=== PATIENT | female | born 1935 | race Two or more races ===

== ENCOUNTER 2019-06-15 16:27 | Inpatient (IN) | payer OTHER ==
--- NOTE | 2019-06-15 16:32 | PDOC ---
Rapid Medical Evaluation Time Seen by Provider: 06/15/19 16:29 Medical Evaluation: 06/15/19 16:29 I have performed a brief in-person evaluation of this patient. The patient presents with a chief complaint of: head trauma s/p fall while standing from toilet Pertinent physical exam findings: PMHx- alheimer's dementia, DM. Family denies LOC but pt does not answer I have ordered the following: CTH, labs, urine, ekg The patient will proceed to the ED for further evaluation. Discharge Disposition - Diagnosis Head trauma - Referrals - Patient Instructions - Post Discharge Activity
[2019-06-15 17:23] LABS: BASO % 0.5 % (0-2.0); EOS % 1.4 % (0-4.5); HEMATOCRIT 32.8 % (32.4-45.2); HEMOGLOBIN 10.9 GM/dL (10.7-15.3); LYMPH % 16.6 % (8-40); MCHC 33.1 g/dl (32.0-36.0); MEAN CELL VOLUME 87.6 fl (80-96); MEAN PLT VOLUME 8.6 fl (7.5-11.1); MONO % 6.5 % (3.8-10.2); PLATELET COUNT 311 K/MM3 (134-434); RBC 3.75 M/mm3 (3.60-5.2); WHITE BLOOD COUNT 9.7 K/mm3 (4.0-10.0)
[2019-06-15 17:32] LABS: EPI CELLS 4.3 /HPF (0-5/HPF); HYALINE CASTS 1 /lpf (0-8); URINE APPEARANCE CLEAR; URINE BACTERIA 12.9 /hpf (NEGATIVE); URINE BILIRUBIN NEGATIVE (NEGATIVE); URINE COLOR YELLOW; URINE GLUCOSE (UA) 3+ (NEGATIVE); URINE KETONE NEGATIVE (NEGATIVE); URINE LEUK ESTERASE 1+ (NEGATIVE); URINE NITRITE NEGATIVE (NEGATIVE); URINE PROTEIN NEGATIVE (NEGATIVE); URINE RBC 0 /hpf (0-4); URINE UROBILINOGEN 0.2 mg/dL (0.2-1.0); URINE WBC 11 /hpf (0-5)
[2019-06-15 17:36] LABS: INR 0.87 (0.83-1.09); PROTHROMBIN TIME (PATIENT) 10.3 SEC (9.7-13.0)
[2019-06-15 17:52] LABS: ALBUMIN 3.6 g/dl (3.4-5.0); BILIRUBIN,TOTAL 0.5 mg/dL (0.2-1); BLOOD UREA NITROGEN 42.5 mg/dL (7-18); CALCIUM 11.2 mg/dL (8.5-10.1); POTASSIUM 4.8 mmol/L (3.5-5.1); TOT PROT 8.1 g/dl (6.4-8.2)
--- NOTE | 2019-06-15 18:45 | PDOC ---
History of Present Illness - General Chief Complaint: Injury Stated Complaint: FALL/BLOOD SUGAR PROBLEM, DEMENTIA Time Seen by Provider: 06/15/19 16:29 - History of Present Illness Initial Comments: 06/15/19 18:48 84F with pmh of Alzheimer's, stroke and PA s/p bypass on Clopidogrel and pacemaker, presents to the ED after unwitnessed fall after getting up from the bathroom today. She has advanced dementia and doesn't even remember why she is here but her friends are here to help her remember. 06/15/19 19:06 Past History - Past Medical History Allergies/Adverse Reactions: Allergies Allergy/AdvReac Type Severity Reaction Status Date / Time No Allergy Information Allergy Verified 06/15/19 16:34 Available Home Medications: Ambulatory Orders Carvedilol 6.25 mg PO BID 06/15/19 Clopidogrel Bisulfate [Clopidogrel] 75 mg PO DAILY 06/15/19 Digoxin [Lanoxin -] 0.125 mg PO DAILY 06/15/19 Furosemide 20 mg PO DAILY 06/15/19 Glipizide 10 mg PO BID 06/15/19 Lisinopril 10 mg PO DAILY 06/15/19 Memantine HCl 5 mg PO HS 06/15/19 Multivitamin [Multiple Vitamins] 1 each PO DAILY 06/15/19 Simvastatin 20 mg PO HS 06/15/19 Cardiac Disorders: Yes (CHF, BYPASS ON PLAVIX) COPD: No Dementia: Yes Diabetes: Yes HTN: Yes Other medical history: ON PLAVIX - Surgical History Cardiac Surgery: Yes (BYPASS) - Suicide/Smoking/Psychosocial Hx Smoking History: Never smoked Information on smoking cessation initiated: No Hx Alcohol Use: No Drug/Substance Use Hx: No Review of Systems - Review of Systems Able to Perform ROS?: No (Dementia) *Physical Exam - Vital Signs Last Vital Signs Temp Pulse Resp BP Pulse Ox 98.7 F 107 H 18 123/69 98 06/15/19 16:30 06/15/19 16:30 06/15/19 16:30 06/15/19 16:30 06/15/19 16:30 - Physical Exam General Appearance: Yes: Nourished, Appropriately Dressed. No: Apparent Distress HEENT: positive: EOMI, SUJIT, Normal ENT Inspection Respiratory/Chest: positive: Lungs Clear, Normal Breath Sounds. negative: Chest Tender, Respiratory Distress Cardiovascular: positive: Regular Rhythm, Regular Rate, S1, S2 Gastrointestinal/Abdominal: positive: Normal Bowel Sounds, Flat, Soft. negative : Tender Musculoskeletal: positive: Normal Inspection, CVA Tenderness Extremity: positive: Normal Capillary Refill, Normal Inspection, Normal Range of Motion Integumentary: positive: Normal Color, Dry, Warm ED Treatment Course - LABORATORY CBC & Chemistry Diagram: 06/15/19 17:02 06/15/19 17:02 - ADDITIONAL ORDERS Additional order review: Laboratory Results 06/15/19 06/15/19 06/15/19 17:02 17:02 17:02 PT with INR 10.30 INR 0.87 Sodium 131 L Potassium 4.8 Chloride 91 L Carbon Dioxide 27 Anion Gap 14 BUN 42.5 H Creatinine 2.0 H Est GFR (CKD-EPI)AfAm 25.92 Est GFR (CKD-EPI)NonAf 22.36 Random Glucose 352 H Calcium 11.2 H Total Bilirubin 0.5 AST 28 ALT 19 Alkaline Phosphatase 103 Creatine Kinase 80 Troponin I 0.03 Total Protein 8.1 Albumin 3.6 Urine Color Yellow Urine Appearance Clear Urine pH 6.0 Ur Specific [place] 1.018 Urine Protein Negative Urine Glucose (UA) 3+ H Urine Ketones Negative Urine Blood Negative Urine Nitrite Negative Urine Bilirubin Negative Urine Urobilinogen 0.2 Ur Leukocyte Esterase 1+ H Urine WBC (Auto) 11 Urine RBC (Auto) 0 Urine Casts (Auto) 1 U Epithel Cells (Auto) 4.3 Urine Bacteria (Auto) 12.9 06/15/19 17:02 RBC 3.75 MCV 87.6 MCHC 33.1 RDW 13.0 MPV 8.6 Neutrophils % 75.0 Lymphocytes % 16.6 Monocytes % 6.5 Eosinophils % 1.4 Basophils % 0.5 - RADIOLOGY Radiology Studies Ordered: Category Date Time Status CERVICAL SPINE CT W/O CONTR [CT] Stat CT Scan 06/15/19 17:08 Completed Medical Decision Making - Medical Decision Making 06/15/19 18:58 84M with pmh of alzheimers, stroke and mi on Clopidogrel s/p pre-syncope/fall on the head. Ct head and neck negative for fracture or bleed. However patient will need repeat Ct head in 24h due to anticoagulation. Also patient has Pre-renal kidney injury which may be chronic. 06/15/19 19:07 EKG: Atrial sensed ventricular paced rhythm, Biventricular pacemaker detected. Rate: 100, ID: [id number], QRS: 122, QT/QTc: 378/487 Patient to be admitted to tele Obs. *DC/Admit/Observation/Transfer Diagnosis at time of Disposition: Head trauma - Discharge Dispostion Decision to Admit order: Yes - Referrals - Patient Instructions - Post Discharge Activity
--- NOTE | 2019-06-15 18:49 | PDOC ---
Attending Attestation - Resident Resident Name: Rigoberto Bui - ED Attending Attestation I have performed the following: I have examined & evaluated the patient, The case was reviewed & discussed with the resident, I agree w/resident's findings & plan, Exceptions are as noted - HPI HPI: 06/15/19 18:50 84yo F hx dementia, CAD, CHF, HTN, HL, DM presents to the ED after fall. History limited 2/2 pt's dementia. Per pt's family, pt was using the toilet and after she was done, she attempted to stand up from the toilet seat and fell over to the L side. The fall was witnessed by her friend who was in the bathroom with her. She states she does not know how she fell as there was nothing that she tripped on. The left side of her head struck the wall but she had no LOC, no other injuries. Pt takes plavix daily for CAD. Pt denies CP, SOB, headache, fever, chills, N/V/D, visual sxs, dizziness, focal weakness/numbness, abd pain, LE edema. - Physicial Exam PE: 06/15/19 18:53 GENERAL: Awake, alert, oriented to name, in no acute distress HEAD: No signs of trauma EYES: PERRLA, EOMI, sclera anicteric, conjunctiva clear ENT: Auricles normal inspection, hearing grossly normal, nares patent, oropharynx clear without exudates. Moist mucosa NECK: Normal ROM, supple, no lymphadenopathy, JVD, or masses LUNGS: Breath sounds equal, clear to auscultation bilaterally. No wheezes, and no crackles HEART: Regular rate and rhythm, normal S1 and S2, no murmurs, rubs or gallops ABDOMEN: Soft, nontender, normoactive bowel sounds. No guarding, no rebound. No masses EXTREMITIES: Normal range of motion, no edema. No clubbing or cyanosis. No cords, erythema, or tenderness NEUROLOGICAL: Normal speech, cranial nerves intact, equal strength and sensation b/l SKIN: Warm, Dry, normal turgor, no rashes or lesions noted. - Medical Decision Making 84yo F presents to the ED after a fall with head strike. It is unclear how the patient fell today - fall was witnessed and per witness there was nothing that triggered the patient to fall. Labs with elevated creatinine, no baseline to compare and pt/family are not sure about kidney function Initial CTH negative Plan for admission for possible pre-syncope/syncope and rpt CTH
[2019-06-15] MEDS ORDERED: PANTOPRAZOLE 20 MG TABLET (FP) PO ONE (20:28)
[2019-06-15] MEDS ORDERED: SODIUM CHLORIDE 1,000 ML IV SCH (20:30)
--- NOTE | 2019-06-15 20:32 | HP ---
CHIEF COMPLAINT: fall PCP: in [place] HISTORY OF PRESENT ILLNESS: Gloria Moran is an 84 year old female with a past medical history of Alzheimer's dementia, stroke, CO s/p bypass and pacemaker on Plavix, HTN, HLD, DM, CHF (unknown EF), who presented to the ED after having a fall. The patient is visiting from out of town and arrived 3 weeks ago to [place] from [place]. Today she was sitting on the toilet when she leaned to the left side and hit her head on the wall, denied falling to the floor. She denies standing up and falling, denies syncopal episode, denies LOC, denied prodromal dizziness, lightheadedness. She stated that she lost her balance and that is when she hit the wall. Sister at the bedside assisted in providing history. The patient had been taking all of her medication regularly without missing any doses, no recent medication changes, no changes in dietary habits, and has been consuming oral fluids adequately. As per the sister, the patient is currently at her mental baseline. The patient does not use any assistive devices for walking, however the sister states that she has to occasionally help the patient ambulate due to an unsteady gait. The patient denies any additional symptoms at the time of hitting her head and currently of any chest pain, shortness of breath, abdominal pain, nausea, vomiting, fever, chills, dizziness, lightheadedness, diarrhea, urinary symptoms of hesitancy, frequency, dysuria, numbness, tingling, weakness. The patient states that she does have a bit of pain at the site of the head hit , some gastrointestinal reflux symptoms, occasional constipation, and chronic back pain. ER course was notable for: (1) CT head with no acute intracranial pathology. Showing chronic microvascular changes, chronic R basal ganglia infarct, fluid/mucus in the R maxiallary sinus (2) CT cervical spine with multilevel degenerative disc changes, soft tissue calcifications, no acute fractures (3) Na 131, Cl 91, Hb 10.9, UA 3+ glucose, 1+ LE, 11 WBC, 12.9 bacteria Recent Travel: flew from [place] 3 weeks ago PAST MEDICAL HISTORY: as above PAST SURGICAL HISTORY: cardiac bypass Social History: Smoking: denies Alcohol: denies Drugs: denies Family History: denies significant family history Allergies No Allergy Information Available Allergy (Verified 06/15/19 16:34) HOME MEDICATIONS: Home Medications Medication Instructions Recorded Carvedilol 6.25 mg PO BID 06/15/19 Clopidogrel Bisulfate [Clopidogrel] 75 mg PO DAILY 06/15/19 Digoxin [Lanoxin -] 0.125 mg PO DAILY 06/15/19 Furosemide 20 mg PO DAILY 06/15/19 Glipizide 10 mg PO BID 06/15/19 Lisinopril 10 mg PO DAILY 06/15/19 Memantine HCl 5 mg PO HS 06/15/19 Multivitamin [Multiple Vitamins] 1 each PO DAILY 06/15/19 Simvastatin 20 mg PO HS 06/15/19 REVIEW OF SYSTEMS CONSTITUTIONAL: Absent: fever, chills, diaphoresis, generalized weakness, malaise, loss of appetite, weight change HEENT: Absent: nasal congestion, throat pain, throat swelling, difficulty swallowing , visual changes CARDIOVASCULAR: Absent: chest pain, syncope, palpitations, irregular heart rate, lightheadedness , RESPIRATORY: Absent: cough, shortness of breath, dyspnea with exertion, orthopnea, wheezing, GASTROINTESTINAL: reflux symptoms Absent: abdominal pain, abdominal distension, nausea, vomiting, diarrhea, constipation, GENITOURINARY: Absent: dysuria, frequency, urgency, hesitancy, hematuria, flank pain, MUSCULOSKELETAL: back pain Absent: myalgia, arthralgia, joint swelling, neck pain SKIN: Absent: rash, itching, pallor HEMATOLOGIC/IMMUNOLOGIC: Absent: easy bleeding, easy bruising, lymphadenopathy, frequent infections NEUROLOGIC: unsteady gait Absent: headache, focal weakness or paresthesias, dizziness, seizure, mental status changes, bladder or bowel incontinence PSYCHIATRIC: Absent: anxiety, depression, suicidal or homicidal ideation, hallucinations PHYSICAL EXAMINATION Vital Signs - 24 hr 06/15/19 06/15/19 16:30 19:17 Temperature 98.7 F Pulse Rate 107 H Pulse Rate [ 84 Apical] Respiratory 18 18 Rate Blood Pressure 123/69 Blood Pressure 124/63 [Right Arm] O2 Sat by Pulse 98 100 Oximetry (%) GENERAL: Awake, alert, and oriented to self, location (clinic), and year. HEAD: Noted small hematoma/bump on the L medial side of the head. EYES: Pupils equal, round and reactive to light, extraocular movements intact, sclera anicteric. EARS, NOSE, THROAT: Oropharynx clear without exudates. Dry mucous membranes. NECK: Normal range of motion, supple without lymphadenopathy, JVD. Noted thrill of carotid arteries, auscultated bruit. LUNGS: Breath sounds equal, clear to auscultation bilaterally. No wheezes, and no crackles. No accessory muscle use. HEART: Regular rate and rhythm, normal S1 and S2 with soft aortic systolic murmur. ABDOMEN: Soft, nontender, not distended, normoactive bowel sounds, no guarding, no rebound, no masses. MUSCULOSKELETAL: Normal range of motion at all joints. No bony deformities or tenderness. UPPER EXTREMITIES: 2+ pulses, warm, well-perfused. No cyanosis. No clubbing. No peripheral edema. LOWER EXTREMITIES: 1+ pulses, warm, well-perfused. No calf tenderness. No peripheral edema. NEUROLOGICAL: Cranial nerves II-XII intact. 5/5 muscle strength bilaterally upper and lower extremities. Sensation intact throughout to gross touch. Finger to nose intact bilaterally. PSYCHIATRIC: Cooperative. Good eye contact. Flat mood and affect. SKIN: Warm, dry, normal turgor, no rashes or lesions noted, normal capillary refill. Laboratory Results - last 24 hr 06/15/19 06/15/19 06/15/19 17:02 17:02 17:02 WBC 9.7 RBC 3.75 Hgb 10.9 Hct 32.8 MCV 87.6 MCH 29.0 MCHC 33.1 RDW 13.0 Plt Count 311 MPV 8.6 Absolute Neuts (auto) 7.2 Neutrophils % 75.0 Lymphocytes % 16.6 Monocytes % 6.5 Eosinophils % 1.4 Basophils % 0.5 Nucleated RBC % 0 PT with INR 10.30 INR 0.87 Sodium 131 L Potassium 4.8 Chloride 91 L Carbon Dioxide 27 Anion Gap 14 BUN 42.5 H Creatinine 2.0 H Est GFR (CKD-EPI)AfAm 25.92 Est GFR (CKD-EPI)NonAf 22.36 Random Glucose 352 H Calcium 11.2 H Total Bilirubin 0.5 AST 28 ALT 19 Alkaline Phosphatase 103 Creatine Kinase 80 Troponin I 0.03 Total Protein 8.1 Albumin 3.6 Urine Color Urine Appearance Urine pH Ur Specific [place] Urine Protein Urine Glucose (UA) Urine Ketones Urine Blood Urine Nitrite Urine Bilirubin Urine Urobilinogen Ur Leukocyte Esterase Urine WBC (Auto) Urine RBC (Auto) Urine Casts (Auto) U Epithel Cells (Auto) Urine Bacteria (Auto) Blood Type Antibody Screen 06/15/19 06/15/19 17:02 17:02 WBC RBC Hgb Hct MCV MCH MCHC RDW Plt Count MPV Absolute Neuts (auto) Neutrophils % Lymphocytes % Monocytes % Eosinophils % Basophils % Nucleated RBC % PT with INR INR Sodium Potassium Chloride Carbon Dioxide Anion Gap BUN Creatinine Est GFR (CKD-EPI)AfAm Est GFR (CKD-EPI)NonAf Random Glucose Calcium Total Bilirubin AST ALT Alkaline Phosphatase Creatine Kinase Troponin I Total Protein Albumin Urine Color Yellow Urine Appearance Clear Urine pH 6.0 Ur Specific [place] 1.018 Urine Protein Negative Urine Glucose (UA) 3+ H Urine Ketones Negative Urine Blood Negative Urine Nitrite Negative Urine Bilirubin Negative Urine Urobilinogen 0.2 Ur Leukocyte Esterase 1+ H Urine WBC (Auto) 11 Urine RBC (Auto) 0 Urine Casts (Auto) 1 U Epithel Cells (Auto) 4.3 Urine Bacteria (Auto) 12.9 Blood Type O POSITIVE Antibody Screen Negative EKG--> Paced rhythm, rate 100, Qtc 487 ASSESSMENT/PLAN: Gloria Moran is an 84 year old female with a past medical history of Alzheimer's dementia, stroke, CO s/p bypass and pacemaker on Plavix, HTN, HLD, DM, CHF (unknown EF) who is admitted after a fall for workup for causes of fall and monitoring of a head hit on Plavix. Fall HTN HLD DM CHF GERD CKD vs IVETTE CAD Anemia Fall - no hx of syncope and with patient's unsteady gait, multiple medications, elevated CRE, low Na, CHF, suspect a dehydration/hypovolemic cause for fall, r/ o syncopal cause as patient with dementia and fall unwitnessed - CT results as above - repeat head CT after 24 hours to assess for bleeds - gentle hydration until echo results returned to assess cardiac function - encourage oral intake - replete sodium and chloride - neurochecks - EKG with no acute changes - fall precautions - orthostatics - cardio consult for pacemaker interrogation - physical therapy - carotid doppler results showing plaques at proximal right internal carotid artery with stenosis 60-70% with prominent atheroclerotic plaques at the level of carotid bifurcations bilaterally, and antegrade flow of vertebral arteries - as per [employer], carotid stenosis is not a cause of vertigo or syncope and patient should be regarded as asymptomatic in setting of carotid stenosis. Patient however with history of stroke, but over the age of 70 increasing risk of perioperative risks of stroke or with stenting or endarterectomy and currently below 70% stenosis guidelines. likely needing medical management of stenosis and carotid plaques to continue Plavix and escalate dose of statin HTN - continue home medications - monitor vitals to prevent hypotension HLD - continue home simvastatin DM - BGM - ISS - levemir 10 units qhs - A1c CHF - echo to assess cardiac function - hold Lasix as patient appears volume depleted - digoxin level GERD - given one time dose of Protonix CKD vs IVETTE - no baseline of CRE - gentle hydration - renal/kidney U/s showing no hydronephrosis, apparent L atrophic kidney, R kidney borderline in size CAD - continue plavix - continue lipitor Anemia - unclear baseline of Hgb - Hgb 10.9 - reticulocytes, iron studies, ferritin FEN - NS at 50 cc/hr - continue to monitor electrolytes and replete as necessary, noted low Na and Cl - sodium/diabetic diet Prophylaxis - heparin 5000 units subq bid Code - full code STACEY ABDALLA DO - PGY-1 Visit type - Emergency Visit Emergency Visit: Yes ED Registration Date: 06/15/19 Care time: The patient presented to the Emergency Department on the above date and was hospitalized for further evaluation of their emergent condition. - New Patient This patient is new to me today: Yes Date on this admission: 06/16/19 - Critical Care Critical Care patient: No
[2019-06-15] MEDS ORDERED: PANTOPRAZOLE SODIUM 40 MG/100 ML BAG IVPB ONE ×2 (20:35→20:41)
[2019-06-15] MEDS ORDERED: PANTOPRAZOLE 40 MG TABLET (FP) PO ONE (20:37)
[2019-06-15] MEDS: CARVEDILOL 6.25 MG TABLET (FP) PO SCH (23:29)
[2019-06-15] MEDS: ATORVASTATIN CA 10 MG TABLET (FP) PO SCH (23:29)
[2019-06-15] MEDS: MEMANTINE HCL 5 MG TABLET (UD) PO SCH (23:29)
[2019-06-15] MEDS: INSULIN SLIDING SCALE (NOVOLOG) 1 VIAL SQ SCH (23:29)
--- NOTE | 2019-06-16 01:29 | PN ---
Teaching Attending Note Name of Resident: Curt Christy ATTENDING PHYSICIAN STATEMENT I saw and evaluated the patient. Chart, data , imaging reviewed. I reviewed the resident's note and discussed the case with the resident. I agree with the resident's findings and plan as documented. SUBJECTIVE: 84 year old female with a past medical history of Alzheimer's dementia, stroke, [place] s/p bypass and pacemaker on Plavix, HTN, HLD, DM, CHF (unknown EF), s/p cabg ? who presented to the hospital after having a fall- fell in restroom after using toilet. Hit head. Uncertain if LOC as patient has underlying dementia and poor informant. OBJECTIVE: Last Vital Signs Temp Pulse Resp BP Pulse Ox 98.7 F 84 18 124/63 100 06/15/19 16:30 06/15/19 19:17 06/15/19 19:17 06/15/19 19:17 06/15/19 19:17 gen-frail, nontoxic heent -no signs of trauma, nontender cv-s1+s2+rrr chest -clear, b/l breath sounds, anterior vertical scar abdomen-soft, nt, bs ext -no tenderness on palpation Abnormal Lab Results 06/15/19 06/15/19 17:02 17:02 Sodium 131 L Chloride 91 L BUN 42.5 H Creatinine 2.0 H Random Glucose 352 H Calcium 11.2 H Urine Glucose (UA) 3+ H Ur Leukocyte Esterase 1+ H head ct- neg for acute bleed or fracture ASSESSMENT AND PLAN: #s/p fall- no evidence of trauma on exam, head ct, c-spine negative for fractures. Cannot r/o syncope episode- may have been orthostatic vs cardiogenic given extensive cardiac history. -tele-obs -fall precautions -bed rest -cardiac consult- pacemaker interrogation -trend trops -check orthostatics -echo #Uncontrolled hyperglycemia -gentle IV fluid hydration -given underlying chf -novolog sliding scale -levemir 10 units qhs -send a1c -diabetic diet #CHF- obtain prior medical records -c/w bblocker, acei, digoxin home dose -send digoxin level in am -echo -avoid overaggressive hydration #CAD -c/w asa, plavix, statin dvt ppx- heparin sc
--- NOTE | 2019-06-16 01:54 | HP ---
CHIEF COMPLAINT: PCP: HISTORY OF PRESENT ILLNESS: ER course was notable for: (1) (2) (3) Recent Travel: PAST MEDICAL HISTORY: PAST SURGICAL HISTORY: Social History: Smoking: Alcohol: Drugs: Family History: Allergies No Allergy Information Available Allergy (Verified 06/15/19 16:34) HOME MEDICATIONS: Home Medications Medication Instructions Recorded Carvedilol 6.25 mg PO BID 06/15/19 Clopidogrel Bisulfate [Clopidogrel] 75 mg PO DAILY 06/15/19 Digoxin [Lanoxin -] 0.125 mg PO DAILY 06/15/19 Furosemide 20 mg PO DAILY 06/15/19 Glipizide 10 mg PO BID 06/15/19 Lisinopril 10 mg PO DAILY 06/15/19 Memantine HCl 5 mg PO HS 06/15/19 Multivitamin [Multiple Vitamins] 1 each PO DAILY 06/15/19 Simvastatin 20 mg PO HS 06/15/19 REVIEW OF SYSTEMS CONSTITUTIONAL: Absent: fever, chills, diaphoresis, generalized weakness, malaise, loss of appetite, weight change HEENT: Absent: rhinorrhea, nasal congestion, throat pain, throat swelling, difficulty swallowing, mouth swelling, ear pain, eye pain, visual changes CARDIOVASCULAR: Absent: chest pain, syncope, palpitations, irregular heart rate, lightheadedness , peripheral edema RESPIRATORY: Absent: cough, shortness of breath, dyspnea with exertion, orthopnea, wheezing, stridor, hemoptysis GASTROINTESTINAL: Absent: abdominal pain, abdominal distension, nausea, vomiting, diarrhea, constipation, melena, hematochezia GENITOURINARY: Absent: dysuria, frequency, urgency, hesitancy, hematuria, flank pain, genital pain MUSCULOSKELETAL: Absent: myalgia, arthralgia, joint swelling, back pain, neck pain SKIN: Absent: rash, itching, pallor HEMATOLOGIC/IMMUNOLOGIC: Absent: easy bleeding, easy bruising, lymphadenopathy, frequent infections ENDOCRINE: Absent: unexplained weight gain, unexplained weight loss, heat intolerance, cold intolerance NEUROLOGIC: Absent: headache, focal weakness or paresthesias, dizziness, unsteady gait, seizure, mental status changes, bladder or bowel incontinence PSYCHIATRIC: Absent: anxiety, depression, suicidal or homicidal ideation, hallucinations. PHYSICAL EXAMINATION Vital Signs - 24 hr 06/15/19 06/15/19 16:30 19:17 Temperature 98.7 F Pulse Rate 107 H Pulse Rate [ 84 Apical] Respiratory 18 18 Rate Blood Pressure 123/69 Blood Pressure 124/63 [Right Arm] O2 Sat by Pulse 98 100 Oximetry (%) GENERAL: Awake, alert, and fully oriented, in no acute distress. HEAD: Normal with no signs of trauma. EYES: Pupils equal, round and reactive to light, extraocular movements intact, sclera anicteric, conjunctiva clear. No lid lag. EARS, NOSE, THROAT: Ears normal, nares patent, oropharynx clear without exudates. Moist mucous membranes. NECK: Normal range of motion, supple without lymphadenopathy, JVD, or masses. LUNGS: Breath sounds equal, clear to auscultation bilaterally. No wheezes, and no crackles. No accessory muscle use. HEART: Regular rate and rhythm, normal S1 and S2 without murmur, rub or gallop. ABDOMEN: Soft, nontender, not distended, normoactive bowel sounds, no guarding, no rebound, no masses. No hepatomegaly or splenomegaly. MUSCULOSKELETAL: Normal range of motion at all joints. No bony deformities or tenderness. No CVA tenderness. UPPER EXTREMITIES: 2+ pulses, warm, well-perfused. No cyanosis. No clubbing. No peripheral edema. LOWER EXTREMITIES: 2+ pulses, warm, well-perfused. No calf tenderness. No peripheral edema. NEUROLOGICAL: Cranial nerves II-XII intact. Normal speech. Normal gait. PSYCHIATRIC: Cooperative. Good eye contact. Appropriate mood and affect. SKIN: Warm, dry, normal turgor, no rashes or lesions noted, normal capillary refill. Laboratory Results - last 24 hr 06/15/19 06/15/19 06/15/19 17:02 17:02 17:02 WBC 9.7 RBC 3.75 Hgb 10.9 Hct 32.8 MCV 87.6 MCH 29.0 MCHC 33.1 RDW 13.0 Plt Count 311 MPV 8.6 Absolute Neuts (auto) 7.2 Neutrophils % 75.0 Lymphocytes % 16.6 Monocytes % 6.5 Eosinophils % 1.4 Basophils % 0.5 Nucleated RBC % 0 PT with INR 10.30 INR 0.87 Sodium 131 L Potassium 4.8 Chloride 91 L Carbon Dioxide 27 Anion Gap 14 BUN 42.5 H Creatinine 2.0 H Est GFR (CKD-EPI)AfAm 25.92 Est GFR (CKD-EPI)NonAf 22.36 POC Glucometer Random Glucose 352 H Calcium 11.2 H Total Bilirubin 0.5 AST 28 ALT 19 Alkaline Phosphatase 103 Creatine Kinase 80 Troponin I 0.03 Total Protein 8.1 Albumin 3.6 Urine Color Urine Appearance Urine pH Ur Specific [place] Urine Protein Urine Glucose (UA) Urine Ketones Urine Blood Urine Nitrite Urine Bilirubin Urine Urobilinogen Ur Leukocyte Esterase Urine WBC (Auto) Urine RBC (Auto) Urine Casts (Auto) U Epithel Cells (Auto) Urine Bacteria (Auto) Blood Type Antibody Screen 06/15/19 06/15/19 06/15/19 17:02 17:02 23:05 WBC RBC Hgb Hct MCV MCH MCHC RDW Plt Count MPV Absolute Neuts (auto) Neutrophils % Lymphocytes % Monocytes % Eosinophils % Basophils % Nucleated RBC % PT with INR INR Sodium Potassium Chloride Carbon Dioxide Anion Gap BUN Creatinine Est GFR (CKD-EPI)AfAm Est GFR (CKD-EPI)NonAf POC Glucometer 190 Random Glucose Calcium Total Bilirubin AST ALT Alkaline Phosphatase Creatine Kinase Troponin I Total Protein Albumin Urine Color Yellow Urine Appearance Clear Urine pH 6.0 Ur Specific [place] 1.018 Urine Protein Negative Urine Glucose (UA) 3+ H Urine Ketones Negative Urine Blood Negative Urine Nitrite Negative Urine Bilirubin Negative Urine Urobilinogen 0.2 Ur Leukocyte Esterase 1+ H Urine WBC (Auto) 11 Urine RBC (Auto) 0 Urine Casts (Auto) 1 U Epithel Cells (Auto) 4.3 Urine Bacteria (Auto) 12.9 Blood Type O POSITIVE Antibody Screen Negative ASSESSMENT/PLAN: ATTENDING PHYSICIAN STATEMENT I saw and evaluated the patient. I reviewed the resident's note and discussed the case with the resident. I agree with the resident's findings and plan as documented. SUBJECTIVE: OBJECTIVE: ASSESSMENT AND PLAN:
[2019-06-16] MEDS: INSULIN SLIDING SCALE (NOVOLOG) 1 VIAL SQ SCH ×4 (06:20→22:19)
[2019-06-16 07:59] LABS: BASO % 0.4 % (0-2.0); EOS % 2.6 % (0-4.5); HEMATOCRIT 33.1 % (32.4-45.2); HEMOGLOBIN 10.9 GM/dL (10.7-15.3); LYMPH % 20.4 % (8-40); MCH 28.7 pg (25.7-33.7); MCHC 32.8 g/dl (32.0-36.0); MEAN CELL VOLUME 87.3 fl (80-96); MEAN PLT VOLUME 8.5 fl (7.5-11.1); MONO % 6.3 % (3.8-10.2); NEUT % 70.3 % (42.8-82.8); PLATELET COUNT 283 K/MM3 (134-434); RBC 3.79 M/mm3 (3.60-5.2); RDW 13.2 % (11.6-15.6); WHITE BLOOD COUNT 9.7 K/mm3 (4.0-10.0)
[2019-06-16 08:22] LABS: CREATININE 1.8 mg/dL (0.55-1.3); MAGNESIUM 1.7 mg/dL (1.8-2.4); POTASSIUM 4.5 mmol/L (3.5-5.1)
[2019-06-16] MEDS: CLOPIDOGREL BISULFATE 75 MG TABLET (FP) PO SCH (09:49)
[2019-06-16] MEDS: ASPIRIN 81 MG CHEWABLE TABLETS PO SCH (09:49)
[2019-06-16] MEDS: DIGOXIN 0.125 MG TABLET (FP) PO SCH (09:49)
[2019-06-16] MEDS: MULTIVITAMINS (DAILY MVI) TABLET (FP) PO SCH (09:50)
[2019-06-16] MEDS: CARVEDILOL 6.25 MG TABLET (FP) PO SCH ×2 (09:50→22:17)
--- NOTE | 2019-06-16 09:54 | CON.CARD ---
Consult Consult Specialty:: Cardiology Referred by:: Dr. Parekh Reason for Consultation:: fall - History of Present Illness Chief Complaint: fall at home History of Present Illness: Gloria Moran is an 84 year old female with a past medical history of Alzheimer's dementia, stroke, ND s/p bypass and pacemaker on Plavix, HTN, HLD, DM, CHF (unknown EF), who presented to the ED after having a fall. The patient is visiting from out of town and arrived 3 weeks ago to [place] from [place]. Today she was sitting on the toilet when she leaned to the left side and hit her head on the wall, denied falling to the floor. She denies standing up and falling, denies syncopal episode, denies LOC, denied prodromal dizziness, lightheadedness. She stated that she lost her balance and that is when she hit the wall. Sister at the bedside assisted in providing history. The patient had been taking all of her medication regularly without missing any doses, no recent medication changes, no changes in dietary habits, and has been consuming oral fluids adequately. As per the sister, the patient is currently at her mental baseline. The patient does not use any assistive devices for walking, however the sister states that she has to occasionally help the patient ambulate due to an unsteady gait. The patient denies any additional symptoms at the time of hitting her head and currently of any chest pain, shortness of breath, abdominal pain, nausea, vomiting, fever, chills, dizziness, lightheadedness, diarrhea, urinary symptoms of hesitancy, frequency, dysuria, numbness, tingling, weakness. The patient states that she does have a bit of pain at the site of the head hit , some gastrointestinal reflux symptoms, occasional constipation, and chronic back pain. ER course was notable for: (1) CT head with no acute intracranial pathology. Showing chronic microvascular changes, chronic R basal ganglia infarct, fluid/mucus in the R maxiallary sinus (2) CT cervical spine with multilevel degenerative disc changes, soft tissue calcifications, no acute fractures (3) Na 131, Cl 91, Hb 10.9, UA 3+ glucose, 1+ LE, 11 WBC, 12.9 bacteria Recent Travel: flew from [place] 3 weeks ago - History Source History Provided By: Patient, Medical Record - Past Medical History Cardio/Vascular: Yes: CAD, Other (PPM) Pulmonary: No: Asthma, Bronchitis, Cancer, COPD, O2 Dependent, Pneumonia, Previously Intubated, Pulmonary Embolus, Pulmonary Fibrosis, Sleep Apnea, Other Gastrointestinal: No: Ascites, Cancer, Constipation, Crohn's Disease, Diverticulitis, Diverticulosis, Esophageal Varices, Gastritis, GERD, GI Bleed, Hemorrhoids, Hiatal Hernia, Inflamatory Bowel Disease, Irritable Bowel Disease, Pancreatitis, Peptic Ulcer Disease, Ulcerative Colitis, Other Hepatobiliary: No: Cirrhosis, Cholelithiasis, Cholecystitis, Choledocholithiasis , Hepatitis A, Hepatitis B, Hepatitis C, Other Renal/: No: Renal Failure, Renal Inusuff, BPH, Cancer, Hematuria, Hemodialysis , Neurogenic Bladder, Renal Calculi, UTI, Other Reproductive: No: Ectopic , Endometriosis, Fibroids, PID, Polycystic Ovary Syndrome, Postmenopausal, Other ...: No - Alcohol/Substance Use Hx Alcohol Use: No - Smoking History Smoking history: Never smoked Have you smoked in the past 12 months: No - Social History History of Recent Travel: Yes ([place]) Home Medications - Allergies Allergies/Adverse Reactions: Allergies Allergy/AdvReac Type Severity Reaction Status Date / Time No Allergy Information Allergy Verified 06/15/19 16:34 Available - Home Medications Home Medications: Ambulatory Orders Carvedilol 6.25 mg PO BID 06/15/19 Clopidogrel Bisulfate [Clopidogrel] 75 mg PO DAILY 06/15/19 Digoxin [Lanoxin -] 0.125 mg PO DAILY 06/15/19 Furosemide 20 mg PO DAILY 06/15/19 Glipizide 10 mg PO BID 06/15/19 Lisinopril 10 mg PO DAILY 06/15/19 Memantine HCl 5 mg PO HS 06/15/19 Multivitamin [Multiple Vitamins] 1 each PO DAILY 06/15/19 Simvastatin 20 mg PO HS 06/15/19 Family Disease History - Family Disease History Family History: Unremarkable (no early CAD) Review of Systems - Review of Systems Constitutional: reports: No Symptoms Eyes: reports: No Symptoms HENT: reports: No Symptoms Neck: reports: No Symptoms Respiratory: reports: SOB on Exertion (chronic HERNANDEZ) Gastrointestinal: reports: No Symptoms Genitourinary: reports: No Symptoms Breasts: reports: No Symptoms Reported Musculoskeletal: reports: No Symptoms Integumentary: reports: No Symptoms Neurological: reports: Other (fall) - Risk Factors Known Risk Factors: Yes: Other (known CAD, PPM, Cardiomyopathy) Vital Signs: Vital Signs Temperature 98.1 F 06/16/19 09:31 Pulse Rate 92 H 06/16/19 09:49 Respiratory Rate 19 06/16/19 09:31 Blood Pressure 116/65 06/16/19 09:49 O2 Sat by Pulse Oximetry (%) 100 06/16/19 06:50 Respiratory: Yes: CTA Bilaterally Gastrointestinal: Yes: Soft Cardiovascular: Yes: Regular Rate and Rhythm JVD: No Carotid Bruit: No Heart Sounds: Yes: S1, S2 Edema: No Neurological: Yes: Alert, Oriented - Other Data Labs, Other Data: CBC, BMP 06/16/19 06:30 06/16/19 06:30 INR, PTT INR 0.87 (0.83-1.09) 06/15/19 17:02 Troponin, BNP 06/15/19 17:02 Troponin I 0.03 Troponin, BNP 06/15/19 17:02 Troponin I 0.03 Echo: Pending Prior Cardiac Procedures: CABG Imaging - Results Chest X-ray: Image Reviewed EKG: Image Reviewed (As-AGRONOMY ADVISOR on tele) Assessment/Plan IMP: Fall-circumstances unclear at this time Renal insufficiency: ?acute, ?pre-renal Hyponatremia Known CAD, ? Cardiomyopathy (home med regimen suggestive) H/o PPM REC: 1. Tele 2. Echo 3. Will try to interrogate device while inpatient 4. Hydrate and work up of renal insuffici, hyponatremia as per primary team 5. Check orthostatics and adjust meds if found to be orthostatic will follow.
[2019-06-16] MEDS ORDERED: HEPARIN NA (PORCINE) 5,000 UNITS/ML 1ML VIAL SQ SCH (10:00)
[2019-06-16] MEDS ORDERED: FUROSEMIDE 20 MG TABLET (FP) PO SCH (10:00)
[2019-06-16] MEDS ORDERED: DIGOXIN 0.125 MG TABLET (FP) PO SCH (10:00)
[2019-06-16] MEDS ORDERED: LISINOPRIL 10 MG TABLET (FP) PO SCH (10:00)
--- NOTE | 2019-06-16 10:48 | ECHO ---
Name: CLARISSE MONTES DE OCA Exam:Adult Echocardiogram Study Date: 06/16/2019 08:40 AM Age: 84 yrs Reason For Study: SYNCOPE Height: 59 in Weight: 80 lb BSA: 1.2 m2 MMode/2D Measurements & Calculations IVSd: 0.77 cm Ao root diam: 2.5 cm LVIDd: 3.8 cm LA dimension: 2.1 cm LVIDs: 2.8 cm LVPWd: 0.99 cm EDV(Teich): 63.4 ml LVOT diam: 2.0 cm ESV(Teich): 30.7 ml LAV (MOD-bp): 26.1 ml Doppler Measurements & Calculations MV V2 max: 183.2 cm/sec MV E max manuel: 75.9 cm/sec MV max P.4 mmHg MV A max manuel: 138.9 cm/sec MV V2 mean: 93.0 cm/sec MV E/A: 0.55 MV mean P.2 mmHg MV dec time: 0.15 sec MV V2 VTI: 33.7 cm Ao V2 max: 173.7 cm/sec LV V1 max P.9 mmHg Ao max P.1 mmHg LV V1 max: 84.9 cm/sec BRIAN(V,D): 1.5 cm2 TR max manuel: 257.9 cm/sec PA V2 max: 95.0 cm/sec TR max P.6 mmHg PA max P.6 mmHg Med Peak E' Manuel: 4.2 cm/sec Med E/e': 17.9 Lat Peak E' Manuel: 3.9 cm/sec Lat E/e': 19.4 Left Ventricle Ejection Fraction = 40-45%. Septal motion is consistent with conduction abnormality. Right Ventricle There is a pacemaker lead in the right ventricle. The right ventricle is normal in size and function. Atria Normal left and right atrial size and function. Mitral Valve There is moderate to severe mitral annular calcification. Functional mitral valve stenosis secondary to MAC. Tricuspid Valve The tricuspid valve is normal in structure and function. There is mild tricuspid regurgitation. Right ventricular systolic pressure is normal. Aortic Valve There is mild aortic sclerosis.;. No hemodynamically significant valvular aortic stenosis. No aortic regurgitation is present. Pulmonic Valve The pulmonic valve is not well seen, but is grossly normal. There is no pulmonic valvular stenosis. T race pulmonic valvular regurgitation. Great Vessels The aortic root is normal size. Pericardium/Pleura There is no pericardial effusion. Interpretation Summary Ejection Fraction = 40-45%. Septal motion is consistent with conduction abnormality. There is a pacemaker lead in the right ventricle. The right ventricle is normal in size and function. There is moderate to severe mitral annular calcification. Functional mitral valve stenosis secondary to MAC There is mild tricuspid regurgitation. Right ventricular systolic pressure is normal. There is mild aortic sclerosis.; MD Nader Starkey 06/16/2019 10:47 AM
[2019-06-16] MEDS: SODIUM CHLORIDE 1,000 ML IV SCH (12:50)
--- NOTE | 2019-06-16 13:51 | EKG ---
Test Reason : Blood Pressure : / mmHG Vent. Rate : 097 BPM Atrial Rate : 097 BPM P-R Int : 156 ms QRS Dur : 120 ms QT Int : 378 ms P-R-T Axes : 057 -85 063 degrees QTc Int : 480 ms Atrial-sensed ventricular-paced rhythm Biventricular pacemaker detected ABNORMAL ECG WHEN COMPARED WITH ECG OF 15-JUN-2019 16:38, VENT. RATE HAS DECREASED BY 3 BPM Confirmed by SHERINE LYON, LYLE ([id number]) on 06/16/2019 1:50:58 PM Referred By: CARMEL HOGAN DR Confirmed By:LYLE BASURTO MD
--- NOTE | 2019-06-16 14:10 | EKG ---
Test Reason : Blood Pressure : / mmHG Vent. Rate : 100 BPM Atrial Rate : 100 BPM P-R Int : 148 ms QRS Dur : 122 ms QT Int : 378 ms P-R-T Axes : 063 -78 079 degrees QTc Int : 487 ms Atrial-sensed ventricular-paced rhythm Biventricular pacemaker detected ABNORMAL ECG NO PREVIOUS ECGS AVAILABLE Confirmed by LYLE BASURTO MD ([id number]) on 06/16/2019 2:09:39 PM Referred By: Confirmed By:LYLE BASURTO MD
--- NOTE | 2019-06-16 15:18 | PN ---
Physical Exam: SUBJECTIVE: Patient seen and examined. Pt was sitting in bed eating with no acute complaints. OBJECTIVE: Vital Signs Period Temp Pulse Resp BP Sys/Esparza Pulse Ox Last 24 Hr 96.5 F-98.7 F 82-107 14-20 91-140/44-79 98-100 GENERAL: The patient is awake, alert, AAOx2, in no acute distress. HEAD: Normal with no signs of trauma. EYES: PERRL, extraocular movements intact, sclera anicteric, conjunctiva clear. No ptosis. ENT: Ears normal, nares patent, oropharynx clear without exudates, mucous membranes are dry LUNGS: Breath sounds equal, clear to auscultation bilaterally, no wheezes, no crackles, no accessory muscle use. HEART: Regular rate and rhythm, S1, S2 without murmur, rub or gallop. ABDOMEN: Soft, nontender, nondistended, normoactive bowel sounds, no guarding, no rebound, no hepatosplenomegaly, no masses. EXTREMITIES: 2+ pulses, warm, well-perfused, no edema. NEUROLOGICAL: Cranial nerves II through XII grossly intact. Normal speech, gait not observed. imcomplete exam due to poor compliance Laboratory Results - last 24 hr 06/15/19 06/15/19 06/15/19 06:30 17:02 17:02 WBC 9.7 RBC 3.75 Hgb 10.9 Hct 32.8 MCV 87.6 MCH 29.0 MCHC 33.1 RDW 13.0 Plt Count 311 MPV 8.6 Absolute Neuts (auto) 7.2 Neutrophils % 75.0 Lymphocytes % 16.6 Monocytes % 6.5 Eosinophils % 1.4 Basophils % 0.5 Nucleated RBC % 0 Retic Count PT with INR INR Sodium 131 L Potassium 4.8 Chloride 91 L Carbon Dioxide 27 Anion Gap 14 BUN 42.5 H Creatinine 2.0 H Est GFR (CKD-EPI)AfAm 25.92 Est GFR (CKD-EPI)NonAf 22.36 POC Glucometer Random Glucose 352 H Hemoglobin A1c % Calcium 11.2 H Magnesium Iron TIBC Iron Saturation Unsaturated IBC Ferritin Total Bilirubin 0.5 AST 28 ALT 19 Alkaline Phosphatase 103 Creatine Kinase 80 Troponin I 0.03 Total Protein 8.1 Albumin 3.6 Urine Color Urine Appearance Urine pH Ur Specific Jasper Urine Protein Urine Glucose (UA) Urine Ketones Urine Blood Urine Nitrite Urine Bilirubin Urine Urobilinogen Ur Leukocyte Esterase Urine WBC (Auto) Urine RBC (Auto) Urine Casts (Auto) U Epithel Cells (Auto) Urine Bacteria (Auto) Ur Random Creatinine Ur Random Sodium Ur Random Potassium Ur Random Chloride Ur Random Urea Nitrogn Digoxin Blood Type O POSITIVE Antibody Screen 06/15/19 06/15/19 06/15/19 17:02 17:02 17:02 WBC RBC Hgb Hct MCV MCH MCHC RDW Plt Count MPV Absolute Neuts (auto) Neutrophils % Lymphocytes % Monocytes % Eosinophils % Basophils % Nucleated RBC % Retic Count PT with INR 10.30 INR 0.87 Sodium Potassium Chloride Carbon Dioxide Anion Gap BUN Creatinine Est GFR (CKD-EPI)AfAm Est GFR (CKD-EPI)NonAf POC Glucometer Random Glucose Hemoglobin A1c % Calcium Magnesium Iron TIBC Iron Saturation Unsaturated IBC Ferritin Total Bilirubin AST ALT Alkaline Phosphatase Creatine Kinase Troponin I Total Protein Albumin Urine Color Yellow Urine Appearance Clear Urine pH 6.0 Ur Specific Jasper 1.018 Urine Protein Negative Urine Glucose (UA) 3+ H Urine Ketones Negative Urine Blood Negative Urine Nitrite Negative Urine Bilirubin Negative Urine Urobilinogen 0.2 Ur Leukocyte Esterase 1+ H Urine WBC (Auto) 11 Urine RBC (Auto) 0 Urine Casts (Auto) 1 U Epithel Cells (Auto) 4.3 Urine Bacteria (Auto) 12.9 Ur Random Creatinine Ur Random Sodium Ur Random Potassium Ur Random Chloride Ur Random Urea Nitrogn Digoxin Blood Type O POSITIVE Antibody Screen Negative 06/15/19 06/16/19 06/16/19 23:05 06:18 06:30 WBC 9.7 RBC 3.79 Hgb 10.9 Hct 33.1 MCV 87.3 MCH 28.7 MCHC 32.8 RDW 13.2 Plt Count 283 MPV 8.5 Absolute Neuts (auto) 6.8 Neutrophils % 70.3 Lymphocytes % 20.4 D Monocytes % 6.3 Eosinophils % 2.6 D Basophils % 0.4 Nucleated RBC % 0 Retic Count PT with INR INR Sodium Potassium Chloride Carbon Dioxide Anion Gap BUN Creatinine Est GFR (CKD-EPI)AfAm Est GFR (CKD-EPI)NonAf POC Glucometer 190 80 Random Glucose Hemoglobin A1c % Calcium Magnesium Iron TIBC Iron Saturation Unsaturated IBC Ferritin Total Bilirubin AST ALT Alkaline Phosphatase Creatine Kinase Troponin I Total Protein Albumin Urine Color Urine Appearance Urine pH Ur Specific [place] Urine Protein Urine Glucose (UA) Urine Ketones Urine Blood Urine Nitrite Urine Bilirubin Urine Urobilinogen Ur Leukocyte Esterase Urine WBC (Auto) Urine RBC (Auto) Urine Casts (Auto) U Epithel Cells (Auto) Urine Bacteria (Auto) Ur Random Creatinine Ur Random Sodium Ur Random Potassium Ur Random Chloride Ur Random Urea Nitrogn Digoxin Blood Type Antibody Screen 06/16/19 06/16/19 06/16/19 06:30 06:30 06:30 WBC RBC Hgb Hct MCV MCH MCHC RDW Plt Count MPV Absolute Neuts (auto) Neutrophils % Lymphocytes % Monocytes % Eosinophils % Basophils % Nucleated RBC % Retic Count 1.20 PT with INR INR Sodium 134 L Potassium 4.5 Chloride 98 Carbon Dioxide 25 Anion Gap 12 BUN 43.0 H Creatinine 1.8 H Est GFR (CKD-EPI)AfAm 29.44 Est GFR (CKD-EPI)NonAf 25.40 POC Glucometer Random Glucose 72 L Hemoglobin A1c % Calcium 11.0 H Magnesium 1.7 L Iron 34 L TIBC 311 Iron Saturation 10 L Unsaturated IBC 277 H Ferritin 34.8 Total Bilirubin AST ALT Alkaline Phosphatase Creatine Kinase Troponin I Total Protein Albumin Urine Color Urine Appearance Urine pH Ur Specific Jasper Urine Protein Urine Glucose (UA) Urine Ketones Urine Blood Urine Nitrite Urine Bilirubin Urine Urobilinogen Ur Leukocyte Esterase Urine WBC (Auto) Urine RBC (Auto) Urine Casts (Auto) U Epithel Cells (Auto) Urine Bacteria (Auto) Ur Random Creatinine Ur Random Sodium Ur Random Potassium Ur Random Chloride Ur Random Urea Nitrogn Digoxin Blood Type Antibody Screen 06/16/19 06/16/19 06/16/19 06:30 06:30 09:45 WBC RBC Hgb Hct MCV MCH MCHC RDW Plt Count MPV Absolute Neuts (auto) Neutrophils % Lymphocytes % Monocytes % Eosinophils % Basophils % Nucleated RBC % Retic Count PT with INR INR Sodium Potassium Chloride Carbon Dioxide Anion Gap BUN Creatinine Est GFR (CKD-EPI)AfAm Est GFR (CKD-EPI)NonAf POC Glucometer Random Glucose Hemoglobin A1c % 15.8 H Calcium Magnesium Iron TIBC Iron Saturation Unsaturated IBC Ferritin Total Bilirubin AST ALT Alkaline Phosphatase Creatine Kinase Troponin I Total Protein Albumin Urine Color Urine Appearance Urine pH Ur Specific Jasper Urine Protein Urine Glucose (UA) Urine Ketones Urine Blood Urine Nitrite Urine Bilirubin Urine Urobilinogen Ur Leukocyte Esterase Urine WBC (Auto) Urine RBC (Auto) Urine Casts (Auto) U Epithel Cells (Auto) Urine Bacteria (Auto) Ur Random Creatinine 48.0 Ur Random Sodium 30 L Ur Random Potassium 39.0 Ur Random Chloride 45 L Ur Random Urea Nitrogn 479 Digoxin 0.94 Blood Type Antibody Screen 06/16/19 06/16/19 06/16/19 09:45 09:45 12:09 WBC RBC Hgb Hct MCV MCH MCHC RDW Plt Count MPV Absolute Neuts (auto) Neutrophils % Lymphocytes % Monocytes % Eosinophils % Basophils % Nucleated RBC % Retic Count PT with INR INR Sodium Potassium Chloride Carbon Dioxide Anion Gap BUN Creatinine Est GFR (CKD-EPI)AfAm Est GFR (CKD-EPI)NonAf POC Glucometer 116 Random Glucose Hemoglobin A1c % Calcium Magnesium Iron TIBC Iron Saturation Unsaturated IBC Ferritin Total Bilirubin AST ALT Alkaline Phosphatase Creatine Kinase Troponin I Total Protein Albumin Urine Color Urine Appearance Urine pH Ur Specific [place] Urine Protein Urine Glucose (UA) Urine Ketones Urine Blood Urine Nitrite Urine Bilirubin Urine Urobilinogen Ur Leukocyte Esterase Urine WBC (Auto) Urine RBC (Auto) Urine Casts (Auto) U Epithel Cells (Auto) Urine Bacteria (Auto) Ur Random Creatinine Cancelled Ur Random Sodium Cancelled Ur Random Potassium Ur Random Chloride Ur Random Urea Nitrogn Digoxin Blood Type Antibody Screen 06/16/19 12:15 WBC RBC Hgb Hct MCV MCH MCHC RDW Plt Count MPV Absolute Neuts (auto) Neutrophils % Lymphocytes % Monocytes % Eosinophils % Basophils % Nucleated RBC % Retic Count PT with INR INR Sodium Potassium Chloride Carbon Dioxide Anion Gap BUN Creatinine Est GFR (CKD-EPI)AfAm Est GFR (CKD-EPI)NonAf POC Glucometer Random Glucose Hemoglobin A1c % Calcium Magnesium Iron TIBC Iron Saturation Unsaturated IBC Ferritin Total Bilirubin AST ALT Alkaline Phosphatase Creatine Kinase Troponin I 0.03 Total Protein Albumin Urine Color Urine Appearance Urine pH Ur Specific Jasper Urine Protein Urine Glucose (UA) Urine Ketones Urine Blood Urine Nitrite Urine Bilirubin Urine Urobilinogen Ur Leukocyte Esterase Urine WBC (Auto) Urine RBC (Auto) Urine Casts (Auto) U Epithel Cells (Auto) Urine Bacteria (Auto) Ur Random Creatinine Ur Random Sodium Ur Random Potassium Ur Random Chloride Ur Random Urea Nitrogn Digoxin Blood Type Antibody Screen Active Medications Generic Name Dose Route Start Last Admin Trade Name Freq PRN Reason Stop Dose Admin Aspirin 81 mg 06/16/19 10:00 06/16/19 09:49 Asa - PO 81 mg DAILY BRANDYN Administration Atorvastatin Calcium 10 mg 06/15/19 22:00 06/15/19 23:29 Lipitor - PO 10 mg HS BRANDYN Administration Carvedilol 6.25 mg 06/15/19 22:00 06/16/19 09:50 Coreg - PO 6.25 mg BID BRANDYN Administration Clopidogrel Bisulfate 75 mg 06/16/19 10:00 06/16/19 09:49 Plavix - PO 75 mg DAILY BRANDYN Administration Digoxin 0.125 mg 06/16/19 10:00 06/16/19 09:49 Lanoxin - PO 0.125 mg Q36H BRANDYN Administration Furosemide 20 mg 06/16/19 10:00 Lasix - PO DAILY [facility] Heparin Sodium (Porcine) 5,000 unit 06/16/19 10:00 06/16/19 09:50 Heparin - SQ 5,000 unit BID BRANDYN Administration Sodium Chloride 1,000 mls @ 75 mls/hr 06/16/19 10:45 06/16/19 12:50 Normal Saline - IV 75 mls/hr ASDIR [facility] Administration Insulin Aspart 1 vial 06/15/19 22:00 06/16/19 12:10 Novolog Vial Sliding Scale - SQ Not Given [facility] Protocol Insulin Detemir 5 units 06/16/19 22:00 Levemir Vial SQ HS [facility] Lisinopril 10 mg 06/16/19 10:00 06/16/19 09:49 Prinivil PO 10 mg DAILY [facility] Administration Memantine 5 mg 06/15/19 22:00 06/15/19 23:29 Namenda - PO 5 mg HS BRANDYN Administration Multivitamins/Minerals/Vitamin C 1 tab 06/16/19 10:00 06/16/19 09:50 Tab-A-Vit - PO 1 tab DAILY [facility] Administration Potassium Phos/Sodium Phos 1 packet 06/17/19 10:00 Phos-Nak Packet - PO DAILY [facility] ASSESSMENT/PLAN: Fall - no hx of syncope and with patient's unsteady gait, multiple medications, elevated CRE, low Na, CHF, suspect a dehydration/hypovolemic cause for fall, r/ o syncopal cause as patient with dementia and fall unwitnessed EKG with no acute changes orthostatics -> IVS NS 75mls/hr echo showed an EF of 40-45%, pacemaker lead in RV. Mod-severe Mitral annular calcification. MS 2/2 mitral annular calcification. Mild TR, Mild cardio will follow up for pacemaker interrogation physical therapy fall precautions HTN continue home medications monitor vitals to prevent hypotension HLD continue home simvastatin DM Blood glucose monitoring pt on ISS levemir 10 units qhs decreased to 5 units due to severe drop in glucose from 300s to 72 A1c 15.8% CHF echoas described above hold Lasix as patient appears volume depleted digoxin level 0.94 CKD vs IVETTE no baseline of CRE gentle hydration renal/kidney U/s showing no hydronephrosis, apparent L atrophic kidney, R kidney borderline in size Urine electrolytes as noted above in labs CAD continue plavix and lipitor FEN - NS at 75 cc/hr - continue to monitor electrolytes and replete as necessary, noted low Na and Cl - sodium/diabetic diet Prophylaxis - heparin 5000 units subq bid Visit type - Emergency Visit Emergency Visit: Yes ED Registration Date: 06/15/19 Care time: The patient presented to the Emergency Department on the above date and was hospitalized for further evaluation of their emergent condition. - New Patient This patient is new to me today: Yes Date on this admission: 06/16/19 - Critical Care Critical Care patient: No - Discharge Referral Referred to [facility] Med [facility] No ATTENDING PHYSICIAN STATEMENT I saw and evaluated the patient. I reviewed the resident's note and discussed the case with the resident. I agree with the resident's findings and plan as documented. SUBJECTIVE: OBJECTIVE: ASSESSMENT AND PLAN:
--- NOTE | 2019-06-16 18:24 | PN ---
Teaching Attending Note Name of Resident: Carolyn Garcia ATTENDING PHYSICIAN STATEMENT I saw and evaluated the patient. I reviewed the resident's note and discussed the case with the resident. I agree with the resident's findings and plan as documented. SUBJECTIVE: not able to obtain hx due to dementia, but denies any pain OBJECTIVE: NAD , awake, alert, does not know her age. nopt cooperative . round equal reactive pupils. no facial droop. . dry MM Cv: RRR Lungs: CTAB Ext : No edema or erythema Abd: soft, NT, ND , N LBS ASSESSMENT AND PLAN: 84 y/o lady with h/o HTN, s/p PPM , CHF, DM , CVA, dementia, [place], bypass, HLP, CABG, and other medical problems who came from home after an unwitnessed fall 1- Unwitnessed fall: can't r/o syncope - cont tele - echo reviewed. - initial ortho VS showed significant drop with standing, repeat this afternoon with No orthostatic drop - signs of volume depletion might explain orthostatic hypotension ( IVETTE, hyponatremia, dry MM). will hold lasix and lisinopril and start gentle hydraiton and assess tomorrow - PPM to be interrogated this evening - EKG reviewed and L axis, paced rhythm, and QTC of 487. 2- IVETTE ? CKD. IVF for now and hold lasix 3- DM : A1c of 15, hypoglycemia this am was probably due to levemir while glipizide was in her system. - will decrease levemir to 5 and cont SSI . - at dc will not resume glipizide 4- h/o systolic CHF, volume depleted now. - hold lasix and lisinopril - cont dig , level noted HLOC DVT Px : heparin
[2019-06-16] MEDS ORDERED: INSULIN (LEVEMIR) 100 UNITS/ML UNITS SQ SCH ×2 (22:00)
[2019-06-16] MEDS: ATORVASTATIN CA 10 MG TABLET (FP) PO SCH (22:17)
[2019-06-16] MEDS: HEPARIN NA (PORCINE) 5,000 UNITS/ML 1ML VIAL SQ SCH (22:17)
[2019-06-16] MEDS: MEMANTINE HCL 5 MG TABLET (UD) PO SCH (22:18)
[2019-06-17] MEDS: SODIUM CHLORIDE 1,000 ML IV SCH ×2 (02:00→11:09)
[2019-06-17] MEDS: HEPARIN NA (PORCINE) 5,000 UNITS/ML 1ML VIAL SQ SCH ×3 (06:05→21:20)
[2019-06-17 08:39] LABS: BLOOD UREA NITROGEN 36.5 mg/dL (7-18); CALCIUM 10.2 mg/dL (8.5-10.1); CREATININE 1.4 mg/dL (0.55-1.3); POTASSIUM 4.6 mmol/L (3.5-5.1)
[2019-06-17 08:46] LABS: BASO % 0.3 % (0-2.0); EOS % 0.1 % (0-4.5); HEMATOCRIT 32.4 % (32.4-45.2); HEMOGLOBIN 10.5 GM/dL (10.7-15.3); LYMPH % 5.2 % (8-40); MCH 28.4 pg (25.7-33.7); MCHC 32.6 g/dl (32.0-36.0); MEAN CELL VOLUME 87.4 fl (80-96); MEAN PLT VOLUME 8.9 fl (7.5-11.1); NEUT % 91.4 % (42.8-82.8); PLATELET COUNT 313 K/MM3 (134-434); WHITE BLOOD COUNT 12.9 K/mm3 (4.0-10.0)
--- NOTE | 2019-06-17 09:14 | PN ---
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, Physician Chief Complaint: syncope vs sz History of Present Illness: sleeping without communication today--not her baseline per family in the room no ros today no h/o cigs - Current Medication List Current Medications: Active Medications Aspirin (Asa -) 81 mg PO DAILY [facility] Last Admin: 06/16/19 09:49 Dose: 81 mg Atorvastatin Calcium (Lipitor -) 10 mg PO HS [facility] Last Admin: 06/16/19 22:17 Dose: 10 mg Carvedilol (Coreg -) 6.25 mg PO BID [facility] Last Admin: 06/16/19 22:17 Dose: 6.25 mg Clopidogrel Bisulfate (Plavix -) 75 mg PO DAILY [facility] Last Admin: 06/16/19 09:49 Dose: 75 mg Digoxin (Lanoxin -) 0.125 mg PO Q36H [facility] Last Admin: 06/16/19 09:49 Dose: 0.125 mg Heparin Sodium (Porcine) (Heparin -) 5,000 unit SQ TID [facility] Last Admin: 06/17/19 06:05 Dose: 5,000 unit Sodium Chloride (Normal Saline -) 1,000 mls @ 75 mls/hr IV ASDIR [facility] Last Admin: 06/17/19 02:00 Dose: 75 mls/hr Insulin Aspart (Novolog Vial Sliding Scale -) 1 vial SQ [facility]; Protocol Last Admin: 06/16/19 22:19 Dose: 2 units Insulin Detemir (Levemir Vial) 5 units SQ [facility] Last Admin: 06/16/19 22:18 Dose: 5 units Memantine (Namenda -) 5 mg PO [facility] Last Admin: 06/16/19 22:18 Dose: 5 mg Multivitamins/Minerals/Vitamin C (Tab-A-Vit -) 1 tab PO DAILY [facility] Last Admin: 06/16/19 09:50 Dose: 1 tab Potassium Phos/Sodium Phos (Phos-Nak Packet -) 1 packet PO DAILY [facility] - Objective Vital Signs: Vital Signs Temperature 97.9 F 06/17/19 06:00 Pulse Rate 94 H 06/17/19 06:00 Respiratory Rate 18 06/17/19 06:00 Blood Pressure 157/79 06/17/19 06:00 O2 Sat by Pulse Oximetry (%) 98 06/17/19 06:00 Constitutional: Yes: No Distress, Calm Eyes: No: Sclera Icterus HENT: No: Nasal Congestion Cardiovascular: Yes: Regular Rate and Rhythm, S1, S2, Other (PMI non diplaced). No: JVD, Gallop, Murmur Respiratory: Yes: CTA Bilaterally (not taking deep breaths). No: Accessory Muscle Use, Rales, Wheezes Gastrointestinal: Yes: Normal Bowel Sounds, Soft. No: Tenderness Musculoskeletal: Yes: Other (No kyphosis) Extremities: No: Cold, Cyanosis Edema: No Integumentary: No: Jaundice Neurological: No: Alert, Oriented (x3), Seizure Psychiatric: No: Agitated Labs: CBC, BMP 06/17/19 07:00 06/17/19 07:00 INR, PTT INR 0.87 (0.83-1.09) 06/15/19 17:02 Assessment/Plan Echo: EF 40-45%, abn septal motion c/w aberrance conduction. nl RV. functional mitral stenosis sec to MAC. no . tele: sinus tach (hr 100s) with bi-V pacing; bursts of wide complex tach (brief runs) at slightly higher HR than sinus IMP: -Fall-circumstances unclear: was sitting on the toilet when she leaned to the left side and hit her head on the wall. CT with lacunar infarct, ? new vs chronic per neuro consult, ? sz and now post-ictal. -Cardiomyopathy, EF 40-45%, h/o syst CHF -paroxysms wide complex tach--reviewed with EP, likely paroxysmal atrial tach/ PSVT (not suspicious for fib/flutter) -s/p BiV-ICD, normal function on company check here ([facility]) -Renal insufficiency: ?acute, ?pre-renal -Hyponatremia -Known CAD, s/p [place] and CABG--no signs ACS here REC: -sz precautions, meds per neuro -stroke w/u, mgmt per neuro -Tele to continue -hypoNa and IVETTE improved with IVF (baseline creat not known) -mildly orthostatic here (100 supine, 91 standing), meds to be adjusted. -cont carvedilol low dose (home regimen) 6.25 bid--continue same (also for PSVT control) -given LV syst dysfunction on echo, will resume lisinopril once renal fxn stabilized. plan to change 10mg to 5 bid to minimize risks of orthostasis
[2019-06-17] MEDS: INSULIN SLIDING SCALE (NOVOLOG) 1 VIAL SQ SCH ×4 (10:10→21:22)
[2019-06-17 10:45] LABS: ANISOCYTOSIS 0; MACROCYTOSIS 0; PLATELET ESTIMATE NORMAL
--- NOTE | 2019-06-17 11:38 | CON.NEURO ---
Consult - Past Medical History Cardio/Vascular: Yes: CAD, Other (PPM) Pulmonary: No: Asthma, Bronchitis, Cancer, COPD, O2 Dependent, Pneumonia, Previously Intubated, Pulmonary Embolus, Pulmonary Fibrosis, Sleep Apnea, Other Gastrointestinal: No: Ascites, Cancer, Constipation, Crohn's Disease, Diverticulitis, Diverticulosis, Esophageal Varices, Gastritis, GERD, GI Bleed, Hemorrhoids, Hiatal Hernia, Inflamatory Bowel Disease, Irritable Bowel Disease, Pancreatitis, Peptic Ulcer Disease, Ulcerative Colitis, Other Hepatobiliary: No: Cirrhosis, Cholelithiasis, Cholecystitis, Choledocholithiasis , Hepatitis A, Hepatitis B, Hepatitis C, Other Renal/: No: Renal Failure, Renal Inusuff, BPH, Cancer, Hematuria, Hemodialysis , Neurogenic Bladder, Renal Calculi, UTI, Other ...: No - Alcohol/Substance Use Hx Alcohol Use: No - Smoking History Smoking history: Never smoked Have you smoked in the past 12 months: No - Social History History of Recent Travel: Yes ([place]) Home Medications - Allergies Allergies/Adverse Reactions: Allergies Allergy/AdvReac Type Severity Reaction Status Date / Time No Allergy Information Allergy Verified 06/15/19 16:34 Available - Home Medications Home Medications: Ambulatory Orders Carvedilol 6.25 mg PO BID 06/15/19 Clopidogrel Bisulfate [Clopidogrel] 75 mg PO DAILY 06/15/19 Digoxin [Lanoxin -] 0.125 mg PO DAILY 06/15/19 Furosemide 20 mg PO DAILY 06/15/19 Glipizide 10 mg PO BID 06/15/19 Lisinopril 10 mg PO DAILY 06/15/19 Memantine HCl 5 mg PO HS 06/15/19 Multivitamin [Multiple Vitamins] 1 each PO DAILY 06/15/19 Simvastatin 20 mg PO HS 06/15/19 Physical Exam-Neuro Vital Signs: Vital Signs Temperature 97.9 F 06/17/19 06:00 Pulse Rate 94 H 06/17/19 06:00 Respiratory Rate 18 06/17/19 06:00 Blood Pressure 157/79 06/17/19 06:00 O2 Sat by Pulse Oximetry (%) 98 06/17/19 06:00 Labs: CBC, BMP 06/17/19 07:00 06/17/19 07:00 INR, PTT INR 0.87 (0.83-1.09) 06/15/19 17:02 Assessment/Plan cc Facial twitching HPI 84 louise fernandez female history of Dementia, Stroke, [place] ,CABG,Pacemaker, HTN,HLD ,DM,CHF. Patient presented to hospital for fall. Patient has history of stroke, not clear what is her baseline. Apparently she had episode of staring episode and left facial twiching with tongue bite. Patient is not able to provide any history and history was obtained from nursing staff and chart. Patient is on statin, plavix. PAST MEDICAL HISTORY: as above PAST SURGICAL HISTORY: cardiac bypass Social History: Smoking: denies Alcohol: denies Drugs: denies Family History: denies significant family history Allergies No Allergy Information Available Allergy (Verified 06/15/19 16:34) HOME MEDICATIONS: Home Medications Medication Instructions Recorded Carvedilol 6.25 mg PO BID 06/15/19 Clopidogrel Bisulfate [Clopidogrel] 75 mg PO DAILY 06/15/19 Digoxin [Lanoxin -] 0.125 mg PO DAILY 06/15/19 Furosemide 20 mg PO DAILY 06/15/19 Glipizide 10 mg PO BID 06/15/19 Lisinopril 10 mg PO DAILY 06/15/19 Memantine HCl 5 mg PO HS 06/15/19 Multivitamin [Multiple Vitamins] 1 each PO DAILY 06/15/19 Simvastatin 20 mg PO HS 06/15/19 ROS,FH,SH NEUROLOGICAL EXAMINATION Alert oriented x 0, patient has kept eye closed nad withdrawing to pain. there is left face palsy and left side is moving less pupisl reactive , rest of exam is not possible ct head showed right basal ganglia lacunar stroke Assessment/plan 1. 84 year old female history of dementia, cad, cabg, s/p pacemaker. Patient presnted with fall. Patient has normal ct head and old irght BG lacunar stroke, on exam patient has left sided hemiparesis and also found to have left facial twitching and lip bite I suspect patient have focal seizure and she may be post ictal Plan: Suggest to start keppra 500 mg iv bid and later can be reduced to 250 mg iv/po bid - eeg - continue current supportive care - repeat ct head as it is not clear if she has new stroke or old findings Thanking you so much Blade Starr MD
[2019-06-17] MEDS: ASPIRIN 81 MG CHEWABLE TABLETS PO SCH (11:53)
[2019-06-17] MEDS: CARVEDILOL 6.25 MG TABLET (FP) PO SCH ×2 (11:53→21:21)
[2019-06-17] MEDS: NAPH,MB-DB/K PH,MBDB POWDER PACKET PO SCH (11:54)
[2019-06-17] MEDS: CLOPIDOGREL BISULFATE 75 MG TABLET (FP) PO SCH (11:54)
[2019-06-17] MEDS: MULTIVITAMINS (DAILY MVI) TABLET (FP) PO SCH (11:54)
[2019-06-17] MEDS: levETIRAcetam 500 MG/5 ML INJECTION VIAL IVPB SCH ×2 (11:58→21:20)
--- NOTE | 2019-06-17 12:21 | PN ---
Teaching Attending Note Name of Resident: Tee Myers ATTENDING PHYSICIAN STATEMENT I saw and evaluated the patient. I reviewed the resident's note and discussed the case with the resident. I agree with the resident's findings and plan as documented. SUBJECTIVE: unable to obtain hx from patient. says she has no pain . RN noted blood ion her lip, but not witnessed to bite her lip. yesterday afternoon , witnessed to have episodes of staring fro few seconds each . OBJECTIVE: seen at 9 am NAD , sleeping , answered few questions with eyes closed , then stopped. round equal reactive pupils. no facial droop. dry MM . blood on lower lip Cv: RRR Lungs: CTAB anteriorly Ext : No edema or erythema Abd: soft, distended. bladder is palpable just below the umbillicus Neuro: EOMI, round pupils, no facil droop. does not cooperate with strength or sensation exam ASSESSMENT AND PLAN: 84 y/o lady with h/o HTN, s/p PPM , CHF, DM , ? CVA, dementia, [place], bypass, HLP, CABG, and other medical problems who came from home after an unwitnessed fall 1- Unwitnessed fall: possible seizures vs orthostatic hypotension - cont tele . - PPM interrogated with no events - cont IVF for orthostatic hypotension and volume depletion 2- IVETTE : cont IVF . cr responded to IVF 3- Possible focal seizures: - appreciate Dr. Starr - started on keppra - EEG pending 4- Infarcts on CT scan of head. likely new stroke - can't do MRI - repeat CT of head ordered - cont ASa, started here - tele - speech - CUS with possible 60-70 % stenosis of the R proximal carotid - per neuro note , has L sided weakness. family declines any weakness in past 3- Uncontrolled DM: high sugar this am that was not treated with SSI . AG is clibming - repeat Stat BMP - treat with novolog - increase HS levemir to 10 4- h/o systolic CHF, volume depleted now. EF 40-45% - hold lasix and lisinopril ( when lisinopril is resumed, it will be 5 mg BID, maybe lasix dose could be decreased too) - cont dig 4- prolonged QTc : avoid prolonging agents 5- distended abd, palpable blader. will do bladder scan due to suspicion for urinary retention HLOC DVT Px : heparin
--- NOTE | 2019-06-17 12:31 | PN ---
Physical Exam: SUBJECTIVE: Patient seen and examined. Pt. is lethargic, motions to her abdomen when asking about pain however unable to answer questions. Hari smith Pt. had seizure activity this AM (absent stares for a few seconds) and then again (left leg twitching for 10 seconds) in the early afternoon. OBJECTIVE: Vital Signs Period Temp Pulse Resp BP Sys/Esparza Pulse Ox Last 24 Hr 97.9 F-98.4 F 85-96 14-18 123-157/47-84 98-98 GENERAL: The patient is awake, alert, and fully oriented, in no acute distress. HEAD: Normal with no signs of trauma. EYES: PERRL, extraocular movements intact, sclera anicteric, conjunctiva clear. No ptosis. ENT: Ears normal, nares patent, oropharynx clear without exudates, moist mucous membranes. NECK: Trachea midline, full range of motion, supple. LUNGS: Breath sounds equal, clear to auscultation bilaterally, no wheezes, no crackles, no accessory muscle use. HEART: Regular rate and rhythm, S1, S2 without murmur, rub or gallop. ABDOMEN: Soft, nontender, nondistended, normoactive bowel sounds, no guarding, no rebound, no hepatosplenomegaly, no masses. EXTREMITIES: 2+ pulses, warm, well-perfused, no edema. NEUROLOGICAL: Cranial nerves II through XII grossly intact. Normal speech, gait not observed. PSYCH: Normal mood, normal affect. SKIN: Warm, dry, normal turgor, no rashes or lesions noted Laboratory Results - last 24 hr 06/16/19 06/16/19 06/16/19 12:15 17:27 22:15 WBC RBC Hgb Hct MCV MCH MCHC RDW Plt Count MPV Absolute Neuts (auto) Neutrophils % Neutrophils % (Manual) Band Neutrophils % Lymphocytes % Lymphocytes % (Manual) Monocytes % Monocytes % (Manual) Eosinophils % Eosinophils % (Manual) Basophils % Basophils % (Manual) Myelocytes % (Man) Promyelocytes % (Man) Blast Cells % (Manual) Nucleated RBC % Metamyelocytes Hypochromia Platelet Estimate Polychromasia Poikilocytosis Anisocytosis Microcytosis Macrocytosis Sodium Potassium Chloride Carbon Dioxide Anion Gap BUN Creatinine Est GFR (CKD-EPI)AfAm Est GFR (CKD-EPI)NonAf POC Glucometer 201 196 Random Glucose Fasting Glucose Calcium Troponin I 0.03 06/17/19 06/17/19 06/17/19 06:01 07:00 07:00 WBC 12.9 H RBC 3.70 Hgb 10.5 L Hct 32.4 MCV 87.4 MCH 28.4 MCHC 32.6 RDW 13.0 Plt Count 313 MPV 8.9 Absolute Neuts (auto) 11.8 H Neutrophils % 91.4 H D Neutrophils % (Manual) 91.1 H Band Neutrophils % 0.0 Lymphocytes % 5.2 L D Lymphocytes % (Manual) 4.9 L Monocytes % 3.0 L Monocytes % (Manual) 4 Eosinophils % 0.1 D Eosinophils % (Manual) 0.0 Basophils % 0.3 Basophils % (Manual) 0.0 Myelocytes % (Man) 0 Promyelocytes % (Man) 0 Blast Cells % (Manual) 0 Nucleated RBC % 0 Metamyelocytes 0 Hypochromia 0 Platelet Estimate Normal Polychromasia 0 Poikilocytosis 0 Anisocytosis 0 Microcytosis 0 Macrocytosis 0 Sodium 137 Potassium 4.6 Chloride 98 Carbon Dioxide 23 Anion Gap 16 BUN 36.5 H Creatinine 1.4 H Est GFR (CKD-EPI)AfAm 39.89 Est GFR (CKD-EPI)NonAf 34.42 POC Glucometer 412 Random Glucose 445 H* Fasting Glucose 445 H* Calcium 10.2 H Troponin I 06/17/19 11:02 WBC RBC Hgb Hct MCV MCH MCHC RDW Plt Count MPV Absolute Neuts (auto) Neutrophils % Neutrophils % (Manual) Band Neutrophils % Lymphocytes % Lymphocytes % (Manual) Monocytes % Monocytes % (Manual) Eosinophils % Eosinophils % (Manual) Basophils % Basophils % (Manual) Myelocytes % (Man) Promyelocytes % (Man) Blast Cells % (Manual) Nucleated RBC % Metamyelocytes Hypochromia Platelet Estimate Polychromasia Poikilocytosis Anisocytosis Microcytosis Macrocytosis Sodium Potassium Chloride Carbon Dioxide Anion Gap BUN Creatinine Est GFR (CKD-EPI)AfAm Est GFR (CKD-EPI)NonAf POC Glucometer 374 Random Glucose Fasting Glucose Calcium Troponin I Active Medications Current Medications Aspirin (Asa -) 81 mg PO DAILY [facility] Last Admin: 06/17/19 11:53 Dose: Not Given Atorvastatin Calcium (Lipitor -) 10 mg PO HS [facility] Last Admin: 06/16/19 22:17 Dose: 10 mg Carvedilol (Coreg -) 6.25 mg PO BID [facility] Last Admin: 06/17/19 11:53 Dose: Not Given Clopidogrel Bisulfate (Plavix -) 75 mg PO DAILY [facility] Last Admin: 06/17/19 11:54 Dose: Not Given Digoxin (Lanoxin -) 0.125 mg PO Q36H [facility] Last Admin: 06/16/19 09:49 Dose: 0.125 mg Heparin Sodium (Porcine) (Heparin -) 5,000 unit SQ TID [facility] Last Admin: 06/17/19 06:05 Dose: 5,000 unit Sodium Chloride (Normal Saline -) 1,000 mls @ 75 mls/hr IV ASDIR [facility] Last Admin: 06/17/19 11:09 Dose: Not Given Insulin Aspart (Novolog Vial Sliding Scale -) 1 vial SQ [facility]; Protocol Last Admin: 06/17/19 11:07 Dose: 10 units Insulin Detemir (Levemir Vial) 5 units SQ HS [facility] Last Admin: 06/16/19 22:18 Dose: 5 units Levetiracetam (Keppra Injection -) 500 mg IVPB BID [facility] Last Admin: 06/17/19 11:58 Dose: 500 mg Memantine (Namenda -) 5 mg PO HS [facility] Last Admin: 06/16/19 22:18 Dose: 5 mg Multivitamins/Minerals/Vitamin C (Tab-A-Vit -) 1 tab PO DAILY [facility] Last Admin: 06/17/19 11:54 Dose: Not Given Potassium Phos/Sodium Phos (Phos-Nak Packet -) 1 packet PO DAILY [facility] Last Admin: 06/17/19 11:54 Dose: Not Given ASSESSMENT/PLAN: ATTENDING PHYSICIAN STATEMENT I saw and evaluated the patient. I reviewed the resident's note and discussed the case with the resident. I agree with the resident's findings and plan as documented. SUBJECTIVE: OBJECTIVE: ASSESSMENT AND PLAN:
[2019-06-17 15:04] LABS: BLOOD UREA NITROGEN 31.1 mg/dL (7-18); CALCIUM 10.6 mg/dL (8.5-10.1); CREATININE 1.3 mg/dL (0.55-1.3); POTASSIUM 3.4 mmol/L (3.5-5.1)
[2019-06-17 15:28] LABS: URINE APPEARANCE Clear; URINE BILIRUBIN Negative (NEGATIVE); URINE COLOR Yellow; URINE GLUCOSE (UA) 2+ (NEGATIVE); URINE KETONE 1+ (NEGATIVE); URINE LEUK ESTERASE Negative (NEGATIVE); URINE NITRITE Negative (NEGATIVE); URINE PROTEIN Negative (NEGATIVE); URINE UROBILINOGEN 0.2 mg/dL (0.2-1.0)
[2019-06-17 15:30] LABS: EPI CELLS 0.2 /HPF (0-5/HPF); HYALINE CASTS 0.35 /lpf (0-8); URINE BACTERIA 0.2 /hpf (NEGATIVE); URINE RBC 22.9 /hpf (0-4); URINE WBC 0.3 /hpf (0-5)
[2019-06-17] MEDS: DIGOXIN 0.125 MG TABLET (FP) PO SCH (21:21)
[2019-06-17] MEDS: ATORVASTATIN CA 10 MG TABLET (FP) PO SCH (21:22)
[2019-06-17] MEDS: MEMANTINE HCL 5 MG TABLET (UD) PO SCH (21:22)
[2019-06-17] MEDS: INSULIN (LEVEMIR) 100 UNITS/ML UNITS SQ SCH ×2 (21:23→21:36)
[2019-06-18] MEDS: INSULIN SLIDING SCALE (NOVOLOG) 1 VIAL SQ SCH ×4 (06:14→21:19)
[2019-06-18] MEDS: HEPARIN NA (PORCINE) 5,000 UNITS/ML 1ML VIAL SQ SCH ×3 (06:14→21:26)
[2019-06-18] MEDS: SODIUM CHLORIDE 1,000 ML IV SCH ×2 (06:46→14:46)
[2019-06-18 10:25] LABS: BLOOD UREA NITROGEN 32.4 mg/dL (7-18); CREATININE 1.4 mg/dL (0.55-1.3); MAGNESIUM 1.5 mg/dL (1.8-2.4); PHOSPHOROUS 2.3 mg/dL (2.5-4.9)
--- NOTE | 2019-06-18 11:04 | PN ---
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, Physician Chief Complaint: syncope vs sz History of Present Illness: sleeping. not communicative no cigs - Current Medication List Current Medications: Active Medications Aspirin (Asa -) 81 mg PO DAILY [facility] Last Admin: 06/17/19 11:53 Dose: Not Given Atorvastatin Calcium (Lipitor -) 10 mg PO HS [facility] Last Admin: 06/17/19 21:22 Dose: Not Given Carvedilol (Coreg -) 6.25 mg PO BID [facility] Last Admin: 06/17/19 21:21 Dose: Not Given Clopidogrel Bisulfate (Plavix -) 75 mg PO DAILY [facility] Last Admin: 06/17/19 11:54 Dose: Not Given Digoxin (Lanoxin -) 0.125 mg PO Q36H [facility] Last Admin: 06/17/19 21:21 Dose: Not Given Heparin Sodium (Porcine) (Heparin -) 5,000 unit SQ TID [facility] Last Admin: 06/18/19 06:14 Dose: 5,000 unit Sodium Chloride (Normal Saline -) 1,000 mls @ 75 mls/hr IV ASDIR [facility] Last Admin: 06/18/19 06:46 Dose: 75 mls/hr Insulin Aspart (Novolog Vial Sliding Scale -) 1 vial SQ [facility]; Protocol Last Admin: 06/18/19 06:14 Dose: 2 units Insulin Detemir (Levemir Vial) [address] [facility] Last Admin: 06/17/19 21:36 Dose: Not Given Levetiracetam (Keppra Injection -) 500 mg IVPB BID [facility] Last Admin: 06/17/19 21:20 Dose: 500 mg Memantine (Namenda -) [address] [facility] Last Admin: 06/17/19 21:22 Dose: Not Given Multivitamins/Minerals/Vitamin C (Tab-A-Vit -) 1 tab PO DAILY [facility] Last Admin: 06/17/19 11:54 Dose: Not Given Potassium Phos/Sodium Phos (Phos-Nak Packet -) 1 packet PO DAILY [facility] Last Admin: 06/17/19 11:54 Dose: Not Given - Objective Vital Signs: Vital Signs Temperature 98.1 F 06/18/19 06:00 Pulse Rate 89 06/18/19 06:00 Respiratory Rate 16 06/18/19 06:00 Blood Pressure 106/70 06/18/19 06:00 O2 Sat by Pulse Oximetry (%) 98 06/18/19 05:05 Constitutional: Yes: No Distress, Calm Eyes: No: Sclera Icterus HENT: No: Nasal Congestion Cardiovascular: Yes: Regular Rate and Rhythm, S1, S2, Other (PMI non diplaced). No: Gallop, Murmur Respiratory: Yes: Regular, CTA Bilaterally (not deep breaths). No: Accessory Muscle Use Gastrointestinal: Yes: Normal Bowel Sounds, Soft. No: Tenderness Musculoskeletal: Yes: Other (No kyphosis) Extremities: No: Cold, Cyanosis Edema: No Integumentary: No: Jaundice Neurological: No: Alert, Oriented (x3), Seizure Psychiatric: No: Agitated Labs: CBC, BMP 06/18/19 09:25 INR, PTT INR 0.87 (0.83-1.09) 06/15/19 17:02 Assessment/Plan Echo: EF 40-45%, abn septal motion c/w aberrance conduction. nl RV. functional mitral stenosis sec to MAC. no . tele: NSR, biV paced. freq paroysms of wide complex tach with consistent p waves and A:V not dissociated--likely atrial tach IMP: -Fall while seated on the toilet: suspected sz with post-ictal state, per neuro. -lacunar infarct, ? new vs chronic per dr fraga review of images -Cardiomyopathy, EF 40-45%, h/o syst CHF -paroxysms wide complex tach--reviewed with EP, likely paroxysmal atrial tach/ PSVT (not suspicious for fib/flutter) -s/p BiV-ICD, normal function on company check here ([facility]) -Renal insufficiency: ?acute, ?pre-renal--improved -Hyponatremia -Known CAD, s/p DE and CABG--no signs ACS here REC: -sz precautions, meds per neuro -stroke w/u, mgmt per neuro -Tele to continue -hypoNa and IVETTE improved with IVF (baseline creat not known)--decr rate to 50 cc /hr given chf risks -mildly orthostatic here (100 supine, 91 standing), meds adjusted (below) -incr carvedilol to 9.35 bid (also for PSVT control)--consider change to metoprolol if frequent PAT runs and/or low bp limits carvedilol dosing -given LV syst dysfunction on echo, will resume lower dose lisinopril later if adequate bp room on carvedilol (renal fxn now stabilized)
[2019-06-18] MEDS ORDERED: CARVEDILOL 3.125 MG TABLET (FP) PO SCH (11:05)
[2019-06-18 11:06] LABS: BASO % 0.2 % (0-2.0); EOS % 0.1 % (0-4.5); HEMATOCRIT 28.2 % (32.4-45.2); HEMOGLOBIN 9.3 GM/dL (10.7-15.3); LYMPH % 7.9 % (8-40); MCH 29.1 pg (25.7-33.7); MCHC 32.9 g/dl (32.0-36.0); MEAN CELL VOLUME 88.3 fl (80-96); MEAN PLT VOLUME 8.6 fl (7.5-11.1); MONO % 4.7 % (3.8-10.2); NEUT % 87.1 % (42.8-82.8); PLATELET COUNT 253 K/MM3 (134-434); RBC 3.19 M/mm3 (3.60-5.2); RDW 13.4 % (11.6-15.6); WHITE BLOOD COUNT 12.8 K/mm3 (4.0-10.0)
[2019-06-18] MEDS: CLOPIDOGREL BISULFATE 75 MG TABLET (FP) PO SCH (11:38)
[2019-06-18] MEDS: CARVEDILOL 6.25 MG TABLET (FP) PO SCH ×2 (11:38→11:39)
[2019-06-18] MEDS: MULTIVITAMINS (DAILY MVI) TABLET (FP) PO SCH (11:38)
[2019-06-18] MEDS: ASPIRIN 81 MG CHEWABLE TABLETS PO SCH (11:39)
[2019-06-18] MEDS: NAPH,MB-DB/K PH,MBDB POWDER PACKET PO SCH (11:39)
[2019-06-18] MEDS: levETIRAcetam 500 MG/5 ML INJECTION VIAL IVPB SCH ×2 (11:39→21:26)
--- NOTE | 2019-06-18 14:20 | PN ---
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 (short form) - Note 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: Subjective: she denies any pain, has no fever or chills. denies any SOB. family and RN reported a 10 second episode where royer turned her head to the L and had shaking, without being conscious during it. Objective: Vital Signs: Last Vital Signs Temp Pulse Resp BP Pulse Ox 98.1 F 89 16 106/70 98 06/18/19 06:00 06/18/19 06:00 06/18/19 06:00 06/18/19 06:00 06/18/19 05:05 Laboratory Results - last 24 hr 06/17/19 06/17/19 06/17/19 12:07 13:00 17:03 WBC RBC Hgb Hct MCV MCH MCHC RDW Plt Count MPV Absolute Neuts (auto) Neutrophils % Lymphocytes % Monocytes % Eosinophils % Basophils % Nucleated RBC % Sodium 139 Potassium 3.4 L Chloride 105 Carbon Dioxide 24 Anion Gap 10 BUN 31.1 H Creatinine 1.3 Est GFR (CKD-EPI)AfAm 43.63 Est GFR (CKD-EPI)NonAf 37.64 POC Glucometer 117 Random Glucose 193 H Calcium 10.6 H Phosphorus Magnesium Urine Color Yellow Urine Appearance Clear Urine pH 6.0 Ur Specific [place] 1.010 Urine Protein Negative Urine Glucose (UA) 2+ H Urine Ketones 1+ H Urine Blood 2+ H Urine Nitrite Negative Urine Bilirubin Negative Urine Urobilinogen 0.2 Ur Leukocyte Esterase Negative Urine WBC (Auto) 0.3 Urine RBC (Auto) 22.9 Urine Casts (Auto) 0.35 U Epithel Cells (Auto) 0.2 Urine Bacteria (Auto) 0.2 06/17/19 06/18/19 06/18/19 21:19 01:25 06:13 WBC RBC Hgb Hct MCV MCH MCHC RDW Plt Count MPV Absolute Neuts (auto) Neutrophils % Lymphocytes % Monocytes % Eosinophils % Basophils % Nucleated RBC % Sodium Potassium Chloride Carbon Dioxide Anion Gap BUN Creatinine Est GFR (CKD-EPI)AfAm Est GFR (CKD-EPI)NonAf POC Glucometer 122 157 200 Random Glucose Calcium Phosphorus Magnesium Urine Color Urine Appearance Urine pH Ur Specific [place] Urine Protein Urine Glucose (UA) Urine Ketones Urine Blood Urine Nitrite Urine Bilirubin Urine Urobilinogen Ur Leukocyte Esterase Urine WBC (Auto) Urine RBC (Auto) Urine Casts (Auto) U Epithel Cells (Auto) Urine Bacteria (Auto) 09/08/19 09/08/19 09/08/19 09:25 09:25 12:10 WBC 12.8 H RBC 3.19 L Hgb 9.3 L Hct 28.2 L MCV 88.3 MCH 29.1 MCHC 32.9 RDW 13.4 Plt Count 253 MPV 8.6 Absolute Neuts (auto) 11.2 H Neutrophils % 87.1 H Lymphocytes % 7.9 L D Monocytes % 4.7 Eosinophils % 0.1 Basophils % 0.2 Nucleated RBC % 0 Sodium 142 Potassium 4.0 Chloride 109 H Carbon Dioxide 23 Anion Gap 11 BUN 32.4 H Creatinine 1.4 H Est GFR (CKD-EPI)AfAm 39.89 Est GFR (CKD-EPI)NonAf 34.42 POC Glucometer 277 Random Glucose 306 H Calcium 10.0 Phosphorus 2.3 L Magnesium 1.5 L Urine Color Urine Appearance Urine pH Ur Specific [place] Urine Protein Urine Glucose (UA) Urine Ketones Urine Blood Urine Nitrite Urine Bilirubin Urine Urobilinogen Ur Leukocyte Esterase Urine WBC (Auto) Urine RBC (Auto) Urine Casts (Auto) U Epithel Cells (Auto) Urine Bacteria (Auto) Physical Exam: NAD , awake, responsive , answers all questions . keeps eyes closed unless asked to open Cv: RRR, slightly distended neck vessels on L Lungs: CTAB Ext : No edema or erythema Abd: soft, NT, ND Neuro: EOMI, round pupils, no facial droop. EOMI, tongue at mid line Strength : LUE and LLE 0/5 in all muscle groups proximally and distally RUE: 5/5 in shoulder shrug, biceps, triceps, and hand grapple crew leader RLE: 5/5 in hip flexion , knee flexion nad extension , ankle dorsiflexion and plantar flexion reflexes " 1+ knee jerk and 2+ biceps B/l Sensation to light touch, decreased on L face and L upper and lower extremity ASSESSMENT AND PLAN: 84 y/o lady with h/o HTN, s/p PPM , CHF, DM , ? CVA, dementia, [place], bypass, HLP, CABG, and other medical problems who came from home after an unwitnessed fall. 1- Acute stroke with L sided weakness: repeat CT with no acute process but clinically she has new L sided weakness. Unfortunately , can't do MRI - check lipid panel - increase lipitor in mean time - BP control. - tele with no A fib, but episodes of SVT - speech and PT 2- New onset seizures: improved in frequency but still occuring. - cont keppra. - monitor until tomorrow and if cont to happen, will d/w neuro - EEG pending 3- IVETTE: possible CKD . - monitor on IVf. dose decreased 4- Uncontrolled DM: slightly improved - cont SSI and levemir . increase to 10 HS 5- h/o systolic CHF, volume depleted now. EF 40-45% - hold lasix and lisinopril - cont dig - coreg dose adjusted 6- prolonged QTc : avoid prolonging agents 7- Urinary retention : cont gates HLOC DVT Px: heparin d/w family at bedside ( sister and nieces ) Visit type - Emergency Visit Emergency Visit: Yes ED Registration Date: 06/15/19 Care time: The patient presented to the Emergency Department on the above date and was hospitalized for further evaluation of their emergent condition. - New Patient This patient is new to me today: No - Critical Care Critical Care patient: No
[2019-06-18] MEDS ORDERED: INSULIN (LEVEMIR) 100 UNITS/ML UNITS SQ SCH (14:26)
--- NOTE | 2019-06-18 14:46 | PN ---
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 (short form) - Note 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: 84 yeani fernandez female history of Dementia, Stroke, [place] ,CABG,Pacemaker, HTN,HLD,DM ,CHF. Patient presented to hospital for fall. Patient has history of stroke, not clear what is her baseline. Apparently she had episode of staring episode and left facial twiching with tongue bite. Patient is not able to provide any history and history was obtained from nursing staff and chart. Patient is on statin, plavix. Patient seems to be improved today and had one episode of focal seizure, and now more alert. Spoke to family at bedside, and she has no hemiparesis in past, and she had pacemaker and cant get mri NEUROLOGICAL EXAMINATION Alert oriented x 0, Patient is able to follow command, opens eye spontaneously there is left face palsy and left side is moving less pupisl reactive , ct head showed right basal ganglia lacunar stroke repeat ct head on june 17 was unchanged Assessment/plan 1. 84 year old female history of dementia, cad, cabg, s/p pacemaker. Patient presnted with fall. Patient has normal ct head and old right BG lacunar stroke, on exam patient has left sided hemiparesis and also found to have left facial twitching and lip bite I suspect patient have focal seizure . Plan:continue keppra 500 mg bid and watch for now - eeg - continue current supportive care - continue statin and antiplatelet - swallwoing, pt and dvt prohylaxis continue supportive care Thanking you so much lBade Starr MD
[2019-06-18] MEDS: CARVEDILOL 3.125 MG TABLET (FP) PO SCH ×2 (14:58→21:23)
[2019-06-18] MEDS ORDERED: MAGNESIUM SULF 50% (8.12 MEQ/2 ML-1 GM VIAL) IVPB ONE (20:54)
[2019-06-18] MEDS ORDERED: PT OWN MED DRAWER 7, Y5N ONE ×2 (21:10→21:25)
--- NOTE | 2019-06-18 21:12 | PN ---
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 (short form) - Note 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: Night nurse alerted resident of increase in amount of reported seizures that patient has been having over the course of the day. Patient was on Keppra 500mg bid and continue to have seizures. Past notes from day reviewed. Patient was seen at the bedside. She was awake but lethargic and did not have any acute complaints. Neurologically found with a left facial droop, left sided hemiparesis upper and lower extremities. Pupils sluggish but reactive bilaterally. No tongue bite. Has gates in. On laboratory work, found with hypomagnesemia 1.5 and hyperglycemia which may be cause of repeated seizures. Ordered 1gm of IV magnesium and recheck levels in the morning. Continue management of hyperglycemia with Levemir 10mg qhs and ISS. Continue Keppra 500mg IV bid. Continue to monitor patient for seizure activity, maintain seizure precautions, await EEG, await further recommendation as per neurology. Will alert day team as to overnight events. In morning, nursing contacted resident notifying of a low glucose at 58 and when the patient was sat up to give oral supplementation a seizure was reported. D50 was given. Hypoglycemia is an additional cause of seizures, proper sugar control needs to be maintained.
[2019-06-18] MEDS: MEMANTINE HCL 5 MG TABLET (UD) PO SCH (21:25)
[2019-06-18] MEDS: ATORVASTATIN CA 40 MG TABLET (FP) PO SCH (21:25)
[2019-06-19] MEDS: HEPARIN NA (PORCINE) 5,000 UNITS/ML 1ML VIAL SQ SCH ×3 (05:24→21:07)
[2019-06-19] MEDS ORDERED: DEXTROSE 50%-WATER 25 GM/50 ML DISP.SYRIN ONE (05:32)
[2019-06-19] MEDS ORDERED: DEXTROSE 50%-WATER - 25 GM/50 ML VIAL IVPUSH ONE (05:35)
[2019-06-19] MEDS ORDERED: PT OWN MED DRAWER 7, Y5N ONE ×5 (05:52→12:33)
[2019-06-19] MEDS: INSULIN SLIDING SCALE (NOVOLOG) 1 VIAL SQ SCH ×3 (06:04→17:39)
[2019-06-19 08:13] LABS: BASO % 0.3 % (0-2.0); EOS % 1.8 % (0-4.5); HEMATOCRIT 29.2 % (32.4-45.2); HEMOGLOBIN 9.4 GM/dL (10.7-15.3); LYMPH % 13.2 % (8-40); MCH 28.5 pg (25.7-33.7); MCHC 32.2 g/dl (32.0-36.0); MEAN CELL VOLUME 88.6 fl (80-96); MEAN PLT VOLUME 8.4 fl (7.5-11.1); MONO % 6.7 % (3.8-10.2); PLATELET COUNT 260 K/MM3 (134-434); RDW 13.3 % (11.6-15.6); WHITE BLOOD COUNT 11.3 K/mm3 (4.0-10.0)
[2019-06-19 08:41] LABS: BLOOD UREA NITROGEN 21.4 mg/dL (7-18); CALCIUM 9.6 mg/dL (8.5-10.1); CREATININE 1.2 mg/dL (0.55-1.3); MAGNESIUM 1.8 mg/dL (1.8-2.4); PHOSPHOROUS 1.4 mg/dL (2.5-4.9); POTASSIUM 3.5 mmol/L (3.5-5.1)
[2019-06-19] MEDS ORDERED: POTASSIUM PHOSPHATE 30 MM in SODIUM CHLORIDE 500 ML IVPB ONE (08:44)
[2019-06-19] MEDS ORDERED: levETIRAcetam 500 MG/5 ML INJECTION VIAL IVPB ONE (09:05)
--- NOTE | 2019-06-19 09:09 | PN ---
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 (short form) - Note 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: 84 yea aleksandrad female history of Dementia, Stroke, [place] ,CABG,Pacemaker, HTN,HLD,DM ,CHF. Patient presented to hospital for fall. Patient has history of stroke, not clear what is her baseline. Apparently she had episode of staring episode and left facial twiching with tongue bite. Patient is not able to provide any history and history was obtained from nursing staff and chart. Patient is on statin, plavix. She has two ct head and there were no interval change, she is having several focal seizure since yesterday, Paitent is more drowsy this mornign NEUROLOGICAL EXAMINATION drowsy oriented x 0, she appears drowsy, no focal twiching was seen at bedside there is left face palsy and left side is moving less pupisl reactive , ct head showed right basal ganglia lacunar stroke repeat ct head on june 17 was unchanged Assessment/plan 1. 84 year old female history of dementia, cad, cabg, s/p pacemaker. Patient presnted with fall. Patient has normal ct head and old right BG lacunar stroke, on exam patient has left sided hemiparesis and also found to have left facial twitching and lip bite. she has several episode( 3-4 episodes) in last 24 hours I suspect patient have focal seizure . Plan:incresae keppra to 1 gm iv once and than bid - eeg portable at bedside - continue current supportive care - continue statin and antiplatelet - swallwoing, pt and dvt prohylaxis continue supportive care Thanking you so much Blade Starr MD
[2019-06-19] MEDS ORDERED: INSULIN (LEVEMIR) 100 UNITS/ML UNITS SQ SCH (09:39)
[2019-06-19] MEDS ORDERED: PHENYTOIN SODIUM 100 MG/2 ML VIAL IVPB SCH (10:00)
[2019-06-19] MEDS ORDERED: levETIRAcetam 500 MG/5 ML INJECTION VIAL IVPB SCH (10:00)
--- NOTE | 2019-06-19 10:04 | CONSULT ---
Admitting History and Physical - Primary Care Physician PCP: Reuben Parekh - Admission History of Present Illness: 84 year old female history of dementia, cad, cabg, s/p pacemaker presented with fall. normal ct head and old right BG lacunar stroke. MRI can not be done per nursing. Left sided hemiparesis and also found to have left facial twitching and lip bite Seizure activity noted by staff. Pt was lethargic this am. PO held. Selected Entries 06/16/19 06/16/19 06/16/19 10:34 14:32 22:00 Breakfast 75% Lunch 100% Supper 75% Temperature 06/17/19 06/17/19 06/17/19 01:47 06:00 10:00 Breakfast Lunch Supper Temperature 98.4 F 97.9 F 97.3 F L 06/17/19 06/17/19 06/17/19 13:00 13:30 18:00 Breakfast 0 Lunch 0 0 Supper 0 Temperature 98.2 F 98.4 F 06/17/19 06/18/19 06/18/19 21:36 02:00 06:00 Breakfast Lunch Supper Temperature 98.2 F 98.6 F 98.1 F 06/18/19 06/18/19 06/18/19 08:30 13:35 18:00 Breakfast 25% Lunch 75% Supper Temperature 98.1 F 100.0 F H 06/18/19 06/18/19 06/19/19 19:59 21:00 02:00 Breakfast Lunch Supper 75% Temperature 98.9 F 98.0 F Laboratory Tests 06/16/19 06/17/19 06/18/19 06:30 07:00 09:25 WBC 9.7 12.9 H 12.8 H 06/19/19 07:00 WBC 11.3 H Pt opened eyes for me and was speaking. Appropriate but did not know she was in hospital, 80 yo, asked if it was nighttime. Dysarthria. Left hemiplegia, left facial, Dysarthria, Dysphagia. History Source: Medical Record Limitations to Obtaining History: Clinical Condition - Past Medical History Cardiovascular: Yes: CAD, Other (PPM) Pulmonary: No: Asthma, Bronchitis, Cancer, COPD, O2 Dependent, Pneumonia, Previously Intubated, Pulmonary Embolus, Pulmonary Fibrosis, Sleep Apnea, Other Gastrointestinal: No: Ascites, Cancer, Constipation, Crohn's Disease, Diverticulitis, Diverticulosis, Esophageal Varices, Gastritis, GERD, GI Bleed, Hemorrhoids, Hiatal Hernia, Inflamatory Bowel Disease, Irritable Bowel Disease, Pancreatitis, Peptic Ulcer Disease, Ulcerative Colitis, Other Hepatobiliary: No: Cirrhosis, Cholelithiasis, Cholecystitis, Choledocholithiasis , Hepatitis A, Hepatitis B, Hepatitis C, Other Renal/: No: Renal Failure, Renal Inusuff, BPH, Cancer, Hematuria, Hemodialysis , Neurogenic Bladder, Renal Calculi, UTI, Other ...: No - Smoking History Smoking history: Never smoked Have you smoked in the past 12 months: No - Alcohol/Substance Use Hx Alcohol Use: No - Social History History of Recent Travel: Yes ([place]) History - Admission Reason For Visit: TRAMATIC INJURY OF HEAD - Diagnostics CT Scan: Report Reviewed - General Mental Status: Awake and Alert (lethargic but arousable. Participated in evaluation.), Able to Follow Commands Ability to Follow Directions: Good - Hearing Hearing: Normal Speech Evaluation - Communication Primary Language: UPPER SORBIAN Communication: Yes: Dysarthria Oral Expression Ability: Yes: Mild Impairment, Moderate Impairment - Speech Production Able to Make Needs Known: Yes: Mildly Impaired, Moderately Impaired Intelligibility: Yes: Mildly Impaired, Moderately Impaired - Speech Characteristics Voice Loudness: Mildly Soft/Quiet Voice Pitch: Yes: Normal Voice Phonatory-based Quality: Yes: Normal (strong, euphonic) Speech Pattern: Impaired Speech Clarity: < 50% Nasal Resonance: Normal Articulation: Yes: Imprecise - Language/Auditory Comprehension Follows: Yes: 1 Stage Simple Commands Observation: Able to respond to yes/no queries: Yes, Yes/No Confusion: No, Comprehends Conversational Speech: Yes - Language/Verbal Expression Able to Communicate Wants and Needs: Yes: Mildly Impaired, Moderately Impaired - Swallow Evaluation/Bedside Assessment Current Nutritional Intake: NPO (PO held due to lethargy. Reg diet/thin liquid ordered) Dentition: Yes: Adequate Facial Symmetry at Rest: Facial Droop Left Facial Symmetry on Retraction: Facial Droop Left Against Resistance Opening: Weak Against Resistance Closing: Weak Pucker Lips: Droops Left, Weak Smile: Droops Left, Weak Lingual Movement: Symmetric Lingual Speed of Movement: Reduced Lingual Movement Strgth Against Opposition: Reduced Laryngeal Elevation: Impaired Laryngeal Movement: Reduced Excursion, Labored,delay initiation, Reduced Velocity Rate of Intake: WFL Bolus Size: WFL Labial Seal: Impaired Left Oral Prep Time: Increased Pocketing: Present Left Timing of Swallow: Delayed Coughing/Throat Clear: Yes (thin liquid. Cough response to 3 oz water test) Recommendations - Speech Evaluation, Impression/Plan Impression: Dysarthria. Left hemiplegia, left facial, Dysarthria, Dysphagia. Aspiration on 3 oz water test. Swallow delayed in onset with fair (-) Laryngeal VOM/ROM. - Disposition Discharge to: [facility], To be Determined - Dysphagia Impressions/Plan Swallowing Skills: Impaired Dysphagia Impressions: Mild Impairment, Moderate Impairment *Silent aspiration: cannot be R/O at bedside Dysphagia Treatment Plan: Small Bites, Chin Tuck/Down, Clear Pocket Food (left buccal cavity), Facilitative Feeding, Safe Rate, 1/2 tsp. at a time, Elevate HOB during feed, Other (feed only when fully alert) Recommendations: Modified Barium Swallow (if cough, congestioon, fever) - Recommendations Diet Consistency: Dysphagia Pureed (only when fully alert) Medication Administration: Crushed with applesauce (only when fully alert) Liquids: [place] Thick (on tsp only when fully alert) Supplement: Magic Cup, Ensure Pudding
--- NOTE | 2019-06-19 10:14 | PN ---
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, Physician Chief Complaint: seizure vs syncope History of Present Illness: lethargic, not communicative, briefly opens eyes - Current Medication List Current Medications: Active Medications Aspirin (Asa -) 81 mg PO DAILY [facility] Last Admin: 06/18/19 11:39 Dose: 81 mg Atorvastatin Calcium (Lipitor -) 40 mg PO HS [facility] Last Admin: 06/18/19 21:25 Dose: 40 mg Carvedilol (Coreg -) 9.375 mg PO BID [facility] Last Admin: 06/18/19 21:23 Dose: 9.375 mg Clopidogrel Bisulfate (Plavix -) 75 mg PO DAILY [facility] Last Admin: 06/18/19 11:38 Dose: 75 mg Digoxin (Lanoxin -) 0.125 mg PO Q36H [facility] Last Admin: 06/17/19 21:21 Dose: Not Given Heparin Sodium (Porcine) (Heparin -) 5,000 unit SQ TID [facility] Last Admin: 06/19/19 05:24 Dose: 5,000 unit Sodium Chloride (Normal Saline -) 1,000 mls @ 50 mls/hr IV ASDIR [facility] Last Admin: 06/18/19 14:46 Dose: 50 mls/hr Potassium Phosphate 30 mm/ (Sodium Chloride) 510 mls @ 62.5 mls/hr IVPB ONCE ONE Stop: 06/19/19 16:53 Fosphenytoin Sodium 1,000 mg/ (Sodium Chloride) 120 mls @ 480 mls/hr IVPB ONCE ONE Stop: 06/19/19 09:38 Insulin Aspart (Novolog Vial Sliding Scale -) 1 vial SQ [facility]; Protocol Last Admin: 06/19/19 06:04 Dose: Not Given Insulin Detemir (Levemir Vial) 7 units SQ [facility] Levetiracetam (Keppra Injection -) 500 mg IVPB BID [facility] Last Admin: 06/18/19 21:26 Dose: 500 mg Memantine (Namenda -) 5 mg PO [facility] Last Admin: 06/18/19 21:25 Dose: 5 mg Multivitamins/Minerals/Vitamin C (Tab-A-Vit -) 1 tab PO DAILY [facility] Last Admin: 06/18/19 11:38 Dose: 1 tab Phenytoin Sodium (Dilantin Injection -) 100 mg IVPB BID [facility] Potassium Phos/Sodium Phos (Phos-Nak Packet -) 1 packet PO DAILY [facility] Last Admin: 06/18/19 11:39 Dose: 1 packet - Objective Vital Signs: Vital Signs Temperature 98.0 F 06/19/19 02:00 Pulse Rate 85 06/19/19 02:00 Respiratory Rate 18 06/19/19 09:00 Blood Pressure 132/61 06/19/19 02:00 O2 Sat by Pulse Oximetry (%) 97 06/19/19 09:00 Constitutional: Yes: Well Nourished, No Distress, Calm Cardiovascular: Yes: Regular Rate and Rhythm, S1, S2. No: JVD, Gallop, Murmur Respiratory: Yes: Regular, CTA Bilaterally. No: Accessory Muscle Use Extremities: No: Cold Edema: No Neurological: Yes: Lethargy. No: Seizure Psychiatric: No: Agitated Labs: CBC, BMP 06/19/19 07:00 06/19/19 07:00 INR, PTT INR 0.87 (0.83-1.09) 06/15/19 17:02 Assessment/Plan Echo: EF 40-45%, abn septal motion c/w aberrance conduction. nl RV. functional mitral stenosis sec to MAC. no . tele: NSR, biV paced. decr in frequency of paroysmal atrial tach IMP: -Fall while seated on the toilet: suspected sz with post-ictal state, per neuro. -lacunar infarct, ? new vs chronic per dr fraga review of images -Cardiomyopathy, EF 40-45%, h/o syst CHF -paroxysms wide complex tach--reviewed with EP, likely paroxysmal atrial tach/ PSVT (not suspicious for fib/flutter) -s/p BiV-ICD, normal function on company check here ([facility]) -Renal insufficiency: ?acute, ?pre-renal--improved -Hyponatremia -Known CAD, s/p NM and CABG--no signs ACS here REC: -sz precautions, meds per neuro -stroke w/u, mgmt per neuro -Tele to continue -hypoNa and IVETTE improved with IVF (baseline creat not known)--decr rate to 50 cc /hr given chf risks -mildly orthostatic here (100 supine, 91 standing), meds adjusted (below) -increased carvedilol to 9.35 bid here (also for PSVT control)--consider change to metoprolol if frequent PAT runs and/or low bp limits carvedilol dosing -consider resume lower dose lisinopril tomorrow if adequate bp room on carvedilol (renal fxn now stabilized)
[2019-06-19] MEDS ORDERED: FOSPHENYTOIN SODIUM 1,000 MG in SODIUM CHLORIDE 100 ML IVPB ONE (11:00)
[2019-06-19] MEDS: levETIRAcetam 500 MG/5 ML INJECTION VIAL IVPB SCH (11:05)
[2019-06-19] MEDS: SODIUM CHLORIDE 1,000 ML IV SCH (11:09)
[2019-06-19] MEDS: DIGOXIN 0.125 MG TABLET (FP) PO SCH (13:13)
[2019-06-19] MEDS: ASPIRIN 81 MG CHEWABLE TABLETS PO SCH (13:13)
[2019-06-19] MEDS: CARVEDILOL 3.125 MG TABLET (FP) PO SCH ×2 (13:13→21:07)
[2019-06-19] MEDS: NAPH,MB-DB/K PH,MBDB POWDER PACKET PO SCH (13:14)
[2019-06-19] MEDS: MULTIVITAMINS (DAILY MVI) TABLET (FP) PO SCH (13:16)
[2019-06-19] MEDS: CLOPIDOGREL BISULFATE 75 MG TABLET (FP) PO SCH (13:16)
--- NOTE | 2019-06-19 15:26 | PN ---
Physical Exam: SUBJECTIVE: Patient seen and examined.Patient was responsive but drowsy. Denied any pain, shortness of breath. Per nurse, pt had several episode of seizures ( approx 4) that she noticed. Pt had a 5 seconds seizure while I was in the room examining her. She was able to respond some questions post seizure. OBJECTIVE: Vital Signs Period Temp Pulse Resp BP Sys/Esparza Pulse Ox Last 24 Hr 97.8 F-100.0 F 82-92 18-18 118-142/43-62 97-97 GENERAL: The patient is awake, AAOx2 . HEAD: Normal with no signs of trauma. LUNGS: Breath sounds equal, clear to auscultation bilaterally, no wheezes, no crackles, no accessory muscle use. HEART: Regular rate and rhythm, S1, S2 without murmur, rub or gallop. ABDOMEN: Soft, nontender, nondistended, normoactive bowel sounds, no guarding, no rebound, no hepatosplenomegaly, no masses. EXTREMITIES: 2+ pulses, warm, well-perfused, no edema. NEUROLOGICAL: Patient has noticeable facial droop, with 0/5 motor in upper Left extremity. rest of physical exam was limited due to poor compliance Laboratory Results - last 24 hr 06/18/19 06/18/19 06/19/19 16:31 21:18 05:25 WBC RBC Hgb Hct MCV MCH MCHC RDW Plt Count MPV Absolute Neuts (auto) Neutrophils % Lymphocytes % Monocytes % Eosinophils % Basophils % Nucleated RBC % Sodium Potassium Chloride Carbon Dioxide Anion Gap BUN Creatinine Est GFR (CKD-EPI)AfAm Est GFR (CKD-EPI)NonAf POC Glucometer 327 287 58 Random Glucose Calcium Phosphorus Magnesium Triglycerides Cholesterol Total LDL Cholesterol HDL Cholesterol 06/19/19 06/19/19 06/19/19 06:02 07:00 07:00 WBC 11.3 H RBC 3.30 L Hgb 9.4 L Hct 29.2 L MCV 88.6 MCH 28.5 MCHC 32.2 RDW 13.3 Plt Count 260 MPV 8.4 Absolute Neuts (auto) 8.8 H Neutrophils % 78.0 Lymphocytes % 13.2 D Monocytes % 6.7 Eosinophils % 1.8 D Basophils % 0.3 Nucleated RBC % 0 Sodium 146 H Potassium 3.5 Chloride 111 H Carbon Dioxide 26 Anion Gap 9 BUN 21.4 H Creatinine 1.2 Est GFR (CKD-EPI)AfAm 48.06 Est GFR (CKD-EPI)NonAf 41.47 POC Glucometer 199 Random Glucose 158 H Calcium 9.6 Phosphorus 1.4 L Magnesium 1.8 Triglycerides 145 Cholesterol 144 Total LDL Cholesterol 89 HDL Cholesterol 28 L 06/19/19 11:32 WBC RBC Hgb Hct MCV MCH MCHC RDW Plt Count MPV Absolute Neuts (auto) Neutrophils % Lymphocytes % Monocytes % Eosinophils % Basophils % Nucleated RBC % Sodium Potassium Chloride Carbon Dioxide Anion Gap BUN Creatinine Est GFR (CKD-EPI)AfAm Est GFR (CKD-EPI)NonAf POC Glucometer 105 Random Glucose Calcium Phosphorus Magnesium Triglycerides Cholesterol Total LDL Cholesterol HDL Cholesterol Active Medications Generic Name Dose Route Start Last Admin Trade Name Freq PRN Reason Stop Dose Admin Aspirin 81 mg 06/16/19 10:00 06/19/19 13:13 Asa - PO Not Given DAILY [facility] Atorvastatin Calcium 40 mg 06/18/19 22:00 06/18/19 21:25 Lipitor - PO 40 mg HS [facility] Administration Carvedilol 9.375 mg 06/18/19 11:15 06/19/19 13:13 Coreg - PO Not Given BID [facility] Clopidogrel Bisulfate 75 mg 06/16/19 10:00 06/19/19 13:16 Plavix - PO Not Given DAILY [facility] Digoxin 0.125 mg 06/16/19 10:00 06/19/19 13:13 Lanoxin - PO Not Given Q36H [facility] Heparin Sodium (Porcine) 5,000 unit 06/16/19 22:00 06/19/19 14:40 Heparin - SQ 5,000 unit TID [facility] Administration Sodium Chloride 1,000 mls @ 50 mls/hr 06/18/19 11:09 06/19/19 11:09 Normal Saline - IV Not Given ASDIR [facility] Potassium Phosphate 30 mm/ 510 mls @ 62.5 mls/hr 06/19/19 08:44 06/19/19 12: 34 Sodium Chloride IVPB 06/19/19 16:53 62.5 mls/hr ONCE ONE Administration Insulin Aspart 1 vial 06/15/19 22:00 06/19/19 12:39 Novolog Vial Sliding Scale - SQ Not Given ACHS [facility] Protocol Insulin Detemir 7 units 06/19/19 09:39 Levemir Vial SQ HS [facility] Memantine 5 mg 06/15/19 22:00 06/18/19 21:25 Namenda - PO 5 mg HS [facility] Administration Multivitamins/Minerals/Vitamin C 1 tab 06/16/19 10:00 06/19/19 13:16 Tab-A-Vit - PO Not Given DAILY [facility] Phenytoin Sodium 100 mg 06/19/19 22:00 Dilantin Injection - IVPB BID [facility] Potassium Phos/Sodium Phos 1 packet 06/17/19 10:00 06/19/19 13:14 Phos-Nak Packet - PO Not Given DAILY [facility] ASSESSMENT/PLAN: 84 y/o lady with h/o HTN, s/p PPM , CHF, DM , ? CVA, dementia, [place], bypass, HLP, CABG, and other medical problems who came from home after an unwitnessed fall. CVA with L sided weakness repeat CT with no acute process new L sided weakness. lipid panel trig 145,chol 144, LDL 89, HDL 28 lipitor increased BP control with carvedilol increased to 9.375mg speech eval done pt has mild impairement and dysphagia. Dysphagia puree diet recommended PT ordered Seizures Pt had a seizure this morning while I was examining her Pt loaded with 1gm of Fosfophenytoin and put on dilantin 100mg BID . Keppra D/C EEG results pending IVETTE . monitor on IVf. Rate decreased to 50cc/hr DM today blood glucose fluctuated between 200s and 50s decreased levemir to 7 units cont SSI systolic CHF volume depleted now. and poor oral intake EF 40-45% hold lasix and lisinopril cont digoxin coreg dose adjusted 9.375mg as per cardio consider resuming lower dose of lisinopril tomorrow if adequate bp room on carvedilol (renal fxn now stabilized) prolonged QTc avoid prolonging agents DVT Ppx heparin Visit type - Emergency Visit Emergency Visit: Yes ED Registration Date: 06/19/19 Care time: The patient presented to the Emergency Department on the above date and was hospitalized for further evaluation of their emergent condition. - New Patient This patient is new to me today: No - Critical Care Critical Care patient: No - Discharge Referral Referred to [facility] Med P.C.: No ATTENDING PHYSICIAN STATEMENT I saw and evaluated the patient. I reviewed the resident's note and discussed the case with the resident. I agree with the resident's findings and plan as documented. SUBJECTIVE: OBJECTIVE: ASSESSMENT AND PLAN:
--- NOTE | 2019-06-19 16:29 | PN ---
Teaching Attending Note Name of Resident: Rayna De Leon ATTENDING PHYSICIAN STATEMENT I saw and evaluated the patient. I reviewed the resident's note and discussed the case with the resident. I agree with the resident's findings and plan as documented. SUBJECTIVE: denies any pain. no other history obtained. per RN had 4 episodes of what looked like seizures OBJECTIVE: During exam, patient had a seizure ( L arm pulled to face, with head turning to L, mouth open and eyes open ,with jerking movements of L side and titening of her whole body ) Cv: RRR,no JVD Lungs: CTAB Ext : No edema or erythema Abd: soft, NT, ND Neuro: EOMI, round pupils, L lower facial droop. not cooperative with the neuro exam , but R biceps and triceps are 5/5 . does not move left side. moves R LE but not to command. unable to assess sensation 2+ biceps and knee jerk b/l ASSESSMENT AND PLAN: 84 y/o lady with h/o HTN, s/p PPM , CHF, DM , ? CVA, dementia, [place], bypass, HLP, CABG, and other medical problems who came from home after an unwitnessed fall. 1- Acute stroke with L sided weakness: - LDL above goal but zocor was just changed to lipitor. cont current dose - BP control. - tele with no A fib - speech and PT when appropriate 2- New onset seizures: cont to have seizures. witnessed seizure during exam - change keppra to dilantin after loading with phosphenitoin. avoid increasing Keppra due to Cr Cl of 18 5. - above d/w Dr. Starr - EEG pending 3- IVETTE: possible CKD . - monitor on IVf. dose decreased 4- DM: withhypoglycemia this am - cont SSI, but dc HS dose . decrease levemir 5- h/o systolic CHF, volume depleted now. EF 40-45% - hold lasix and lisinopril - cont dig - cont increased dose of coreg 6- prolonged QTc : avoid prolonging agents 7- Urinary retention : cont gates HLOC DVT Px: heparin
[2019-06-19] MEDS ORDERED: ACETAMINOPHEN 1000 MG/100 ML VIAL (NON FORMULARY) IVPB ONE (20:32)
[2019-06-19] MEDS: PHENYTOIN SODIUM 100 MG/2 ML VIAL IVPB SCH (21:06)
[2019-06-19] MEDS: ATORVASTATIN CA 40 MG TABLET (FP) PO SCH (21:07)
[2019-06-19] MEDS: MEMANTINE HCL 5 MG TABLET (UD) PO SCH (21:09)
[2019-06-19] MEDS: INSULIN (LEVEMIR) 100 UNITS/ML UNITS SQ SCH (21:22)
[2019-06-20] MEDS: HEPARIN NA (PORCINE) 5,000 UNITS/ML 1ML VIAL SQ SCH ×3 (05:38→21:57)
[2019-06-20] MEDS: INSULIN SLIDING SCALE (NOVOLOG) 1 VIAL SQ SCH ×3 (06:03→17:34)
[2019-06-20 08:00] LABS: BLOOD UREA NITROGEN 14.5 mg/dL (7-18); CREATININE 0.9 mg/dL (0.55-1.3); MAGNESIUM 1.5 mg/dL (1.8-2.4); PHOSPHOROUS 2.4 mg/dL (2.5-4.9); POTASSIUM 3.7 mmol/L (3.5-5.1)
[2019-06-20 08:05] LABS: BASO % 0.4 % (0-2.0); EOS % 2.2 % (0-4.5); HEMATOCRIT 25.4 % (32.4-45.2); HEMOGLOBIN 8.6 GM/dL (10.7-15.3); LYMPH % 17.1 % (8-40); MCH 29.4 pg (25.7-33.7); MCHC 33.7 g/dl (32.0-36.0); MEAN CELL VOLUME 87.4 fl (80-96); MEAN PLT VOLUME 8.2 fl (7.5-11.1); NEUT % 73.3 % (42.8-82.8); PLATELET COUNT 235 K/MM3 (134-434); RBC 2.91 M/mm3 (3.60-5.2); RDW 13.6 % (11.6-15.6); WHITE BLOOD COUNT 8.5 K/mm3 (4.0-10.0)
[2019-06-20] MEDS ORDERED: MAGNESIUM SULF 50% (8.12 MEQ/2 ML-1 GM VIAL) IVPB ONE (08:28)
[2019-06-20] MEDS: CARVEDILOL 3.125 MG TABLET (FP) PO SCH ×2 (09:28→21:57)
[2019-06-20] MEDS: CLOPIDOGREL BISULFATE 75 MG TABLET (FP) PO SCH (09:28)
[2019-06-20] MEDS: MULTIVITAMINS (DAILY MVI) TABLET (FP) PO SCH (09:28)
[2019-06-20] MEDS: ASPIRIN 81 MG CHEWABLE TABLETS PO SCH (09:29)
[2019-06-20] MEDS: NAPH,MB-DB/K PH,MBDB POWDER PACKET PO SCH (09:29)
[2019-06-20] MEDS: PHENYTOIN SODIUM 100 MG/2 ML VIAL IVPB SCH ×2 (10:56→21:57)
--- NOTE | 2019-06-20 10:58 | PN ---
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 (short form) - Note 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: lethargic, not answering questions appropriately. appears comfortable. Current Medications Aspirin (Asa -) 81 mg PO DAILY [facility] Last Admin: 06/20/19 09:29 Dose: 81 mg Atorvastatin Calcium (Lipitor -) 40 mg PO HS [facility] Last Admin: 06/19/19 21:07 Dose: 40 mg Carvedilol (Coreg -) 9.375 mg PO BID [facility] Last Admin: 06/20/19 09:28 Dose: 9.375 mg Clopidogrel Bisulfate (Plavix -) 75 mg PO DAILY [facility] Last Admin: 06/20/19 09:28 Dose: 75 mg Digoxin (Lanoxin -) 0.125 mg PO Q36H [facility] Last Admin: 06/19/19 13:13 Dose: Not Given Heparin Sodium (Porcine) (Heparin -) 5,000 unit SQ TID [facility] Last Admin: 06/20/19 05:38 Dose: 5,000 unit Sodium Chloride (Normal Saline -) 1,000 mls @ 50 mls/hr IV ASDIR [facility] Last Admin: 06/19/19 11:09 Dose: Not Given Insulin Aspart (Novolog Vial Sliding Scale -) 1 vial SQ TIDAC [facility]; Protocol Last Admin: 06/20/19 06:03 Dose: Not Given Insulin Detemir (Levemir Vial) 5 units SQ [facility] Last Admin: 06/19/19 21:22 Dose: Not Given Memantine (Namenda -) 5 mg PO HS [facility] Last Admin: 06/19/19 21:09 Dose: 5 mg Multivitamins/Minerals/Vitamin C (Tab-A-Vit -) 1 tab PO DAILY [facility] Last Admin: 06/20/19 09:28 Dose: 1 tab Phenytoin Sodium (Dilantin Injection -) 100 mg IVPB BID [facility] Last Admin: 06/19/19 21:06 Dose: 100 mg Potassium Phos/Sodium Phos (Phos-Nak Packet -) 1 packet PO DAILY [facility] Last Admin: 06/20/19 09:29 Dose: 1 packet Vital Signs Period Temp Pulse Resp BP Sys/Esparza Pulse Ox Last 24 Hr 97.7 F-99.1 F 68-82 18-18 110-142/40-78 96 Constitutional: Yes: Well Nourished, No Distress, Calm Cardiovascular: Yes: Regular Rate and Rhythm, S1, S2. No: JVD, Gallop, Murmur Respiratory: Yes: Regular, CTA Bilaterally. No: Accessory Muscle Use Extremities: No: Cold Edema: No Neurological: Yes: Lethargy. No: Seizure Psychiatric: No: Agitated no jaundice, diaphoresis Assessment/Plan Echo: EF 40-45%, abn septal motion c/w aberrance conduction. nl RV. functional mitral stenosis sec to MAC. no . tele: NSR, biV paced. episodes of PAT IMP: -Fall while seated on the toilet: suspected sz with post-ictal state, per neuro. -lacunar infarct, ? new vs chronic per dr fraga review of images -Cardiomyopathy, EF 40-45%, h/o syst CHF -paroxysms wide complex tach--reviewed with EP, likely paroxysmal atrial tach/ PSVT (not suspicious for fib/flutter) -s/p BiV-ICD, normal function on company check here ([facility]) -Renal insufficiency: ?acute, ?pre-renal--improved -Hyponatremia -Known CAD, s/p PR and CABG--no signs ACS here REC: -sz precautions, meds per neuro -stroke w/u, mgmt per neuro -Tele to continue -hypoNa and IVETTE improved with IVF (baseline creat not known)--cont at decr rate to 50 cc/hr given chf risks, monitor volume status -mildly orthostatic here (100 supine, 91 standing), meds adjusted (below) -increased carvedilol to 9.35 bid here (also for PSVT control)--consider change to metoprolol if frequent PAT runs and/or low bp limits carvedilol dosing, cont for now - restart lisinopril at lower dose 5 mg daily
[2019-06-20] MEDS: LISINOPRIL 5 MG TABLET (FP) PO SCH (11:13)
[2019-06-20] MEDS: SODIUM CHLORIDE 1,000 ML IV SCH (11:13)
--- NOTE | 2019-06-20 13:09 | PN ---
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, [employer]ER - Note 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: Selected Entries 06/19/19 06/19/19 06/19/19 02:00 10:00 13:35 Breakfast Lunch 100% Supper Temperature 98.0 F 98.5 F 97.8 F 06/19/19 06/19/19 06/19/19 17:00 21:00 22:00 Breakfast Lunch Supper 25% Temperature 98.4 F 99.1 F 06/20/19 06/20/19 06/20/19 02:00 06:00 08:35 Breakfast 100% Lunch Supper Temperature 99.1 F 97.7 F 06/20/19 10:00 Breakfast Lunch Supper Temperature 98.3 F Laboratory Tests 06/19/19 06/20/19 07:00 06:55 WBC 11.3 H 8.5 Pt more alert, but sleepy. Dysarthria, Confused. Tolerating puree/nectar thick liquids. Swallow reassessed- swallow onset delayed with aspiration risk, especially on thin liquids. STR placement?
--- NOTE | 2019-06-20 14:32 | PN ---
Physical Exam: SUBJECTIVE: Patient seen and examined. Pt was more alert and answering questions this morning around 8 am OBJECTIVE: Vital Signs Period Temp Pulse Resp BP Sys/Esparza Pulse Ox Last 24 Hr 97.7 F-99.1 F 68-75 18-18 110-139/40-78 96-97 GENERAL: The patient is awake, alert, AOOx2, in no acute distress. HEAD: Normal with no signs of trauma. LUNGS: Breath sounds equal, clear to auscultation bilaterally, no wheezes, no crackles, no accessory muscle use. HEART: Regular rate and rhythm, S1, S2 without murmur, rub or gallop. ABDOMEN: Soft, nontender, nondistended, normoactive bowel sounds, no guarding, no rebound, no hepatosplenomegaly, no masses. EXTREMITIES: 2+ pulses, warm, well-perfused, no edema. NEUROLOGICAL: speech improved. sentation intact but motor weakness on L arm improved ( pt was able to lift up arm and squeeze my fingers with both hands) motor strength LE 3/5 Laboratory Results - last 24 hr 06/19/19 06/19/19 06/19/19 16:22 21:15 23:43 WBC RBC Hgb Hct MCV MCH MCHC RDW Plt Count MPV Absolute Neuts (auto) Neutrophils % Lymphocytes % Monocytes % Eosinophils % Basophils % Nucleated RBC % Sodium Potassium Chloride Carbon Dioxide Anion Gap BUN Creatinine Est GFR (CKD-EPI)AfAm Est GFR (CKD-EPI)NonAf POC Glucometer 135 136 124 Random Glucose Calcium Phosphorus Magnesium 06/20/19 06/20/19 06/20/19 05:20 06:55 06:55 WBC 8.5 RBC 2.91 L Hgb 8.6 L Hct 25.4 L MCV 87.4 MCH 29.4 MCHC 33.7 RDW 13.6 Plt Count 235 MPV 8.2 Absolute Neuts (auto) 6.2 Neutrophils % 73.3 Lymphocytes % 17.1 D Monocytes % 7.0 Eosinophils % 2.2 Basophils % 0.4 Nucleated RBC % 0 Sodium 145 Potassium 3.7 Chloride 113 H Carbon Dioxide 25 Anion Gap 7 L BUN 14.5 Creatinine 0.9 Est GFR (CKD-EPI)AfAm 68.05 Est GFR (CKD-EPI)NonAf 58.71 POC Glucometer 147 Random Glucose 160 H Calcium 9.0 Phosphorus 2.4 L Magnesium 1.5 L 09/10/19 11:03 WBC RBC Hgb Hct MCV MCH MCHC RDW Plt Count MPV Absolute Neuts (auto) Neutrophils % Lymphocytes % Monocytes % Eosinophils % Basophils % Nucleated RBC % Sodium Potassium Chloride Carbon Dioxide Anion Gap BUN Creatinine Est GFR (CKD-EPI)AfAm Est GFR (CKD-EPI)NonAf POC Glucometer 362 Random Glucose Calcium Phosphorus Magnesium Active Medications Generic Name Dose Route Start Last Admin Trade Name Marcelinoq PRN Reason Stop Dose Admin Aspirin 81 mg 06/16/19 10:00 06/20/19 09:29 Asa - PO 81 mg DAILY [facility] Administration Atorvastatin Calcium 40 mg 06/18/19 22:00 06/19/19 21:07 Lipitor - PO 40 mg HS [facility] Administration Carvedilol 9.375 mg 06/18/19 11:15 06/20/19 09:28 Coreg - PO 9.375 mg BID [facility] Administration Clopidogrel Bisulfate 75 mg 06/16/19 10:00 06/20/19 09:28 Plavix - PO 75 mg DAILY [facility] Administration Digoxin 0.125 mg 06/16/19 10:00 06/19/19 13:13 Lanoxin - PO Not Given Q36H [facility] Heparin Sodium (Porcine) 5,000 unit 06/16/19 22:00 06/20/19 13:15 Heparin - SQ 5,000 unit TID [facility] Administration Sodium Chloride 1,000 mls @ 50 mls/hr 06/18/19 11:09 06/20/19 11:13 Normal Saline - IV Not Given ASDIR [facility] Insulin Aspart 1 vial 06/19/19 16:30 06/20/19 11:12 Novolog Vial Sliding Scale - SQ 10 units TIDAC [facility] Administration Protocol Insulin Detemir 5 units 06/19/19 22:00 06/19/19 21:22 Levemir Vial SQ Not Given HS [facility] Lisinopril 5 mg 06/20/19 11:00 06/20/19 11:13 Prinivil PO 5 mg DAILY [facility] Administration Memantine 5 mg 06/15/19 22:00 06/19/19 21:09 Namenda - PO 5 mg HS [facility] Administration Multivitamins/Minerals/Vitamin C 1 tab 06/16/19 10:00 06/20/19 09:28 Tab-A-Vit - PO 1 tab DAILY [facility] Administration Phenytoin Sodium 100 mg 06/19/19 22:00 06/20/19 10:56 Dilantin Injection - IVPB 100 mg BID [facility] Administration Potassium Phos/Sodium Phos 1 packet 06/17/19 10:00 06/20/19 09:29 Phos-Nak Packet - PO 1 packet DAILY [facility] Administration ASSESSMENT/PLAN: 84 y/o lady with h/o HTN, s/p PPM , CHF, DM , ? CVA, dementia, [place], bypass, HLP, CABG, and other medical problems who came from home after an unwitnessed fall. CVA with L sided weakness stable with intermittent movement of the L arm BP control with carvedilol increased to 9.375mg speech eval done pt has mild impairement and dysphagia. Dysphagia puree diet recommended PT ordered Seizures Pt had no seizures overnight Pt loaded with 1gm of Fosfophenytoin 06/19/19 and put on dilantin 100mg BID . Keppra D/C EEG results pending IVETTE . monitor. creatinine 0.9 today. Rate of fluids at 50cc/hr. D/C gates DM today blood glucose stable. [phone] with levemir 5 units cont SSI systolic CHF volume depleted now. and poor oral intake EF 40-45% hold lasix cont digoxin coreg dose adjusted 9.375mg as per cardio lisinopril resumed at 5mg PO Daily prolonged QTc avoid prolonging agents DVT Ppx heparin subQ Visit type - Emergency Visit Emergency Visit: Yes ED Registration Date: 06/19/19 Care time: The patient presented to the Emergency Department on the above date and was hospitalized for further evaluation of their emergent condition. - New Patient This patient is new to me today: No - Critical Care Critical Care patient: No - Discharge Referral Referred to [facility] Med P.C.: No ATTENDING PHYSICIAN STATEMENT I saw and evaluated the patient. I reviewed the resident's note and discussed the case with the resident. I agree with the resident's findings and plan as documented. SUBJECTIVE: OBJECTIVE: ASSESSMENT AND PLAN:
--- NOTE | 2019-06-20 15:14 | PN ---
Teaching Attending Note Name of Resident: Carolyn Garcia ATTENDING PHYSICIAN STATEMENT I saw and evaluated the patient. I reviewed the resident's note and discussed the case with the resident. I agree with the resident's findings and plan as documented. SUBJECTIVE: no events over night. No seizures . denies any pain or SOB OBJECTIVE: awake, knows her name, and location. thinks she is 80 y/o Cv: RRR,no JVD Lungs: CTAB Ext : No edema or erythema Abd: soft, NT, ND Neuro: EOMI, round pupils, slight L lower facial droop ( improved ). tongue at mid line . can squeeze with L hand and was able to move the whole L upper extremity for resident earlier. did not cooperate with rest of neuro unable to assess sensation 2+ biceps and knee jerk b/l ASSESSMENT AND PLAN: 84 y/o lady with h/o HTN, s/p PPM , CHF, DM , ? CVA, dementia, [place], bypass, HLP, CABG, and other medical problems who came from home after an unwitnessed fall. 1- suspected Acute stroke with L sided weakness: -cont lipitor, tele, and current diet - PT and OT 2- New onset seizures: no seizures over night - cont dilantin . switch to oral - EEG pending read. - Encephalopathy improved with improvement in seizure activity 3- IVETTE: Cr improved . if oral intake improves can dc IV in am 4- DM: cont SSi and levemir at 5 HS. will discharge on insulin due to A1c of 15 5- h/o systolic CHF, volume depleted now. EF 40-45% -Lisionpril resumed . - cont dig - cont increased dose of coreg - lasix to be resumed after dc ,maybe at a lower dose, to avoid dehydration 6- prolonged QTc : avoid prolonging agents 7- Urinary retention : Dc gates, voiding trial DVT Px: heparin Patient is medically ready for Dc, need rehab . SW updated
[2019-06-20] MEDS ORDERED: ACETAMINOPHEN 650 MG/20.3 ML ORAL SOLUTION (CUPS) PO ONE (18:07)
[2019-06-20 18:34] LABS: URINE APPEARANCE CLEAR; URINE BILIRUBIN NEGATIVE (NEGATIVE); URINE COLOR YELLOW; URINE GLUCOSE (UA) 3+ (NEGATIVE); URINE KETONE NEGATIVE (NEGATIVE); URINE LEUK ESTERASE NEGATIVE (NEGATIVE); URINE NITRITE NEGATIVE (NEGATIVE); URINE PROTEIN NEGATIVE (NEGATIVE); URINE UROBILINOGEN 0.2 mg/dL (0.2-1.0)
[2019-06-20] MEDS ORDERED: PT OWN MED DRAWER 7, Y5N ONE (21:46)
[2019-06-20] MEDS: DIGOXIN 0.125 MG TABLET (FP) PO SCH (21:56)
[2019-06-20] MEDS: ATORVASTATIN CA 40 MG TABLET (FP) PO SCH (21:57)
[2019-06-20] MEDS: MEMANTINE HCL 5 MG TABLET (UD) PO SCH (21:57)
[2019-06-20] MEDS: INSULIN (LEVEMIR) 100 UNITS/ML UNITS SQ SCH (22:09)
--- NOTE | 2019-06-20 22:54 | PN ---
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 (short form) - Note 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: 84 yea ale[place] female history of Dementia, Stroke, [place] ,CABG,Pacemaker, HTN,HLD,DM ,CHF. Patient presented to hospital for fall. Patient has history of stroke, not clear what is her baseline. Apparently she had episode of staring episode and left facial twiching with tongue bite. Patient is not able to provide any history and history was obtained from nursing staff and chart. Patient is on statin, plavix. jey has not had any seizure and she is more alert NEUROLOGICAL EXAMINATION Alert and talking more alert today, no focal seizure were seen, she appears drowsy, no focal twiching was seen at bedside there is left face palsy and left side is moving less pupisl reactive , ct head showed right basal ganglia lacunar stroke repeat ct head on june 17 was unchanged Eeg showed left pareital and frontal spikes were seen Assessment/plan 1. 84 year old female history of dementia, cad, cabg, s/p pacemaker. Patient presnted with fall. Patient has normal ct head and old right BG lacunar stroke, on exam patient has left sided hemiparesis . Jey is feeling better and no more seizure and she is more alert today Plan:continue keppra and dilantin - continue current supportive care - continue statin and antiplatelet - swallwoing, pt and dvt prohylaxis continue supportive care Thanking you so much Blade Starr MD
[2019-06-21] MEDS: HEPARIN NA (PORCINE) 5,000 UNITS/ML 1ML VIAL SQ SCH ×3 (05:24→22:40)
[2019-06-21] MEDS: INSULIN SLIDING SCALE (NOVOLOG) 1 VIAL SQ SCH ×3 (06:02→15:46)
[2019-06-21 06:12] LABS: BASO % 0.3 % (0-2.0); EOS % 2.3 % (0-4.5); HEMATOCRIT 28.4 % (32.4-45.2); HEMOGLOBIN 9.5 GM/dL (10.7-15.3); LYMPH % 14.6 % (8-40); MCHC 33.4 g/dl (32.0-36.0); MEAN CELL VOLUME 86.9 fl (80-96); MEAN PLT VOLUME 7.6 fl (7.5-11.1); MONO % 7.5 % (3.8-10.2); NEUT % 75.3 % (42.8-82.8); PLATELET COUNT 267 K/MM3 (134-434); RBC 3.26 M/mm3 (3.60-5.2); RDW 13.5 % (11.6-15.6); WHITE BLOOD COUNT 9.7 K/mm3 (4.0-10.0)
[2019-06-21 06:38] LABS: BLOOD UREA NITROGEN 11.7 mg/dL (7-18); CALCIUM 9.3 mg/dL (8.5-10.1); CREATININE 0.8 mg/dL (0.55-1.3); POTASSIUM 3.7 mmol/L (3.5-5.1)
--- NOTE | 2019-06-21 08:29 | PN ---
Teaching Attending Note Name of Resident: Rayna De Leon ATTENDING PHYSICIAN STATEMENT I saw and evaluated the patient. I reviewed the resident's note and discussed the case with the resident. I agree with the resident's findings and plan as documented. SUBJECTIVE: Patient is feeling better with no acute distress. OBJECTIVE: Vital Signs Temperature 98.6 F 06/21/19 06:00 Pulse Rate 75 06/21/19 06:00 Respiratory Rate 18 06/21/19 06:00 Blood Pressure 156/62 06/21/19 06:00 O2 Sat by Pulse Oximetry (%) 96 06/20/19 21:00 GENERAL: The patient is awake, in no acute distress.cachectic HEAD: Normal with no signs of trauma. EYES: PERRL, extraocular movements intact, sclera anicteric, conjunctiva clear. ENT: Ears normal, oropharynx clear without exudates, moist mucous membranes. NECK: Trachea midline, full range of motion, supple. LUNGS: Breath sounds equal, clear to auscultation bilaterally, no wheezes, no crackles, no accessory muscle use. HEART: Regular rate and rhythm, S1, S2 positive, [place] 2/6 murmur, no rub or gallop.positive for PPM ABDOMEN: Soft, NT,ND, normoactive bowel sounds, no guarding, no rebound, no hepatosplenomegaly, no masses. EXTREMITIES: 2+ pulses, warm, well-perfused, no edema. NEUROLOGICAL: Cranial nerves II through XII grossly intact. Normal speech, gait not observed. PSYCH: Normal mood, normal affect. SKIN: Warm, dry, normal turgor, no rashes or lesions noted CBCD WBC 9.7 K/mm3 (4.0-10.0) 06/21/19 05:10 RBC 3.26 M/mm3 (3.60-5.2) L 06/21/19 05:10 Hgb 9.5 GM/dL (10.7-15.3) L 06/21/19 05:10 Hct 28.4 % (32.4-45.2) L 06/21/19 05:10 MCV 86.9 fl (80-96) 06/21/19 05:10 MCHC 33.4 g/dl (32.0-36.0) 06/21/19 05:10 RDW 13.5 % (11.6-15.6) 06/21/19 05:10 Plt Count 267 K/MM3 (134-434) 06/21/19 05:10 MPV 7.6 fl (7.5-11.1) 06/21/19 05:10 CMP Sodium 140 mmol/L (136-145) 06/21/19 05:10 Potassium 3.7 mmol/L (3.5-5.1) 06/21/19 05:10 Chloride 108 mmol/L (98-107) H 06/21/19 05:10 Carbon Dioxide 26 mmol/L (21-32) 06/21/19 05:10 Anion Gap 6 MMOL/L (8-16) L 06/21/19 05:10 BUN 11.7 mg/dL (7-18) 06/21/19 05:10 Creatinine 0.8 mg/dL (0.55-1.3) 06/21/19 05:10 Random Glucose 115 mg/dL (74-106) H 06/21/19 05:10 Calcium 9.3 mg/dL (8.5-10.1) 06/21/19 05:10 Total Bilirubin 0.5 mg/dL (0.2-1) 06/15/19 17:02 AST 28 U/L (15-37) 06/15/19 17:02 ALT 19 U/L (13-61) 06/15/19 17:02 Alkaline Phosphatase 103 U/L (45-117) 06/15/19 17:02 Total Protein 8.1 g/dl (6.4-8.2) 06/15/19 17:02 Albumin 3.6 g/dl (3.4-5.0) 06/15/19 17:02 CARDIAC ENZYMES Creatine Kinase 80 U/L (26-192) 06/15/19 17:02 Troponin I 0.03 ng/ml (0.00-0.05) 06/16/19 12:15 Current Medications Generic Name Dose Route Start Last Admin Trade Name Freq PRN Reason Stop Dose Admin Aspirin 81 mg 06/16/19 10:00 06/20/19 09:29 Asa - PO 81 mg DAILY BRANDYN Administration Atorvastatin Calcium 40 mg 06/18/19 22:00 06/20/19 21:57 Lipitor - PO 40 mg HS BRANDYN Administration Carvedilol 9.375 mg 06/18/19 11:15 06/20/19 21:57 Coreg - PO 9.375 mg BID BRANDYN Administration Clopidogrel Bisulfate 75 mg 06/16/19 10:00 06/20/19 09:28 Plavix - PO 75 mg DAILY BRANDYN Administration Digoxin 0.125 mg 06/16/19 10:00 06/20/19 21:56 Lanoxin - PO 0.125 mg Q36H BRANDYN Administration Heparin Sodium (Porcine) 5,000 unit 06/16/19 22:00 06/21/19 05:24 Heparin - SQ 5,000 unit TID BRANDYN Administration Sodium Chloride 1,000 mls @ 50 mls/hr 06/18/19 11:09 06/20/19 11:13 Normal Saline - IV Not Given ASDIR [facility] Insulin Aspart 1 vial 06/19/19 16:30 06/21/19 06:02 Novolog Vial Sliding Scale - SQ Not Given TIDAC [facility] Protocol Insulin Detemir 5 units 06/19/19 22:00 06/20/19 22:09 Levemir Vial SQ 5 units HS [facility] Administration Lisinopril 5 mg 06/20/19 11:00 06/20/19 11:13 Prinivil PO 5 mg DAILY BRANDYN Administration Memantine 5 mg 06/15/19 22:00 06/20/19 21:57 Namenda - PO 5 mg HS [facility] Administration Multivitamins/Minerals/Vitamin C 1 tab 06/16/19 10:00 06/20/19 09:28 Tab-A-Vit - PO 1 tab DAILY BRANDYN Administration Phenytoin Sodium 100 mg 06/19/19 22:00 06/20/19 21:57 Dilantin Injection - IVPB 100 mg BID [facility] Administration Potassium Phos/Sodium Phos 1 packet 06/17/19 10:00 06/20/19 09:29 Phos-Nak Packet - PO 1 packet DAILY [facility] Administration Home Medications Medication Instructions Recorded Carvedilol 6.25 mg PO BID 06/15/19 Clopidogrel Bisulfate [Clopidogrel] 75 mg PO DAILY 06/15/19 Digoxin [Lanoxin -] 0.125 mg PO DAILY 06/15/19 Furosemide 20 mg PO DAILY 06/15/19 Glipizide 10 mg PO BID 06/15/19 Lisinopril 10 mg PO DAILY 06/15/19 Memantine HCl 5 mg PO HS 06/15/19 Multivitamin [Multiple Vitamins] 1 each PO DAILY 06/15/19 Simvastatin 20 mg PO HS 06/15/19 CT: no acute infarct EEG : left parietal and frontal spikes . Encephalopathy improved with improvement in seizure activity ASSESSMENT AND PLAN: Patient is a 84yo female with PMHx of s/p PPM , CHF, DM , questionable CVA, dementia, [place], bypass, HLP, CABG, who came from home after an unwitnessed fall and was to have seizures acitivity. # suspected Acute stroke with L sided weakness: cont lipitor, plavix and aspirin continue current diet , PT and OT , carotid duplex high grade stenosis at the proximal level of RCA # New onset seizures: no seizures over night on dilantin . switch to oral # IVETTE: Cr improved post gates catheter , urology as an outpatient, #T2DM: cont SSi and levemir at 5 HS. will discharge on insulin due to A1c of 15 #Hx of systolic CHF, volume depleted now. EF 40-45%, continue Lisionpril , dig , coreg, # prolonged QTc : avoid prolonging agents # Urinary retention : s/p Dc gates, no succesfull voiding , back to gates cath. urology as an outpatient # Severe malnutrition : will get nutrition consult to further evaluate. DVT Px: heparin when Patient is medically clear for Dc, need rehab . SW updated
--- NOTE | 2019-06-21 08:56 | PN ---
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 (short form) - Note 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: 84 yea jim female history of Dementia, Stroke, [place] ,CABG,Pacemaker, HTN,HLD,DM ,CHF. Patient presented to hospital for fall. Patient has history of stroke, not clear what is her baseline. Apparently she had episode of staring episode and left facial twiching with tongue bite. Patient is not able to provide any history and history was obtained from nursing staff and chart. Patient is on statin, plavix. paitent has not had any seizure and she is more alert. Patient is feeling better and moving left side more NEUROLOGICAL EXAMINATION Alert and talking more alert today, no focal seizure were seen, she appears drowsy, no focal twiching was seen at bedside there is mild left face palsy and singificant left arm and leg weakness improvement ct head showed right basal ganglia lacunar stroke repeat ct head on june 17 was unchanged Eeg showed left pareital and frontal spikes were seen Assessment/plan 1. 84 year old female history of dementia, cad, cabg, s/p pacemaker. Patient presnted with fall. Patient has normal ct head and old right BG lacunar stroke, on exam patient has left sided hemiparesis . Her left sided weakness has improved Plan:continue keppra and dilantin - continue current supportive care - continue statin and antiplatelet - swallwoing, pt and dvt prohylaxis continue supportive care Thanking you so much Blade Starr MD
--- NOTE | 2019-06-21 10:25 | PN ---
Physical Exam: SUBJECTIVE: Patient seen and examined. Pt is lying in bed. awake and responsive. denied any pain, fever or any seizure activity. OBJECTIVE: Vital Signs Period Temp Pulse Resp BP Sys/Esparza Pulse Ox Last 24 Hr 98.0 F-101.7 F 71-80 18-20 129-156/52-62 96 GENERAL: The patient is awake, alert, AOOx2, in no acute distress. HEAD: Normal with no signs of trauma. LUNGS: Breath sounds equal, clear to auscultation bilaterally, no wheezes, no crackles, no accessory muscle use. HEART: Regular rate and rhythm, S1, S2 without murmur, rub or gallop. ABDOMEN: Soft, nontender, nondistended, normoactive bowel sounds, no guarding, no rebound, no hepatosplenomegaly, no masses. EXTREMITIES: 2+ pulses, warm, well-perfused, no edema. NEUROLOGICAL: speech improved. sensations able to lift up arm and squeeze my fingers with both hands) motor strength LE 3/5 Laboratory Results - last 24 hr 06/17/19 06/20/19 06/20/19 07:00 11:03 17:30 WBC RBC Hgb Hct MCV MCH MCHC RDW Plt Count MPV Absolute Neuts (auto) Neutrophils % Lymphocytes % Monocytes % Eosinophils % Basophils % Nucleated RBC % Sodium Potassium Chloride Carbon Dioxide Anion Gap BUN Creatinine Est GFR (CKD-EPI)AfAm Est GFR (CKD-EPI)NonAf POC Glucometer 362 Random Glucose Fasting Glucose 445 H* Calcium Urine Color Yellow Urine Appearance Clear Urine pH 6.0 Ur Specific [place] 1.034 Urine Protein Negative Urine Glucose (UA) 3+ H Urine Ketones Negative Urine Blood Negative Urine Nitrite Negative Urine Bilirubin Negative Urine Urobilinogen 0.2 Ur Leukocyte Esterase Negative 06/20/19 06/20/19 06/21/19 17:31 21:59 05:05 WBC RBC Hgb Hct MCV MCH MCHC RDW Plt Count MPV Absolute Neuts (auto) Neutrophils % Lymphocytes % Monocytes % Eosinophils % Basophils % Nucleated RBC % Sodium Potassium Chloride Carbon Dioxide Anion Gap BUN Creatinine Est GFR (CKD-EPI)AfAm Est GFR (CKD-EPI)NonAf POC Glucometer 291 290 106 Random Glucose Fasting Glucose Calcium Urine Color Urine Appearance Urine pH Ur Specific [place] Urine Protein Urine Glucose (UA) Urine Ketones Urine Blood Urine Nitrite Urine Bilirubin Urine Urobilinogen Ur Leukocyte Esterase 06/21/19 06/21/19 05:10 05:10 WBC 9.7 RBC 3.26 L Hgb 9.5 L Hct 28.4 L MCV 86.9 MCH 29.0 MCHC 33.4 RDW 13.5 Plt Count 267 MPV 7.6 Absolute Neuts (auto) 7.3 Neutrophils % 75.3 Lymphocytes % 14.6 Monocytes % 7.5 Eosinophils % 2.3 Basophils % 0.3 Nucleated RBC % 0 Sodium 140 Potassium 3.7 Chloride 108 H Carbon Dioxide 26 Anion Gap 6 L BUN 11.7 Creatinine 0.8 Est GFR (CKD-EPI)AfAm 78.47 Est GFR (CKD-EPI)NonAf 67.70 POC Glucometer Random Glucose 115 H Fasting Glucose Calcium 9.3 Urine Color Urine Appearance Urine pH Ur Specific [place] Urine Protein Urine Glucose (UA) Urine Ketones Urine Blood Urine Nitrite Urine Bilirubin Urine Urobilinogen Ur Leukocyte Esterase Active Medications Generic Name Dose Route Start Last Admin Trade Name Freq PRN Reason Stop Dose Admin Aspirin 81 mg 06/16/19 10:00 06/20/19 09:29 Asa - PO 81 mg DAILY BRANDYN Administration Atorvastatin Calcium 40 mg 06/18/19 22:00 06/20/19 21:57 Lipitor - PO 40 mg HS BRANDYN Administration Carvedilol 9.375 mg 06/18/19 11:15 06/20/19 21:57 Coreg - PO 9.375 mg BID BRANDYN Administration Clopidogrel Bisulfate 75 mg 06/16/19 10:00 06/20/19 09:28 Plavix - PO 75 mg DAILY BRANDYN Administration Digoxin 0.125 mg 06/16/19 10:00 06/20/19 21:56 Lanoxin - PO 0.125 mg Q36H BRANDYN Administration Heparin Sodium (Porcine) 5,000 unit 06/16/19 22:00 06/21/19 05:24 Heparin - SQ 5,000 unit TID BRANDYN Administration Sodium Chloride 1,000 mls @ 50 mls/hr 06/18/19 11:09 06/20/19 11:13 Normal Saline - IV Not Given ASDIR [facility] Insulin Aspart 1 vial 06/19/19 16:30 06/21/19 06:02 Novolog Vial Sliding Scale - SQ Not Given TIDAC [facility] Protocol Insulin Detemir 5 units 06/19/19 22:00 09/10/19 22:09 Levemir Vial SQ 5 units HS BRANDYN Administration Lisinopril 5 mg 06/20/19 11:00 06/20/19 11:13 Prinivil PO 5 mg DAILY BRANDYN Administration Memantine 5 mg 06/15/19 22:00 06/20/19 21:57 Namenda - PO 5 mg HS [facility] Administration Multivitamins/Minerals/Vitamin C 1 tab 06/16/19 10:00 06/20/19 09:28 Tab-A-Vit - PO 1 tab DAILY [facility] Administration Phenytoin Sodium 100 mg 06/19/19 22:00 06/20/19 21:57 Dilantin Injection - IVPB 100 mg BID [facility] Administration Potassium Phos/Sodium Phos 1 packet 06/17/19 10:00 06/20/19 09:29 Phos-Nak Packet - PO 1 packet DAILY BR[facility] Administration ASSESSMENT/PLAN: 84 y/o lady with h/o HTN, s/p PPM , CHF, DM , ? CVA, dementia, [place], bypass, HLP, CABG, and severe protein calorie malnutrition (BMI17) who came from home after an unwitnessed fall. CVA with L sided weakness stable with intermittent movement of the L arm BP control with carvedilol increased to 9.375mg speech eval done pt has mild impairement and dysphagia. Dysphagia puree diet recommended PT ordered Seizures Pt had no seizures overnight Pt loaded with 1gm of Fosfophenytoin 06/19/19 and put on dilantin 100mg BID . Keppra D/C EEG results showed Left parietal and frontal spikes IVETTE monitor. creatinine 0.8 today. Rate of fluids at 50cc/hr. Gates was d/c yesterday but pt failed to void so gates was reinserted urine culture pending DM today blood glucose stable. 115 with levemir 5 units cont SSI systolic CHF volume depleted now. and poor oral intake EF 40-45% hold lasix cont digoxin coreg dose adjusted 9.375mg as per cardio lisinopril resumed at 5mg PO Daily prolonged QTc avoid prolonging agents DVT Ppx heparin subQ Visit type - Emergency Visit Emergency Visit: Yes ED Registration Date: 06/19/19 Care time: The patient presented to the Emergency Department on the above date and was hospitalized for further evaluation of their emergent condition. - New Patient This patient is new to me today: No - Critical Care Critical Care patient: No - Discharge Referral Referred to [facility] Med P.C.: No ATTENDING PHYSICIAN STATEMENT I saw and evaluated the patient. I reviewed the resident's note and discussed the case with the resident. I agree with the resident's findings and plan as documented. SUBJECTIVE: OBJECTIVE: ASSESSMENT AND PLAN:
--- NOTE | 2019-06-21 10:46 | PN ---
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 (short form) - Note 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: no chest pain, palps dizziness Current Medications Aspirin (Asa -) 81 mg PO DAILY [facility] Last Admin: 06/20/19 09:29 Dose: 81 mg Atorvastatin Calcium (Lipitor -) 40 mg PO HS [facility] Last Admin: 06/20/19 21:57 Dose: 40 mg Carvedilol (Coreg -) 9.375 mg PO BID [facility] Last Admin: 06/20/19 21:57 Dose: 9.375 mg Clopidogrel Bisulfate (Plavix -) 75 mg PO DAILY [facility] Last Admin: 06/20/19 09:28 Dose: 75 mg Digoxin (Lanoxin -) 0.125 mg PO Q36H [facility] Last Admin: 06/20/19 21:56 Dose: 0.125 mg Heparin Sodium (Porcine) (Heparin -) 5,000 unit SQ TID [facility] Last Admin: 06/21/19 05:24 Dose: 5,000 unit Sodium Chloride (Normal Saline -) 1,000 mls @ 50 mls/hr IV ASDIR [facility] Last Admin: 06/20/19 11:13 Dose: Not Given Insulin Aspart (Novolog Vial Sliding Scale -) [facility] Last Admin: 06/21/19 06:02 Dose: Not Given Insulin Detemir (Levemir Vial) [address] [facility] Last Admin: 06/20/19 22:09 Dose: 5 units Lisinopril (Prinivil) 5 mg PO DAILY [facility] Last Admin: 06/20/19 11:13 Dose: 5 mg Memantine (Namenda -) [address] [facility] Last Admin: 06/20/19 21:57 Dose: 5 mg Multivitamins/Minerals/Vitamin C (Tab-A-Vit -) 1 tab PO DAILY [facility] Last Admin: 06/20/19 09:28 Dose: 1 tab Phenytoin Sodium (Dilantin Injection -) 100 mg IVPB BID [facility] Last Admin: 06/20/19 21:57 Dose: 100 mg Potassium Phos/Sodium Phos (Phos-Nak Packet -) 1 packet PO DAILY [facility] Last Admin: 06/20/19 09:29 Dose: 1 packet Vital Signs Period Temp Pulse Resp BP Sys/Esparza Pulse Ox Last 24 Hr 98.0 F-101.7 F 71-80 18-20 129-156/52-62 96 Constitutional: Yes: Well Nourished, No Distress, Calm Cardiovascular: Yes: Regular Rate and Rhythm, S1, S2. No: JVD, Gallop, Murmur Respiratory: Yes: Regular, CTA Bilaterally. No: Accessory Muscle Use Extremities: No: Cold Edema: No Neurological: Yes: Lethargy. No: Seizure Psychiatric: No: Agitated no jaundice, diaphoresis Assessment/Plan Echo: EF 40-45%, abn septal motion c/w aberrance conduction. nl RV. functional mitral stenosis sec to MAC. no . tele: NSR, biV paced. episodes of PAT IMP: -Fall while seated on the toilet: suspected sz with post-ictal state, per neuro. -lacunar infarct, ? new vs chronic per dr fraga review of images -Cardiomyopathy, EF 40-45%, h/o syst CHF -paroxysms wide complex tach--reviewed with EP, likely paroxysmal atrial tach/ PSVT (not suspicious for fib/flutter) -s/p BiV-ICD, normal function on company check here ([facility]) -Renal insufficiency: ?acute, ?pre-renal--improved -Hyponatremia -Known CAD, s/p VT and CABG--no signs ACS here REC: -sz precautions, meds per neuro -stroke w/u, mgmt per neuro -monitoring on tele -hypoNa and IVETTE improved with IVF (baseline creat not known)--dc IVF. holding lasix -mildly orthostatic here (100 supine, 91 standing), meds adjusted (below) -increased carvedilol to 9.35 bid here (also for PSVT control)--consider change to metoprolol if frequent PAT runs and/or low bp limits carvedilol dosing, cont for now - restarted lisinopril at lower dose 5 mg daily, uptitrated as tolerated, monitor BP
[2019-06-21] MEDS: LISINOPRIL 5 MG TABLET (FP) PO SCH (10:47)
[2019-06-21] MEDS: CARVEDILOL 3.125 MG TABLET (FP) PO SCH ×2 (10:47→22:40)
[2019-06-21] MEDS: MULTIVITAMINS (DAILY MVI) TABLET (FP) PO SCH (10:47)
[2019-06-21] MEDS: CLOPIDOGREL BISULFATE 75 MG TABLET (FP) PO SCH (10:47)
[2019-06-21] MEDS: ASPIRIN 81 MG CHEWABLE TABLETS PO SCH (10:47)
[2019-06-21] MEDS: PHENYTOIN SODIUM 100 MG/2 ML VIAL IVPB SCH ×2 (10:48→22:40)
[2019-06-21] MEDS: NAPH,MB-DB/K PH,MBDB POWDER PACKET PO SCH (10:48)
--- NOTE | 2019-06-21 11:11 | PN ---
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, [facility] [facility] TECHNICIAN - Note 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: Selected Entries 06/20/19 06/20/19 06/20/19 02:00 06:00 08:35 Breakfast 100% Lunch Supper Temperature 99.1 F 97.7 F 06/20/19 06/20/19 06/20/19 10:00 14:05 18:00 Breakfast Lunch 100% Supper Temperature 98.3 F 99.8 F H 101.7 F H 06/20/19 06/20/19 06/21/19 21:00 21:46 01:27 Breakfast Lunch Supper 100% Temperature 98.0 F 98.4 F 06/21/19 06/21/19 06:00 10:00 Breakfast 75% Lunch Supper Temperature 98.6 F Laboratory Tests 06/20/19 06/21/19 06:55 05:10 WBC 8.5 9.7 On Puree/nectar thick liquid with good tolerance. Speech more precise. Left facial improving. Swallowing is triggered more quickly. Overtly masticated cookie well with good tolerance of single sips of water. Per pt's family, pt with baseline of confusion at night, and gets lost at times. NH placement being considered. REC: Trial Dys whole with chopped meat. Sips of thin liquid. Monitor tolerance. If cough/congestion, MBS
[2019-06-21] MEDS ORDERED: PT OWN MED DRAWER 7, Y5N ONE (22:22)
[2019-06-21] MEDS: ATORVASTATIN CA 40 MG TABLET (FP) PO SCH (22:40)
[2019-06-21] MEDS: MEMANTINE HCL 5 MG TABLET (UD) PO SCH (22:41)
[2019-06-21] MEDS: INSULIN (LEVEMIR) 100 UNITS/ML UNITS SQ SCH (22:57)
[2019-06-22] MEDS: HEPARIN NA (PORCINE) 5,000 UNITS/ML 1ML VIAL SQ SCH ×3 (05:28→22:50)
[2019-06-22] MEDS: INSULIN SLIDING SCALE (NOVOLOG) 1 VIAL SQ SCH ×3 (06:12→16:34)
[2019-06-22 09:18] LABS: BASO % 0.5 % (0-2.0); EOS % 3.1 % (0-4.5); HEMATOCRIT 31.1 % (32.4-45.2); HEMOGLOBIN 10.4 GM/dL (10.7-15.3); LYMPH % 14.3 % (8-40); MCHC 33.6 g/dl (32.0-36.0); MEAN CELL VOLUME 86.4 fl (80-96); MEAN PLT VOLUME 7.7 fl (7.5-11.1); MONO % 7.1 % (3.8-10.2); PLATELET COUNT 281 K/MM3 (134-434); RDW 13.4 % (11.6-15.6); WHITE BLOOD COUNT 11.9 K/mm3 (4.0-10.0)
[2019-06-22] MEDS: DIGOXIN 0.125 MG TABLET (FP) PO SCH (09:19)
[2019-06-22] MEDS: MULTIVITAMINS (DAILY MVI) TABLET (FP) PO SCH (09:20)
[2019-06-22] MEDS: CLOPIDOGREL BISULFATE 75 MG TABLET (FP) PO SCH (09:20)
[2019-06-22] MEDS: CARVEDILOL 3.125 MG TABLET (FP) PO SCH ×2 (09:20→22:49)
[2019-06-22] MEDS: LISINOPRIL 5 MG TABLET (FP) PO SCH (09:20)
[2019-06-22] MEDS: ASPIRIN 81 MG CHEWABLE TABLETS PO SCH (09:20)
[2019-06-22] MEDS: PHENYTOIN SODIUM 100 MG/2 ML VIAL IVPB SCH ×2 (09:21→22:50)
[2019-06-22] MEDS: NAPH,MB-DB/K PH,MBDB POWDER PACKET PO SCH (09:21)
[2019-06-22 10:12] LABS: BLOOD UREA NITROGEN 8.9 mg/dL (7-18); CALCIUM 10.1 mg/dL (8.5-10.1); CREATININE 0.7 mg/dL (0.55-1.3); POTASSIUM 3.9 mmol/L (3.5-5.1)
--- NOTE | 2019-06-22 11:22 | PN ---
Teaching Attending Note Name of Resident: Rayna De Leon ATTENDING PHYSICIAN STATEMENT I saw and evaluated the patient. I reviewed the resident's note and discussed the case with the resident. I agree with the resident's findings and plan as documented. SUBJECTIVE: Patient looks lethargic. no fever or chills, no shortness of breath. OBJECTIVE: Vital Signs Temperature 98.8 F 06/22/19 09:13 Pulse Rate 88 06/22/19 09:19 Respiratory Rate 18 06/22/19 09:13 Blood Pressure 149/65 06/22/19 09:13 O2 Sat by Pulse Oximetry (%) 97 06/21/19 21:00 GENERAL: The patient is awake , in no acute distress. HEAD: Normal with no signs of trauma. EYES: PERRL, extraocular movements intact, sclera anicteric, conjunctiva clear. ENT: Ears normal, oropharynx clear without exudates, moist mucous membranes. NECK: Trachea midline, full range of motion, supple. LUNGS: Breath sounds equal, clear to auscultation bilaterally, no wheezes, no crackles, no accessory muscle use. HEART: Regular rate and rhythm, S1, S2 positive, cathleen 2/6 , PPm , no rub or gallop. ABDOMEN: Soft, NT,ND, normoactive bowel sounds, no guarding, no rebound, no hepatosplenomegaly, no masses. EXTREMITIES: 2+ pulses, warm, well-perfused, no edema. NEUROLOGICAL: Cranial nerves II through XII grossly intact. Normal speech, gait not observed. PSYCH: Normal mood, normal affect. SKIN: Warm, dry, normal turgor, no rashes or lesions noted CBCD WBC 11.9 K/mm3 (4.0-10.0) H 06/22/19 08:50 RBC 3.60 M/mm3 (3.60-5.2) 06/22/19 08:50 Hgb 10.4 GM/dL (10.7-15.3) L 06/22/19 08:50 Hct 31.1 % (32.4-45.2) L 06/22/19 08:50 MCV 86.4 fl (80-96) 06/22/19 08:50 MCHC 33.6 g/dl (32.0-36.0) 06/22/19 08:50 RDW 13.4 % (11.6-15.6) 06/22/19 08:50 Plt Count 281 K/MM3 (134-434) 06/22/19 08:50 MPV 7.7 fl (7.5-11.1) 06/22/19 08:50 CMP Sodium 141 mmol/L (136-145) 06/22/19 08:50 Potassium 3.9 mmol/L (3.5-5.1) 06/22/19 08:50 Chloride 107 mmol/L (98-107) 06/22/19 08:50 Carbon Dioxide 27 mmol/L (21-32) 06/22/19 08:50 Anion Gap 7 MMOL/L (8-16) L 06/22/19 08:50 BUN 8.9 mg/dL (7-18) 06/22/19 08:50 Creatinine 0.7 mg/dL (0.55-1.3) 06/22/19 08:50 Random Glucose 123 mg/dL (74-106) H 06/22/19 08:50 Calcium 10.1 mg/dL (8.5-10.1) 06/22/19 08:50 Total Bilirubin 0.5 mg/dL (0.2-1) 06/15/19 17:02 AST 28 U/L (15-37) 06/15/19 17:02 ALT 19 U/L (13-61) 06/15/19 17:02 Alkaline Phosphatase 103 U/L (45-117) 06/15/19 17:02 Total Protein 8.1 g/dl (6.4-8.2) 06/15/19 17:02 Albumin 3.6 g/dl (3.4-5.0) 06/15/19 17:02 CARDIAC ENZYMES Creatine Kinase 80 U/L (26-192) 06/15/19 17:02 Troponin I 0.03 ng/ml (0.00-0.05) 06/16/19 12:15 Current Medications Generic Name Dose Route Start Last Admin Trade Name Freq PRN Reason Stop Dose Admin Aspirin 81 mg 06/16/19 10:00 06/22/19 09:20 Asa - PO 81 mg DAILY BRANDYN Administration Atorvastatin Calcium 40 mg 06/18/19 22:00 06/21/19 22:40 Lipitor - PO 40 mg HS BRANDYN Administration Carvedilol 9.375 mg 06/18/19 11:15 06/22/19 09:20 Coreg - PO 9.375 mg BID BRANDYN Administration Clopidogrel Bisulfate 75 mg 06/16/19 10:00 06/22/19 09:20 Plavix - PO 75 mg DAILY BRANDYN Administration Digoxin 0.125 mg 06/16/19 10:00 06/22/19 09:19 Lanoxin - PO 0.125 mg Q36H BRANDYN Administration Heparin Sodium (Porcine) 5,000 unit 06/16/19 22:00 06/22/19 05:28 Heparin - SQ 5,000 unit TID BRANDYN Administration Insulin Aspart 1 vial 06/19/19 16:30 06/22/19 06:12 Novolog Vial Sliding Scale - SQ Not Given TIDAC [facility] Protocol Insulin Detemir 5 units 06/19/19 22:00 06/21/19 22:57 Levemir Vial SQ 5 units HS [facility] Administration Lisinopril 5 mg 06/20/19 11:00 06/22/19 09:20 Prinivil PO 5 mg DAILY BRANDYN Administration Memantine 5 mg 06/15/19 22:00 06/21/19 22:41 Namenda - PO 5 mg HS [facility] Administration Multivitamins/Minerals/Vitamin C 1 tab 06/16/19 10:00 06/22/19 09:20 Tab-A-Vit - PO 1 tab DAILY BRANDYN Administration Phenytoin Sodium 100 mg 06/19/19 22:00 06/22/19 09:21 Dilantin Injection - IVPB 100 mg BID BRANDYN Administration Potassium Phos/Sodium Phos 1 packet 06/17/19 10:00 06/22/19 09:21 Phos-Nak Packet - PO 1 packet DAILY BRANDYN Administration Home Medications Medication Instructions Recorded Carvedilol 6.25 mg PO BID 06/15/19 Clopidogrel Bisulfate [Clopidogrel] 75 mg PO DAILY 06/15/19 Digoxin [Lanoxin -] 0.125 mg PO DAILY 06/15/19 Furosemide 20 mg PO DAILY 06/15/19 Glipizide 10 mg PO BID 06/15/19 Lisinopril 10 mg PO DAILY 06/15/19 Memantine HCl 5 mg PO HS 06/15/19 Multivitamin [Multiple Vitamins] 1 each PO DAILY 06/15/19 Simvastatin 20 mg PO HS 06/15/19 EEG : left parietal and frontal spikes . Encephalopathy improved with improvement in seizure activity CT: no acute infarct ASSESSMENT AND PLAN: Patient is a 84yo female with PMHx of s/p PPM , CHF, DM , questionable CVA, dementia, [place], bypass, HLP, CABG, who came from home after an unwitnessed fall and was to have seizures acitivity. # suspected Acute stroke with L sided weakness: cont lipitor, plavix and aspirin continue current diet - PT and OT , Patient has a pPM unable to go to MRI. # New onset seizures: no seizures over night on dilantin . switch to oral # IVETTE: Cr improved post gates catheter , urology as an outpatient, #T2DM: cont SSi and levemir at 5 HS. will discharge on insulin due to A1c of 15 #Hx of systolic CHF, volume depleted now. EF 40-45%, continue Lisionpril , coreg, dig. lasix to be resumed after dc ,maybe at a lower dose, to avoid dehydration , every other day at the discharge # prolonged QTc : avoid prolonging agents # Urinary retention : s/p Dc gates, no succesfull voiding , back to gates cath. urology as an outpatient # Severe malnutrition : will get nutrition consult to further evaluate. DVT Px: heparin Patient when is medically ready for Dc, need rehab . SW updated
--- NOTE | 2019-06-22 11:44 | PN ---
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 (short form) - Note 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: s: no chest pain, palps dizziness, sob Current Medications Generic Name Dose Route Start Last Admin Trade Name Chelo PRN Reason Stop Dose Admin Aspirin 81 mg 06/16/19 10:00 06/22/19 09:20 Asa - PO 81 mg DAILY BRANDYN Administration Atorvastatin Calcium 40 mg 06/18/19 22:00 06/21/19 22:40 Lipitor - PO 40 mg HS BR[facility] Administration Carvedilol 9.375 mg 06/18/19 11:15 06/22/19 09:20 Coreg - PO 9.375 mg BID BRANDYN Administration Clopidogrel Bisulfate 75 mg 06/16/19 10:00 06/22/19 09:20 Plavix - PO 75 mg DAILY BR[facility] Administration Digoxin 0.125 mg 06/16/19 10:00 06/22/19 09:19 Lanoxin - PO 0.125 mg Q36H BR[facility] Administration Heparin Sodium (Porcine) 5,000 unit 06/16/19 22:00 06/22/19 05:28 Heparin - SQ 5,000 unit TID BR[facility] Administration Insulin Aspart 1 vial 06/19/19 16:30 06/22/19 06:12 Novolog Vial Sliding Scale - SQ Not Given TIDAC [facility] Protocol Insulin Detemir 5 units 06/19/19 22:00 06/21/19 22:57 Levemir Vial SQ 5 units HS BR[facility] Administration Lisinopril 5 mg 06/20/19 11:00 06/22/19 09:20 Prinivil PO 5 mg DAILY BR[facility] Administration Memantine 5 mg 06/15/19 22:00 06/21/19 22:41 Namenda - PO 5 mg HS BR[facility] Administration Multivitamins/Minerals/Vitamin C 1 tab 06/16/19 10:00 06/22/19 09:20 Tab-A-Vit - PO 1 tab DAILY [facility] Administration Phenytoin Sodium 100 mg 06/19/19 22:00 06/22/19 09:21 Dilantin Injection - IVPB 100 mg BID BRAND[facility] Administration Potassium Phos/Sodium Phos 1 packet 06/17/19 10:00 06/22/19 09:21 Phos-Nak Packet - PO 1 packet DAILY BR[facility] Administration Vital Signs Period Temp Pulse Resp BP Sys/Esparza Pulse Ox Last 24 Hr 97.7 F-99.5 F 78-88 16-20 117-149/58-65 97 Constitutional: Yes: Well Nourished, No Distress, Calm Cardiovascular: Yes: Regular Rate and Rhythm, S1, S2. No: JVD, Gallop, Murmur Respiratory: Yes: Regular, CTA Bilaterally. No: Accessory Muscle Use Extremities: No: Cold Edema: No Neurological: Yes: Lethargy. No: Seizure Psychiatric: No: Agitated no jaundice, diaphoresis CBC, BMP 06/22/19 08:50 06/22/19 08:50 Assessment/Plan Echo: EF 40-45%, abn septal motion c/w aberrance conduction. nl RV. functional mitral stenosis sec to MAC. no . tele: SR, biV paced. IMP: -Fall while seated on the toilet: suspected sz with post-ictal state, per neuro. -lacunar infarct, ? new vs chronic per dr fraga review of images -Cardiomyopathy, EF 40-45%, h/o syst CHF -paroxysms wide complex tach--reviewed with EP, likely paroxysmal atrial tach/ PSVT (not suspicious for fib/flutter) -s/p BiV-ICD, normal function on company check here ([facility]) -Renal insufficiency: ?acute, ?pre-renal--improved -Hyponatremia -Known CAD, s/p [place] and CABG--no signs ACS here REC: -sz precautions, meds per neuro -stroke w/u, mgmt per neuro -monitoring on tele -hypoNa and IVETTE improved with IVF (baseline creat not known)--dc IVF. holding lasix -increased carvedilol to 9.35 bid here (also for PSVT control)--consider change to metoprolol if frequent PAT runs and/or low bp limits carvedilol dosing, cont for now -restarted lisinopril at lower dose 5 mg daily, uptitrated as tolerated, monitor BP
--- NOTE | 2019-06-22 12:21 | PN ---
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 - Note 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: Selected Entries 06/20/19 06/20/19 06/20/19 02:00 06:00 08:35 Breakfast 100% Lunch Supper Temperature 99.1 F 97.7 F 06/20/19 06/20/19 06/20/19 10:00 14:05 18:00 Breakfast Lunch 100% Supper Temperature 98.3 F 99.8 F H 101.7 F H 06/20/19 06/20/19 06/21/19 21:00 21:46 01:27 Breakfast Lunch Supper 100% Temperature 98.0 F 98.4 F 06/21/19 06/21/19 06:00 10:00 Breakfast 75% Lunch Supper Temperature 98.6 F Laboratory Tests 06/20/19 06/21/19 06:55 05:10 WBC 8.5 9.7 Selected Entries 06/21/19 06/21/19 06/21/19 10:00 13:42 22:00 Breakfast 75% Lunch 75% Supper 100% 06/22/19 09:54 Breakfast 75% Lunch Supper Laboratory Tests 06/21/19 06/22/19 05:10 08:50 WBC 9.7 11.9 H Doing well on Dys whole with chopped meat. Sips of thin liquid. Monitor tolerance.
--- NOTE | 2019-06-22 12:42 | CON.GU ---
Consult - History of Present Illness History of Present Illness: 84 yo female with dementia, admitted s/p fall, also recent stroke. Now with urinary retention - Past Medical History Cardio/Vascular: Yes: CAD, Other ([facility]) Pulmonary: No: Asthma, Bronchitis, Cancer, COPD, O2 Dependent, Pneumonia, Previously Intubated, Pulmonary Embolus, Pulmonary Fibrosis, Sleep Apnea, Other Gastrointestinal: No: Ascites, Cancer, Constipation, Crohn's Disease, Diverticulitis, Diverticulosis, Esophageal Varices, Gastritis, GERD, GI Bleed, Hemorrhoids, Hiatal Hernia, Inflamatory Bowel Disease, Irritable Bowel Disease, Pancreatitis, Peptic Ulcer Disease, Ulcerative Colitis, Other Hepatobiliary: No: Cirrhosis, Cholelithiasis, Cholecystitis, Choledocholithiasis , Hepatitis A, Hepatitis B, Hepatitis C, Other Renal/: No: Renal Failure, Renal Inusuff, BPH, Cancer, Hematuria, Hemodialysis , Neurogenic Bladder, Renal Calculi, UTI, Other ...: No - Alcohol/Substance Use Hx Alcohol Use: No - Smoking History Smoking history: Never smoked Have you smoked in the past 12 months: No - Social History History of Recent Travel: Yes ([place]) Home Medications - Allergies Allergies/Adverse Reactions: Allergies Allergy/AdvReac Type Severity Reaction Status Date / Time No Allergy Information Allergy Verified 06/15/19 16:34 Available - Home Medications Home Medications: Ambulatory Orders Carvedilol 6.25 mg PO BID 06/15/19 Clopidogrel Bisulfate [Clopidogrel] 75 mg PO DAILY 06/15/19 Digoxin [Lanoxin -] 0.125 mg PO DAILY 06/15/19 Furosemide 20 mg PO DAILY 06/15/19 Glipizide 10 mg PO BID 06/15/19 Lisinopril 10 mg PO DAILY 06/15/19 Memantine HCl 5 mg PO HS 06/15/19 Multivitamin [Multiple Vitamins] 1 each PO DAILY 06/15/19 Simvastatin 20 mg PO HS 06/15/19 Physical Exam- Vital Signs: Vital Signs Temperature 98.8 F 06/22/19 09:13 Pulse Rate 88 06/22/19 09:19 Respiratory Rate 18 06/22/19 09:13 Blood Pressure 149/65 06/22/19 09:13 O2 Sat by Pulse Oximetry (%) 97 06/21/19 21:00 Renal/: Yes: Yash Present Labs: CBC, BMP 06/22/19 08:50 06/22/19 08:50 Problem List - Problems (1) Urinary retention Assessment/Plan: will start flomax/urecholine. aggressive bowel regimen to treat her constipation. repeat voiding trial in 24-48hrs Code(s): R33.9 - RETENTION OF URINE, UNSPECIFIED
--- NOTE | 2019-06-22 12:50 | PN ---
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 (short form) - Note 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: 84 yea jim female history of Dementia, Stroke, [place] ,CABG,Pacemaker, HTN,HLD,DM ,CHF. Patient presented to hospital for fall. Patient has history of stroke, not clear what is her baseline. Apparently she had episode of staring episode and left facial twiching with tongue bite. Patient is not able to provide any history and history was obtained from nursing staff and chart. Patient is on statin, plavix. paitent has not had any seizure and she is more alert. Patient is feeling better and moving left side more . No new complain, waiting for placement NEUROLOGICAL EXAMINATION Alert and talking more alert today, no focal seizure were seen, she appears drowsy, no focal twiching was seen at bedside there is mild left face palsy and singificant left arm and leg weakness improvement ct head showed right basal ganglia lacunar stroke repeat ct head on june 17 was unchanged Eeg showed left pareital and frontal spikes were seen Assessment/plan 1. 84 year old female history of dementia, cad, cabg, s/p pacemaker. Patient presnted with fall. Patient has normal ct head and old right BG lacunar stroke, on exam patient has left sided hemiparesis on admission and she has improved markedly 2.Focal seizure with secondary generalization Plan:continue keppra and dilantin - continue current supportive care - continue statin and antiplatelet - swallwoing, pt and dvt prohylaxis Thanking you so much Blade Starr MD
--- NOTE | 2019-06-22 13:53 | PN ---
Physical Exam: SUBJECTIVE: Patient seen and examined. Pt was more awake and verbal today. didnt offer any complaints. OBJECTIVE: Vital Signs Period Temp Pulse Resp BP Sys/Esparza Pulse Ox Last 24 Hr 97.7 F-98.8 F 78-88 17-20 122-149/58-65 97 GENERAL: The patient is AAOx2, in no acute distress. HEAD: Normal with no signs of trauma. LUNGS: Breath sounds equal, clear to auscultation bilaterally, no wheezes, no crackles, no accessory muscle use. HEART: Regular rate and rhythm, S1, S2 without murmur, rub or gallop. ABDOMEN: Soft, nontender, nondistended, normoactive bowel sounds, no guarding, no rebound, no hepatosplenomegaly, no masses. EXTREMITIES: 2+ pulses, warm, well-perfused, no edema. NEUROLOGICAL: Limited exam but today patient was able to lift left and left leg. strength 3/5 in left arm. sensation intact in all extremities Laboratory Results - last 24 hr 06/21/19 06/21/19 06/22/19 15:45 22:42 05:26 WBC RBC Hgb Hct MCV MCH MCHC RDW Plt Count MPV Absolute Neuts (auto) Neutrophils % Lymphocytes % Monocytes % Eosinophils % Basophils % Nucleated RBC % Sodium Potassium Chloride Carbon Dioxide Anion Gap BUN Creatinine Est GFR (CKD-EPI)AfAm Est GFR (CKD-EPI)NonAf POC Glucometer 323 342 139 Random Glucose Calcium 06/22/19 06/22/19 06/22/19 08:50 08:50 12:22 WBC 11.9 H RBC 3.60 Hgb 10.4 L Hct 31.1 L MCV 86.4 MCH 29.0 MCHC 33.6 RDW 13.4 Plt Count 281 MPV 7.7 Absolute Neuts (auto) 9.0 H Neutrophils % 75.0 Lymphocytes % 14.3 Monocytes % 7.1 Eosinophils % 3.1 Basophils % 0.5 Nucleated RBC % 0 Sodium 141 Potassium 3.9 Chloride 107 Carbon Dioxide 27 Anion Gap 7 L BUN 8.9 Creatinine 0.7 Est GFR (CKD-EPI)AfAm 92.21 Est GFR (CKD-EPI)NonAf 79.56 POC Glucometer 411 Random Glucose 123 H Calcium 10.1 Active Medications Generic Name Dose Route Start Last Admin Trade Name Freq PRN Reason Stop Dose Admin Aspirin 81 mg 06/16/19 10:00 06/22/19 09:20 Asa - PO 81 mg DAILY [facility]CLUDES [facility] Administration Atorvastatin Calcium 40 mg 06/18/19 22:00 06/21/19 22:40 Lipitor - PO 40 mg HS [facility] Administration Bethanechol Chloride 25 mg 06/22/19 14:00 Urecholine - PO TID COUNT INCLUDES [facility] Carvedilol 9.375 mg 06/18/19 11:15 06/22/19 09:20 Coreg - PO 9.375 mg BID [facility]CLUDES [facility] Administration Clopidogrel Bisulfate 75 mg 06/16/19 10:00 06/22/19 09:20 Plavix - PO 75 mg DAILY [facility] Administration Digoxin 0.125 mg 06/16/19 10:00 06/22/19 09:19 Lanoxin - PO 0.125 mg Q36H [facility] Administration Docusate Sodium 100 mg 06/22/19 13:30 Colace - PO DAILY [facility] Heparin Sodium (Porcine) 5,000 unit 06/16/19 22:00 06/22/19 05:28 Heparin - SQ 5,000 unit TID [facility] Administration Insulin Aspart 1 vial 06/19/19 16:30 06/22/19 12:25 Novolog Vial Sliding Scale - SQ 12 units TIDAC [facility] Administration Protocol Insulin Detemir 10 units 06/22/19 22:00 Levemir Vial SQ HS [facility]CLUD[facility] Lisinopril 5 mg 06/20/19 11:00 06/22/19 09:20 Prinivil PO 5 mg DAILY [facility] Administration Memantine 5 mg 06/15/19 22:00 06/21/19 22:41 Namenda - PO 5 mg HS [facility] Administration Multivitamins/Minerals/Vitamin C 1 tab 06/16/19 10:00 06/22/19 09:20 Tab-A-Vit - PO 1 tab DAILY [facility] Administration Phenytoin Sodium 100 mg 06/19/19 22:00 06/22/19 09:21 Dilantin Injection - IVPB 100 mg BID [facility] Administration Potassium Phos/Sodium Phos 1 packet 06/17/19 10:00 06/22/19 09:21 Phos-Nak Packet - PO 1 packet DAILY [facility] Administration Senna 1 tab 06/22/19 22:00 Senna - PO HS [facility]CLUD[facility] Tamsulosin HCl 0.4 mg 06/23/19 08:30 Flomax - PO DAILY@0830 [facility] ASSESSMENT/PLAN: 84 y/o lady with h/o HTN, s/p PPM , CHF, DM , ? CVA, dementia, [place], bypass, HLP, CABG, and severe protein calorie malnutrition (BMI17) who came from home after an unwitnessed fall. CVA with L sided weakness stable with significant improvement of the L arm and leg weakness BP control with carvedilol increased to 9.375mg diet has been advanced to whole diet with chopped meat. well tolerated so far PT ordered Seizures Pt had no seizures overnight Pt loaded with 1gm of Fosfophenytoin 06/19/19 and put on dilantin 100mg BID . Keppra D/C IVETTE monitor. creatinine trending down to 0.7 today. Gates was d/c yesterday but pt failed to void so gates was reinserted. flomax and urecholine added in assistance colace and senna to improve constipation. voiding trial in 24-48 hrs as per urine culture staph coag negative DM today blood glucose stable ran high to 400s pt given 12 units repeat glucose 453 levemir increased to 10 units cont SSI Systolic CHF EF 40-45% hold lasix cont digoxin coreg dose adjusted 9.375mg as per cardio lisinopril resumed at 5mg PO Daily prolonged QTc avoid prolonging agents DVT Ppx heparin subQ Visit type - Emergency Visit Emergency Visit: Yes ED Registration Date: 06/19/19 Care time: The patient presented to the Emergency Department on the above date and was hospitalized for further evaluation of their emergent condition. - New Patient This patient is new to me today: No - Critical Care Critical Care patient: No - Discharge Referral Referred to [facility] Med P.C.: No ATTENDING PHYSICIAN STATEMENT I saw and evaluated the patient. I reviewed the resident's note and discussed the case with the resident. I agree with the resident's findings and plan as documented. SUBJECTIVE: OBJECTIVE: ASSESSMENT AND PLAN:
[2019-06-22] MEDS ORDERED: PT OWN MED DRAWER 7, Y5N ONE ×2 (14:11→22:58)
[2019-06-22] MEDS: DOCUSATE SODIUM 100 MG CAPSULE (FP) PO SCH (14:16)
[2019-06-22] MEDS: BETHANECHOL CHLORIDE 25 MG TABLET PO SCH ×2 (14:17→23:36)
[2019-06-22] MEDS ORDERED: INSULIN (NOVOLOG) ASPART 100 UNITS/ML 10ML VIAL SQ ONE (14:23)
[2019-06-22] MEDS ORDERED: INSULIN (LEVEMIR) 100 UNITS/ML UNITS SQ SCH (22:00)
[2019-06-22] MEDS: ATORVASTATIN CA 40 MG TABLET (FP) PO SCH (22:49)
[2019-06-22] MEDS: SENNOSIDES 8.6MG TABLET (FP) PO SCH (22:49)
[2019-06-22] MEDS: MEMANTINE HCL 5 MG TABLET (UD) PO SCH (23:35)
[2019-06-23] MEDS: BETHANECHOL CHLORIDE 25 MG TABLET PO SCH ×3 (06:03→21:28)
[2019-06-23] MEDS: HEPARIN NA (PORCINE) 5,000 UNITS/ML 1ML VIAL SQ SCH ×2 (06:03→14:26)
[2019-06-23] MEDS: INSULIN SLIDING SCALE (NOVOLOG) 1 VIAL SQ SCH ×3 (06:07→18:20)
[2019-06-23] MEDS ORDERED: PT OWN MED DRAWER 7, Y5N ONE ×2 (07:22→21:19)
[2019-06-23 07:23] LABS: BASO % 0.2 % (0-2.0); EOS % 2.3 % (0-4.5); HEMATOCRIT 27.9 % (32.4-45.2); HEMOGLOBIN 9.4 GM/dL (10.7-15.3); LYMPH % 14.1 % (8-40); MCH 29.2 pg (25.7-33.7); MCHC 33.6 g/dl (32.0-36.0); MEAN CELL VOLUME 86.9 fl (80-96); MEAN PLT VOLUME 7.6 fl (7.5-11.1); MONO % 6.7 % (3.8-10.2); NEUT % 76.7 % (42.8-82.8); PLATELET COUNT 314 K/MM3 (134-434); RBC 3.21 M/mm3 (3.60-5.2); RDW 13.6 % (11.6-15.6); WHITE BLOOD COUNT 11.2 K/mm3 (4.0-10.0)
[2019-06-23 07:41] LABS: ALBUMIN 2.7 g/dl (3.4-5.0); BILIRUBIN,TOTAL 0.2 mg/dL (0.2-1); BLOOD UREA NITROGEN 21.1 mg/dL (7-18); CALCIUM 9.8 mg/dL (8.5-10.1); MAGNESIUM 1.6 mg/dL (1.8-2.4); PHOSPHOROUS 1.7 mg/dL (2.5-4.9); POTASSIUM 4.1 mmol/L (3.5-5.1); TOT PROT 6.5 g/dl (6.4-8.2)
[2019-06-23] MEDS: TAMSULOSIN HCL 0.4 MG CAP PO SCH (08:09)
--- NOTE | 2019-06-23 09:26 | PN ---
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, Physician - Current Medication List Current Medications: Active Medications Aspirin (Asa -) 81 mg PO DAILY [facility] Last Admin: 06/22/19 09:20 Dose: 81 mg Atorvastatin Calcium (Lipitor -) 40 mg PO [facility] Last Admin: 06/22/19 22:49 Dose: 40 mg Bethanechol Chloride (Urecholine -) 25 mg PO TID [facility] Last Admin: 06/23/19 06:03 Dose: 25 mg Carvedilol (Coreg -) 9.375 mg PO BID [facility] Last Admin: 06/22/19 22:49 Dose: 9.375 mg Clopidogrel Bisulfate (Plavix -) 75 mg PO DAILY [facility] Last Admin: 06/22/19 09:20 Dose: 75 mg Digoxin (Lanoxin -) 0.125 mg PO Q36H [facility] Last Admin: 06/22/19 09:19 Dose: 0.125 mg Docusate Sodium (Colace -) 100 mg PO DAILY [facility] Last Admin: 06/22/19 14:16 Dose: 100 mg Heparin Sodium (Porcine) (Heparin -) 5,000 unit SQ TID [facility] Last Admin: 06/23/19 06:03 Dose: 5,000 unit Insulin Aspart (Novolog Vial Sliding Scale -) [facility] Protocol Last Admin: 06/23/19 06:07 Dose: 4 units Insulin Detemir (Levemir Vial) 10 units SQ [facility] Last Admin: 06/22/19 23:40 Dose: 10 units Lisinopril (Prinivil) 5 mg PO DAILY [facility] Last Admin: 06/22/19 09:20 Dose: 5 mg Memantine (Namenda -) 5 mg PO [facility] Last Admin: 06/22/19 23:35 Dose: 5 mg Multivitamins/Minerals/Vitamin C (Tab-A-Vit -) 1 tab PO DAILY [facility] Last Admin: 06/22/19 09:20 Dose: 1 tab Phenytoin Sodium (Dilantin Injection -) 100 mg IVPB BID [facility] Last Admin: 06/22/19 22:50 Dose: 100 mg Potassium Phos/Sodium Phos (Phos-Nak Packet -) 1 packet PO DAILY [facility] Last Admin: 06/22/19 09:21 Dose: 1 packet Senna (Senna -) 1 tab PO [facility] Last Admin: 06/22/19 22:49 Dose: 1 tab Tamsulosin HCl (Flomax -) 0.4 mg PO DAILY@0830 [facility] - Objective Vital Signs: Vital Signs Temperature 98.1 F 06/23/19 05:57 Pulse Rate 77 06/23/19 05:57 Respiratory Rate 16 06/23/19 05:57 Blood Pressure 155/64 06/23/19 05:57 O2 Sat by Pulse Oximetry (%) 98 06/22/19 21:00 Labs: CBC, BMP 06/23/19 06:35 06/23/19 06:35 INR, PTT INR 0.87 (0.83-1.09) 06/15/19 17:02 Assessment/Plan Assessment/Plan Echo: EF 40-45%, abn septal motion c/w aberrance conduction. nl RV. functional mitral stenosis sec to MAC. no . tele: SR, biV paced. IMP: -Fall while seated on the toilet: suspected sz with post-ictal state, per neuro. -lacunar infarct, ? new vs chronic per dr fraga review of images -Cardiomyopathy, EF 40-45%, h/o syst CHF -paroxysms wide complex tach--reviewed with EP, likely paroxysmal atrial tach/ PSVT (not suspicious for fib/flutter) -s/p BiV-ICD, normal function on company check here ([facility]) -Renal insufficiency: ?acute, ?pre-renal--improved -Hyponatremia -Known CAD, s/p CO and CABG--no signs ACS here REC: -sz precautions, meds per neuro -stroke w/u, mgmt per neuro -monitoring on tele -hypoNa and IVETTE improved with IVF (baseline creat not known)--dc IVF. holding lasix -increased carvedilol to 9.35 bid here (also for PSVT control)--consider change to metoprolol if frequent PAT runs and/or low bp limits carvedilol dosing, cont for now -restarted lisinopril at lower dose 5 mg daily, uptitrated as tolerated, monitor BP
--- NOTE | 2019-06-23 09:45 | PN ---
Physical Exam: SUBJECTIVE: Patient seen and examined.Pt is still lying comfortably with no acute complaints. OBJECTIVE: Vital Signs Period Temp Pulse Resp BP Sys/Esparza Pulse Ox Last 24 Hr 97.8 F-99.6 F 77-90 16-18 101-155/51-64 98 GENERAL: The patient is AAOx2, in no acute distress. HEAD: Normal with no signs of trauma. LUNGS: Breath sounds equal, clear to auscultation bilaterally, no wheezes, no crackles, no accessory muscle use. HEART: Regular rate and rhythm, S1, S2 without murmur, rub or gallop. ABDOMEN: Soft, nontender, nondistended, normoactive bowel sounds, no guarding, no rebound, no hepatosplenomegaly, no masses. EXTREMITIES: 2+ pulses, warm, well-perfused, no edema. NEUROLOGICAL: Limited exam but today patient was able to lift left and left leg. strength 3/5 in left arm. sensation intact in all extremities Laboratory Results - last 24 hr 06/22/19 06/22/19 06/22/19 08:50 12:22 14:15 WBC RBC Hgb Hct MCV MCH MCHC RDW Plt Count MPV Absolute Neuts (auto) Neutrophils % Lymphocytes % Monocytes % Eosinophils % Basophils % Nucleated RBC % Sodium 141 Potassium 3.9 Chloride 107 Carbon Dioxide 27 Anion Gap 7 L BUN 8.9 Creatinine 0.7 Est GFR (CKD-EPI)AfAm 92.21 Est GFR (CKD-EPI)NonAf 79.56 POC Glucometer 411 453 Random Glucose 123 H Calcium 10.1 Phosphorus Magnesium Total Bilirubin AST ALT Alkaline Phosphatase Total Protein Albumin 06/22/19 06/22/19 06/22/19 16:33 22:47 23:40 WBC RBC Hgb Hct MCV MCH MCHC RDW Plt Count MPV Absolute Neuts (auto) Neutrophils % Lymphocytes % Monocytes % Eosinophils % Basophils % Nucleated RBC % Sodium Potassium Chloride Carbon Dioxide Anion Gap BUN Creatinine Est GFR (CKD-EPI)AfAm Est GFR (CKD-EPI)NonAf POC Glucometer 384 423 417 Random Glucose Calcium Phosphorus Magnesium Total Bilirubin AST ALT Alkaline Phosphatase Total Protein Albumin 06/23/19 06/23/19 06/23/19 00:00 01:26 03:29 WBC RBC Hgb Hct MCV MCH MCHC RDW Plt Count MPV Absolute Neuts (auto) Neutrophils % Lymphocytes % Monocytes % Eosinophils % Basophils % Nucleated RBC % Sodium Potassium Chloride Carbon Dioxide Anion Gap BUN Creatinine Est GFR (CKD-EPI)AfAm Est GFR (CKD-EPI)NonAf POC Glucometer 411 329 Random Glucose 418 H* Calcium Phosphorus Magnesium Total Bilirubin AST ALT Alkaline Phosphatase Total Protein Albumin 06/23/19 06/23/19 06/23/19 05:53 06:35 06:35 WBC 11.2 H RBC 3.21 L Hgb 9.4 L Hct 27.9 L MCV 86.9 MCH 29.2 MCHC 33.6 RDW 13.6 Plt Count 314 MPV 7.6 Absolute Neuts (auto) 8.6 H Neutrophils % 76.7 Lymphocytes % 14.1 Monocytes % 6.7 Eosinophils % 2.3 Basophils % 0.2 Nucleated RBC % 0 Sodium 141 Potassium 4.1 Chloride 107 Carbon Dioxide 28 Anion Gap 5 L BUN 21.1 H Creatinine 1.0 Est GFR (CKD-EPI)AfAm 59.91 Est GFR (CKD-EPI)NonAf 51.69 POC Glucometer 224 Random Glucose 224 H Calcium 9.8 Phosphorus 1.7 L Magnesium 1.6 L Total Bilirubin 0.2 AST 32 ALT 27 Alkaline Phosphatase 93 Total Protein 6.5 Albumin 2.7 L Active Medications Generic Name Dose Route Start Last Admin Trade Name Freq PRN Reason Stop Dose Admin Aspirin 81 mg 06/16/19 10:00 06/22/19 09:20 Asa - PO 81 mg DAILY BRANDYN Administration Atorvastatin Calcium 40 mg 06/18/19 22:00 06/22/19 22:49 Lipitor - PO 40 mg HS BRANDYN Administration Bethanechol Chloride 25 mg 06/22/19 14:00 06/23/19 06:03 Urecholine - PO 25 mg TID BRANDYN Administration Carvedilol 9.375 mg 06/18/19 11:15 06/22/19 22:49 Coreg - PO 9.375 mg BID BRANDYN Administration Clopidogrel Bisulfate 75 mg 06/16/19 10:00 06/22/19 09:20 Plavix - PO 75 mg DAILY BRANDYN Administration Digoxin 0.125 mg 06/16/19 10:00 06/22/19 09:19 Lanoxin - PO 0.125 mg Q36H BRANDYN Administration Docusate Sodium 100 mg 06/22/19 13:30 06/22/19 14:16 Colace - PO 100 mg DAILY BRANDYN Administration Heparin Sodium (Porcine) 5,000 unit 06/16/19 22:00 06/23/19 06:03 Heparin - SQ 5,000 unit TID BRANDYN Administration Insulin Aspart 1 vial 06/19/19 16:30 06/23/19 06:07 Novolog Vial Sliding Scale - SQ 4 units TIDAC BRANDYN Administration Protocol Insulin Detemir 10 units 06/22/19 22:00 06/22/19 23:40 Levemir Vial SQ 10 units HS BRANDYN Administration Lisinopril 5 mg 06/20/19 11:00 06/22/19 09:20 Prinivil PO 5 mg DAILY BRANDYN Administration Memantine 5 mg 06/15/19 22:00 06/22/19 23:35 Namenda - PO 5 mg HS BRANDYN Administration Multivitamins/Minerals/Vitamin C 1 tab 06/16/19 10:00 06/22/19 09:20 Tab-A-Vit - PO 1 tab DAILY BRANDYN Administration Phenytoin Sodium 100 mg 06/19/19 22:00 06/22/19 22:50 Dilantin Injection - IVPB 100 mg BID BRANDYN Administration Potassium Phos/Sodium Phos 1 packet 06/17/19 10:00 06/22/19 09:21 Phos-Nak Packet - PO 1 packet DAILY BRANDYN Administration Senna 1 tab 06/22/19 22:00 06/22/19 22:49 Senna - PO 1 tab HS BRANDYN Administration Tamsulosin HCl 0.4 mg 06/23/19 08:30 Flomax - PO DAILY@0830 [facility] ASSESSMENT/PLAN: 84 y/o lady with h/o HTN, s/p PPM , CHF, DM , ? CVA, dementia, [place], bypass, HLP, CABG, and severe protein calorie malnutrition (BMI17) who came from home after an unwitnessed fall. CVA with L sided weakness stable with significant improvement of the L arm and leg weakness BP control with carvedilol Dysphagia whole diet with chopped meat. well tolerated so far PT ordered Seizures Pt had no seizures overnight Pt loaded with 1gm of Fosfophenytoin 06/19/19 and put on dilantin 100mg BID IVETTE monitor. creatinine 1.0 today. Berrios in. flomax and urecholine added in assistance colace 200mg PO and senna to improve constipation. glycerin suppository once DM blood glucose uncontrolled today 418. on levemir cont SSI Systolic CHF EF 40-45% hold lasix cont digoxin coreg dose adjusted 9.375mg as per cardio lisinopril resumed at 5mg PO Daily prolonged QTc avoid prolonging agents DVT Ppx heparin subQ Visit type - Emergency Visit Emergency Visit: Yes ED Registration Date: 06/19/19 Care time: The patient presented to the Emergency Department on the above date and was hospitalized for further evaluation of their emergent condition. - New Patient This patient is new to me today: No - Critical Care Critical Care patient: No - Discharge Referral Referred to [facility] Med P.C.: No ATTENDING PHYSICIAN STATEMENT I saw and evaluated the patient. I reviewed the resident's note and discussed the case with the resident. I agree with the resident's findings and plan as documented. SUBJECTIVE: OBJECTIVE: ASSESSMENT AND PLAN:
[2019-06-23] MEDS ORDERED: MAGNESIUM OXIDE 400 MG TABLET (FP) PO ONE (09:46)
[2019-06-23] MEDS: CLOPIDOGREL BISULFATE 75 MG TABLET (FP) PO SCH (10:07)
[2019-06-23] MEDS: LISINOPRIL 5 MG TABLET (FP) PO SCH (10:07)
[2019-06-23] MEDS: CARVEDILOL 3.125 MG TABLET (FP) PO SCH ×2 (10:08→21:28)
[2019-06-23] MEDS ORDERED: POTASSIUM PHOSPHATE 30 MM in SODIUM CHLORIDE 500 ML IVPB ONE ×2 (10:15→14:30)
[2019-06-23] MEDS: DOCUSATE SODIUM 100 MG CAPSULE (FP) PO SCH (10:21)
[2019-06-23] MEDS ORDERED: GLYCERIN 1 RECTAL SUPPOSITORY, ADULT RC ONE (10:23)
[2019-06-23] MEDS: NAPH,MB-DB/K PH,MBDB POWDER PACKET PO SCH (11:07)
[2019-06-23] MEDS ORDERED: MINERAL OIL ENEMA 133 ML ENEMA PR ONE (11:13)
[2019-06-23] MEDS: PHENYTOIN SODIUM 100 MG/2 ML VIAL IVPB SCH ×2 (11:26→21:28)
--- NOTE | 2019-06-23 11:30 | PN ---
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, CUE WORKER - Note 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: Selected Entries 06/20/19 06/20/19 06/20/19 02:00 06:00 08:35 Breakfast 100% Lunch Supper Temperature 99.1 F 97.7 F 06/20/19 06/20/19 06/20/19 10:00 14:05 18:00 Breakfast Lunch 100% Supper Temperature 98.3 F 99.8 F H 101.7 F H 06/20/19 06/20/19 06/21/19 21:00 21:46 01:27 Breakfast Lunch Supper 100% Temperature 98.0 F 98.4 F 06/21/19 06/21/19 06:00 10:00 Breakfast 75% Lunch Supper Temperature 98.6 F Laboratory Tests 06/20/19 06/21/19 06:55 05:10 WBC 8.5 9.7 Selected Entries 06/21/19 06/21/19 06/21/19 10:00 13:42 22:00 Breakfast 75% Lunch 75% Supper 100% 06/22/19 09:54 Breakfast 75% Lunch Supper Laboratory Tests 06/21/19 06/22/19 05:10 08:50 WBC 9.7 11.9 H Selected Entries 06/22/19 06/22/19 06/22/19 01:49 05:00 09:13 Breakfast Diet Tolerated Lunch Supper Temperature 98.4 F 97.7 F 98.8 F 06/22/19 06/22/19 06/22/19 09:54 14:05 18:00 Breakfast 75% Diet Tolerated Well Well Lunch 75% Supper Temperature 99.6 F 97.8 F 06/22/19 06/22/19 06/23/19 21:31 22:00 02:00 Breakfast Diet Tolerated Well Lunch Supper 100% Temperature 97.9 F 98.4 F 06/23/19 06/23/19 05:57 08:15 Breakfast 75% Diet Tolerated Well Lunch Supper Temperature 98.1 F Laboratory Tests 06/21/19 06/22/19 06/23/19 05:10 08:50 06:35 WBC 9.7 11.9 H 11.2 H Doing well on Dys whole with chopped meat. Sips of thin liquid. Monitor tolerance. Pending 1 day calorie count PO intake is excellent. Pt feeding herself and drinking 2 tiffany HN.
[2019-06-23] MEDS: MULTIVITAMINS (DAILY MVI) TABLET (FP) PO SCH (13:06)
[2019-06-23] MEDS: ASPIRIN 81 MG CHEWABLE TABLETS PO SCH (13:09)
--- NOTE | 2019-06-23 15:53 | PN ---
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 (short form) - Note 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: 84 yea [place] female history of Dementia, Stroke, [place] ,CABG,Pacemaker, HTN,HLD,DM ,CHF. Patient presented to hospital for fall. Patient has history of stroke, not clear what is her baseline. Apparently she had episode of staring episode and left facial twiching with tongue bite. Patient is not able to provide any history and history was obtained from nursing staff and chart. Patient is on statin, plavix. no seizure, and feeling better , moving left side more and more NEUROLOGICAL EXAMINATION Alert and talking more alert today, no focal seizure were seen, she appears drowsy, no focal twiching was seen at bedside there is mild left face palsy and singificant left arm and leg weakness improvement ct head showed right basal ganglia lacunar stroke repeat ct head on june 17 was unchanged Eeg showed left pareital and frontal spikes were seen Assessment/plan 1. 84 year old female history of dementia, cad, cabg, s/p pacemaker. Patient presnted with fall. Patient has normal ct head and old right BG lacunar stroke, on exam patient has left sided hemiparesis on admission and she has improved markedly , no more seizure 2.Focal seizure with secondary generalization. Seizure are under control. Plan:continue keppra and dilantin - continue current supportive care - continue statin and antiplatelet - swallwoing, pt and dvt prohylaxis Thanking you so much Blade Starr MD
--- NOTE | 2019-06-23 16:27 | PN ---
Teaching Attending Note Name of Resident: Rayna De Leon ATTENDING PHYSICIAN STATEMENT I saw and evaluated the patient. I reviewed the resident's note and discussed the case with the resident. I agree with the resident's findings and plan as documented. SUBJECTIVE: Patient is better today. OBJECTIVE: Vital Signs Temperature 99.8 F H 06/23/19 13:00 Pulse Rate 85 06/23/19 13:00 Respiratory Rate 20 06/23/19 13:00 Blood Pressure 136/53 L 06/23/19 13:00 O2 Sat by Pulse Oximetry (%) 98 06/22/19 21:00 GENERAL: The patient is awake, alert, in no acute distress. cachectic HEAD: Normal with no signs of trauma. EYES: PERRL, extraocular movements intact, sclera anicteric, conjunctiva clear. ENT: Ears normal, oropharynx clear without exudates, moist mucous membranes. NECK: Trachea midline, full range of motion, supple. LUNGS: Breath sounds equal, clear to auscultation bilaterally, no wheezes, no crackles, no accessory muscle use. HEART: Regular rate and rhythm, S1, S2 without murmur, rub or gallop. ABDOMEN: Soft, NT,ND, normoactive bowel sounds, no guarding, no rebound, no hepatosplenomegaly, no masses. EXTREMITIES: 2+ pulses, warm, well-perfused, no edema. NEUROLOGICAL: Cranial nerves II through XII grossly intact. Normal speech, gait not observed. PSYCH: Normal mood, normal affect. SKIN: Warm, dry, normal turgor, no rashes or lesions noted CBCD WBC 11.2 K/mm3 (4.0-10.0) H 06/23/19 06:35 RBC 3.21 M/mm3 (3.60-5.2) L 06/23/19 06:35 Hgb 9.4 GM/dL (10.7-15.3) L 06/23/19 06:35 Hct 27.9 % (32.4-45.2) L 06/23/19 06:35 MCV 86.9 fl (80-96) 06/23/19 06:35 MCHC 33.6 g/dl (32.0-36.0) 06/23/19 06:35 RDW 13.6 % (11.6-15.6) 06/23/19 06:35 Plt Count 314 K/MM3 (134-434) 06/23/19 06:35 MPV 7.6 fl (7.5-11.1) 06/23/19 06:35 CMP Sodium 141 mmol/L (136-145) 06/23/19 06:35 Potassium 4.1 mmol/L (3.5-5.1) 06/23/19 06:35 Chloride 107 mmol/L (98-107) 06/23/19 06:35 Carbon Dioxide 28 mmol/L (21-32) 06/23/19 06:35 Anion Gap 5 MMOL/L (8-16) L 06/23/19 06:35 BUN 21.1 mg/dL (7-18) H 06/23/19 06:35 Creatinine 1.0 mg/dL (0.55-1.3) 06/23/19 06:35 Random Glucose 224 mg/dL (74-106) H 06/23/19 06:35 Calcium 9.8 mg/dL (8.5-10.1) 06/23/19 06:35 Total Bilirubin 0.2 mg/dL (0.2-1) 06/23/19 06:35 AST 32 U/L (15-37) 06/23/19 06:35 ALT 27 U/L (13-61) 06/23/19 06:35 Alkaline Phosphatase 93 U/L (45-117) 06/23/19 06:35 Total Protein 6.5 g/dl (6.4-8.2) 06/23/19 06:35 Albumin 2.7 g/dl (3.4-5.0) L 06/23/19 06:35 CARDIAC ENZYMES Creatine Kinase 80 U/L (26-192) 06/15/19 17:02 Troponin I 0.03 ng/ml (0.00-0.05) 06/16/19 12:15 Current Medications Generic Name Dose Route Start Last Admin Trade Name Chelo PRN Reason Stop Dose Admin Aspirin 81 mg 06/16/19 10:00 06/23/19 13:09 Asa - PO 81 mg DAILY BRANDYN Administration Atorvastatin Calcium 40 mg 06/18/19 22:00 06/22/19 22:49 Lipitor - PO 40 mg HS BRANDYN Administration Bethanechol Chloride 25 mg 06/22/19 14:00 06/23/19 14:27 Urecholine - PO 25 mg TID BRANDYN Administration Carvedilol 9.375 mg 06/18/19 11:15 06/23/19 10:08 Coreg - PO 9.375 mg BID BRANDYN Administration Clopidogrel Bisulfate 75 mg 06/16/19 10:00 06/23/19 10:07 Plavix - PO 75 mg DAILY BRANDYN Administration Digoxin 0.125 mg 06/16/19 10:00 06/22/19 09:19 Lanoxin - PO 0.125 mg Q36H BRANDYN Administration Docusate Sodium 200 mg 06/23/19 10:24 Colace - PO DAILY BRANDYN Heparin Sodium (Porcine) 5,000 unit 06/16/19 22:00 06/23/19 14:26 Heparin - SQ 5,000 unit TID BRANDYN Administration Potassium Phosphate 30 mm/ 510 mls @ 62.5 mls/hr 06/23/19 14:30 Sodium Chloride IVPB 06/23/19 22:39 ONCE ONE Insulin Aspart 1 vial 06/19/19 16:30 06/23/19 13:06 Novolog Vial Sliding Scale - SQ 12 units TIDAC BRANDYN Administration Protocol Insulin Detemir 13 units 06/24/19 07:00 Levemir Vial SQ AM [facility] Insulin Detemir 5 units 06/23/19 11:06 Levemir Vial SQ HS [facility] Lisinopril 5 mg 06/20/19 11:00 06/23/19 10:07 Prinivil PO 5 mg DAILY BRANDYN Administration Memantine 5 mg 06/15/19 22:00 06/22/19 23:35 Namenda - PO 5 mg HS BRANDYN Administration Multivitamins/Minerals/Vitamin C 1 tab 06/16/19 10:00 06/23/19 13:06 Tab-A-Vit - PO 1 tab DAILY BRANDYN Administration Phenytoin Sodium 100 mg 06/19/19 22:00 06/23/19 11:26 Dilantin Injection - IVPB 100 mg BID [facility] Administration Potassium Phos/Sodium Phos 1 packet 06/17/19 10:00 06/23/19 11:07 Phos-Nak Packet - PO 1 packet DAILY BRANDYN Administration Senna 1 tab 06/22/19 22:00 06/22/19 22:49 Senna - PO 1 tab HS BRANDYN Administration Tamsulosin HCl 0.4 mg 06/23/19 08:30 06/23/19 08:09 Flomax - PO 0.4 mg DAILY@0830 [facility] Administration Home Medications Medication Instructions Recorded Carvedilol 6.25 mg PO BID 06/15/19 Clopidogrel Bisulfate [Clopidogrel] 75 mg PO DAILY 06/15/19 Digoxin [Lanoxin -] 0.125 mg PO DAILY 06/15/19 Lisinopril 10 mg PO DAILY 06/15/19 Memantine HCl 5 mg PO HS 06/15/19 Multivitamin [Multiple Vitamins] 1 each PO DAILY 06/15/19 Simvastatin 20 mg PO HS 06/15/19 Aspirin [ASA -] 81 mg PO DAILY #30 tab.chew 06/23/19 Carvedilol [Coreg -] 9.375 mg PO BID #60 tablet 06/23/19 Docusate Sodium [Colace -] 200 mg PO DAILY #30 capsule 06/23/19 Insulin (Levemir) [Levemir Vial] 5 units SQ HS #30 units 06/23/19 Insulin (Levemir) [Levemir Vial] 13 units SQ AM #30 units 06/23/19 Insulin Sliding Scale [Novolog 1 vial SQ TIDAC #30 units 06/23/19 Vial Sliding Scale -] Phenytoin Na Extended [Dilantin -] 100 mg PO BID #60 capsule 06/23/19 Tamsulosin HCl [Flomax -] 0.4 mg PO DAILY@0830 #30 cap.er.24h 06/23/19 CT: no acute infarct EEG : left parietal and frontal spikes ASSESSMENT AND PLAN: Patient is a 84yo female with PMHx of s/p PPM , CHF, DM , questionable CVA, dementia, KS, bypass, HLP, CABG, who came from home after an unwitnessed fall and was to have seizures acitivity. # Malnourished : calorie count , nutrition consult # suspected Acute stroke with L sided weakness: cont lipitor, plavix and aspirin continue current diet ; PT and OT # New onset seizures: on oral dilantin . #Encephalopathy improved with improvement in seizure activity # IVETTE: Cr improved post gates catheter , urology as an outpatient, #T2DM: cont SSi and levemir at 5 HS. will discharge on insulin due to A1c of 15 #Hx of systolic CHF, volume depleted now. EF 40-45%, continue Lisionpril ,dig , coreg , lasix to be resumed after dc ,maybe at a lower dose, to avoid dehydration , every other day at the discharge # prolonged QTc : avoid prolonging agents # Urinary retention : s/p Dc gates, no successfull voiding , back to gates cath. urology as an outpatient , on Flomax now # Severe malnutrition : will get nutrition consult to further evaluate. DVT Px: heparin Patient is medically ready for Dc, need rehab . SW updated
[2019-06-23] MEDS: ATORVASTATIN CA 40 MG TABLET (FP) PO SCH (21:27)
[2019-06-23] MEDS: DIGOXIN 0.125 MG TABLET (FP) PO SCH (21:27)
[2019-06-23] MEDS: MEMANTINE HCL 5 MG TABLET (UD) PO SCH (21:28)
[2019-06-23] MEDS: INSULIN (LEVEMIR) 100 UNITS/ML UNITS SQ SCH (21:28)
[2019-06-23] MEDS: SENNOSIDES 8.6MG TABLET (FP) PO SCH (21:28)
[2019-06-24] MEDS ORDERED: PT OWN MED DRAWER 7, Y5N ONE ×5 (06:00→21:56)
[2019-06-24] MEDS: BETHANECHOL CHLORIDE 25 MG TABLET PO SCH ×3 (06:04→21:55)
[2019-06-24] MEDS: INSULIN SLIDING SCALE (NOVOLOG) 1 VIAL SQ SCH ×3 (06:05→17:19)
[2019-06-24] MEDS: INSULIN (LEVEMIR) 100 UNITS/ML UNITS SQ SCH ×2 (06:05→21:54)
--- NOTE | 2019-06-24 08:06 | PN ---
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, Physician Chief Complaint: no chest pain or SOB History of Present Illness: BP stable TELE: -[employer] - Current Medication List Current Medications: Active Medications Aspirin (Asa -) 81 mg PO DAILY ON LICENSE OF [facility] Last Admin: 06/23/19 13:09 Dose: 81 mg Atorvastatin Calcium (Lipitor -) 40 mg PO HS ON LICENSE OF [facility] Last Admin: 06/23/19 21:27 Dose: 40 mg Bethanechol Chloride (Urecholine -) 25 mg PO TID ON LICENSE OF [facility] Last Admin: 06/24/19 06:04 Dose: 25 mg Carvedilol (Coreg -) 9.375 mg PO BID ON LICENSE OF [facility] Last Admin: 06/23/19 21:28 Dose: 9.375 mg Clopidogrel Bisulfate (Plavix -) 75 mg PO DAILY ON LICENSE OF [facility] Last Admin: 06/23/19 10:07 Dose: 75 mg Digoxin (Lanoxin -) 0.125 mg PO Q36H ON LICENSE OF [facility] Last Admin: 06/23/19 21:27 Dose: 0.125 mg Docusate Sodium (Colace -) 200 mg PO DAILY ON LICENSE OF [facility] Insulin Aspart ([facility] Vial Sliding [facility] -) [facility] Last Admin: 06/24/19 06:05 Dose: 2 units Insulin Detemir (Levemir Vial) 13 units SQ AM ON [facility] OF [facility] Last Admin: 06/24/19 06:05 Dose: 13 units Insulin Detemir (Levemir Vial) 5 units SQ HS ON [facility] OF [facility] Last Admin: 06/23/19 21:28 Dose: 5 units Lisinopril (Prinivil) 5 mg PO DAILY ON [facility] OF [facility] Last Admin: 06/23/19 10:07 Dose: 5 mg Memantine (Namenda -) 5 mg PO [facility] Last Admin: 06/23/19 21:28 Dose: 5 mg Multivitamins/Minerals/Vitamin C (Tab-A-Vit -) 1 tab PO DAILY ON LICENSE OF [facility] Last Admin: 06/23/19 13:06 Dose: 1 tab Phenytoin Sodium (Dilantin Injection -) 100 mg IVPB BID ON LICENSE OF [facility] Last Admin: 06/23/19 21:28 Dose: 100 mg Potassium Phos/Sodium Phos (Phos-Nak Packet -) 1 packet PO DAILY ON LICENSE OF [facility] Last Admin: 06/23/19 11:07 Dose: 1 packet Senna (Senna -) 1 tab PO [facility] Last Admin: 06/23/19 21:28 Dose: 1 tab Tamsulosin HCl (Flomax -) 0.4 mg PO DAILY@0830 ON LICENSE OF [facility] Last Admin: 06/23/19 08:09 Dose: 0.4 mg - Objective Vital Signs: Vital Signs Temperature 99.1 F 06/24/19 06:00 Pulse Rate 81 06/24/19 06:00 Respiratory Rate 18 06/24/19 06:00 Blood Pressure 143/68 06/24/19 06:00 O2 Sat by Pulse Oximetry (%) 98 06/23/19 20:57 Constitutional: Yes: No Distress, Calm Eyes: Yes: Conjunctiva Clear Cardiovascular: Yes: Regular Rate and Rhythm Respiratory: Yes: CTA Bilaterally Gastrointestinal: Yes: Soft Edema: No Neurological: Yes: Alert, Oriented Labs: INR, PTT INR 0.87 (0.83-1.09) 06/15/19 17:02 Labs today pending. - ....Imaging EKG: Image Reviewed Assessment/Plan Assessment/Plan Echo: EF 40-45%, abn septal motion c/w aberrance conduction. nl RV. functional mitral stenosis sec to MAC. no . tele: SR, biV paced. IMP: -Fall while seated on the toilet: suspected sz with post-ictal state, per neuro. -lacunar infarct, ? new vs chronic per dr fraga review of images -Cardiomyopathy, EF 40-45%, h/o syst CHF -paroxysms wide complex tach--reviewed with EP, likely paroxysmal atrial tach/ PSVT (not suspicious for fib/flutter), now controlled -s/p BiV-ICD, normal function on company check here ([facility]) -Renal insufficiency: ?acute, ?pre-renal--improved -Hyponatremia -Known CAD, s/p MO and CABG--no signs ACS here REC: -sz precautions, meds per neuro -stroke w/u, mgmt per neuro -monitoring on tele -hypoNa and IVETTE improved with IVF (baseline creat not known)--dc IVF. holding lasix -increased carvedilol to 9.35 bid here (also for PSVT control)--consider change to metoprolol if frequent PAT runs and/or low bp limits carvedilol dosing, cont for now -restarted lisinopril at lower dose 5 mg daily, uptitrated as tolerated, monitor BP
[2019-06-24 08:09] LABS: BASO % 0.4 % (0-2.0); EOS % 4.9 % (0-4.5); HEMATOCRIT 26.6 % (32.4-45.2); HEMOGLOBIN 9.1 GM/dL (10.7-15.3); LYMPH % 15.3 % (8-40); MCH 29.4 pg (25.7-33.7); MEAN CELL VOLUME 86.5 fl (80-96); MEAN PLT VOLUME 7.4 fl (7.5-11.1); MONO % 7.2 % (3.8-10.2); NEUT % 72.2 % (42.8-82.8); PLATELET COUNT 327 K/MM3 (134-434); RBC 3.08 M/mm3 (3.60-5.2); RDW 13.8 % (11.6-15.6); WHITE BLOOD COUNT 9.7 K/mm3 (4.0-10.0)
[2019-06-24 09:03] LABS: BLOOD UREA NITROGEN 19.7 mg/dL (7-18); CALCIUM 9.5 mg/dL (8.5-10.1); CREATININE 0.8 mg/dL (0.55-1.3); POTASSIUM 4.4 mmol/L (3.5-5.1)
[2019-06-24] MEDS: DOCUSATE SODIUM 100 MG CAPSULE (FP) PO SCH (09:24)
[2019-06-24] MEDS: NAPH,MB-DB/K PH,MBDB POWDER PACKET PO SCH (09:24)
[2019-06-24] MEDS: LISINOPRIL 5 MG TABLET (FP) PO SCH (09:24)
[2019-06-24] MEDS: PHENYTOIN SODIUM 100 MG/2 ML VIAL IVPB SCH ×2 (09:24→21:54)
[2019-06-24] MEDS: CARVEDILOL 3.125 MG TABLET (FP) PO SCH ×2 (09:24→21:54)
[2019-06-24] MEDS: MULTIVITAMINS (DAILY MVI) TABLET (FP) PO SCH (09:25)
[2019-06-24] MEDS: TAMSULOSIN HCL 0.4 MG CAP PO SCH (09:25)
[2019-06-24] MEDS: CLOPIDOGREL BISULFATE 75 MG TABLET (FP) PO SCH (09:25)
[2019-06-24] MEDS: ASPIRIN 81 MG CHEWABLE TABLETS PO SCH (09:25)
--- NOTE | 2019-06-24 11:55 | RAPID ---
Physical Examination Vital Signs: Vital Signs Temperature 98.3 F 06/24/19 10:00 Pulse Rate 75 06/24/19 10:00 Respiratory Rate 18 06/24/19 10:00 Blood Pressure 143/65 06/24/19 10:00 O2 Sat by Pulse Oximetry (%) 98 06/24/19 09:00 Labs: CBC, BMP 06/24/19 06:43 06/24/19 06:43 Rapid Response - Rapid Response Assessment: Rapid response was called at 10:04. customer service voice team responded immediately. Upon arrival nursing staff was surrounding patient who was lying on her left side on the floor. Patient says she was trying to go to the restroom and fell. Currently has no numbness, tingling, or weakness. No preceding shortness of breath or chest pain. HR 77 BP 122/94 RR 14 O2 96% A&O x 3, mild distress RRR s1 S2 CTAB tenderness to palpation of right posterior hip and left knee ROM intact right LE, limitation with left hip flexion A/P: #fall -likely mechanical in nature -head CT to rule out bleed -pelvis and bilateral knee x-rays to rule out fracture -fall precautions -primary team made aware
[2019-06-24] MEDS ORDERED: ACETAMINOPHEN 325 MG TABLET (FP) PO PRN (17:27)
[2019-06-24] MEDS: SENNOSIDES 8.6MG TABLET (FP) PO SCH (21:54)
[2019-06-24] MEDS: ATORVASTATIN CA 40 MG TABLET (FP) PO SCH (21:54)
[2019-06-24] MEDS: MEMANTINE HCL 5 MG TABLET (UD) PO SCH (21:55)
--- NOTE | 2019-06-24 22:34 | PN ---
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 (short form) - Note 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: Rapid response was called since patient fell out of bed, patient was trying to get out of bed. Stated that she was trying to get out the bed. Vital Signs Temperature 99.1 F 06/24/19 17:46 Pulse Rate 86 06/24/19 17:46 Respiratory Rate 18 06/24/19 17:46 Blood Pressure 147/61 06/24/19 17:46 O2 Sat by Pulse Oximetry (%) 98 06/24/19 09:00 GENERAL: The patient is awake, in no acute distress. cachectic HEAD: Normal with no signs of trauma. EYES: PERRL, extraocular movements intact, sclera anicteric, conjunctiva clear. ENT: Ears normal, oropharynx clear without exudates, moist mucous membranes. NECK: Trachea midline, full range of motion, supple. LUNGS: Breath sounds equal, clear to auscultation bilaterally, no wheezes, no crackles, no accessory muscle use. HEART: Regular rate and rhythm, S1, S2 without murmur, rub or gallop. ABDOMEN: Soft, NT, ND, normoactive bowel sounds, no guarding, no rebound, no hepatosplenomegaly, no masses. EXTREMITIES: 2+ pulses, warm, well-perfused, no edema. NEUROLOGICAL: Cranial nerves II through XII grossly intact. Normal speech, gait not observed. PSYCH: Normal mood, normal affect. SKIN: Warm, dry, normal turgor, no rashes or lesions noted CBCD WBC 9.7 K/mm3 (4.0-10.0) 06/24/19 06:43 RBC 3.08 M/mm3 (3.60-5.2) L 06/24/19 06:43 Hgb 9.1 GM/dL (10.7-15.3) L 06/24/19 06:43 Hct 26.6 % (32.4-45.2) L 06/24/19 06:43 MCV 86.5 fl (80-96) 06/24/19 06:43 MCHC 34.0 g/dl (32.0-36.0) 06/24/19 06:43 RDW 13.8 % (11.6-15.6) 06/24/19 06:43 Plt Count 327 K/MM3 (134-434) 06/24/19 06:43 MPV 7.4 fl (7.5-11.1) L 06/24/19 06:43 CMP Sodium 139 mmol/L (136-145) 06/24/19 06:43 Potassium 4.4 mmol/L (3.5-5.1) 06/24/19 06:43 Chloride 108 mmol/L (98-107) H 06/24/19 06:43 Carbon Dioxide 25 mmol/L (21-32) 06/24/19 06:43 Anion Gap 7 MMOL/L (8-16) L 06/24/19 06:43 BUN 19.7 mg/dL (7-18) H 06/24/19 06:43 Creatinine 0.8 mg/dL (0.55-1.3) 06/24/19 06:43 Random Glucose 167 mg/dL (74-106) H 06/24/19 06:43 Calcium 9.5 mg/dL (8.5-10.1) 06/24/19 06:43 Total Bilirubin 0.2 mg/dL (0.2-1) 06/23/19 06:35 AST 32 U/L (15-37) 06/23/19 06:35 ALT 27 U/L (13-61) 06/23/19 06:35 Alkaline Phosphatase 93 U/L (45-117) 06/23/19 06:35 Total Protein 6.5 g/dl (6.4-8.2) 06/23/19 06:35 Albumin 2.7 g/dl (3.4-5.0) L 06/23/19 06:35 CARDIAC ENZYMES Creatine Kinase 80 U/L (26-192) 06/15/19 17:02 Troponin I 0.03 ng/ml (0.00-0.05) 06/16/19 12:15 Current Medications Generic Name Dose Route Start Last Admin Trade Name Freq PRN Reason Stop Dose Admin Acetaminophen 650 mg 06/24/19 17:27 06/24/19 21:56 Tylenol - PO 650 mg Q6H PRN Administration PAIN LEVEL 1-5 Aspirin 81 mg 06/16/19 10:00 06/24/19 09:25 Asa - PO 81 mg DAILY BRANDYN Administration Atorvastatin Calcium 40 mg 06/18/19 22:00 06/24/19 21:54 Lipitor - PO 40 mg HS BRANDYN Administration Bethanechol Chloride 25 mg 06/22/19 14:00 06/24/19 21:55 Urecholine - PO 25 mg TID BRANDNY Administration Carvedilol 9.375 mg 06/18/19 11:15 06/24/19 21:54 Coreg - PO 9.375 mg BID BRANDYN Administration Clopidogrel Bisulfate 75 mg 06/16/19 10:00 06/24/19 09:25 Plavix - PO 75 mg DAILY BRANDYN Administration Digoxin 0.125 mg 06/16/19 10:00 06/23/19 21:27 Lanoxin - PO 0.125 mg Q36H BRANDYN Administration Docusate Sodium 200 mg 06/23/19 10:24 06/24/19 09:24 Colace - PO 200 mg DAILY BRANDYN Administration Insulin Aspart 1 vial 06/19/19 16:30 06/24/19 17:19 Novolog Vial Sliding Scale - SQ 10 units TIDAC BRANDYN Administration Protocol Insulin Detemir 13 units 06/24/19 07:00 06/24/19 06:05 Levemir Vial SQ 13 units AM BRANDYN Administration Insulin Detemir 5 units 06/23/19 11:06 06/24/19 21:54 Levemir Vial SQ 5 units HS BRANDYN Administration Lisinopril 5 mg 06/20/19 11:00 06/24/19 09:24 Prinivil PO 5 mg DAILY BRANDYN Administration Memantine 5 mg 06/15/19 22:00 06/24/19 21:55 Namenda - PO 5 mg HS BRANDYN Administration Multivitamins/Minerals/Vitamin C 1 tab 06/16/19 10:00 06/24/19 09:25 Tab-A-Vit - PO 1 tab DAILY BR[facility]YN Administration Phenytoin Sodium 100 mg 06/19/19 22:00 06/24/19 21:54 Dilantin Injection - IVPB 100 mg BID BRANDYN Administration Potassium Phos/Sodium Phos 1 packet 06/17/19 10:00 06/24/19 09:24 Phos-Nak Packet - PO 1 packet DAILY BR[facility]YN Administration Senna 1 tab 06/22/19 22:00 06/24/19 21:54 Senna - PO 1 tab HS BRANDYN Administration Tamsulosin HCl 0.4 mg 06/23/19 08:30 06/24/19 09:25 Flomax - PO 0.4 mg DAILY@0830 BRANDYN Administration Home Medications Medication Instructions Recorded Carvedilol 6.25 mg PO BID 06/15/19 Clopidogrel Bisulfate [Clopidogrel] 75 mg PO DAILY 06/15/19 Digoxin [Lanoxin -] 0.125 mg PO DAILY 06/15/19 Lisinopril 10 mg PO DAILY 06/15/19 Memantine HCl 5 mg PO HS 06/15/19 Multivitamin [Multiple Vitamins] 1 each PO DAILY 06/15/19 Simvastatin 20 mg PO HS 06/15/19 Aspirin [ASA -] 81 mg PO DAILY #30 tab.chew 06/23/19 Carvedilol [Coreg -] 9.375 mg PO BID #60 tablet 06/23/19 Docusate Sodium [Colace -] 200 mg PO DAILY #30 capsule 06/23/19 Insulin (Levemir) [Levemir Vial] 5 units SQ HS #30 units 06/23/19 Insulin (Levemir) [Levemir Vial] 13 units SQ AM #30 units 06/23/19 Insulin Sliding Scale [Novolog 1 vial SQ TIDAC #30 units 06/23/19 Vial Sliding Scale -] Phenytoin Na Extended [Dilantin -] 100 mg PO BID #60 capsule 06/23/19 Tamsulosin HCl [Flomax -] 0.4 mg PO DAILY@0830 #30 cap.er.24h 06/23/19 CT: no acute infarct EEG : left parietal and frontal spikes Carotid duplex: high grade stenosis at the level of proximal carotid artery ASSESSMENT AND PLAN: Patient is a 84yo female with PMHx of s/p PPM , CHF, DM , questionable CVA, dementia, [place], bypass, HLP, CABG, who came from home after an unwitnessed fall and was to have seizures acitivity. # Patient s/p fall today: rapid response was called . patient had multiple xrays and head Ct # Malnourished : calorie count , nutrition consult # suspected Acute stroke with L sided weakness:Ct is negative, Patient has a pacemaker , cannot go to MRI, cont lipitor, plavix and aspirin continue current diet ; PT and OT # New onset seizures: on oral dilantin . #Encephalopathy improved with improvement in seizure activity # IVETTE: Cr improved post gates catheter , urology as an outpatient, #T2DM: cont SSi and levemir at 5 HS. will discharge on insulin due to A1c of 15 #Hx of systolic CHF, volume depleted now. EF 40-45%, continue Lisionpril ,dig , coreg , lasix to be resumed after dc ,maybe at a lower dose, to avoid dehydration , every other day at the discharge # prolonged QTc : avoid prolonging agents # Urinary retention : s/p Dc gates, no successful voiding , back to gates cath. urology as an outpatient , on Flomax now # Severe malnutrition : will get nutrition consult to further evaluate. DVT Px: heparin Patient is medically ready for Dc, need rehab . updated Visit type - Emergency Visit Emergency Visit: Yes ED Registration Date: 06/19/19 Care time: The patient presented to the Emergency Department on the above date and was hospitalized for further evaluation of their emergent condition. - New Patient This patient is new to me today: No - Critical Care Critical Care patient: No - Discharge Referral Referred to [facility] No
[2019-06-25] MEDS ORDERED: PT OWN MED DRAWER 7, Y5N ONE ×3 (06:14→21:39)
[2019-06-25] MEDS: INSULIN (LEVEMIR) 100 UNITS/ML UNITS SQ SCH ×2 (06:25→21:54)
[2019-06-25] MEDS: INSULIN SLIDING SCALE (NOVOLOG) 1 VIAL SQ SCH ×3 (06:25→17:10)
[2019-06-25] MEDS: BETHANECHOL CHLORIDE 25 MG TABLET PO SCH ×3 (06:25→22:00)
--- NOTE | 2019-06-25 09:50 | PN ---
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 Medication List Current Medications: Active Medications Acetaminophen (Tylenol -) 650 mg PO Q6H PRN PRN Reason: PAIN LEVEL 1-5 Last Admin: 06/24/19 21:56 Dose: 650 mg Aspirin (Asa -) 81 mg PO DAILY [facility] Last Admin: 06/24/19 09:25 Dose: 81 mg Atorvastatin Calcium (Lipitor -) 40 mg PO HS [facility] Last Admin: 06/24/19 21:54 Dose: 40 mg Bethanechol Chloride (Urecholine -) 25 mg PO TID [facility] Last Admin: 06/25/19 06:25 Dose: 25 mg Carvedilol (Coreg -) 9.375 mg PO BID [facility] Last Admin: 06/24/19 21:54 Dose: 9.375 mg Clopidogrel Bisulfate (Plavix -) 75 mg PO DAILY [facility] Last Admin: 06/24/19 09:25 Dose: 75 mg Digoxin (Lanoxin -) 0.125 mg PO Q36H [facility] Last Admin: 06/23/19 21:27 Dose: 0.125 mg Docusate Sodium (Colace -) 200 mg PO DAILY [facility] Last Admin: 06/24/19 09:24 Dose: 200 mg Insulin Aspart (Novolog Vial Sliding Scale -) 1 vial SQ TIDAC [facility]; Protocol Last Admin: 06/25/19 06:25 Dose: 2 units Insulin Detemir (Levemir Vial) 13 units SQ AM [facility] Last Admin: 06/25/19 06:25 Dose: 13 units Insulin Detemir (Levemir Vial) 5 units SQ HS [facility] Last Admin: 06/24/19 21:54 Dose: 5 units Lisinopril (Prinivil) 5 mg PO DAILY [facility] Last Admin: 06/24/19 09:24 Dose: 5 mg Memantine (Namenda -) 5 mg PO HS [facility] Last Admin: 06/24/19 21:55 Dose: 5 mg Multivitamins/Minerals/Vitamin C (Tab-A-Vit -) 1 tab PO DAILY [facility] Last Admin: 06/24/19 09:25 Dose: 1 tab Phenytoin Sodium (Dilantin Injection -) 100 mg IVPB BID [facility] Last Admin: 06/24/19 21:54 Dose: 100 mg Potassium Phos/Sodium Phos (Phos-Nak Packet -) 1 packet PO DAILY [facility] Last Admin: 06/24/19 09:24 Dose: 1 packet Senna (Senna -) 1 tab PO HS [facility] Last Admin: 06/24/19 21:54 Dose: 1 tab Tamsulosin HCl (Flomax -) 0.4 mg PO DAILY@0830 [facility] Last Admin: 06/24/19 09:25 Dose: 0.4 mg - Objective Vital Signs: Vital Signs Temperature 98.7 F 06/25/19 05:31 Pulse Rate 76 06/25/19 05:31 Respiratory Rate 18 06/25/19 05:31 Blood Pressure 128/62 06/25/19 05:31 O2 Sat by Pulse Oximetry (%) 98 06/24/19 21:00 Constitutional: Yes: Calm Cardiovascular: Yes: Regular Rate and Rhythm Respiratory: Yes: CTA Bilaterally Gastrointestinal: Yes: Soft Edema: No Neurological: Yes: Alert, Oriented Labs: CBC, BMP 06/24/19 06:43 06/24/19 06:43 INR, PTT INR 0.87 (0.83-1.09) 06/15/19 17:02 - ....Imaging EKG: Image Reviewed Assessment/Plan Assessment/Plan Echo: EF 40-45%, abn septal motion c/w aberrance conduction. nl RV. functional mitral stenosis sec to MAC. no . tele: SR, biV paced. IMP: -Fall while seated on the toilet: suspected sz with post-ictal state, per neuro. -lacunar infarct, ? new vs chronic per dr fraga review of images -Cardiomyopathy, EF 40-45%, h/o syst CHF -paroxysms wide complex tach--reviewed with EP, likely paroxysmal atrial tach/ PSVT (not suspicious for fib/flutter), now controlled -s/p BiV-ICD, normal function on company check here ([facility]) -Renal insufficiency: ?acute, ?pre-renal--improved -Hyponatremia-improved -Known CAD, s/p UT and CABG--no signs ACS here REC: -sz precautions, meds per neuro -stroke w/u, mgmt per neuro -hypoNa and IVETTE improved with IVF (baseline creat not known)--dc IVF. holding lasix -Cont Coreg, Lisinopril, digoxin, ASA, Plavix and statin. -Can d/c tele
[2019-06-25] MEDS: CARVEDILOL 3.125 MG TABLET (FP) PO SCH ×2 (09:53→21:54)
[2019-06-25] MEDS: ASPIRIN 81 MG CHEWABLE TABLETS PO SCH (09:53)
[2019-06-25] MEDS: LISINOPRIL 5 MG TABLET (FP) PO SCH (09:53)
[2019-06-25] MEDS: DOCUSATE SODIUM 100 MG CAPSULE (FP) PO SCH (09:53)
[2019-06-25] MEDS: MULTIVITAMINS (DAILY MVI) TABLET (FP) PO SCH (09:54)
[2019-06-25] MEDS: TAMSULOSIN HCL 0.4 MG CAP PO SCH (09:54)
[2019-06-25] MEDS: DIGOXIN 0.125 MG TABLET (FP) PO SCH (09:55)
[2019-06-25] MEDS: PHENYTOIN SODIUM 100 MG/2 ML VIAL IVPB SCH (09:55)
[2019-06-25] MEDS: CLOPIDOGREL BISULFATE 75 MG TABLET (FP) PO SCH (09:55)
[2019-06-25] MEDS: NAPH,MB-DB/K PH,MBDB POWDER PACKET PO SCH (09:55)
--- NOTE | 2019-06-25 10:00 | PN ---
Teaching Attending Note Name of Resident: Gerald Polanco ATTENDING PHYSICIAN STATEMENT I saw and evaluated the patient. I reviewed the resident's note and discussed the case with the resident. I agree with the resident's findings and plan as documented. SUBJECTIVE: Patient feels better ,not in acute distress. no new complains. OBJECTIVE: Vital Signs Temperature 98.7 F 06/25/19 05:31 Pulse Rate 76 06/25/19 09:55 Respiratory Rate 18 06/25/19 05:31 Blood Pressure 128/62 06/25/19 05:31 O2 Sat by Pulse Oximetry (%) 98 06/24/19 21:00 GENERAL: The patient is awake, in no acute distress. cachectic HEAD: Normal with no signs of trauma. EYES: PERRL, extraocular movements intact, sclera anicteric, conjunctiva clear. ENT: Ears normal, oropharynx clear without exudates, moist mucous membranes. NECK: Trachea midline, full range of motion, supple. LUNGS: Breath sounds equal, clear to auscultation bilaterally, no wheezes, no crackles, no accessory muscle use. HEART: RRR, S1, S2 positive, [place] 2/6 murmur, no rub or gallop. PPM positive ABDOMEN: Soft, NT, ND, normoactive bowel sounds, no guarding, no rebound, no hepatosplenomegaly, no masses. EXTREMITIES: 2+ pulses, warm, well-perfused, no edema. NEUROLOGICAL: Cranial nerves II through XII grossly intact. Normal speech, gait is not stable . PSYCH: Normal mood, normal affect. SKIN: Warm, dry, normal turgor, no rashes or lesions noted CBCD WBC 9.7 K/mm3 (4.0-10.0) 06/24/19 06:43 RBC 3.08 M/mm3 (3.60-5.2) L 06/24/19 06:43 Hgb 9.1 GM/dL (10.7-15.3) L 06/24/19 06:43 Hct 26.6 % (32.4-45.2) L 06/24/19 06:43 MCV 86.5 fl (80-96) 06/24/19 06:43 MCHC 34.0 g/dl (32.0-36.0) 06/24/19 06:43 RDW 13.8 % (11.6-15.6) 06/24/19 06:43 Plt Count 327 K/MM3 (134-434) 06/24/19 06:43 MPV 7.4 fl (7.5-11.1) L 06/24/19 06:43 CMP Sodium 139 mmol/L (136-145) 06/24/19 06:43 Potassium 4.4 mmol/L (3.5-5.1) 06/24/19 06:43 Chloride 108 mmol/L (98-107) H 06/24/19 06:43 Carbon Dioxide 25 mmol/L (21-32) 06/24/19 06:43 Anion Gap 7 MMOL/L (8-16) L 06/24/19 06:43 BUN 19.7 mg/dL (7-18) H 06/24/19 06:43 Creatinine 0.8 mg/dL (0.55-1.3) 06/24/19 06:43 Random Glucose 167 mg/dL (74-106) H 06/24/19 06:43 Calcium 9.5 mg/dL (8.5-10.1) 06/24/19 06:43 Total Bilirubin 0.2 mg/dL (0.2-1) 06/23/19 06:35 AST 32 U/L (15-37) 06/23/19 06:35 ALT 27 U/L (13-61) 06/23/19 06:35 Alkaline Phosphatase 93 U/L (45-117) 06/23/19 06:35 Total Protein 6.5 g/dl (6.4-8.2) 06/23/19 06:35 Albumin 2.7 g/dl (3.4-5.0) L 06/23/19 06:35 CARDIAC ENZYMES Creatine Kinase 80 U/L (26-192) 06/15/19 17:02 Troponin I 0.03 ng/ml (0.00-0.05) 06/16/19 12:15 Current Medications Generic Name Dose Route Start Last Admin Trade Name Freq PRN Reason Stop Dose Admin Acetaminophen 650 mg 06/24/19 17:27 06/24/19 21:56 Tylenol - PO 650 mg Q6H PRN Administration PAIN LEVEL 1-5 Aspirin 81 mg 06/16/19 10:00 06/25/19 09:53 Asa - PO 81 mg DAILY BRANDYN Administration Atorvastatin Calcium 40 mg 06/18/19 22:00 06/24/19 21:54 Lipitor - PO 40 mg HS BRANDYN Administration Bethanechol Chloride 25 mg 06/22/19 14:00 06/25/19 06:25 Urecholine - PO 25 mg TID BRANDYN Administration Carvedilol 9.375 mg 06/18/19 11:15 06/25/19 09:53 Coreg - PO 9.375 mg BID BRANDYN Administration Clopidogrel Bisulfate 75 mg 06/16/19 10:00 06/25/19 09:55 Plavix - PO 75 mg DAILY BRANDYN Administration Digoxin 0.125 mg 06/16/19 10:00 06/25/19 09:55 Lanoxin - PO 0.125 mg Q36H BRANDYN Administration Docusate Sodium 200 mg 06/23/19 10:24 06/25/19 09:53 Colace - PO 200 mg DAILY BRANDYN Administration Insulin Aspart 1 vial 06/19/19 16:30 06/25/19 06:25 Novolog Vial Sliding Scale - SQ 2 units TIDAC BRANDYN Administration Protocol Insulin Detemir 13 units 06/24/19 07:00 06/25/19 06:25 Levemir Vial SQ 13 units AM BR[facility]YN Administration Insulin Detemir 5 units 06/23/19 11:06 06/24/19 21:54 Levemir Vial SQ 5 units HS BRANDYN Administration Lisinopril 5 mg 06/20/19 11:00 06/25/19 09:53 Prinivil PO 5 mg DAILY BRANDYN Administration Memantine 5 mg 06/15/19 22:00 06/24/19 21:55 Namenda - PO 5 mg HS BRANYDN Administration Multivitamins/Minerals/Vitamin C 1 tab 06/16/19 10:00 06/25/19 09:54 Tab-A-Vit - PO 1 tab DAILY [facility] Administration Phenytoin Sodium 100 mg 06/19/19 22:00 06/25/19 09:55 Dilantin Injection - IVPB 100 mg BID BRANDYN Administration Potassium Phos/Sodium Phos 1 packet 06/17/19 10:00 06/25/19 09:55 Phos-Nak Packet - PO 1 packet DAILY [facility] Administration Senna 1 tab 06/22/19 22:00 06/24/19 21:54 Senna - PO 1 tab HS BRANDYN Administration Tamsulosin HCl 0.4 mg 06/23/19 08:30 06/25/19 09:54 Flomax - PO 0.4 mg DAILY@0830 BR[facility]YN Administration Home Medications Medication Instructions Recorded Carvedilol 6.25 mg PO BID 06/15/19 Clopidogrel Bisulfate [Clopidogrel] 75 mg PO DAILY 06/15/19 Digoxin [Lanoxin -] 0.125 mg PO DAILY 06/15/19 Lisinopril 10 mg PO DAILY 06/15/19 Memantine HCl 5 mg PO HS 06/15/19 Multivitamin [Multiple Vitamins] 1 each PO DAILY 06/15/19 Simvastatin 20 mg PO HS 06/15/19 Aspirin [ASA -] 81 mg PO DAILY #30 tab.chew 06/23/19 Carvedilol [Coreg -] 9.375 mg PO BID #60 tablet 06/23/19 Docusate Sodium [Colace -] 200 mg PO DAILY #30 capsule 06/23/19 Insulin (Levemir) [Levemir Vial] 5 units SQ HS #30 units 06/23/19 Insulin (Levemir) [Levemir Vial] 13 units SQ AM #30 units 06/23/19 Insulin Sliding Scale [Novolog 1 vial SQ TIDAC #30 units 06/23/19 Vial Sliding Scale -] Phenytoin Na Extended [Dilantin -] 100 mg PO BID #60 capsule 06/23/19 Tamsulosin HCl [Flomax -] 0.4 mg PO DAILY@0830 #30 cap.er.24h 06/23/19 CT: no acute infarct EEG : left parietal and frontal spikes Carotid duplex: high grade stenosis at the level of proximal carotid artery ASSESSMENT AND PLAN: Patient is a 84yo female with PMHx of s/p PPM , CHF, DM , questionable CVA, dementia, [place], bypass, HLP, CABG, who came from home after an unwitnessed fall and was to have seizures acitivity. # Patient s/p fall : has no complains , patient had multiple xrays and head Ct no bleed noted # Malnourished : calorie count , nutrition consult appreciated. # suspected Acute stroke with L sided weakness:Ct is negative, Patient has a pacemaker , cannot go to MRI, cont lipitor, plavix and aspirin continue current diet ; PT and OT # New onset seizures: on oral dilantin 100mg po bid . #Encephalopathy improved with improvement in seizure activity # IVETTE: Cr improved, on Flomax now #T2DM: cont SSi and levemir at 5 HS. will discharge on insulin due to A1c of 15 #Hx of systolic CHF, volume depleted now. EF 40-45%, continue Lisionpril ,dig , coreg , lasix to be resumed after dc ,maybe at a lower dose, to avoid dehydration , every other day at the discharge # prolonged QTc : avoid prolonging agents # Urinary retention : gates dc'd on Flomax now # Severe malnutrition : will get nutrition consult to further evaluate. DVT Px: heparin Patient is medically ready for Dc, need rehab . SW updated on vest restrain now, no further gates
--- NOTE | 2019-06-25 13:13 | PN ---
Physical Exam: SUBJECTIVE: Patient seen and examined. Offers no complaints. Says she feels well. OBJECTIVE: Vital Signs Period Temp Pulse Resp BP Sys/Esparza Pulse Ox Last 24 Hr 98.4 F-99.4 F 70-86 18-18 126-149/52-68 97-98 GENERAL: AAOx2, in no acute distress. HEAD: Normal with no signs of trauma. LUNGS: Breath sounds equal, clear to auscultation bilaterally, no wheezes HEART: Regular rate and rhythm, S1, S2 without murmur, rub or gallop. ABDOMEN: Soft, nontender, nondistended, normoactive bowel sounds EXTREMITIES: 2+ pulses, warm, well-perfused, no edema. Laboratory Results - last 24 hr 06/24/19 06/24/19 06/25/19 16:56 21:52 01:26 POC Glucometer 353 316 238 06/25/19 06/25/19 05:59 11:50 POC Glucometer 182 323 Active Medications Generic Name Dose Route Start Last Admin Trade Name Freq PRN Reason Stop Dose Admin Acetaminophen 650 mg 06/24/19 17:27 06/24/19 21:56 Tylenol - PO 650 mg Q6H PRN Administration PAIN LEVEL 1-5 Aspirin 81 mg 06/16/19 10:00 06/25/19 09:53 Asa - PO 81 mg DAILY BRANDYN Administration Atorvastatin Calcium 40 mg 06/18/19 22:00 06/24/19 21:54 Lipitor - PO 40 mg HS BRANDYN Administration Bethanechol Chloride 25 mg 06/22/19 14:00 06/25/19 06:25 Urecholine - PO 25 mg TID BRANDYN Administration Carvedilol 9.375 mg 06/18/19 11:15 06/25/19 09:53 Coreg - PO 9.375 mg BID BRANDYN Administration Clopidogrel Bisulfate 75 mg 06/16/19 10:00 06/25/19 09:55 Plavix - PO 75 mg DAILY BR[facility] Administration Digoxin 0.125 mg 06/16/19 10:00 06/25/19 09:55 Lanoxin - PO 0.125 mg Q36H BRANDYN Administration Docusate Sodium 200 mg 06/23/19 10:24 06/25/19 09:53 Colace - PO 200 mg DAILY BR[facility] Administration Insulin Aspart 1 vial 06/19/19 16:30 06/25/19 11:58 Novolog Vial Sliding Scale - SQ 8 units TIDAC BRANDYN Administration Protocol Insulin Detemir 13 units 06/24/19 07:00 06/25/19 06:25 Levemir Vial SQ 13 units AM [facility]YN Administration Insulin Detemir 5 units 06/23/19 11:06 06/24/19 21:54 Levemir Vial SQ 5 units HS BR[facility]YN Administration Lisinopril 5 mg 06/20/19 11:00 06/25/19 09:53 Prinivil PO 5 mg DAILY [facility] Administration Memantine 5 mg 06/15/19 22:00 06/24/19 21:55 Namenda - PO 5 mg HS BR[facility] Administration Multivitamins/Minerals/Vitamin C 1 tab 06/16/19 10:00 06/25/19 09:54 Tab-A-Vit - PO 1 tab DAILY [facility] Administration Phenytoin Sodium 100 mg 06/19/19 22:00 06/25/19 09:55 Dilantin Injection - IVPB 100 mg BID BR[facility] Administration Potassium Phos/Sodium Phos 1 packet 06/17/19 10:00 06/25/19 09:55 Phos-Nak Packet - PO 1 packet DAILY [facility] Administration Senna 1 tab 06/22/19 22:00 06/24/19 21:54 Senna - PO 1 tab HS BR[facility] Administration Tamsulosin HCl 0.4 mg 06/23/19 08:30 06/25/19 09:54 Flomax - PO 0.4 mg DAILY@0830 BR[facility] Administration ASSESSMENT/PLAN: 84 y/o lady with h/o HTN, s/p PPM , CHF, DM , ? CVA, dementia, [place], bypass, HLP, CABG, and severe protein calorie malnutrition (BMI17) who came from home after an unwitnessed fall. #CVA with L sided weakness -cont lipitor, plavix and aspirin continue current diet ; PT and OT #New onset Seizures -no recent seizures -on Dilantin 100mg BID IV # DM -cont levemir -ISS #IVETTE -Cr improved post gates catheter -urology as an outpatient #S CHF - EF 40-45% - Lasix held - cont digoxin - coreg dose adjusted 9.375mg -as per cardio lisinopril resumed at 5mg PO Daily #prolonged QTc -avoid prolonging agents #DVT Ppx heparin sub q discharge planning.patient needs rehab Visit type - Emergency Visit Emergency Visit: Yes ED Registration Date: 06/19/19 Care time: The patient presented to the Emergency Department on the above date and was hospitalized for further evaluation of their emergent condition. - New Patient This patient is new to me today: Yes Date on this admission: 06/25/19 - Critical Care Critical Care patient: No ATTENDING PHYSICIAN STATEMENT I saw and evaluated the patient. I reviewed the resident's note and discussed the case with the resident. I agree with the resident's findings and plan as documented. SUBJECTIVE: OBJECTIVE: ASSESSMENT AND PLAN:
[2019-06-25] MEDS: SENNOSIDES 8.6MG TABLET (FP) PO SCH (21:54)
[2019-06-25] MEDS: ATORVASTATIN CA 40 MG TABLET (FP) PO SCH (21:54)
[2019-06-25] MEDS: PHENYTOIN NA EXTENDED 100 MG CAPSULE (FP) PO SCH (21:54)
[2019-06-25] MEDS: MEMANTINE HCL 5 MG TABLET (UD) PO SCH (21:54)
[2019-06-26] MEDS: BETHANECHOL CHLORIDE 25 MG TABLET PO SCH ×3 (06:23→21:11)
[2019-06-26] MEDS: INSULIN SLIDING SCALE (NOVOLOG) 1 VIAL SQ SCH ×3 (06:23→17:10)
[2019-06-26] MEDS: INSULIN (LEVEMIR) 100 UNITS/ML UNITS SQ SCH ×2 (06:24→21:10)
[2019-06-26] MEDS: DOCUSATE SODIUM 100 MG CAPSULE (FP) PO SCH (09:51)
[2019-06-26] MEDS: PHENYTOIN NA EXTENDED 100 MG CAPSULE (FP) PO SCH ×2 (09:51→21:10)
[2019-06-26] MEDS: CLOPIDOGREL BISULFATE 75 MG TABLET (FP) PO SCH (09:52)
[2019-06-26] MEDS: NAPH,MB-DB/K PH,MBDB POWDER PACKET PO SCH (09:52)
[2019-06-26] MEDS: TAMSULOSIN HCL 0.4 MG CAP PO SCH (09:52)
[2019-06-26] MEDS: MULTIVITAMINS (DAILY MVI) TABLET (FP) PO SCH (09:52)
[2019-06-26] MEDS: CARVEDILOL 3.125 MG TABLET (FP) PO SCH ×2 (09:52→21:10)
[2019-06-26] MEDS: ASPIRIN 81 MG CHEWABLE TABLETS PO SCH (09:52)
[2019-06-26] MEDS: LISINOPRIL 5 MG TABLET (FP) PO SCH (09:52)
--- NOTE | 2019-06-26 11:30 | PN ---
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 Tolerating diet.
--- NOTE | 2019-06-26 12:21 | PN ---
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, Physician Chief Complaint: ? sz vs cva History of Present Illness: awake, eating lunch. alert denies cp, sob, palpit, syncope - Current Medication List Current Medications: Active Medications Acetaminophen (Tylenol -) 650 mg PO Q6H PRN PRN Reason: PAIN LEVEL 1-5 Last Admin: 06/24/19 21:56 Dose: 650 mg Aspirin (Asa -) 81 mg PO DAILY [facility] Last Admin: 06/26/19 09:52 Dose: 81 mg Atorvastatin Calcium (Lipitor -) 40 mg PO HS [facility] Last Admin: 06/25/19 21:54 Dose: 40 mg Bethanechol Chloride (Urecholine -) 25 mg PO TID [facility] Last Admin: 06/26/19 06:23 Dose: 25 mg Carvedilol (Coreg -) 9.375 mg PO BID [facility] Last Admin: 06/26/19 09:52 Dose: 9.375 mg Clopidogrel Bisulfate (Plavix -) 75 mg PO DAILY [facility] Last Admin: 06/26/19 09:52 Dose: 75 mg Digoxin (Lanoxin -) 0.125 mg PO Q36H [facility] Last Admin: 06/25/19 09:55 Dose: 0.125 mg Docusate Sodium (Colace -) 200 mg PO DAILY [facility] Last Admin: 06/26/19 09:51 Dose: 200 mg Insulin Aspart (Novolog Vial Sliding Scale -) 1 vial SQ TIDAC [facility]; Protocol Last Admin: 06/26/19 11:49 Dose: 12 units Insulin Detemir (Levemir Vial) 10 units SQ HS [facility] Last Admin: 06/25/19 21:54 Dose: 10 units Insulin Detemir (Levemir Vial) 15 units SQ AM [facility] Last Admin: 06/26/19 06:24 Dose: 15 units Lisinopril (Prinivil) 5 mg PO DAILY [facility] Last Admin: 06/26/19 09:52 Dose: 5 mg Memantine (Namenda -) 5 mg PO HS [facility] Last Admin: 06/25/19 21:54 Dose: 5 mg Multivitamins/Minerals/Vitamin C (Tab-A-Vit -) 1 tab PO DAILY [facility] Last Admin: 06/26/19 09:52 Dose: 1 tab Phenytoin Sodium (Dilantin -) 100 mg PO BID [facility] Last Admin: 06/26/19 09:51 Dose: 100 mg Potassium Phos/Sodium Phos (Phos-Nak Packet -) 1 packet PO DAILY [facility] Last Admin: 06/26/19 09:52 Dose: 1 packet Senna (Senna -) 1 tab PO HS [facility] Last Admin: 06/25/19 21:54 Dose: 1 tab Tamsulosin HCl (Flomax -) 0.4 mg PO DAILY@0830 [facility] Last Admin: 06/26/19 09:52 Dose: 0.4 mg - Objective Vital Signs: Vital Signs Temperature 97.4 F L 06/26/19 08:39 Pulse Rate 76 06/26/19 08:39 Respiratory Rate 20 06/26/19 08:39 Blood Pressure 148/60 06/26/19 08:39 O2 Sat by Pulse Oximetry (%) 97 06/25/19 21:00 Constitutional: Yes: Well Nourished, No Distress, Calm Cardiovascular: Yes: Regular Rate and Rhythm. No: JVD, Gallop, Murmur Respiratory: Yes: Regular, CTA Bilaterally. No: Accessory Muscle Use Extremities: No: Cold Edema: No Neurological: Yes: Alert. No: Seizure Psychiatric: No: Agitated Labs: CBC, BMP 06/24/19 06:43 06/24/19 06:43 INR, PTT INR 0.87 (0.83-1.09) 06/15/19 17:02 Assessment/Plan Echo: EF 40-45%, abn septal motion c/w aberrance conduction. nl RV. functional mitral stenosis sec to MAC. no . tele: SR, biV paced. IMP: -Fall while seated on the toilet: suspected sz with post-ictal state, per neuro. -lacunar infarct, ? new vs chronic per dr fraga review of images -Cardiomyopathy, EF 40-45%, h/o syst CHF -paroxysms wide complex tach--reviewed with EP, likely paroxysmal atrial tach/ PSVT (not suspicious for fib/flutter), now controlled -s/p BiV-ICD, normal function on company check here ([facility]) -Renal insufficiency: ?acute, ?pre-renal--improved -Hyponatremia-improved -Known CAD, s/p IN and CABG--no signs ACS here REC: -sz precautions, meds per neuro -stroke w/u, mgmt per neuro -hypoNa and IVETTE improved with IVF (baseline creat not known)--dc IVF. holding lasix -Cont Coreg, Lisinopril, digoxin, ASA, Plavix and statin. -TELE D/C'D
[2019-06-26 13:37] VITALS: BMI 17.5
--- NOTE | 2019-06-26 14:31 | PN ---
Physical Exam: SUBJECTIVE: Patient seen and examined. Pt was awake and interactive. With no acute complaints. OBJECTIVE: Vital Signs Period Temp Pulse Resp BP Sys/Esparza Pulse Ox Last 24 Hr 97.4 F-98.8 F 76-95 16-20 142-163/54-73 96-97 GENERAL: The patient is AAOx2, in no acute distress. HEAD: Normal with no signs of trauma. LUNGS: Breath sounds equal, clear to auscultation bilaterally, no wheezes, no crackles, no accessory muscle use. HEART: Regular rate and rhythm, S1, S2 without murmur, rub or gallop. ABDOMEN: Soft, nontender, nondistended, normoactive bowel sounds, no guarding, no rebound, no hepatosplenomegaly, no masses. EXTREMITIES: 2+ pulses, warm, well-perfused, no edema. NEUROLOGICAL: Limited exam but today patient was able to lift left and left leg. strength 4/5 in left arm. sensation intact in all extremities Laboratory Results - last 24 hr 06/25/19 06/25/19 06/26/19 17:08 21:11 06:22 POC Glucometer 313 317 165 06/26/19 11:48 POC Glucometer 429 Active Medications Generic Name Dose Route Start Last Admin Trade Name Freq PRN Reason Stop Dose Admin Acetaminophen 650 mg 06/24/19 17:27 06/24/19 21:56 Tylenol - PO 650 mg Q6H PRN Administration PAIN LEVEL 1-5 Aspirin 81 mg 06/16/19 10:00 06/26/19 09:52 Asa - PO 81 mg DAILY [facility] Administration Atorvastatin Calcium 40 mg 06/18/19 22:00 06/25/19 21:54 Lipitor - PO 40 mg HS [facility] Administration Bethanechol Chloride 25 mg 06/22/19 14:00 06/26/19 06:23 Urecholine - PO 25 mg TID [facility] Administration Carvedilol 9.375 mg 06/18/19 11:15 06/26/19 09:52 Coreg - PO 9.375 mg BID [facility] Administration Clopidogrel Bisulfate 75 mg 06/16/19 10:00 06/26/19 09:52 Plavix - PO 75 mg DAILY [facility] Administration Digoxin 0.125 mg 06/16/19 10:00 06/25/19 09:55 Lanoxin - PO 0.125 mg Q36H [facility] Administration Docusate Sodium 200 mg 06/23/19 10:24 06/26/19 09:51 Colace - PO 200 mg DAILY [facility] Administration Insulin Aspart 1 vial 06/19/19 16:30 06/26/19 11:49 Novolog Vial Sliding Scale - SQ 12 units TIDAC [facility] Administration Protocol Insulin Detemir 10 units 06/25/19 22:00 06/25/19 21:54 Levemir Vial SQ 10 units HS [facility] Administration Insulin Detemir 15 units 06/26/19 07:00 06/26/19 06:24 Levemir Vial SQ 15 units AM [facility] Administration Lisinopril 5 mg 06/20/19 11:00 06/26/19 09:52 Prinivil PO 5 mg DAILY [facility] Administration Memantine 5 mg 06/15/19 22:00 06/25/19 21:54 Namenda - PO 5 mg HS [facility] Administration Multivitamins/Minerals/Vitamin C 1 tab 06/16/19 10:00 06/26/19 09:52 Tab-A-Vit - PO 1 tab DAILY [facility] Administration Phenytoin Sodium 100 mg 06/25/19 22:00 06/26/19 09:51 Dilantin - PO 100 mg BID [facility] Administration Potassium Phos/Sodium Phos 1 packet 06/17/19 10:00 06/26/19 09:52 Phos-Nak Packet - PO 1 packet DAILY [facility] Administration Senna 1 tab 06/22/19 22:00 06/25/19 21:54 Senna - PO 1 tab HS [facility] Administration Tamsulosin HCl 0.4 mg 06/23/19 08:30 06/26/19 09:52 Flomax - PO 0.4 mg DAILY@0830 [facility] Administration ASSESSMENT/PLAN: 84 y/o lady with h/o HTN, s/p PPM , CHF, DM , ? CVA, dementia, [place], bypass, HLP, CABG, and severe protein calorie malnutrition (BMI17) who came from home after an unwitnessed fall. CVA with L sided weakness stable with significant improvement of the L arm and leg weakness BP control with carvedilol Dysphagia whole diet with chopped meat. well tolerated so far PT ordered Seizures Pt had no seizures overnight Pt loaded with 1gm of Fosfophenytoin 06/19/19 and put on dilantin 100mg BID IVETTE monitor. creatinine stable. Berrios back in Pt continues to retain urine. Pt had 1500ml removed via straight cath this morning . flomax and urecholine added in assistance colace 200mg PO and senna to improve constipation. DM blood glucose uncontrolled today 419 regimen changed to levemir 15 in the morning and levemir 10 in the night cont SSI Systolic CHF EF 40-45% hold lasix cont digoxin coreg dose adjusted 9.375mg as per cardio lisinopril resumed at 5mg PO Daily prolonged QTc avoid prolonging agents DVT Ppx heparin subQ Visit type - Emergency Visit Emergency Visit: Yes ED Registration Date: 06/19/19 Care time: The patient presented to the Emergency Department on the above date and was hospitalized for further evaluation of their emergent condition. - New Patient This patient is new to me today: No - Critical Care Critical Care patient: No - Discharge Referral Referred to [facility] Med P.C.: No ATTENDING PHYSICIAN STATEMENT I saw and evaluated the patient. I reviewed the resident's note and discussed the case with the resident. I agree with the resident's findings and plan as documented. SUBJECTIVE: OBJECTIVE: ASSESSMENT AND PLAN:
[2019-06-26] MEDS ORDERED: PT OWN MED DRAWER 7, Y5N ONE (14:49)
--- NOTE | 2019-06-26 16:42 | PN ---
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 (short form) - Note 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: Vascular Surgery Pt's carotid doppler images reviewed. All velocities are within normal limits. There is a plaque at the Right ICA but is not flow limiting. Medical management. Adriano Ferrari DO
[2019-06-26] MEDS: MEMANTINE HCL 5 MG TABLET (UD) PO SCH (21:10)
[2019-06-26] MEDS: ATORVASTATIN CA 40 MG TABLET (FP) PO SCH (21:10)
[2019-06-26] MEDS: SENNOSIDES 8.6MG TABLET (FP) PO SCH (21:10)
[2019-06-26] MEDS: DIGOXIN 0.125 MG TABLET (FP) PO SCH (21:10)
[2019-06-26] MEDS ORDERED: MELATONIN 5 MG TABLETS PO ONE (21:25)
--- NOTE | 2019-06-26 21:42 | PN ---
Teaching Attending Note Name of Resident: Rayna De Leon ATTENDING PHYSICIAN STATEMENT I saw and evaluated the patient. I reviewed the resident's note and discussed the case with the resident. I agree with the resident's findings and plan as documented. SUBJECTIVE: Patient is feeling better, no fever or chills, awake wants to go to rehab. Vital Signs OBJECTIVE: Temperature 97.8 F 06/27/19 08:23 Pulse Rate 82 06/27/19 08:23 Respiratory Rate 18 06/27/19 08:23 Blood Pressure 123/73 06/27/19 08:23 O2 Sat by Pulse Oximetry (%) 99 06/27/19 08:35 GENERAL: The patient is awake, alert, and fully oriented, in no acute distress. HEAD: Normal with no signs of trauma. EYES: PERRL, extraocular movements intact, sclera anicteric, conjunctiva clear. ENT: Ears normal, oropharynx clear without exudates, moist mucous membranes. NECK: Trachea midline, full range of motion, supple. LUNGS: Breath sounds equal, clear to auscultation bilaterally, no wheezes, no crackles, no accessory muscle use. HEART: Regular rate and rhythm, S1, S2 without murmur, rub or gallop. ABDOMEN: Soft, NT, ND, normoactive bowel sounds, no guarding, no rebound, no hepatosplenomegaly, no masses. EXTREMITIES: 2+ pulses, warm, well-perfused, no edema. NEUROLOGICAL: Cranial nerves II through XII grossly intact. Normal speech, gait not observed. PSYCH: Normal mood, normal affect. SKIN: Warm, dry, normal turgor, no rashes or lesions noted CBCD WBC 9.7 K/mm3 (4.0-10.0) 06/24/19 06:43 RBC 3.08 M/mm3 (3.60-5.2) L 06/24/19 06:43 Hgb 9.1 GM/dL (10.7-15.3) L 06/24/19 06:43 Hct 26.6 % (32.4-45.2) L 06/24/19 06:43 MCV 86.5 fl (80-96) 06/24/19 06:43 MCHC 34.0 g/dl (32.0-36.0) 06/24/19 06:43 RDW 13.8 % (11.6-15.6) 06/24/19 06:43 Plt Count 327 K/MM3 (134-434) 06/24/19 06:43 MPV 7.4 fl (7.5-11.1) L 06/24/19 06:43 CMP Sodium 139 mmol/L (136-145) 06/24/19 06:43 Potassium 4.4 mmol/L (3.5-5.1) 06/24/19 06:43 Chloride 108 mmol/L (98-107) H 06/24/19 06:43 Carbon Dioxide 25 mmol/L (21-32) 06/24/19 06:43 Anion Gap 7 MMOL/L (8-16) L 06/24/19 06:43 BUN 19.7 mg/dL (7-18) H 06/24/19 06:43 Creatinine 0.8 mg/dL (0.55-1.3) 06/24/19 06:43 Random Glucose 167 mg/dL (74-106) H 06/24/19 06:43 Calcium 9.5 mg/dL (8.5-10.1) 06/24/19 06:43 Total Bilirubin 0.2 mg/dL (0.2-1) 06/23/19 06:35 AST 32 U/L (15-37) 06/23/19 06:35 ALT 27 U/L (13-61) 06/23/19 06:35 Alkaline Phosphatase 93 U/L (45-117) 06/23/19 06:35 Total Protein 6.5 g/dl (6.4-8.2) 06/23/19 06:35 Albumin 2.7 g/dl (3.4-5.0) L 06/23/19 06:35 CARDIAC ENZYMES Creatine Kinase 80 U/L (26-192) 06/15/19 17:02 Troponin I 0.03 ng/ml (0.00-0.05) 06/16/19 12:15 Current Medications Generic Name Dose Route Start Last Admin Trade Name Freq PRN Reason Stop Dose Admin Acetaminophen 650 mg 06/24/19 17:27 06/24/19 21:56 Tylenol - PO 650 mg Q6H PRN Administration PAIN LEVEL 1-5 Aspirin 81 mg 06/16/19 10:00 06/26/19 09:52 Asa - PO 81 mg DAILY [facility] Administration Atorvastatin Calcium 40 mg 06/18/19 22:00 06/26/19 21:10 Lipitor - PO 40 mg HS [facility] Administration Bethanechol Chloride 25 mg 06/22/19 14:00 06/26/19 21:11 Urecholine - PO 25 mg TID [facility] Administration Carvedilol 9.375 mg 06/18/19 11:15 06/26/19 21:10 Coreg - PO 9.375 mg BID [facility] Administration Clopidogrel Bisulfate 75 mg 06/16/19 10:00 06/26/19 09:52 Plavix - PO 75 mg DAILY [facility] Administration Digoxin 0.125 mg 06/16/19 10:00 06/26/19 21:10 Lanoxin - PO 0.125 mg Q36H [facility] Administration Docusate Sodium 200 mg 06/23/19 10:24 06/26/19 09:51 Colace - PO 200 mg DAILY [facility] Administration Insulin Aspart 1 vial 06/19/19 16:30 06/26/19 17:10 Novolog Vial Sliding Scale - SQ 4 units TIDAC [facility] Administration Protocol Insulin Detemir 10 units 06/25/19 22:00 06/26/19 21:10 Levemir Vial SQ 10 units HS [facility] Administration Insulin Detemir 15 units 06/26/19 07:00 06/26/19 06:24 Levemir Vial SQ 15 units AM [facility] Administration Lisinopril 5 mg 06/20/19 11:00 06/26/19 09:52 Prinivil PO 5 mg DAILY [facility] Administration Memantine 5 mg 06/15/19 22:00 06/26/19 21:10 Namenda - PO 5 mg HS [facility] Administration Multivitamins/Minerals/Vitamin C 1 tab 06/16/19 10:00 06/26/19 09:52 Tab-A-Vit - PO 1 tab DAILY [facility] Administration Phenytoin Sodium 100 mg 06/25/19 22:00 06/26/19 21:10 Dilantin - PO 100 mg BID [facility] Administration Potassium Phos/Sodium Phos 1 packet 06/17/19 10:00 06/26/19 09:52 Phos-Nak Packet - PO 1 packet DAILY [facility] Administration Senna 1 tab 06/22/19 22:00 06/26/19 21:10 Senna - PO 1 tab HS [facility] Administration Tamsulosin HCl 0.4 mg 06/23/19 08:30 06/26/19 09:52 Flomax - PO 0.4 mg DAILY@0830 [facility] Administration Home Medications Medication Instructions Recorded Carvedilol 6.25 mg PO BID 06/15/19 Clopidogrel Bisulfate [Clopidogrel] 75 mg PO DAILY 06/15/19 Digoxin [Lanoxin -] 0.125 mg PO DAILY 06/15/19 Lisinopril 10 mg PO DAILY 06/15/19 Memantine HCl 5 mg PO HS 06/15/19 Multivitamin [Multiple Vitamins] 1 each PO DAILY 06/15/19 Simvastatin 20 mg PO HS 06/15/19 Aspirin [ASA -] 81 mg PO DAILY #30 tab.chew 06/23/19 Carvedilol [Coreg -] 9.375 mg PO BID #60 tablet 06/23/19 Docusate Sodium [Colace -] 200 mg PO DAILY #30 capsule 06/23/19 Insulin (Levemir) [Levemir Vial] 5 units SQ HS #30 units 06/23/19 Insulin (Levemir) [Levemir Vial] 13 units SQ AM #30 units 06/23/19 Insulin Sliding Scale [Novolog 1 vial SQ TIDAC #30 units 06/23/19 Vial Sliding Scale -] Phenytoin Na Extended [Dilantin -] 100 mg PO BID #60 capsule 06/23/19 Tamsulosin HCl [Flomax -] 0.4 mg PO DAILY@0830 #30 cap.er.24h 06/23/19 CT: no acute infarct EEG : left parietal and frontal spikes Carotid duplex: high grade stenosis at the level of proximal carotid artery ASSESSMENT AND PLAN: Patient is a 84yo female with PMHx of s/p PPM , CHF, DM , questionable CVA, dementia, [place], bypass, HLP, CABG, who came from home after an unwitnessed fall and was to have seizures acitivity. # Patient s/p fall : has no complains , patient had multiple xrays and head Ct no bleed noted # Malnourished with BMI of 17.6: but patient has a good appetite , nutrition consult appreciated. # suspected Acute stroke with L sided weakness:Ct is negative, Patient has a pacemaker , cannot go to MRI, cont lipitor, plavix and aspirin continue current diet ; PT and OT # New onset seizures: on oral dilantin 100mg po bid . #Encephalopathy improved with improvement in seizure activity # IVETTE: Cr improved, on Flomax now #T2DM: cont SSi and levemir at 10 HS. will discharge on insulin due to A1c of 20U am and 10u, pm #Hx of systolic CHF, volume depleted now. EF 40-45%, continue Lisionpril ,dig , coreg , lasix to be resumed after dc ,maybe at a lower dose, to avoid dehydration , every other day at the discharge # prolonged QTc : avoid prolonging agents # Urinary retention : gates dc'd on Flomax now # Severe malnutrition : will get nutrition consult to further evaluate. Patient is medically ready for Dc, need rehab . SW updated on vest restrain now, no further gates DVT Px: heparin
[2019-06-27 06:12] LABS: BASO % 0.5 % (0-2.0); HEMATOCRIT 28.4 % (32.4-45.2); HEMOGLOBIN 9.4 GM/dL (10.7-15.3); LYMPH % 18.2 % (8-40); MCH 28.7 pg (25.7-33.7); MCHC 33.2 g/dl (32.0-36.0); MEAN CELL VOLUME 86.5 fl (80-96); MEAN PLT VOLUME 6.7 fl (7.5-11.1); MONO % 6.6 % (3.8-10.2); NEUT % 71.7 % (42.8-82.8); PLATELET COUNT 402 K/MM3 (134-434); RBC 3.28 M/mm3 (3.60-5.2)
[2019-06-27 06:24] LABS: ALBUMIN 2.9 g/dl (3.4-5.0); BILIRUBIN,TOTAL 0.2 mg/dL (0.2-1); BLOOD UREA NITROGEN 27.3 mg/dL (7-18); CALCIUM 10.3 mg/dL (8.5-10.1); POTASSIUM 4.7 mmol/L (3.5-5.1)
[2019-06-27] MEDS: BETHANECHOL CHLORIDE 25 MG TABLET PO SCH ×2 (06:45→15:05)
[2019-06-27] MEDS: INSULIN SLIDING SCALE (NOVOLOG) 1 VIAL SQ SCH ×3 (06:45→16:28)
[2019-06-27] MEDS: INSULIN (LEVEMIR) 100 UNITS/ML UNITS SQ SCH (06:45)
[2019-06-27] MEDS ORDERED: INSULIN SLIDING SCALE (NOVOLOG) 1 VIAL SQ ONE (06:56)
[2019-06-27] MEDS ORDERED: INSULIN (LEVEMIR) 100 UNITS/ML UNITS SQ ONE (06:56)
--- NOTE | 2019-06-27 08:03 | PN ---
Teaching Attending Note Name of Resident: Rayna De Leon ATTENDING PHYSICIAN STATEMENT I saw and evaluated the patient. I reviewed the resident's note and discussed the case with the resident. I agree with the resident's findings and plan as documented. SUBJECTIVE: Patient is better now. No fever or chills, no shortness of breath. OBJECTIVE: Temperature 97.8 F 06/27/19 08:23 Pulse Rate 82 06/27/19 08:23 Respiratory Rate 18 06/27/19 08:23 Blood Pressure 123/73 06/27/19 08:23 O2 Sat by Pulse Oximetry (%) 99 06/27/19 08:35 GENERAL: The patient is awake, alert, and answersto questions in no acute distress. HEAD: Normal with no signs of trauma. EYES: PERRL, extraocular movements intact, sclera anicteric, conjunctiva clear. ENT: Ears normal, oropharynx clear without exudates, moist mucous membranes. NECK: Trachea midline, full range of motion, supple. LUNGS: Breath sounds equal, clear to auscultation bilaterally, no wheezes, no crackles, no accessory muscle use. HEART: Regular rate and rhythm, S1, S2 without murmur, rub or gallop. ABDOMEN: Soft, nontender, nondistended, normoactive bowel sounds, no guarding, no rebound, no hepatosplenomegaly, no masses. EXTREMITIES: 2+ pulses, warm, well-perfused, no edema. NEUROLOGICAL: Cranial nerves II through XII grossly intact. Normal speech, gait not observed. PSYCH: Normal mood, normal affect. SKIN: Warm, dry, normal turgor, no rashes or lesions noted CBCD WBC 11.0 K/mm3 (4.0-10.0) H 06/27/19 05:20 RBC 3.28 M/mm3 (3.60-5.2) L 06/27/19 05:20 Hgb 9.4 GM/dL (10.7-15.3) L 06/27/19 05:20 Hct 28.4 % (32.4-45.2) L 06/27/19 05:20 MCV 86.5 fl (80-96) 06/27/19 05:20 MCHC 33.2 g/dl (32.0-36.0) 06/27/19 05:20 RDW 14.0 % (11.6-15.6) 06/27/19 05:20 Plt Count 402 K/MM3 (134-434) D 06/27/19 05:20 MPV 6.7 fl (7.5-11.1) L 06/27/19 05:20 CMP Sodium 139 mmol/L (136-145) 06/27/19 05:20 Potassium 4.7 mmol/L (3.5-5.1) 06/27/19 05:20 Chloride 105 mmol/L (98-107) 06/27/19 05:20 Carbon Dioxide 28 mmol/L (21-32) 06/27/19 05:20 Anion Gap 7 MMOL/L (8-16) L 06/27/19 05:20 BUN 27.3 mg/dL (7-18) H 06/27/19 05:20 Creatinine 1.0 mg/dL (0.55-1.3) 06/27/19 05:20 Random Glucose 157 mg/dL (74-106) H 06/27/19 05:20 Calcium 10.3 mg/dL (8.5-10.1) H 06/27/19 05:20 Total Bilirubin 0.2 mg/dL (0.2-1) 06/27/19 05:20 AST 36 U/L (15-37) 06/27/19 05:20 ALT 51 U/L (13-61) 06/27/19 05:20 Alkaline Phosphatase 100 U/L (45-117) 06/27/19 05:20 Total Protein 7.0 g/dl (6.4-8.2) 06/27/19 05:20 Albumin 2.9 g/dl (3.4-5.0) L 06/27/19 05:20 CARDIAC ENZYMES Creatine Kinase 80 U/L (26-192) 06/15/19 17:02 Troponin I 0.03 ng/ml (0.00-0.05) 06/16/19 12:15 Current Medications Generic Name Dose Route Start Last Admin Trade Name Freq PRN Reason Stop Dose Admin Acetaminophen 650 mg 06/24/19 17:27 06/24/19 21:56 Tylenol - PO 650 mg Q6H PRN Administration PAIN LEVEL 1-5 Aspirin 81 mg 06/16/19 10:00 06/26/19 09:52 Asa - PO 81 mg DAILY [facility] Administration Atorvastatin Calcium 40 mg 06/18/19 22:00 06/26/19 21:10 Lipitor - PO 40 mg HS [facility] Administration Bethanechol Chloride 25 mg 06/22/19 14:00 06/27/19 06:45 Urecholine - PO 25 mg TID [facility] Administration Carvedilol 9.375 mg 06/18/19 11:15 06/26/19 21:10 Coreg - PO 9.375 mg BID [facility] Administration Clopidogrel Bisulfate 75 mg 06/16/19 10:00 06/26/19 09:52 Plavix - PO 75 mg DAILY [facility] Administration Digoxin 0.125 mg 06/16/19 10:00 06/26/19 21:10 Lanoxin - PO 0.125 mg Q36H [facility] Administration Docusate Sodium 200 mg 06/23/19 10:24 06/26/19 09:51 Colace - PO 200 mg DAILY [facility] Administration Insulin Aspart 1 vial 06/19/19 16:30 06/27/19 06:45 Novolog Vial Sliding Scale - [facility]Q [facility] Protocol Insulin Detemir 10 units 06/25/19 22:00 06/26/19 21:10 Levemir Vial SQ 10 units HS [facility] Administration Insulin Detemir 15 units 06/26/19 07:00 06/27/19 06:45 Levemir Vial SQ 15 units AM [facility] Administration Lisinopril 5 mg 06/20/19 11:00 06/26/19 09:52 Prinivil PO 5 mg DAILY [facility] Administration Memantine 5 mg 06/15/19 22:00 06/26/19 21:10 Namenda - PO 5 mg HS [facility] Administration Multivitamins/Minerals/Vitamin C 1 tab 06/16/19 10:00 06/26/19 09:52 Tab-A-Vit - PO 1 tab DAILY [facility] Administration Phenytoin Sodium 100 mg 06/25/19 22:00 06/26/19 21:10 Dilantin - PO 100 mg BID [facility] Administration Polyethylene Glycol 17 gm 06/27/19 10:00 Miralax (For Daily Use) - PO BID [facility] Potassium Phos/Sodium Phos 1 packet 06/17/19 10:00 06/26/19 09:52 Phos-Nak Packet - PO 1 packet DAILY [facility] Administration Senna 1 tab 06/22/19 22:00 06/26/19 21:10 Senna - PO 1 tab HS [facility] Administration Tamsulosin HCl 0.4 mg 06/23/19 08:30 06/26/19 09:52 Flomax - PO 0.4 mg DAILY@0830 [facility] Administration Home Medications Medication Instructions Recorded Carvedilol 6.25 mg PO BID 06/15/19 Clopidogrel Bisulfate [Clopidogrel] 75 mg PO DAILY 06/15/19 Digoxin [Lanoxin -] 0.125 mg PO DAILY 06/15/19 Lisinopril 10 mg PO DAILY 06/15/19 Memantine HCl 5 mg PO HS 06/15/19 Multivitamin [Multiple Vitamins] 1 each PO DAILY 06/15/19 Simvastatin 20 mg PO HS 06/15/19 Aspirin [ASA -] 81 mg PO DAILY #30 tab.chew 06/23/19 Carvedilol [Coreg -] 9.375 mg PO BID #60 tablet 06/23/19 Docusate Sodium [Colace -] 200 mg PO DAILY #30 capsule 06/23/19 Insulin (Levemir) [Levemir Vial] 5 units SQ HS #30 units 06/23/19 Insulin (Levemir) [Levemir Vial] 13 units SQ AM #30 units 06/23/19 Insulin Sliding Scale [Novolog 1 vial SQ TIDAC #30 units 06/23/19 Vial Sliding Scale -] Phenytoin Na Extended [Dilantin -] 100 mg PO BID #60 capsule 06/23/19 Tamsulosin HCl [Flomax -] 0.4 mg PO DAILY@0830 #30 cap.er.24h 06/23/19 CT: no acute infarct EEG : left parietal and frontal spikes Carotid duplex: high grade stenosis at the level of proximal carotid artery ASSESSMENT AND PLAN: Patient is a 84yo female with PMHx of s/p PPM , CHF, DM , questionable CVA, dementia, [place], bypass, HLP, CABG, who came from home after an unwitnessed fall and was to have seizures acitivity. # suspected Acute stroke with L sided weakness:Ct is negative, Patient has a pacemaker , cannot go to MRI, cont lipitor, plavix and aspirin continue current diet ; PT and OT # New onset seizures: on oral dilantin 100mg po bid # Patient s/p fall : has no complains , patient had multiple xrays and head Ct no bleed noted # Malnourished : calorie count , nutrition consult appreciated. . #Encephalopathy improved with improvement in seizure activity # IVETTE: Cr improved, on Flomax now #T2DM: cont SSi and levemir 15 in am and 10unit HS. will discharge on insulin due to A1c of 15 #Hx of systolic CHF with EF 40-45%, continue Lisionpril ,dig , coreg increased the dose from prior. #Urinary retention : gates dc'd on Flomax now # Severe malnutrition : will get nutrition consult to further evaluate. Patient is medically ready for Dc. dc patient to rehab.
[2019-06-27] MEDS: ASPIRIN 81 MG CHEWABLE TABLETS PO SCH (09:01)
[2019-06-27] MEDS: CARVEDILOL 3.125 MG TABLET (FP) PO SCH (09:01)
[2019-06-27] MEDS: MULTIVITAMINS (DAILY MVI) TABLET (FP) PO SCH (09:01)
[2019-06-27] MEDS: DOCUSATE SODIUM 100 MG CAPSULE (FP) PO SCH (09:01)
[2019-06-27] MEDS: NAPH,MB-DB/K PH,MBDB POWDER PACKET PO SCH (09:01)
[2019-06-27] MEDS: PHENYTOIN NA EXTENDED 100 MG CAPSULE (FP) PO SCH (09:01)
[2019-06-27] MEDS: LISINOPRIL 5 MG TABLET (FP) PO SCH (09:02)
[2019-06-27] MEDS: CLOPIDOGREL BISULFATE 75 MG TABLET (FP) PO SCH (09:02)
[2019-06-27] MEDS: TAMSULOSIN HCL 0.4 MG CAP PO SCH (09:02)
[2019-06-27] MEDS ORDERED: POLYETHYLENE GLYCOL 3350 119 GM BTL PO SCH (10:00)
--- NOTE | 2019-06-27 10:36 | PN ---
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 (short form) - Note 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: 84 yea jim female history of Dementia, Stroke, [place] ,CABG,Pacemaker, HTN,HLD,DM ,CHF. Patient presented to hospital for fall. Patient has history of stroke, not clear what is her baseline. Apparently she had episode of staring episode and left facial twiching with tongue bite. Patient is not able to provide any history and history was obtained from nursing staff and chart. Patient is on statin, plavix. no seizure and she is being discharge today NEUROLOGICAL EXAMINATION Alert and talking more alert today, no focal seizure were seen, she is awake and alert , no focal twiching was seen at bedside there is mild left face palsy and mild left upper extremity weakness ct head showed right basal ganglia lacunar stroke repeat ct head on june 17 was unchanged Eeg showed left pareital and frontal spikes were seen Assessment/plan 1. 84 year old female history of dementia, cad, cabg, s/p pacemaker. Patient presnted with fall. Patient has normal ct head and old right BG lacunar stroke, on exam patient has left sided hemiparesis on admission and she has improved markedly , no more seizure 2.Focal seizure with secondary generalization. Seizure are under control. Plan:continue AED - continue statin and antiplatelet - swallwoing, pt and dvt prohylaxis
[2019-06-27] MEDS ORDERED: INSULIN (LEVEMIR) 100 UNITS/ML UNITS SQ SCH ×2 (12:20)
--- NOTE | 2019-06-27 12:36 | PN ---
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 (short form) - Note 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: no chest pain, palps, dizziness dyspnea Current Medications Acetaminophen (Tylenol -) 650 mg PO Q6H PRN PRN Reason: PAIN LEVEL 1-5 Last Admin: 06/24/19 21:56 Dose: 650 mg Aspirin (Asa -) 81 mg PO DAILY [facility] Last Admin: 06/27/19 09:01 Dose: 81 mg Atorvastatin Calcium (Lipitor -) 40 mg PO HS [facility] Last Admin: 06/26/19 21:10 Dose: 40 mg Bethanechol Chloride (Urecholine -) 25 mg PO TID [facility] Last Admin: 06/27/19 06:45 Dose: 25 mg Carvedilol (Coreg -) 9.375 mg PO BID [facility] Last Admin: 06/27/19 09:01 Dose: 9.375 mg Clopidogrel Bisulfate (Plavix -) 75 mg PO DAILY [facility] Last Admin: 06/27/19 09:02 Dose: 75 mg Digoxin (Lanoxin -) 0.125 mg PO Q36H [facility] Last Admin: 06/26/19 21:10 Dose: 0.125 mg Docusate Sodium (Colace -) 200 mg PO DAILY [facility] Last Admin: 06/27/19 09:01 Dose: 200 mg Insulin Aspart (Novolog Vial Sliding Scale -) 1 vial SQ TIDAC [facility]; Protocol Last Admin: 06/27/19 11:38 Dose: 10 units Insulin Detemir (Levemir Vial) 20 units SQ AM [facility] Insulin Detemir (Levemir Vial) 15 units SQ HS [facility] Lisinopril (Prinivil) 5 mg PO DAILY [facility] Last Admin: 06/27/19 09:02 Dose: 5 mg Memantine (Namenda -) 5 mg PO HS [facility] Last Admin: 06/26/19 21:10 Dose: 5 mg Multivitamins/Minerals/Vitamin C (Tab-A-Vit -) 1 tab PO DAILY [facility] Last Admin: 06/27/19 09:01 Dose: 1 tab Phenytoin Sodium (Dilantin -) 100 mg PO BID [facility] Last Admin: 06/27/19 09:01 Dose: 100 mg Polyethylene Glycol (Miralax (For Daily Use) -) 17 gm PO BID [facility] Last Admin: 06/27/19 09:02 Dose: 17 g Potassium Phos/Sodium Phos (Phos-Nak Packet -) 1 packet PO DAILY [facility] Last Admin: 06/27/19 09:01 Dose: 1 packet Senna (Senna -) 1 tab PO HS [facility] Last Admin: 06/26/19 21:10 Dose: 1 tab Tamsulosin HCl (Flomax -) 0.4 mg PO DAILY@0830 [facility] Last Admin: 06/27/19 09:02 Dose: 0.4 mg Vital Signs Period Temp Pulse Resp BP Sys/Esparza Pulse Ox Last 24 Hr 97.8 F-98.8 F 74-101 16-20 104-135/55-73 96-99 Constitutional: Yes: Well Nourished, No Distress, Calm Cardiovascular: Yes: Regular Rate and Rhythm. No: JVD, Gallop, Murmur Respiratory: Yes: Regular, CTA Bilaterally. No: Accessory Muscle Use Extremities: No: Cold Edema: No Neurological: Yes: Alert. No: Seizure Psychiatric: No: Agitated no jaundice, diaphoresis Assessment/Plan Echo: EF 40-45%, abn septal motion c/w aberrance conduction. nl RV. functional mitral stenosis sec to MAC. no . IMP: -Fall while seated on the toilet: suspected sz with post-ictal state, per neuro. -lacunar infarct, ? new vs chronic per dr fraga review of images -Cardiomyopathy, EF 40-45%, h/o syst CHF -paroxysms wide complex tach--reviewed with EP, likely paroxysmal atrial tach/ PSVT (not suspicious for fib/flutter), now controlled -s/p BiV-ICD, normal function on company check here ([facility]) -Renal insufficiency: ?acute, ?pre-renal--improved -Hyponatremia-improved -Known CAD, s/p VA and CABG--no signs ACS here REC: -sz precautions, meds per neuro -stroke w/u, mgmt per neuro -hypoNa and IVETTE improved with IVF (baseline creat not known), now dc'ed - holding lasix, monitor volume status. euvolemic today -Cont Coreg, Lisinopril, digoxin, ASA, Plavix and statin.
--- NOTE | 2019-06-27 13:16 | PN ---
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, [employer] - Note 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: Selected Entries 06/24/19 06/25/19 06/25/19 14:00 11:51 14:00 Breakfast 50% 75% Lunch 75% 50% Supper Temperature 06/25/19 06/26/19 06/26/19 22:00 02:00 06:00 Breakfast Lunch Supper 100% Temperature 98.2 F 98.2 F 06/26/19 06/26/19 08:39 10:40 Breakfast 100% Lunch Supper Temperature 97.4 F L Laboratory Tests 06/22/19 06/23/19 06/24/19 08:50 06:35 06:43 WBC 11.9 H 11.2 H 9.7 Selected Entries 06/26/19 06/26/19 06/26/19 02:00 06:00 08:39 Breakfast Supper Temperature 98.2 F 98.2 F 97.4 F L 06/26/19 06/26/19 06/26/19 10:40 15:01 18:00 Breakfast 100% Supper Temperature 98.8 F 98.8 F 06/26/19 06/27/19 06/27/19 22:00 02:00 06:00 Breakfast 100% Supper 100% Temperature 97.9 F 97.8 F 97.9 F 06/27/19 08:23 Breakfast Supper Temperature 97.8 F Laboratory Tests 06/24/19 06/27/19 06:43 05:20 WBC 9.7 11.0 H Pt receiving Dys whole/chopped meat/thin liquid Tolerating diet.
--- NOTE | 2019-06-27 13:59 | DS ---
Physical Exam: SUBJECTIVE: Patient seen and examined. Pt mentation return to baseline. pt eating all her meals and left hand back to function. OBJECTIVE: Vital Signs Period Temp Pulse Resp BP Sys/Esparza Pulse Ox Last 24 Hr 97.8 F-98.8 F 74-101 16-20 104-135/55-73 96-99 PHYSICAL EXAM GENERAL: The patient is AAOx2, in no acute distress. HEAD: Normal with no signs of trauma. LUNGS: Breath sounds equal, clear to auscultation bilaterally, no wheezes, no crackles, no accessory muscle use. HEART: Regular rate and rhythm, S1, S2 without murmur, rub or gallop. ABDOMEN: Soft, nontender, nondistended, normoactive bowel sounds, no guarding, no rebound, no hepatosplenomegaly, no masses. EXTREMITIES: 2+ pulses, warm, well-perfused, no edema. NEUROLOGICAL: Limited exam but today patient was able to lift left and left leg. strength 4/5 in left arm. sensation intact in all extremities LABS Laboratory Results - last 24 hr 06/26/19 06/26/19 06/27/19 17:08 21:04 05:20 WBC 11.0 H RBC 3.28 L Hgb 9.4 L Hct 28.4 L MCV 86.5 MCH 28.7 MCHC 33.2 RDW 14.0 Plt Count 402 D MPV 6.7 L Absolute Neuts (auto) 7.9 Neutrophils % 71.7 Lymphocytes % 18.2 Monocytes % 6.6 Eosinophils % 3.0 Basophils % 0.5 Nucleated RBC % 0 Sodium Potassium Chloride Carbon Dioxide Anion Gap BUN Creatinine Est GFR (CKD-EPI)AfAm Est GFR (CKD-EPI)NonAf POC Glucometer 238 399 Random Glucose Calcium Total Bilirubin AST ALT Alkaline Phosphatase Total Protein Albumin 06/27/19 06/27/19 06/27/19 05:20 06:44 11:36 WBC RBC Hgb Hct MCV MCH MCHC RDW Plt Count MPV Absolute Neuts (auto) Neutrophils % Lymphocytes % Monocytes % Eosinophils % Basophils % Nucleated RBC % Sodium 139 Potassium 4.7 Chloride 105 Carbon Dioxide 28 Anion Gap 7 L BUN 27.3 H Creatinine 1.0 Est GFR (CKD-EPI)AfAm 59.91 Est GFR (CKD-EPI)NonAf 51.69 POC Glucometer 141 400 Random Glucose 157 H Calcium 10.3 H Total Bilirubin 0.2 AST 36 ALT 51 Alkaline Phosphatase 100 Total Protein 7.0 Albumin 2[address] 06/15/19 No fracture or posttraumatic malalignment is seen. Periodontoid soft tissue calcifications are noted which may be on a degenerative basis. Similar calcifications may also be noted in the setting of pseudogout/pyrophosphate arthropathy. Correlate clinically. Moderate to marked multilevel degenerative disc changes are seen. The perivertebral soft tissues demonstrate no obvious pathology Head CT 06/15/[address] evidence of acute intracranial pathology. Small chronic right basal ganglia infarct. Mild to moderate periventricular and subcortical chronic microvascular ischemic changes. A small amount of fluid is seen within the right mastoid air cells. There is a small amount of fluid and/or mucosal thickening along the posterior wall of the partially imaged right maxillary sinus Carotid US 06/15/19 There is no definite Doppler evidence of a hemodynamically significant extracranial carotid artery stenosis. However, note is made of a prominent calcified plaque at the level of the proximal right internal carotid artery with an apparent luminal diameter stenosis of at least 60 - 70% on the basis of grayscale imaging (NASCET criteria). Prominent calcified atherosclerotic plaque formation is seen at the level of the carotid artery bifurcations bilaterally. The vertebral arteries appear to be patent demonstrating antegrade flow. Renal US 06/15/19 Limited visualization as noted above. No hydronephrosis is seen. The left kidney appears to be atrophic measuring 7.4 cm in length. The right kidney appears borderline in size. Head CT 06/17/19 No evidence of acute intracranial pathology or significant change since 06/15/2019. Head CT 06/24/[address] evidence of acute intracranial pathology. Chronic findings as noted above Hip Xray right 06/24/19 An AP view of the pelvis and 2 views of each hip have been submitted. Hips appear symmetrical with degenerative changes and no sign of fracture or subluxation and no sign of blastic or lytic changes. There is loss of bone density, degenerative spine changes and a large amount of retained stool compatible with constipation. There are vascular calcifications. If symptoms persist or there is decreased range of motion and further imaging and orthopedic consultation may be of help. CT scan 06/24/19 An AP view of the pelvis reveals loss of bone density, degenerative changes, vascular calcifications and a large amount of retained stool. An acute process is not seen. There is no sign of fracture or subluxation and no sign of blastic or lytic changes. There is a scoliosis with vascular calcifications. If symptoms persist, further imaging may be of help. Xray Hip Left 06/24/19 An AP view of the pelvis and 2 views of each hip reveal no sign of fracture or subluxation and no sign of blastic or lytic changes. There is loss of bone density, degenerative changes and retained stool. There are pelvic vascular calcifications. If symptoms persist, further imaging and orthopedic consultation may be of help. Xray knee L 06/24/19 AP, lateral and sunrise views of the left knee reveal loss of bone density but no sign of fracture or subluxation and no sign of blastic or lytic changes. There is chondrocalcinosis and arthritic changes. If symptoms persist, further imaging may be of help. Xray ankle and foot right 06/24/19 Symmetrical feet and ankles. No acute pathology. Some arthritic changes. If symptoms persist, further imaging and orthopedic consultation may be of help Xray ankle left 06/24/19 3 views of the left foot and ankle with comparison views of the right reveal them to be symmetrical with some loss of bone density , degenerative changes no sign of fracture or subluxation. Blastic or lytic findings are not seen and there is no sign of swelling, foreign body or soft tissue air. If symptoms persist, further imaging and orthopedic consultation may be of help. HOSPITAL COURSE: Date of Admission:06/19/19 Pt mentation has returned to baseline. 84 year old female with a past medical history of Dementia, Stroke, [place], CABG, Pacemaker, HTN,HLD,DM,CHF. Patient presented to ED for a unwitnessed fall with ED course being notable for head and cervical CT showing no acute pathology. However, an old right basal ganglia lacunar stroke was noted. Pt remained lethargic and disoriented.Cardio consultated and optimized her meds and no intervention at the time. carotid doppler showed stenosis at the proximal right internal carotid artery with 60-70 % stenosis for which she will follow up as an outpatient. Echo showed EF 40-45% with MS 2/2 annual calcification. A renal ultrasound showed no hydronephrosis and a left atrophic kidney was noted. Two days into admission, patient experienced left sided arm twitching, lip biting and left sided hemiparesis. A focal seizure was suspected and patient was started on Keppra andlater switched to Dilantin after repeated seizures. Since Dilantin pt remained seizure free and L arm weakness significantly improved almost back to full strength. A week into the hospital stay the patient was found to have urinary retention and was placed on a gates and Tamsulosin. During the course of stay, the patient fell after trying to use the bathroom unassisted. X-ray imaging of the pelvis, bilateral knees, the left foot and ankle and the left hip showed no fracture or acute pathology. Incidentally, a large number of retained stool was noted on pelvic X-ray which was managed with Miralax and Senna and colace to be continued even on discharge. The patient returned to her mental baseline and is ready for discharge. HbA1c was found to be at 15.8 with blood sugars consistently elevated; patient was treated sliding scale insulin, levemir increased to 20 in the am and 15 at night Date of Discharge: 06/27/19 Minutes to complete discharge: 35 Discharge Summary Reason For Visit: TRAMATIC INJURY OF HEAD Current Active Problems Head trauma (Acute) Urinary retention (Acute) Condition: Stable - Instructions Diet, Activity, Other Instructions: You came into the ED because you passed out and fell. We did an ekg which showed no acute changes. We took some pictures of your head which showed no acute pathology. We also did an ultrasound of your heart that confirmed your pacemaker, and showed some weak valves and a decreased function. we did a scan of the vessels in your neck that showed 60-70% narrowing in the vessel on the right for which you will follow up for as outpatient. We also did an ultrasound of your kidneys that showed the left kidney smaller than the right. . You were found to be having episodes of seizures so we started you on new medications.Because you were retaining urine during your stay, we placed a gates in assistance. We optimized your heart, your blood pressure, and your blood sugar medications. You are mentally back to baseline and your symptoms have improved therefore you are stable enough to be discharged to a halfway facility. Medications: Please resume your home medications. We have made some changes to your medications: Please take dilantin 100mg by mouth twice a day for your seizures Please take lipitor 40mg by mouth at night. DO NOT TAKE THE SIMVASTATIN Please take coreg 9.375mg by mouth twice a day Please take Aspirin 81mg by mouth daily Please take Levemir 20 units in the morning and 15 units at night with novolog sliding scale Please take Miralax 17gm by mouth twice a day Please take senna one tablet by mouth at night Please take colace 200mg by mouth daily Follow up: Please follow up with Dr Kent, your new primary care physician at [facility] Please follow up with Dr Starr, neurologist within one week Please follow up with Dr Ferrari, Vascular surgery within one week. Please follow up with Dr Hodges, cardiology within one week. Please follow up with Dr Hahn,urology within one week. If you begin to experience chest pain, shortness of breath, falls seizures, fever, abdominal pain, bleeding please return to the emergency room immediately. Referrals: Blade Starr MD [Staff Physician] - 1 Week Damian Kent MD [Staff Physician] - 1 Week Curt Hahn MD [Staff Physician] - 1 Week Nikolai Hodges MD [Staff Physician] - 1 Week Adriano Ferrari DO [Staff Physician] - 1 Week Disposition: [facility] - Home Medications Comprehensive Discharge Medication List: Ambulatory Orders Clopidogrel Bisulfate [Clopidogrel] 75 mg PO DAILY 06/15/19 Digoxin [Lanoxin -] 0.125 mg PO DAILY 06/15/19 Lisinopril 10 mg PO DAILY 06/15/19 Memantine HCl 5 mg PO HS 06/15/19 Multivitamin [Multiple Vitamins] 1 each PO DAILY 06/15/19 Aspirin [ASA -] 81 mg PO DAILY #30 tab.chew 06/23/19 Carvedilol [Coreg -] 9.375 mg PO BID #60 tablet 06/23/19 Docusate Sodium [Colace -] 200 mg PO DAILY #30 capsule 06/23/19 Insulin Sliding Scale [Novolog Vial Sliding Scale -] 1 vial SQ TIDAC #30 units 06/23/19 Phenytoin Na Extended [Dilantin -] 100 mg PO BID #60 capsule 06/23/19 Tamsulosin HCl [Flomax -] 0.4 mg PO DAILY@0830 #30 cap.er.24h 06/23/19 Atorvastatin Ca [Lipitor] 40 mg PO HS #30 tablet 06/27/19 Insulin (Levemir) [Levemir Vial] 15 units SQ HS #30 units 06/27/19 Insulin (Levemir) [Levemir Vial] 20 units SQ AM #30 units 06/27/19 Polyethylene Glycol 3350 [Miralax 119 gm Btl -] 17 gm PO BID #2 bottle 06/27/19 Sennosides [Senna -] 1 tab PO HS #30 tablet 06/27/19 Problem List - Problems (1) Head trauma Code(s): S09.90XA - UNSPECIFIED INJURY OF HEAD, INITIAL ENCOUNTER (2) Urinary retention Code(s): R33.9 - RETENTION OF URINE, UNSPECIFIED (3) Seizures Code(s): R56.9 - UNSPECIFIED CONVULSIONS This patient is new to me today: No Emergency Visit: Yes ED Registration Date: 06/19/19 Care time: The patient presented to the Emergency Department on the above date and was hospitalized for further evaluation of their emergent condition. Critical Care patient: No - Discharge Referral Referred to [facility] No ATTENDING PHYSICIAN STATEMENT I saw and evaluated the patient. I reviewed the resident's note and discussed the case with the resident. I agree with the resident's findings and plan as documented. SUBJECTIVE: OBJECTIVE: ASSESSMENT AND PLAN:
[2019-06-27] MEDS ORDERED: PT OWN MED DRAWER 7, Y5N ONE (15:03)
[2019-06-27 20:04] VITALS: BP 121/40; PULSE 90; TEMP 99.3
== END 2019-06-27 20:02 | DRG 64 ==
LOC: JER 16:27 → JERBED 19:09 → J4S 22:42 → OBSVTOIN 06-19 13:00
PROVIDERS: ADMIT Internal Medicine; ATTEND Internal Medicine
DX: I63.9 Cerebral infarction, unspecified (principal); E43 Unspecified severe protein-calorie malnutrition; G81.94 Hemiplegia, unspecified affecting left nondominant side; E87.0 Hyperosmolality and hypernatremia; N17.9 Acute kidney failure, unspecified; I50.22 Chronic systolic (congestive) heart failure; Z68.1 Body mass index [BMI] 19.9 or less, adult; G93.40 Encephalopathy, unspecified; R56.9 Unspecified convulsions; E83.42 Hypomagnesemia; E16.2 Hypoglycemia, unspecified; Z86.73 Personal history of transient ischemic attack (TIA), and cerebral infarction without residual deficits; E11.65 Type 2 diabetes mellitus with hyperglycemia; R33.9 Retention of urine, unspecified
CPT/HCPCS: 36415; 70450-TC; 72125-TC; 72170-TC-FY; 73502-TC-LT-FY; 73502-TC-RT-FY; 73562-TC-LT-FY; 73562-TC-RT-FY; 73610-TC-LT-FY; 73610-TC-RT-FY; 73630-TC-LT; 73630-TC-RT-FY; 76775-TC; 80048; 80053; 80061; 80162; 81003; 82436; 82550; 82565; 82728; 82947; 82962; 83036; 83540; 83550; 83721; 83735; 84100; 84133; 84300; 84484; 84540; 85025; 85044; 85610; 86850; 86900; 86901; 87086; 87186; 93005; 93010; 93306-TC; 93880-TC; 95816; 97116-GP; 97161-GP; 99284-25; G0378; J0131; J1644; J7030

== ENCOUNTER 2019-06-30 07:41 | Inpatient (IN) | payer OTHER ==
[2019-06-30 09:25] LABS: BASO % 0.9 % (0-2.0); EOS % 3.1 % (0-4.5); HEMATOCRIT 27.2 % (32.4-45.2); HEMOGLOBIN 9.2 GM/dL (10.7-15.3); LYMPH % 17.4 % (8-40); MCH 29.3 pg (25.7-33.7); MCHC 33.7 g/dl (32.0-36.0); MEAN PLT VOLUME 7.1 fl (7.5-11.1); NEUT % 72.6 % (42.8-82.8); PLATELET COUNT 476 K/MM3 (134-434); RBC 3.13 M/mm3 (3.60-5.2); RDW 14.1 % (11.6-15.6); WHITE BLOOD COUNT 11.5 K/mm3 (4.0-10.0)
[2019-06-30 09:37] LABS: INR 0.91 (0.83-1.09); PROTHROMBIN TIME (PATIENT) 10.7 SEC (9.7-13.0)
[2019-06-30 09:51] LABS: BILIRUBIN,TOTAL 0.2 mg/dL (0.2-1); BLOOD UREA NITROGEN 33.5 mg/dL (7-18); CALCIUM 10.7 mg/dL (8.5-10.1); POTASSIUM 4.8 mmol/L (3.5-5.1); TOT PROT 7.2 g/dl (6.4-8.2)
--- NOTE | 2019-06-30 10:08 | PDOC ---
Attending Attestation - Resident Resident Name: Rachid West - ED Attending Attestation I have performed the following: I have examined & evaluated the patient, The case was reviewed & discussed with the resident, I agree w/resident's findings & plan, Exceptions are as noted - HPI HPI: 06/30/19 10:11 84 F with h/o Dementia, Stroke, [place], CABG, Pacemaker, HTN, HLD, DM, CHF, presenting to ED with fall. Per NH, pt was found in the bathroom on the floor in the position this morning. Fall was no witnessed by staff. Pt has poor recollection of the event, believing that she fell 4 days ago. She states that she felt "dizzy", causing her to fall, though she denies any complaints currently. Unknown if she had LOC or headstrike. - Physicial Exam PE: 06/30/19 10:14 "GENERAL: Awake, alert, in no acute distress. HEAD: + upper lip swelling with abrasion EYES: PERRLA, EOMI, sclera anicteric, conjunctiva clear ENT: Auricles normal inspection, hearing grossly normal, nares patent, oropharynx clear without exudates. Moist mucosa NECK: Nontender, no stepoffs, Normal ROM, supple, no lymphadenopathy, JVD, or masses LUNGS: Breath sounds equal, clear to auscultation bilaterally. No wheezes, and no crackles HEART: Regular rate and rhythm, normal S1 and S2, no murmurs, rubs or gallops ABDOMEN: Soft, nontender, normoactive bowel sounds. No guarding, no rebound. No masses EXTREMITIES: Normal range of motion, no edema. No clubbing or cyanosis. No cords, erythema, or tenderness NEUROLOGICAL: Cranial nerves II through XII intact. 5/5 strength and sensation in all extremities, Normal speech,normal cerebellar function SKIN: Warm, Dry, normal turgor, no rashes or lesions noted. - Medical Decision Making 06/30/19 10:17 84 F with unwitnessed fall this morning. Possible syncopal episode. EKG paced, no arrhythmia. - CT head/c-spine/facial bones - Labs 06/30/19 10:53 Labs wnl CTs unremarkable Pt admitted to Dr. Ibanez as tele obs
--- NOTE | 2019-06-30 11:51 | PDOC ---
History of Present Illness - General Chief Complaint: Injury Stated Complaint: FALL Time Seen by Provider: 06/30/19 07:54 History Source: Patient, Family Exam Limitations: Dementia - History of Present Illness Initial Comments: 06/30/19 11:49 84 F with a PMH of Dementia, Stroke, DE, CABG, Pacemaker, HTN, HLD, DM, CHF, who presents to the ER after having a fall. Per NH, pt was found in the bathroom on the floor in the position this morning after having an unwitnessed fall. Pt does not recall the event completely and believes she may have fallen 4 days ago. She states that she was "dizzy" which she describes as a room spinning sensation, which then caused her to fall. She denies any acute complaints. Is unsure of LOC or if she struck her head although she sustained an injury to her lip after the fall. Past History - Past Medical History Allergies/Adverse Reactions: Allergies Allergy/AdvReac Type Severity Reaction Status Date / Time No Allergy Information Allergy Verified 06/30/19 08:37 Available Home Medications: Ambulatory Orders Clopidogrel Bisulfate [Clopidogrel] 75 mg PO DAILY 06/15/19 Digoxin [Lanoxin -] 0.125 mg PO DAILY 06/15/19 Lisinopril 10 mg PO DAILY 06/15/19 Memantine HCl 5 mg PO HS 06/15/19 Multivitamin [Multiple Vitamins] 1 each PO DAILY 06/15/19 Aspirin [ASA -] 81 mg PO DAILY #30 tab.chew 06/23/19 Carvedilol [Coreg -] 9.375 mg PO BID #60 tablet 06/23/19 Docusate Sodium [Colace -] 200 mg PO DAILY #30 capsule 06/23/19 Insulin Sliding Scale [Novolog Vial Sliding Scale -] 1 vial SQ TIDAC #30 units 06/23/19 Phenytoin Na Extended [Dilantin -] 100 mg PO BID #60 capsule 06/23/19 Tamsulosin HCl [Flomax -] 0.4 mg PO DAILY@0830 #30 cap.er.24h 06/23/19 Atorvastatin Ca [Lipitor] 40 mg PO HS #30 tablet 06/27/19 Insulin (Levemir) [Levemir Vial] 15 units SQ HS #30 units 06/27/19 Insulin (Levemir) [Levemir Vial] 20 units SQ AM #30 units 06/27/19 Polyethylene Glycol 3350 [Miralax 119 gm Btl -] 17 gm PO BID #2 bottle 06/27/19 Anemia: Yes Cardiac Disorders: Yes (DE, CAD s/p CABG) CVA: Yes COPD: No CHF: Yes Dementia: Yes Diabetes: Yes GI Disorders: No Disorders: No HTN: Yes Hypercholesterolemia: Yes Liver Disease: No Seizures: No Thyroid Disease: No - Surgical History Cardiac Surgery: Yes (CABG, PPM) - Immunization History Immunization Up to Date: Yes - Suicide/Smoking/Psychosocial Hx Smoking History: Never smoked Have you smoked in the past 12 months: No Information on smoking cessation initiated: No Hx Alcohol Use: No Drug/Substance Use Hx: No Substance Use Type: None Hx Substance Use Treatment: No Review of Systems - Review of Systems Able to Perform ROS?: No (dementia) *Physical Exam - Vital Signs Last Vital Signs Temp Pulse Resp BP Pulse Ox 98.5 F 97 H 16 98/65 99 06/30/19 08:19 06/30/19 08:19 06/30/19 08:19 06/30/19 08:19 06/30/19 08:19 - Physical Exam Comments: 06/30/19 11:51 "GENERAL: Awake, alert, in no acute distress. HEAD: + upper lip swelling with abrasion EYES: PERRLA, EOMI, sclera anicteric, conjunctiva clear ENT: Hearing grossly normal, nares patent, oropharynx clear without exudates. Moist mucosa. NECK: Nontender, no stepoffs, Normal ROM, supple, no lymphadenopathy, JVD, or masses LUNGS: Breath sounds equal, clear to auscultation bilaterally. No wheezes, and no crackles HEART: Regular rate and rhythm, normal S1 and S2, no murmurs, rubs or gallops ABDOMEN: Soft, nontender, normoactive bowel sounds. No guarding, no rebound. No masses EXTREMITIES: Normal range of motion, no edema. No clubbing or cyanosis. No cords, erythema, or tenderness NEUROLOGICAL: Cranial nerves II through XII intact. 5/5 strength and sensation in all extremities SKIN: Warm, Dry, normal turgor, no rashes or lesions noted. ED Treatment Course - LABORATORY CBC & Chemistry Diagram: 07/04/19 06:30 07/03/19 05:43 - ADDITIONAL ORDERS Additional order review: Laboratory Results 06/30/19 06/30/19 06/30/19 09:07 09:07 09:07 PT with INR 10.70 INR 0.91 Sodium Potassium Chloride Carbon Dioxide Anion Gap BUN Creatinine Est GFR (CKD-EPI)AfAm Est GFR (CKD-EPI)NonAf Random Glucose Calcium Total Bilirubin AST ALT Alkaline Phosphatase Creatine Kinase Creatine Kinase Index CK-MB (CK-2) Troponin I B-Natriuretic Peptide 337.1 Total Protein Albumin Blood Type O POSITIVE Antibody Screen Negative 06/30/19 06/30/19 09:07 09:07 PT with INR INR Sodium 140 Potassium 4.8 Chloride 108 H Carbon Dioxide 25 Anion Gap 6 L BUN 33.5 H Creatinine 1.0 Est GFR (CKD-EPI)AfAm 59.91 Est GFR (CKD-EPI)NonAf 51.69 Random Glucose 70 L Calcium 10.7 H Total Bilirubin 0.2 AST 35 ALT 45 Alkaline Phosphatase 94 Creatine Kinase 216 H Creatine Kinase Index 2.3 CK-MB (CK-2) 5.1 H Troponin I 0.02 B-Natriuretic Peptide Total Protein 7.2 Albumin 3.0 L Blood Type Antibody Screen 06/30/19 09:07 RBC 3.13 L MCV 87.0 MCHC 33.7 RDW 14.1 MPV 7.1 L Neutrophils % 72.6 Lymphocytes % 17.4 Monocytes % 6.0 Eosinophils % 3.1 Basophils % 0.9 - RADIOLOGY Radiology Studies Ordered: Category Date Time Status CERVICAL SPINE CT W/O CONTR [CT] Stat CT Scan 06/30/19 09:[address] WITHOUT CONTRAST [CT] Stat CT Scan 06/30/19 09:[address] WITHOUT CONTRAST [CT] Stat CT Scan 06/30/19 09:30 Completed Medical Decision Making - Medical Decision Making 06/30/19 11:52 84F with MMP who presents after having an unwitnessed fall concerning for syncope. CT's and labs WNL. Attending admitted pt to Dr. Ibanez. *DC/Admit/Observation/Transfer Diagnosis at time of Disposition: Head trauma Qualifiers: Encounter type: initial encounter Qualified Code(s): S09.90XA - Unspecified injury of head, initial encounter - Discharge Dispostion Condition at time of disposition: Guarded Decision to Admit order: Yes - Referrals - Patient Instructions - Post Discharge Activity
--- NOTE | 2019-06-30 14:17 | EKG ---
Test Reason : Blood Pressure : / mmHG Vent. Rate : 091 BPM Atrial Rate : 091 BPM P-R Int : 158 ms QRS Dur : 106 ms QT Int : 374 ms P-R-T Axes : 075 -60 077 degrees QTc Int : 460 ms Atrial-sensed ventricular-paced rhythm Biventricular pacemaker detected ABNORMAL ECG WHEN COMPARED WITH ECG OF 16-JUN-2019 11:02, VENT. RATE HAS DECREASED BY 6 BPM Confirmed by LYLE BASURTO MD ([id number]) on 06/30/2019 2:17:26 PM Referred By: Confirmed By:LYLE BASURTO MD
--- NOTE | 2019-06-30 15:16 | HP ---
Admitting History and Physical - Admission History of Present Illness: 84 F with a PMH of Dementia, Stroke, [place], CABG, Pacemaker, HTN, HLD, DM, CHF, who presents to the ER after having a fall. Per NH, pt was found in the bathroom on the floor in the position this morning after having an unwitnessed fall. Pt does not recall the event completely and believes she may have fallen 4 days ago. She states that she was "dizzy" which she describes as a room spinning sensation, which then caused her to fall. She denies any acute complaints. Is unsure of LOC or if she struck her head although she sustained an injury to her lip after the fall. in ER patient got head and neck CT scan History Source: Patient, Medical Record - Past Medical History Cardiovascular: Yes: CAD, Other (PPM) - Smoking History Smoking history: Never smoked Have you smoked in the past 12 months: No - Alcohol/Substance Use Hx Alcohol Use: No - Social History History of Recent Travel: Yes ([place]) Home Medications - Allergies Allergies/Adverse Reactions: Allergies Allergy/AdvReac Type Severity Reaction Status Date / Time No Allergy Information Allergy Verified 06/30/19 08:37 Available - Home Medications Home Medications: Ambulatory Orders Clopidogrel Bisulfate [Clopidogrel] 75 mg PO DAILY 06/15/19 Digoxin [Lanoxin -] 0.125 mg PO DAILY 06/15/19 Lisinopril 10 mg PO DAILY 06/15/19 Memantine HCl 5 mg PO HS 06/15/19 Multivitamin [Multiple Vitamins] 1 each PO DAILY 06/15/19 Aspirin [ASA -] 81 mg PO DAILY #30 tab.chew 06/23/19 Carvedilol [Coreg -] 9.375 mg PO BID #60 tablet 06/23/19 Docusate Sodium [Colace -] 200 mg PO DAILY #30 capsule 06/23/19 Insulin Sliding Scale [Novolog Vial Sliding Scale -] 1 vial SQ TIDAC #30 units 06/23/19 Phenytoin Na Extended [Dilantin -] 100 mg PO BID #60 capsule 06/23/19 Tamsulosin HCl [Flomax -] 0.4 mg PO DAILY@0830 #30 cap.er.24h 06/23/19 Atorvastatin Ca [Lipitor] 40 mg PO HS #30 tablet 06/27/19 Insulin (Levemir) [Levemir Vial] 15 units SQ HS #30 units 06/27/19 Insulin (Levemir) [Levemir Vial] 20 units SQ AM #30 units 06/27/19 Polyethylene Glycol 3350 [Miralax 119 gm Btl -] 17 gm PO BID #2 bottle 06/27/19 Review of Systems - Review of Systems Genitourinary: reports: Dysuria Physical Examination Vital Signs: Vital Signs Temperature 97.9 F 06/30/19 11:48 Pulse Rate 107 H 06/30/19 11:48 Respiratory Rate 16 06/30/19 08:19 Blood Pressure 121/60 06/30/19 11:48 O2 Sat by Pulse Oximetry (%) 94 L 06/30/19 11:48 Constitutional: Yes: Moderate Distress, Thin HENT: Yes: Other (upper lip swelling) Cardiovascular: Yes: Regular Rate and Rhythm, S1, S2 Respiratory: Yes: CTA Bilaterally Gastrointestinal: Yes: Normal Bowel Sounds, Soft Edema: No Labs: CBC, BMP 06/30/19 09:07 06/30/19 09:07 Imaging - Results Cat Scan: Report Reviewed Problem List - Problems (1) Syncope Assessment/Plan: tele cardio/neurology echo carotid doppler PT iv hydration trend CK Blood pressure on low side carmelo hold anti HTN for now dvt ppx Code(s): R55 - SYNCOPE AND COLLAPSE (2) Urinary retention Assessment/Plan: bladder sono ua/urine culture-complaining dysuria Code(s): R33.9 - RETENTION OF URINE, UNSPECIFIED (3) Diabetes Assessment/Plan: bgm sliding scale insulin hgba1c Code(s): E11.9 - TYPE 2 DIABETES MELLITUS WITHOUT COMPLICATIONS Qualifiers: Diabetes mellitus type: type 2 (4) Seizures Assessment/Plan: dilantin Code(s): R56.9 - UNSPECIFIED CONVULSIONS (5) CAD (coronary artery disease) Assessment/Plan: s/p cabg asa,plavix,lipitor Code(s): I25.10 - ATHSCL HEART DISEASE OF [place] CORONARY ARTERY W/O ANG PCTRS (6) Leukocytosis Assessment/Plan: maybe secondary to stress of fall check UA/Urine culture trend wbc count Code(s): D72.829 - ELEVATED WHITE BLOOD CELL COUNT, UNSPECIFIED
--- NOTE | 2019-06-30 16:12 | CON.CARD ---
Cardiology Consult (text) - Consultation Consultation Note: Chief Complaint: fall History of Present Illness: 84 year old female with a past medical history of Alzheimer's dementia, stroke, [place] s/p bypass and pacemaker on Plavix, HTN, HLD, DM, CHF, who presented to the ED after having a fall. Pt with dementia and does not recall events. Per charts she had unwitnessed fall. Recent admit for similar, thought to have seizure. - History Source History Provided By: Patient, Medical Record - Past Medical History Cardio/Vascular: Yes: CAD, Other (PPM) Pulmonary: No: Asthma, Bronchitis, Cancer, COPD, O2 Dependent, Pneumonia, Previously Intubated, Pulmonary Embolus, Pulmonary Fibrosis, Sleep Apnea, Other Gastrointestinal: No: Ascites, Cancer, Constipation, Crohn's Disease, Diverticulitis, Diverticulosis, Esophageal Varices, Gastritis, GERD, GI Bleed, Hemorrhoids, Hiatal Hernia, Inflamatory Bowel Disease, Irritable Bowel Disease, Pancreatitis, Peptic Ulcer Disease, Ulcerative Colitis, Other Hepatobiliary: No: Cirrhosis, Cholelithiasis, Cholecystitis, Choledocholithiasis , Hepatitis A, Hepatitis B, Hepatitis C, Other Renal/: No: Renal Failure, Renal Inusuff, BPH, Cancer, Hematuria, Hemodialysis , Neurogenic Bladder, Renal Calculi, UTI, Other Reproductive: No: Ectopic , Endometriosis, Fibroids, PID, Polycystic Ovary Syndrome, Postmenopausal, Other ...: No - Alcohol/Substance Use Hx Alcohol Use: No - Smoking History Smoking history: Never smoked Have you smoked in the past 12 months: No - Social History History of Recent Travel: Yes ([place]) Home Medications - Allergies Allergies/Adverse Reactions: Allergies Allergy/AdvReac Type Severity Reaction Status Date / Time No Allergy Information Allergy Verified 06/30/19 08:37 Available - Home Medications Home Medications Medication Instructions Recorded Clopidogrel Bisulfate [Clopidogrel] 75 mg PO DAILY 06/15/19 Digoxin [Lanoxin -] 0.125 mg PO DAILY 06/15/19 Lisinopril 10 mg PO DAILY 06/15/19 Memantine HCl 5 mg PO HS 06/15/19 Multivitamin [Multiple Vitamins] 1 each PO DAILY 06/15/19 Aspirin [ASA -] 81 mg PO DAILY #30 tab.chew 06/23/19 Carvedilol [Coreg -] 9.375 mg PO BID #60 tablet 06/23/19 Docusate Sodium [Colace -] 200 mg PO DAILY #30 capsule 06/23/19 Insulin Sliding Scale [Novolog 1 vial SQ TIDAC #30 units 06/23/19 Vial Sliding Scale -] Phenytoin Na Extended [Dilantin -] 100 mg PO BID #60 capsule 06/23/19 Tamsulosin HCl [Flomax -] 0.4 mg PO DAILY@0830 #30 cap.er.24h 06/23/19 Atorvastatin Ca [Lipitor] 40 mg PO HS #30 tablet 06/27/19 Insulin (Levemir) [Levemir Vial] 15 units SQ HS #30 units 06/27/19 Insulin (Levemir) [Levemir Vial] 20 units SQ AM #30 units 06/27/19 Polyethylene Glycol 3350 [Miralax 17 gm PO BID #2 bottle 06/27/19 119 gm Btl -] Family Disease History - Family Disease History Family History: Unremarkable (no early CAD) Review of Systems - Review of Systems per hpi; all others nl - Risk Factors Known Risk Factors: Yes: Other (known CAD, PPM, Cardiomyopathy) Vital Signs: Vital Signs Period Temp Pulse Resp BP Sys/Esparza Pulse Ox Last 24 Hr 97.9 F-98.5 F 97-107 16 98-121/60-65 94-99 nad no jvd Respiratory: Yes: CTA Bilaterally nl eff Gastrointestinal: Yes: Soft nt nd pos bs Cardiovascular: Yes: Regular Rate and Rhythm JVD: No Carotid Bruit: No pos dp pt no carotid bruits brandon jaundice diaphoresis Heart Sounds: Yes: S1, S2 Edema: No Neurological: awake, alert, confused - Other Data Labs, Other Data: Laboratory Last Values WBC 11.5 K/mm3 (4.0-10.0) H 06/30/19 09:07 RBC 3.13 M/mm3 (3.60-5.2) L 06/30/19 09:07 Hgb 9.2 GM/dL (10.7-15.3) L 06/30/19 09:07 Hct 27.2 % (32.4-45.2) L 06/30/19 09:07 MCV 87.0 fl (80-96) 06/30/19 09:07 MCH 29.3 pg (25.7-33.7) 06/30/19 09:07 MCHC 33.7 g/dl (32.0-36.0) 06/30/19 09:07 RDW 14.1 % (11.6-15.6) 06/30/19 09:07 Plt Count 476 K/MM3 (134-434) H 06/30/19 09:07 MPV 7.1 fl (7.5-11.1) L 06/30/19 09:07 Absolute Neuts (auto) 8.3 K/mm3 (1.5-8.0) H 06/30/19 09:07 Neutrophils % 72.6 % (42.8-82.8) 06/30/19 09:07 Lymphocytes % 17.4 % (8-40) 06/30/19 09:07 Monocytes % 6.0 % (3.8-10.2) 06/30/19 09:07 Eosinophils % 3.1 % (0-4.5) 06/30/19 09:07 Basophils % 0.9 % (0-2.0) 06/30/19 09:07 Nucleated RBC % 0 % (0-0) 06/30/19 09:07 PT with INR 10.70 SEC (9.7-13.0) 06/30/19 09:07 INR 0.91 (0.83-1.09) 06/30/19 09:07 Sodium 140 mmol/L (136-145) 06/30/19 09:07 Potassium 4.8 mmol/L (3.5-5.1) 06/30/19 09:07 Chloride 108 mmol/L (98-107) H 06/30/19 09:07 Carbon Dioxide 25 mmol/L (21-32) 06/30/19 09:07 Anion Gap 6 MMOL/L (8-16) L 06/30/19 09:07 BUN 33.5 mg/dL (7-18) H 06/30/19 09:07 Creatinine 1.0 mg/dL (0.55-1.3) 06/30/19 09:07 Est GFR (CKD-EPI)AfAm 59.91 06/30/19 09:07 Est GFR (CKD-EPI)NonAf 51.69 06/30/19 09:07 Random Glucose 70 mg/dL (74-106) L 06/30/19 09:07 Calcium 10.7 mg/dL (8.5-10.1) H 06/30/19 09:07 Total Bilirubin 0.2 mg/dL (0.2-1) 06/30/19 09:07 AST 35 U/L (15-37) 06/30/19 09:07 ALT 45 U/L (13-61) 06/30/19 09:07 Alkaline Phosphatase 94 U/L (45-117) 06/30/19 09:07 Creatine Kinase 216 U/L (26-192) H 06/30/19 09:07 Creatine Kinase Index 2.3 % (0.0-5.0) 06/30/19 09:07 CK-MB (CK-2) 5.1 ng/mL (0.5-3.6) H 06/30/19 09:07 Troponin I 0.02 ng/ml (0.00-0.05) 06/30/19 09:07 B-Natriuretic Peptide 337.1 pg/ml (5-450) 06/30/19 09:07 Total Protein 7.2 g/dl (6.4-8.2) 06/30/19 09:07 Albumin 3.0 g/dl (3.4-5.0) L 06/30/19 09:07 Blood Type O POSITIVE 06/30/19 09:07 Antibody Screen Negative 06/30/19 09:07 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 fall, possible syncope: -details unclear -recent admit this month for similar thought to be from seizure. neuro eval pending. -recent echo w/o etiology. recent [facility] pacer check here w/o etiology -no signs chf or acs -trend ce's on tele -check ortho vitals chronic syst chf: -hx of cardiomyopathy, EF 40-45% -stable vol status off lasix -prior admit this month tele showed paroxysms wide complex tach--reviewed with EP, likely paroxysmal atrial tach/PSVT (not suspicious for fib/flutter), now controlled -s/p BiV-ICD, normal function on company check here earlier this month ([facility]) -cont coreg, lisinopril, dig Known CAD, s/p DE and CABG: -no signs ACS here -cont coreg, lisinopril, asa, plavix, statin
[2019-06-30] MEDS: SODIUM CHLORIDE 1,000 ML IV SCH (16:36)
[2019-06-30] MEDS: INSULIN SLIDING SCALE (NOVOLOG) 1 VIAL SQ SCH ×2 (16:56→22:28)
[2019-06-30] MEDS: HEPARIN NA (PORCINE) 5,000 UNITS/ML 1ML VIAL SQ SCH (22:40)
[2019-06-30] MEDS: PHENYTOIN NA EXTENDED 100 MG CAPSULE (FP) PO SCH (22:42)
[2019-06-30] MEDS: ATORVASTATIN CA 40 MG TABLET (FP) PO SCH (22:42)
[2019-06-30 23:50] LABS: EPI CELLS 19.5 /HPF (0-5/HPF); HYALINE CASTS 7 /lpf (0-8); URINE APPEARANCE CLEAR; URINE BACTERIA 5.4 /hpf (NEGATIVE); URINE BILIRUBIN NEGATIVE (NEGATIVE); URINE COLOR YELLOW; URINE GLUCOSE (UA) 1+ (NEGATIVE); URINE KETONE NEGATIVE (NEGATIVE); URINE LEUK ESTERASE 2+ (NEGATIVE); URINE NITRITE NEGATIVE (NEGATIVE); URINE PROTEIN TRACE (NEGATIVE); URINE RBC 2 /hpf (0-4); URINE UROBILINOGEN 0.2 mg/dL (0.2-1.0); URINE WBC 41 /hpf (0-5)
[2019-07-01 00:16] VITALS: BMI 17.4
--- NOTE | 2019-07-01 00:40 | HOSP ---
Subjective - Review of Symptoms Events since last encounter: 84 year old female with a past medical history of Alzheimer's dementia, stroke, [place] s/p bypass and pacemaker on Plavix, HTN, HLD, DM, CHF, who presented to the ED after having a fall. Pt with dementia and does not recall events. Per charts she had unwitnessed fall. Recent admit for similar, thought to have seizure. @ 23:39 RNS notified [facility] documentation nurse that patient was noted with urinary retention bladder sono showed 1800 ml of urine, nursing inserted gates cath and drained. patient was initially restless now resting in bed without complain HEENT: No: Head Aches, Visual Changes, Eye Pain, Ear Pain, Dysphasia, Sinus Congestion, Post Nasal Drip, Sore Throat, Other Pulmonary: No: Dyspnea, Cough, Pleuritic Chest Pain, Other Cardiovascular: No: Chest Pain, Palpitations, Orthopnea, Paroxysmal Noc. Dyspnea , Edema, Light Headedness, Other Gastrointestinal: No: Nausea, NOSYM, Vomiting, Abdominal Pain, Diarrhea, Constipation, Melena, Hematochezia, Other Genitourinary: Yes: Retention Musculoskeletal: Yes: No Symptoms. No: Back Pain, Crepitus, Decreased ROM, Extremity Pain, Joint Pain, Joint Swelling, Muscle Pain, Muscle Cramps, Muscle Weakness, Other Neurological: No: Weakness, Numbness, Incoordination, Change in speech, Confusion, Seizures, Other Physical Examination Vital Signs: Vital Signs Temperature 98.1 F 06/30/19 21:00 Pulse Rate 96 H 06/30/19 21:00 Respiratory Rate 18 06/30/19 21:00 Blood Pressure 105/62 06/30/19 21:00 O2 Sat by Pulse Oximetry (%) 99 06/30/19 21:00 Constitutional: Yes: No Distress Eyes: Yes: Conjunctiva Clear HENT: Yes: Atraumatic, Normocephalic Neck: Yes: Supple, Trachea Midline Cardiovascular: Yes: Regular Rate and Rhythm Respiratory: Yes: Regular, CTA Bilaterally Gastrointestinal: Yes: Normal Bowel Sounds, Soft Labs: CBC, BMP 06/30/19 09:07 06/30/19 09:07 Hospitalist Encounter Assessment: # urinary retention - bladder sono at bedside shows 1800ml - nursing inserted gates and drained - will keep Gates overnight - please try to discontinue Gates in Am if patient tolerates
[2019-07-01 06:39] LABS: HEMATOCRIT 26.6 % (32.4-45.2); HEMOGLOBIN 8.8 GM/dL (10.7-15.3); MCHC 33.1 g/dl (32.0-36.0); MEAN CELL VOLUME 87.6 fl (80-96); MEAN PLT VOLUME 6.8 fl (7.5-11.1); PLATELET COUNT 443 K/MM3 (134-434); RBC 3.04 M/mm3 (3.60-5.2); RDW 14.2 % (11.6-15.6); WHITE BLOOD COUNT 9.8 K/mm3 (4.0-10.0)
[2019-07-01] MEDS: INSULIN SLIDING SCALE (NOVOLOG) 1 VIAL SQ SCH ×4 (06:46→22:14)
[2019-07-01 07:01] LABS: BILIRUBIN,TOTAL 0.5 mg/dL (0.2-1); BLOOD UREA NITROGEN 25.1 mg/dL (7-18); CALCIUM 10.2 mg/dL (8.5-10.1); CREATININE 0.9 mg/dL (0.55-1.3); MAGNESIUM 1.5 mg/dL (1.8-2.4); N-TERMINAL BNP 1089.6 pg/ml (5-450); POTASSIUM 4.4 mmol/L (3.5-5.1); TOT PROT 6.6 g/dl (6.4-8.2)
[2019-07-01 07:33] LABS: INR 0.92 (0.83-1.09); PROTHROMBIN TIME (PATIENT) 10.9 SEC (9.7-13.0)
[2019-07-01 07:36] LABS: ACTIVATED PTT 28.5 SECONDS (25.2-36.5)
[2019-07-01] MEDS ORDERED: PT OWN MED DRAWER 7, Y5N ONE ×3 (09:25→21:14)
[2019-07-01] MEDS: HEPARIN NA (PORCINE) 5,000 UNITS/ML 1ML VIAL SQ SCH ×2 (09:46→22:13)
[2019-07-01] MEDS: PHENYTOIN NA EXTENDED 100 MG CAPSULE (FP) PO SCH ×2 (09:46→22:14)
[2019-07-01] MEDS: ASPIRIN 81 MG CHEWABLE TABLETS PO SCH (09:46)
[2019-07-01] MEDS: CLOPIDOGREL BISULFATE 75 MG TABLET (FP) PO SCH (09:46)
[2019-07-01] MEDS: TAMSULOSIN HCL 0.4 MG CAP PO SCH (09:46)
--- NOTE | 2019-07-01 11:07 | CONSULT ---
Consult - text type - Consultation Consultation Note: Neurology - Admission History of Present Illness: 84 F with a PMH of Dementia, Stroke, VT, CABG, Pacemaker, HTN, HLD, DM, CHF, who presents to the ER after having a fall. Per NH, pt was found in the bathroom on the floor in the position morning of admission after having an unwitnessed fall. Pt does not recall the event completely and believes she may have fallen 4 days ago. She states that she was "dizzy" which she describes as a room spinning sensation, which then caused her to fall. She denies any acute complaints. Is unsure of LOC or if she struck her head although she sustained an injury to her lip after the fall. Head CT multilevel degenerative disc disease and air-fluid level right maxillary atrium consistent with sinusitis. Carotid Doppler completed, report pending. Family at bedside and discussed case. She was living in [place] previously and they are not sure of her medication regiment especially as it pertains to seizures since she is on Dilantin. Advised that would not change medication at this time. Remains on ASA and Plavix. Denies any neurologic symptoms and no deficits noted. Continue cardiac/medical workup and optimization. History Source: Patient, Medical Record - Past Medical History Cardiovascular: Yes: CAD, Other (PPM) - Smoking History Smoking history: Never smoked Have you smoked in the past 12 months: No - Alcohol/Substance Use Hx Alcohol Use: No - Social History History of Recent Travel: Yes ([place]) Family History: HTN Home Medications - Allergies Allergies/Adverse Reactions: Allergies Allergy/AdvReac Type Severity Reaction Status Date / Time No Allergy Information Allergy Verified 06/30/19 08:37 Available - Home Medications Ambulatory Orders Clopidogrel Bisulfate [Clopidogrel] 75 mg PO DAILY 06/15/19 Digoxin [Lanoxin -] 0.125 mg PO DAILY 06/15/19 Lisinopril 10 mg PO DAILY 06/15/19 Memantine HCl 5 mg PO HS 06/15/19 Multivitamin [Multiple Vitamins] 1 each PO DAILY 06/15/19 Aspirin [ASA -] 81 mg PO DAILY #30 tab.chew 06/23/19 Carvedilol [Coreg -] 9.375 mg PO BID #60 tablet 06/23/19 Docusate Sodium [Colace -] 200 mg PO DAILY #30 capsule 06/23/19 Insulin Sliding Scale [Novolog Vial Sliding Scale -] 1 vial SQ TIDAC #30 units 06/23/19 Phenytoin Na Extended [Dilantin -] 100 mg PO BID #60 capsule 06/23/19 Tamsulosin HCl [Flomax -] 0.4 mg PO DAILY@0830 #30 cap.er.24h 06/23/19 Atorvastatin Ca [Lipitor] 40 mg PO HS #30 tablet 06/27/19 Insulin (Levemir) [Levemir Vial] 15 units SQ HS #30 units 06/27/19 Insulin (Levemir) [Levemir Vial] 20 units SQ AM #30 units 06/27/19 Polyethylene Glycol 3350 [Miralax 119 gm Btl -] 17 gm PO BID #2 bottle 06/27/19 Review of Systems CONSTITUTIONAL: Absent: fever, chills, diaphoresis, + generalized weakness, malaise HEENT: Absent: rhinorrhea, nasal congestion, throat pain, throat swelling, difficulty swallowing, mouth swelling, ear pain, eye pain, visual changes CARDIOVASCULAR: Absent: chest pain, syncope, palpitations, irregular heart rate, lightheadedness , peripheral edema RESPIRATORY: Absent: cough, shortness of breath, dyspnea with exertion, orthopnea, wheezing, stridor, hemoptysis GASTROINTESTINAL: Absent: abdominal pain, abdominal distension, nausea GENITOURINARY: Absent: dysuria, frequency, urgency, MUSCULOSKELETAL: Absent: myalgia, SKIN: Absent: rash, itching, pallor HEMATOLOGIC/IMMUNOLOGIC: Absent: easy bleeding, easy bruising, lymphadenopathy, frequent infections ENDOCRINE: Absent: unexplained weight gain, unexplained weight loss, heat intolerance, cold intolerance NEUROLOGIC: Absent: headache, focal weakness or paresthesias, dizziness, seizure, PSYCHIATRIC: Absent: anxiety, depression, suicidal or homicidal ideation, hallucinations. Physical Examination Vital Signs: Vital Signs Period Temp Pulse Resp BP Sys/Esparza Pulse Ox Last 24 Hr 97.9 F-98.8 F 96-108 17-18 105-121/46-62 94-99 Gen: Awake, alert, responds to questions Card: RRR, nml S1,S2 Resp: Normal symmetric effort, lungs clear to auscultation Abdomen: Soft, nontender, bowel sounds active Musculoskeletal: Adequate range of motion without significant deformity Head atraumatic and normocephalic CN: PERRL, EOMI intact, no apparent facial droop, no abnormalities in facial sensation, palate elevates, uvula and tongue midline Motor: Full strength to confrontation in upper and lower extermities proximally and distally. Tone normal throughout Sensory: Intact to Temperature, light touch, and pinprick in all extremities Reflexes: 2+ biceps, brachioradialis, patellar, achillies Coordination: Intact on [id number] testing CBCD WBC 9.8 K/mm3 (4.0-10.0) 07/01/19 05:40 RBC 3.04 M/mm3 (3.60-5.2) L 07/01/19 05:40 Hgb 8.8 GM/dL (10.7-15.3) L 07/01/19 05:40 Hct 26.6 % (32.4-45.2) L 07/01/19 05:40 MCV 87.6 fl (80-96) 07/01/19 05:40 MCHC 33.1 g/dl (32.0-36.0) 07/01/19 05:40 RDW 14.2 % (11.6-15.6) 07/01/19 05:40 Plt Count 443 K/MM3 (134-434) H 07/01/19 05:40 MPV 6.8 fl (7.5-11.1) L 07/01/19 05:40 CMP Sodium 140 mmol/L (136-145) 07/01/19 05:40 Potassium 4.4 mmol/L (3.5-5.1) 07/01/19 05:40 Chloride 108 mmol/L (98-107) H 07/01/19 05:40 Carbon Dioxide 24 mmol/L (21-32) 07/01/19 05:40 Anion Gap 7 MMOL/L (8-16) L 07/01/19 05:40 BUN 25.1 mg/dL (7-18) H 07/01/19 05:40 Creatinine 0.9 mg/dL (0.55-1.3) 07/01/19 05:40 Random Glucose 155 mg/dL (74-106) H 07/01/19 05:40 Calcium 10.2 mg/dL (8.5-10.1) H 07/01/19 05:40 Total Bilirubin 0.5 mg/dL (0.2-1) 07/01/19 05:40 AST 25 U/L (15-37) 07/01/19 05:40 ALT 32 U/L (13-61) 07/01/19 05:40 Alkaline Phosphatase 88 U/L (45-117) 07/01/19 05:40 Total Protein 6.6 g/dl (6.4-8.2) 07/01/19 05:40 Albumin 3.0 g/dl (3.4-5.0) L 07/01/19 05:40 CARDIAC ENZYMES Creatine Kinase 112 U/L (26-192) 07/01/19 05:40 Troponin I 0.04 ng/ml (0.00-0.05) 07/01/19 05:40 Plan/Assessment 84 F with a PMH of Dementia, Stroke, VT, CABG, Pacemaker, HTN, HLD, DM, CHF, who presents to the ER after having a fall. Per [place], pt was found in the bathroom on the floor in the position morning of admission after having an unwitnessed fall. Pt does not recall the event completely and believes she may have fallen 4 days ago. She states that she was "dizzy" which she describes as a room spinning sensation, which then caused her to fall. She denies any acute complaints. Is unsure of LOC or if she struck her head although she sustained an injury to her lip after the fall. Head CT multilevel degenerative disc disease and air-fluid level right maxillary atrium consistent with sinusitis. Carotid Doppler completed, report pending. Family at bedside and discussed case. She was living in [place] previously and they are not sure of her medication regiment especially as it pertains to seizures since she is on Dilantin. Advised that would not change medication at this time. Remains on ASA and Plavix. Denies any neurologic symptoms and no deficits noted. Continue cardiac/medical workup and optimization. Increased hydration recommended. Physical therapy as tolerated. Return to [place] when able.
--- NOTE | 2019-07-01 12:28 | PN ---
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 (short form) - Note 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: s: no chest pain, palps, dizziness, dyspnea Current Medications Aspirin (Asa -) 81 mg PO DAILY [facility] Last Admin: 07/01/19 09:46 Dose: 81 mg Atorvastatin Calcium (Lipitor -) 40 mg PO HS [facility] Last Admin: 06/30/19 22:42 Dose: 40 mg Clopidogrel Bisulfate (Plavix -) 75 mg PO DAILY [facility] Last Admin: 07/01/19 09:46 Dose: 75 mg Heparin Sodium (Porcine) (Heparin -) 5,000 unit SQ BID [facility] Last Admin: 07/01/19 09:46 Dose: 5,000 unit Sodium Chloride (Normal Saline -) 1,000 mls @ 75 mls/hr IV ASDIR [facility] Last Admin: 06/30/19 16:36 Dose: 75 mls/hr Insulin Aspart (Novolog Vial Sliding Scale -) 1 vial SQ ACHS [facility]; Protocol Last Admin: 07/01/19 06:46 Dose: Not Given Phenytoin Sodium (Dilantin -) 100 mg PO BID [facility] Last Admin: 07/01/19 09:46 Dose: 100 mg Tamsulosin HCl (Flomax -) 0.4 mg PO DAILY@0830 [facility] Last Admin: 07/01/19 09:46 Dose: 0.4 mg Vital Signs Period Temp Pulse Resp BP Sys/Esparza Pulse Ox Last 24 Hr 98.1 F-98.8 F 96-108 17-18 105-125/46-62 99-99 nad no jvd Respiratory: Yes: CTA Bilaterally nl eff Gastrointestinal: Yes: Soft nt nd pos bs Cardiovascular: Yes: Regular Rate and Rhythm JVD: No Carotid Bruit: No pos dp pt no carotid bruits brandon jaundice diaphoresis Heart Sounds: Yes: S1, S2 Edema: No Neurological: awake, alert, confused 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 fall, possible syncope: -details unclear -recent admit this month for similar thought to be from seizure. neuro eval pending. -recent echo w/o etiology. recent [facility] pacer check here w/o etiology -no signs chf or acs, trop neg x 2 -monitoring on tele -check ortho vitals - neuro consulted chronic syst chf: -hx of cardiomyopathy, EF 40-45% -stable vol status off lasix -prior admit this month tele showed paroxysms wide complex tach--reviewed with EP, likely paroxysmal atrial tach/PSVT (not suspicious for fib/flutter), now controlled -s/p BiV-ICD, normal function on company check here earlier this month ([facility]) -cont coreg, lisinopril, dig Known CAD, s/p AK and CABG: -no signs ACS here -cont coreg, lisinopril, asa, plavix, statin
--- NOTE | 2019-07-01 15:15 | PN ---
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, Physician Chief Complaint: AWAKE IN WHEELCHAIR CONFUSED - Current Medication List Current Medications: Active Medications Aspirin (Asa -) 81 mg PO DAILY [facility] Last Admin: 07/01/19 09:46 Dose: 81 mg Atorvastatin Calcium (Lipitor -) 40 mg PO HS [facility] Last Admin: 06/30/19 22:42 Dose: 40 mg Clopidogrel Bisulfate (Plavix -) 75 mg PO DAILY [facility] Last Admin: 07/01/19 09:46 Dose: 75 mg Heparin Sodium (Porcine) (Heparin -) 5,000 unit SQ BID [facility] Last Admin: 07/01/19 09:46 Dose: 5,000 unit Sodium Chloride (Normal Saline -) 1,000 mls @ 75 mls/hr IV ASDIR [facility] Last Admin: 06/30/19 16:36 Dose: 75 mls/hr Ceftriaxone Sodium 1 gm/ (Dextrose) 50 mls @ 100 mls/hr IVPB DAILY [facility]; Protocol Insulin Aspart (Novolog Vial Sliding Scale -) 1 vial SQ ACHS [facility]; Protocol Last Admin: 07/01/19 12:34 Dose: 4 units Phenytoin Sodium (Dilantin -) 100 mg PO BID [facility] Last Admin: 07/01/19 09:46 Dose: 100 mg Tamsulosin HCl (Flomax -) 0.4 mg PO DAILY@0830 [facility] Last Admin: 07/01/19 09:46 Dose: 0.4 mg - Objective Vital Signs: Vital Signs Temperature 98.2 F 07/01/19 11:00 Pulse Rate 96 H 07/01/19 11:00 Respiratory Rate 17 07/01/19 11:00 Blood Pressure 125/49 L 07/01/19 11:00 O2 Sat by Pulse Oximetry (%) 99 07/01/19 11:00 Constitutional: Yes: Mild Distress Cardiovascular: Yes: Regular Rate and Rhythm Respiratory: Yes: WNL Gastrointestinal: Yes: WNL Genitourinary: Yes: Incontinence Musculoskeletal: Yes: Muscle Weakness Edema: No Peripheral Pulses WNL: Yes Integumentary: Yes: WNL Wound/Incision: Yes: Clean/Dry Neurological: Yes: Confusion, Pre-Existing Deficit, Weakness ...Motor Strength: LLE, RLE Labs: CBC, BMP 07/01/19 05:40 07/01/19 05:40 INR, PTT INR 0.92 (0.83-1.09) 07/01/19 05:40 Problem List - Problems (1) UTI (urinary tract infection) Code(s): N39.0 - URINARY TRACT INFECTION, SITE NOT SPECIFIED (2) Carotid stenosis Code(s): I65.29 - OCCLUSION AND STENOSIS OF UNSPECIFIED CAROTID ARTERY (3) CAD (coronary artery disease) Code(s): I25.10 - ATHSCL HEART DISEASE OF [place] CORONARY ARTERY W/O ANG PCTRS (4) Diabetes Code(s): E11.9 - TYPE 2 DIABETES MELLITUS WITHOUT COMPLICATIONS Qualifiers: Diabetes mellitus type: type 2 (5) Leukocytosis Code(s): D72.829 - ELEVATED WHITE BLOOD CELL COUNT, UNSPECIFIED (6) Syncope Code(s): R55 - SYNCOPE AND COLLAPSE (7) Seizures Code(s): R56.9 - UNSPECIFIED CONVULSIONS Assessment/Plan IV ABX AWAIT URINE CX CAROTID STENOSIS VASC CONSULT PT EVAL FALL RISKS ENDOCRINE CONSULT DM UNCONTROLLED CARDIOLOGY EVAL APPRECIATED
[2019-07-01] MEDS ORDERED: cefTRIAXone SODIUM 1 GM VIAL ONE (16:34)
[2019-07-01] MEDS ORDERED: DEXTROSE 5%-WATER - 50 ML IVPB ONE (16:34)
[2019-07-01] MEDS: CEFTRIAXONE 1 GM in DEXTROSE 5%-WATER - 50 ML IVPB SCH (16:38)
[2019-07-01] MEDS: SODIUM CHLORIDE 1,000 ML IV SCH (16:39)
--- NOTE | 2019-07-01 20:50 | CONSULT ---
Consult Consult Specialty:: endocrine Referred by:: Tee garcia MD Reason for Consultation:: diabetes mellitus uncontrolled - History of Present Illness Chief Complaint: fell at SNF History of Present Illness: 84 F with a PMH ofDM 2, Dementia, Stroke, [place], CABG, Pacemaker, HTN, HLD, CHF who was admitted after a fall. Per NH, pt was found in the bathroom on the floor in the position this morning after having an unwitnessed fall. Pt does not recall the event completely and believes she may have fallen 4 days ago. She states that she was "dizzy" which she describes as a room spinning sensation, which then caused her to fall. She denies any acute complaints. she is pleasant yet confused. - Past Medical History Cardio/Vascular: Yes: CAD, Other (PPM) ...: No - Alcohol/Substance Use Hx Alcohol Use: No - Smoking History Smoking history: Never smoked Have you smoked in the past 12 months: No - Social History History of Recent Travel: Yes ([place]) Home Medications - Allergies Allergies/Adverse Reactions: Allergies Allergy/AdvReac Type Severity Reaction Status Date / Time No Allergy Information Allergy Verified 06/30/19 08:37 Available - Home Medications Home Medications: Ambulatory Orders Clopidogrel Bisulfate [Clopidogrel] 75 mg PO DAILY 06/15/19 Digoxin [Lanoxin -] 0.125 mg PO DAILY 06/15/19 Lisinopril 10 mg PO DAILY 06/15/19 Memantine HCl 5 mg PO HS 06/15/19 Multivitamin [Multiple Vitamins] 1 each PO DAILY 06/15/19 Aspirin [ASA -] 81 mg PO DAILY #30 tab.chew 06/23/19 Carvedilol [Coreg -] 9.375 mg PO BID #60 tablet 06/23/19 Docusate Sodium [Colace -] 200 mg PO DAILY #30 capsule 06/23/19 Insulin Sliding Scale [Novolog Vial Sliding Scale -] 1 vial SQ TIDAC #30 units 06/23/19 Phenytoin Na Extended [Dilantin -] 100 mg PO BID #60 capsule 06/23/19 Tamsulosin HCl [Flomax -] 0.4 mg PO DAILY@0830 #30 cap.er.24h 06/23/19 Atorvastatin Ca [Lipitor] 40 mg PO HS #30 tablet 06/27/19 Insulin (Levemir) [Levemir Vial] 15 units SQ HS #30 units 06/27/19 Insulin (Levemir) [Levemir Vial] 20 units SQ AM #30 units 06/27/19 Polyethylene Glycol 3350 [Miralax 119 gm Btl -] 17 gm PO BID #2 bottle 06/27/19 Physical Exam Vital Signs: Vital Signs Temperature 97.9 F 07/01/19 17:00 Pulse Rate 80 07/01/19 17:00 Respiratory Rate 20 07/01/19 17:00 Blood Pressure 131/50 L 07/01/19 17:00 O2 Sat by Pulse Oximetry (%) 99 07/01/19 11:00 Constitutional: Yes: Calm Eyes: Yes: EOM Intact HENT: Yes: Normocephalic, Other Neck: Yes: Trachea Midline Cardiovascular: Yes: Regular Rate and Rhythm Respiratory: Yes: CTA Bilaterally Gastrointestinal: Yes: Normal Bowel Sounds ...Rectal Exam: Yes: Deferred Renal/: Yes: WNL Musculoskeletal: Yes: Muscle Pain Extremities: Yes: WNL Neurological: Yes: Alert, Confusion Labs: CBC, BMP 07/01/19 05:40 07/01/19 05:40 Problem List - Problems (1) CAD (coronary artery disease) Code(s): I25.10 - ATHSCL HEART DISEASE OF [place] CORONARY ARTERY W/O ANG PCTRS (2) Diabetes Code(s): E11.9 - TYPE 2 DIABETES MELLITUS WITHOUT COMPLICATIONS Qualifiers: Diabetes mellitus type: type 2 (3) Syncope Code(s): R55 - SYNCOPE AND COLLAPSE (4) UTI (urinary tract infection) Code(s): N39.0 - URINARY TRACT INFECTION, SITE NOT SPECIFIED (5) Head trauma Code(s): S09.90XA - UNSPECIFIED INJURY OF HEAD, INITIAL ENCOUNTER (6) Seizures Code(s): R56.9 - UNSPECIFIED CONVULSIONS Assessment/Plan Current Active Problems neurohypoglycemia CAD (coronary artery disease) (Acute) Carotid stenosis (Acute) Diabetes (Acute) Leukocytosis (Acute) Syncope (Acute) UTI (urinary tract infection) (Acute) Abnormal Lab Results 06/30/19 07/01/19 07/01/19 23:25 05:40 05:40 RBC 3.04 L Hgb 8.8 L Hct 26.6 L Plt Count 443 H MPV 6.8 L Chloride 108 H Anion Gap 7 L BUN 25.1 H Random Glucose 155 H Hemoglobin A1c % Calcium 10.2 H Magnesium 1.5 L B-Natriuretic Peptide 1089.6 H Albumin 3.0 L Urine Glucose (UA) 1+ H Ur Leukocyte Esterase 2+ H 07/01/19 05:40 RBC Hgb Hct Plt Count MPV Chloride Anion Gap BUN Random Glucose Hemoglobin A1c % 13.4 H Calcium Magnesium B-Natriuretic Peptide Albumin Urine Glucose (UA) Ur Leukocyte Esterase plan: bgm qid novolog scale levemir 12 units am avoid pm levemir nutrition consult tsh b12 nephrology consult
[2019-07-01] MEDS: ATORVASTATIN CA 40 MG TABLET (FP) PO SCH (22:14)
[2019-07-02] MEDS: INSULIN (LEVEMIR) 100 UNITS/ML UNITS SQ SCH (06:42)
[2019-07-02] MEDS: INSULIN SLIDING SCALE (NOVOLOG) 1 VIAL SQ SCH ×4 (06:42→22:27)
[2019-07-02] MEDS ORDERED: INSULIN (LEVEMIR) 100 UNITS/ML UNITS SQ ONE (06:55)
[2019-07-02] MEDS ORDERED: INSULIN (NOVOLOG) ASPART 100 UNITS/ML 10ML VIAL ONE (06:55)
[2019-07-02] MEDS ORDERED: PT OWN MED DRAWER 7, Y5N ONE ×2 (09:51→21:38)
[2019-07-02] MEDS ORDERED: DEXTROSE 5%-WATER - 50 ML IVPB ONE (09:51)
[2019-07-02] MEDS ORDERED: cefTRIAXone SODIUM 1 GM VIAL ONE (09:51)
[2019-07-02] MEDS: PHENYTOIN NA EXTENDED 100 MG CAPSULE (FP) PO SCH ×2 (10:08→22:18)
[2019-07-02] MEDS: CLOPIDOGREL BISULFATE 75 MG TABLET (FP) PO SCH (10:08)
[2019-07-02] MEDS: TAMSULOSIN HCL 0.4 MG CAP PO SCH (10:08)
[2019-07-02] MEDS: ASPIRIN 81 MG CHEWABLE TABLETS PO SCH (10:08)
[2019-07-02] MEDS: CEFTRIAXONE 1 GM in DEXTROSE 5%-WATER - 50 ML IVPB SCH (10:08)
[2019-07-02] MEDS: HEPARIN NA (PORCINE) 5,000 UNITS/ML 1ML VIAL SQ SCH ×2 (10:08→22:19)
--- NOTE | 2019-07-02 11:03 | PN ---
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 (short form) - Note 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: Neurology - Admission History of Present Illness: 84 F with a PMH of Dementia, Stroke, PR, CABG, Pacemaker, HTN, HLD, DM, CHF, who presents to the ER after having a fall. Per [place], pt was found in the bathroom on the floor in the position morning of admission after having an unwitnessed fall. Pt does not recall the event completely and believes she may have fallen 4 days ago. She states that she was "dizzy" which she describes as a room spinning sensation, which then caused her to fall. She denies any acute complaints. Is unsure of LOC or if she struck her head although she sustained an injury to her lip after the fall. Head CT multilevel degenerative disc disease and air-fluid level right maxillary atrium consistent with sinusitis. Carotid Doppler completed, large plaque with calcifications at the right common bifurcation with 70% stenosis to near occlusion; moderate to large calcified plaque at the left common bifurcation without hemodynamic significant stenosis. Family at bedside and discussed case. She was living in [place] previously and they are not sure of her medication regiment especially as it pertains to seizures since she is on Dilantin. Advised that would not change medication at this time. Remains on ASA and Plavix. Denies any neurologic symptoms and no deficits noted. Continue cardiac/medical workup and optimization. Well appearing this AM, no acute issues overnight and she reportsfeeling at baseline. Describes some discomfort on her upper lip from laceration but otherwise well-appearing. Active Medications Aspirin (Asa -) 81 mg PO DAILY [facility] Last Admin: 07/02/19 10:08 Dose: 81 mg Atorvastatin Calcium (Lipitor -) 40 mg PO HS [facility] Last Admin: 07/01/19 22:14 Dose: 40 mg Clopidogrel Bisulfate (Plavix -) 75 mg PO DAILY [facility] Last Admin: 07/02/19 10:08 Dose: 75 mg Heparin Sodium (Porcine) (Heparin -) 5,000 unit SQ BID [facility] Last Admin: 07/02/19 10:08 Dose: 5,000 unit Sodium Chloride (Normal Saline -) 1,000 mls @ 75 mls/hr IV ASDIR [facility] Last Admin: 07/01/19 16:39 Dose: 75 mls/hr Ceftriaxone Sodium 1 gm/ (Dextrose) 50 mls @ 100 mls/hr IVPB DAILY [facility]; Protocol Last Admin: 07/02/19 10:08 Dose: 100 mls/hr Insulin Aspart (Novolog Vial Sliding Scale -) 1 vial SQ ACHS [facility]; Protocol Last Admin: 07/02/19 06:42 Dose: Not Given Insulin Detemir (Levemir Vial) 12 units SQ AM [facility] Last Admin: 07/02/19 06:42 Dose: 12 units Phenytoin Sodium (Dilantin -) 100 mg PO BID [facility] Last Admin: 07/02/19 10:08 Dose: 100 mg Tamsulosin HCl (Flomax -) 0.4 mg PO DAILY@0830 [facility] Last Admin: 07/02/19 10:08 Dose: 0.4 mg Physical Examination Vital Signs: Vital Signs Period Temp Pulse Resp BP Sys/Esparza Pulse Ox Last 24 Hr 97.7 F-98.4 F 78-85 18-20 119-138/50-64 97-97 Gen: Awake, alert, responds to questions Card: RRR, nml S1,S2 Resp: Normal symmetric effort, lungs clear to auscultation Abdomen: Soft, nontender, bowel sounds active Musculoskeletal: Adequate range of motion without significant deformity Head atraumatic and normocephalic CN: PERRL, EOMI intact, no apparent facial droop, no abnormalities in facial sensation, palate elevates, uvula and tongue midline Motor: Full strength to confrontation in upper and lower extermities proximally and distally. Tone normal throughout Sensory: Intact to Temperature, light touch, and pinprick in all extremities Reflexes: 2+ biceps, brachioradialis, patellar, achillies Coordination: Intact on [id number] testing CBCD WBC 9.8 K/mm3 (4.0-10.0) 07/01/19 05:40 RBC 3.04 M/mm3 (3.60-5.2) L 07/01/19 05:40 Hgb 8.8 GM/dL (10.7-15.3) L 07/01/19 05:40 Hct 26.6 % (32.4-45.2) L 07/01/19 05:40 MCV 87.6 fl (80-96) 07/01/19 05:40 MCHC 33.1 g/dl (32.0-36.0) 07/01/19 05:40 RDW 14.2 % (11.6-15.6) 07/01/19 05:40 Plt Count 443 K/MM3 (134-434) H 07/01/19 05:40 MPV 6.8 fl (7.5-11.1) L 07/01/19 05:40 CMP Sodium 140 mmol/L (136-145) 07/01/19 05:40 Potassium 4.4 mmol/L (3.5-5.1) 07/01/19 05:40 Chloride 108 mmol/L (98-107) H 07/01/19 05:40 Carbon Dioxide 24 mmol/L (21-32) 07/01/19 05:40 Anion Gap 7 MMOL/L (8-16) L 07/01/19 05:40 BUN 25.1 mg/dL (7-18) H 07/01/19 05:40 Creatinine 0.9 mg/dL (0.55-1.3) 07/01/19 05:40 Random Glucose 155 mg/dL (74-106) H 07/01/19 05:40 Calcium 10.2 mg/dL (8.5-10.1) H 07/01/19 05:40 Total Bilirubin 0.5 mg/dL (0.2-1) 07/01/19 05:40 AST 25 U/L (15-37) 07/01/19 05:40 ALT 32 U/L (13-61) 07/01/19 05:40 Alkaline Phosphatase 88 U/L (45-117) 07/01/19 05:40 Total Protein 6.6 g/dl (6.4-8.2) 07/01/19 05:40 Albumin 3.0 g/dl (3.4-5.0) L 07/01/19 05:40 CARDIAC ENZYMES Creatine Kinase 112 U/L (26-192) 07/01/19 05:40 Troponin I 0.04 ng/ml (0.00-0.05) 07/01/19 05:40 Plan/Assessment 84 F with a PMH of Dementia, Stroke, PR, CABG, Pacemaker, HTN, HLD, DM, CHF, who presents to the ER after having a fall. Per NH, pt was found in the bathroom on the floor in the position morning of admission after having an unwitnessed fall. Pt does not recall the event completely and believes she may have fallen 4 days ago. She states that she was "dizzy" which she describes as a room spinning sensation, which then caused her to fall. She denies any acute complaints. Is unsure of LOC or if she struck her head although she sustained an injury to her lip after the fall. Head CT multilevel degenerative disc disease and air-fluid level right maxillary atrium consistent with sinusitis. Carotid Doppler completed, Carotid Doppler completed, large plaque with calcifications at the right common bifurcation with 70% stenosis to near occlusion; moderate to large calcified plaque at the left common bifurcation without hemodynamic significant stenosis. Family at bedside and discussed case. She was living in [place] previously and they are not sure of her medication regiment especially as it pertains to seizures since she is on Dilantin. Advised that would not change medication at this time. Remains on ASA and Plavix. Denies any neurologic symptoms and no deficits noted. Continue cardiac/ medical workup and optimization. Increased hydration recommended. Well appearing this AM, no acute issues overnight and she reportsfeeling at baseline. Describes some discomfort on her upper lip from laceration but otherwise well-appearing. Physical therapy as tolerated. Return to [place] when able.
--- NOTE | 2019-07-02 12:38 | CONSULT ---
Consult Consult Specialty:: Vascular Surgery - History of Present Illness History of Present Illness: 84 year old woman admitted after being found lying on the bathroom floor. She has a history of seizures treated with Dilantin. She has had a stroke in the past. PMH notable for dementia, [place] s/p bypass and pacemaker, HTN, HLD, DM, CHF. 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 Cardio/Vascular: Yes: CAD, HTN, Other (PPM) ...: No - Alcohol/Substance Use Hx Alcohol Use: No - Smoking History Smoking history: Never smoked Have you smoked in the past 12 months: No - Social History History of Recent Travel: Yes ([place]) Home Medications - Allergies Allergies/Adverse Reactions: Allergies Allergy/AdvReac Type Severity Reaction Status Date / Time No Allergy Information Allergy Verified 06/30/19 08:37 Available - Home Medications Home Medications: Ambulatory Orders Clopidogrel Bisulfate [Clopidogrel] 75 mg PO DAILY 06/15/19 Digoxin [Lanoxin -] 0.125 mg PO DAILY 06/15/19 Lisinopril 10 mg PO DAILY 06/15/19 Memantine HCl 5 mg PO HS 06/15/19 Multivitamin [Multiple Vitamins] 1 each PO DAILY 06/15/19 Aspirin [ASA -] 81 mg PO DAILY #30 tab.chew 06/23/19 Carvedilol [Coreg -] 9.375 mg PO BID #60 tablet 06/23/19 Docusate Sodium [Colace -] 200 mg PO DAILY #30 capsule 06/23/19 Insulin Sliding Scale [Novolog Vial Sliding Scale -] 1 vial SQ TIDAC #30 units 06/23/19 Phenytoin Na Extended [Dilantin -] 100 mg PO BID #60 capsule 06/23/19 Tamsulosin HCl [Flomax -] 0.4 mg PO DAILY@0830 #30 cap.er.24h 06/23/19 Atorvastatin Ca [Lipitor] 40 mg PO HS #30 tablet 06/27/19 Insulin (Levemir) [Levemir Vial] 15 units SQ HS #30 units 06/27/19 Insulin (Levemir) [Levemir Vial] 20 units SQ AM #30 units 06/27/19 Polyethylene Glycol 3350 [Miralax 119 gm Btl -] 17 gm PO BID #2 bottle 06/27/19 Physical Exam Vital Signs: Vital Signs Temperature 98.2 F 07/02/19 11:00 Pulse Rate 84 07/02/19 11:00 Respiratory Rate 18 07/02/19 11:00 Blood Pressure 145/51 L 07/02/19 11:00 O2 Sat by Pulse Oximetry (%) 99 07/02/19 11:00 Constitutional: Yes: No Distress Eyes: Yes: EOM Intact HENT: Yes: Atraumatic Neck: Yes: Supple Neurological: Yes: WNL, Alert, Other (Answers questions appropriately, no weakness in arms.) Labs: CBC, BMP 07/01/19 05:40 07/01/19 05:40 Imaging - Results Ultrasound: Image Reviewed (Carotid Duplex showed right ICA stenosis > 70% CT brain with old infarct) Problem List - Problems (1) Carotid stenosis Assessment/Plan: Severe stenosis of right ICA by Duplex imaging. Recent event not likely related to unilateral carotid disease. Unclear if she had seizure, fall or other event. Treatment of her right ICA stenosis should be discussed with family due to risk of recurrent stroke. CTA ordered to further evaluate carotids before making final recommendations. Code(s): I65.29 - OCCLUSION AND STENOSIS OF UNSPECIFIED CAROTID ARTERY Qualifiers: Laterality: right Qualified Code(s): I65.21 - Occlusion and stenosis of right carotid artery
--- NOTE | 2019-07-02 13:00 | PN ---
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 (short form) - Note 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: s: no chest pain, palps, dizziness, dyspnea Current Medications Aspirin (Asa -) 81 mg PO DAILY [facility] Last Admin: 07/02/19 10:08 Dose: 81 mg Atorvastatin Calcium (Lipitor -) 40 mg PO HS [facility] Last Admin: 07/01/19 22:14 Dose: 40 mg Clopidogrel Bisulfate (Plavix -) 75 mg PO DAILY [facility] Last Admin: 07/02/19 10:08 Dose: 75 mg Heparin Sodium (Porcine) (Heparin -) 5,000 unit SQ BID [facility] Last Admin: 07/02/19 10:08 Dose: 5,000 unit Sodium Chloride (Normal Saline -) 1,000 mls @ 75 mls/hr IV ASDIR [facility] Last Admin: 07/01/19 16:39 Dose: 75 mls/hr Ceftriaxone Sodium 1 gm/ (Dextrose) 50 mls @ 100 mls/hr IVPB DAILY [facility]; Protocol Last Admin: 07/02/19 10:08 Dose: 100 mls/hr Insulin Aspart (Novolog Vial Sliding Scale -) 1 vial SQ ACHS [facility]; Protocol Last Admin: 07/02/19 11:55 Dose: 4 units Insulin Detemir (Levemir Vial) 12 units SQ AM [facility] Last Admin: 07/02/19 06:42 Dose: 12 units Phenytoin Sodium (Dilantin -) 100 mg PO BID [facility] Last Admin: 07/02/19 10:08 Dose: 100 mg Tamsulosin HCl (Flomax -) 0.4 mg PO DAILY@0830 [facility] Last Admin: 07/02/19 10:08 Dose: 0.4 mg Vital Signs Period Temp Pulse Resp BP Sys/Esparza Pulse Ox Last 24 Hr 97.7 F-98.4 F 78-85 18-20 119-145/50-64 97-99 nad no jvd Respiratory: Yes: CTA Bilaterally nl eff Gastrointestinal: Yes: Soft nt nd pos bs Cardiovascular: Yes: Regular Rate and Rhythm JVD: No Carotid Bruit: No pos dp pt no carotid bruits brandon jaundice diaphoresis Heart Sounds: Yes: S1, S2 Edema: No Neurological: awake, alert, confused ecg: sr, as-vp clinical ct chest: clear lungs tele: sinus, 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 fall, possible syncope: -details unclear -recent admit this month for similar thought to be from seizure. neuro eval pending. -recent echo w/o etiology. recent [facility] pacer check here w/o etiology -no signs chf or acs, trop neg x 2 -monitoring on tele -check ortho vitals - neuro consulted chronic syst chf: -hx of cardiomyopathy, EF 40-45% -stable vol status off lasix -prior admit this month tele showed paroxysms wide complex tach--reviewed with EP, likely paroxysmal atrial tach/PSVT (not suspicious for fib/flutter), now controlled -s/p BiV-ICD, normal function on company check here earlier this month ([facility]) -cont coreg, lisinopril, dig Known CAD, s/p [place] and CABG: -no signs ACS here -cont coreg, lisinopril, asa, plavix, statin carotid stenosis - carotid doppler showed large plaque at R bifurcation/bulb with 70% stenosis to near occlusion, vascular consulted, CTA neck pending
--- NOTE | 2019-07-02 13:45 | PN ---
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, Physician Chief Complaint: ASLEEP COMFORTABLE NO NEW EVENTS - Current Medication List Current Medications: Active Medications Aspirin (Asa -) 81 mg PO DAILY [facility] Last Admin: 07/02/19 10:08 Dose: 81 mg Atorvastatin Calcium (Lipitor -) 40 mg PO HS [facility] Last Admin: 07/01/19 22:14 Dose: 40 mg Clopidogrel Bisulfate (Plavix -) 75 mg PO DAILY [facility] Last Admin: 07/02/19 10:08 Dose: 75 mg Heparin Sodium (Porcine) (Heparin -) 5,000 unit SQ BID [facility] Last Admin: 07/02/19 10:08 Dose: 5,000 unit Sodium Chloride (Normal Saline -) 1,000 mls @ 75 mls/hr IV ASDIR [facility] Last Admin: 07/01/19 16:39 Dose: 75 mls/hr Ceftriaxone Sodium 1 gm/ (Dextrose) 50 mls @ 100 mls/hr IVPB DAILY [facility]; Protocol Last Admin: 07/02/19 10:08 Dose: 100 mls/hr Insulin Aspart (Novolog Vial Sliding Scale -) 1 vial SQ ACHS [facility]; Protocol Last Admin: 07/02/19 11:55 Dose: 4 units Insulin Detemir (Levemir Vial) 12 units SQ AM [facility] Last Admin: 07/02/19 06:42 Dose: 12 units Phenytoin Sodium (Dilantin -) 100 mg PO BID [facility] Last Admin: 07/02/19 10:08 Dose: 100 mg Tamsulosin HCl (Flomax -) 0.4 mg PO DAILY@0830 [facility] Last Admin: 07/02/19 10:08 Dose: 0.4 mg - Objective Vital Signs: Vital Signs Temperature 98.2 F 07/02/19 11:00 Pulse Rate 84 07/02/19 11:00 Respiratory Rate 18 07/02/19 11:00 Blood Pressure 145/51 L 07/02/19 11:00 O2 Sat by Pulse Oximetry (%) 99 07/02/19 11:00 Constitutional: Yes: No Distress Cardiovascular: Yes: Regular Rate and Rhythm Respiratory: Yes: WNL Gastrointestinal: Yes: Soft Genitourinary: Yes: Incontinence Musculoskeletal: Yes: Muscle Weakness Edema: No Peripheral Pulses WNL: Yes Integumentary: Yes: Other Wound/Incision: Yes: Clean/Dry Neurological: Yes: Confusion, Weakness ...Motor Strength: LLE, RLE Psychiatric: Yes: Other Labs: CBC, BMP 07/01/19 05:40 07/01/19 05:40 INR, PTT INR 0.92 (0.83-1.09) 07/01/19 05:40 Problem List - Problems (1) UTI (urinary tract infection) Code(s): N39.0 - URINARY TRACT INFECTION, SITE NOT SPECIFIED (2) Carotid stenosis Code(s): I65.29 - OCCLUSION AND STENOSIS OF UNSPECIFIED CAROTID ARTERY Qualifiers: Laterality: right Qualified Code(s): I65.21 - Occlusion and stenosis of right carotid artery (3) CAD (coronary artery disease) Code(s): I25.10 - ATHSCL HEART DISEASE OF [place] CORONARY ARTERY W/O ANG PCTRS (4) Diabetes Code(s): E11.9 - TYPE 2 DIABETES MELLITUS WITHOUT COMPLICATIONS Qualifiers: Diabetes mellitus type: type 2 (5) Leukocytosis Code(s): D72.829 - ELEVATED WHITE BLOOD CELL COUNT, UNSPECIFIED (6) Syncope Code(s): R55 - SYNCOPE AND COLLAPSE (7) Seizures Code(s): R56.9 - UNSPECIFIED CONVULSIONS (8) Dementia Code(s): F03.90 - UNSPECIFIED DEMENTIA WITHOUT BEHAVIORAL DISTURBANCE (9) CVA, old, cognitive deficits Code(s): I69.319 - UNSP SYMPTOMS AND SIGNS W COGN FNCTNS FOL CEREBRAL INFRC Assessment/Plan IV ABX AWAIT URINE CX CAROTID STENOSIS VASC CONSULT PT EVAL FALL RISKS ENDOCRINE CONSULT DM UNCONTROLLED CARDIOLOGY EVAL APPRECIATED
--- NOTE | 2019-07-02 15:44 | CONSULT ---
Consult Consult Specialty:: Nephrology Reason for Consultation:: azotemia - History of Present Illness Chief Complaint: presented s/p fall History of Present Illness: Pt is an 84 year old female with pmhx of dementia. cva, cad, cabg, ppm, htn, hld. dm, and chf who was admitted after a fall. It is not clear for how long she was on the ground. She is a poor historian and unable to contribute much to her history. She denies shortness of breath. She denies dysuria. She may have had a syncpal episode. I was called to evaluate her for azotemia and proteinuria. 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 Cardio/Vascular: Yes: CAD, HTN, Other (PPM) ...: No - Alcohol/Substance Use Hx Alcohol Use: No - Smoking History Smoking history: Never smoked Have you smoked in the past 12 months: No - Social History History of Recent Travel: Yes ([place]) Home Medications - Allergies Allergies/Adverse Reactions: Allergies Allergy/AdvReac Type Severity Reaction Status Date / Time No Allergy Information Allergy Verified 06/30/19 08:37 Available - Home Medications Home Medications: Ambulatory Orders Clopidogrel Bisulfate [Clopidogrel] 75 mg PO DAILY 06/15/19 Digoxin [Lanoxin -] 0.125 mg PO DAILY 06/15/19 Lisinopril 10 mg PO DAILY 06/15/19 Memantine HCl 5 mg PO HS 06/15/19 Multivitamin [Multiple Vitamins] 1 each PO DAILY 06/15/19 Aspirin [ASA -] 81 mg PO DAILY #30 tab.chew 06/23/19 Carvedilol [Coreg -] 9.375 mg PO BID #60 tablet 06/23/19 Docusate Sodium [Colace -] 200 mg PO DAILY #30 capsule 06/23/19 Insulin Sliding Scale [Novolog Vial Sliding Scale -] 1 vial SQ TIDAC #30 units 06/23/19 Phenytoin Na Extended [Dilantin -] 100 mg PO BID #60 capsule 06/23/19 Tamsulosin HCl [Flomax -] 0.4 mg PO DAILY@0830 #30 cap.er.24h 06/23/19 Atorvastatin Ca [Lipitor] 40 mg PO HS #30 tablet 06/27/19 Insulin (Levemir) [Levemir Vial] 15 units SQ HS #30 units 06/27/19 Insulin (Levemir) [Levemir Vial] 20 units SQ AM #30 units 06/27/19 Polyethylene Glycol 3350 [Miralax 119 gm Btl -] 17 gm PO BID #2 bottle 06/27/19 Family Medical History Family History: Unable to Obtain Review of Systems Unable to obtain ROS, reason: poor historian Physical Exam Vital Signs: Vital Signs Temperature 98.2 F 07/02/19 11:00 Pulse Rate 84 07/02/19 11:00 Respiratory Rate 18 07/02/19 11:00 Blood Pressure 145/51 L 07/02/19 11:00 O2 Sat by Pulse Oximetry (%) 99 07/02/19 11:00 Constitutional: Yes: Calm Eyes: Yes: Conjunctiva Clear HENT: Yes: Atraumatic Neck: Yes: Supple Cardiovascular: Yes: S1, S2 Respiratory: Yes: CTA Bilaterally Gastrointestinal: Yes: Soft Renal/: Yes: Gates Present Musculoskeletal: Yes: WNL Edema: No Neurological: Yes: Oriented Psychiatric: Yes: Oriented Labs: CBC, BMP 07/01/19 05:40 07/01/19 05:40 Laboratory Tests 06/30/19 07/01/19 07/01/19 23:25 05:40 05:40 BUN 25.1 H Creatinine 0.9 Hemoglobin A1c % 13.4 H Calcium 10.2 H B-Natriuretic Peptide 1089.6 H Urine Protein Trace Urine Glucose (UA) 1+ H Urine Blood Negative Imaging - Results Ultrasound: Report Reviewed Problem List - Problems (1) Dementia Code(s): F03.90 - UNSPECIFIED DEMENTIA WITHOUT BEHAVIORAL DISTURBANCE (2) Syncope Code(s): R55 - SYNCOPE AND COLLAPSE (3) Urinary retention Code(s): R33.9 - RETENTION OF URINE, UNSPECIFIED Assessment/Plan Current Medications Generic Name Dose Route Start Last Admin Trade Name Freq PRN Reason Stop Dose Admin Aspirin 81 mg 07/01/19 10:00 07/02/19 10:08 Asa - PO 81 mg DAILY [facility] Administration Atorvastatin Calcium 40 mg 06/30/19 22:00 07/01/19 22:14 Lipitor - PO 40 mg HS [facility] Administration Clopidogrel Bisulfate 75 mg 07/01/19 10:00 07/02/19 10:08 Plavix - PO 75 mg DAILY [facility] Administration Heparin Sodium (Porcine) 5,000 unit 06/30/19 22:00 07/02/19 10:08 Heparin - SQ 5,000 unit BID [facility] Administration Sodium Chloride 1,000 mls @ 75 mls/hr 06/30/19 15:30 07/01/19 16:39 Normal Saline - IV 75 mls/hr ASDIR [facility] Administration Ceftriaxone Sodium 1 gm/ 50 mls @ 100 mls/hr 07/01/19 15:15 07/02/19 10:08 Dextrose IVPB 100 mls/hr DAILY [facility] Administration Protocol Insulin Aspart 1 vial 07/01/19 20:56 07/02/19 11:55 Novolog Vial Sliding Scale - SQ 4 units ACHS [facility] Administration Protocol Insulin Detemir 12 units 07/02/19 07:00 07/02/19 06:42 Levemir Vial SQ 12 units AM [facility] Administration Phenytoin Sodium 100 mg 06/30/19 22:00 07/02/19 10:08 Dilantin - PO 100 mg BID [facility] Administration Tamsulosin HCl 0.4 mg 07/01/19 08:30 07/02/19 10:08 Flomax - PO 0.4 mg DAILY@0830 [facility] Administration Impression 1. urinary retention 2. azotemia 3. htn 4. dm 5. hld 6. chf Plan - maintain gates - urology eval - can hold fluid - check bmp - repeat ua - check cpk
[2019-07-02 19:06] LABS: EPI CELLS 2.1 /HPF (0-5/HPF); HYALINE CASTS 3 /lpf (0-8); URINE APPEARANCE CLEAR; URINE BACTERIA 0.5 /hpf (NEGATIVE); URINE BILIRUBIN NEGATIVE (NEGATIVE); URINE COLOR YELLOW; URINE GLUCOSE (UA) NEGATIVE (NEGATIVE); URINE KETONE NEGATIVE (NEGATIVE); URINE LEUK ESTERASE TRACE (NEGATIVE); URINE NITRITE NEGATIVE (NEGATIVE); URINE PROTEIN NEGATIVE (NEGATIVE); URINE RBC 1 /hpf (0-4); URINE UROBILINOGEN 0.2 mg/dL (0.2-1.0); URINE WBC 2 /hpf (0-5)
[2019-07-02] MEDS: ATORVASTATIN CA 40 MG TABLET (FP) PO SCH (22:19)
[2019-07-03] MEDS: MELATONIN 1 MG TABLET PO SCH ×2 (01:24→23:01)
[2019-07-03] MEDS: INSULIN SLIDING SCALE (NOVOLOG) 1 VIAL SQ SCH ×4 (06:07→23:01)
[2019-07-03] MEDS: INSULIN (LEVEMIR) 100 UNITS/ML UNITS SQ SCH (06:08)
[2019-07-03 06:36] LABS: HEMATOCRIT 25.1 % (32.4-45.2); HEMOGLOBIN 8.4 GM/dL (10.7-15.3); MCH 29.6 pg (25.7-33.7); MCHC 33.5 g/dl (32.0-36.0); MEAN CELL VOLUME 88.3 fl (80-96); MEAN PLT VOLUME 6.7 fl (7.5-11.1); PLATELET COUNT 380 K/MM3 (134-434); RBC 2.84 M/mm3 (3.60-5.2); RDW 14.7 % (11.6-15.6); WHITE BLOOD COUNT 7.2 K/mm3 (4.0-10.0)
[2019-07-03 06:54] LABS: BILIRUBIN,TOTAL 0.3 mg/dL (0.2-1); BLOOD UREA NITROGEN 15.1 mg/dL (7-18); CALCIUM 10.1 mg/dL (8.5-10.1); CREATININE 0.9 mg/dL (0.55-1.3); TOT PROT 6.8 g/dl (6.4-8.2)
[2019-07-03] MEDS ORDERED: cefTRIAXone SODIUM 1 GM VIAL ONE (09:00)
[2019-07-03] MEDS ORDERED: DEXTROSE 5%-WATER - 50 ML IVPB ONE (09:00)
[2019-07-03] MEDS ORDERED: PT OWN MED DRAWER 7, Y5N ONE ×3 (09:00→22:25)
[2019-07-03] MEDS: CEFTRIAXONE 1 GM in DEXTROSE 5%-WATER - 50 ML IVPB SCH (09:44)
[2019-07-03] MEDS: HEPARIN NA (PORCINE) 5,000 UNITS/ML 1ML VIAL SQ SCH ×2 (09:45→22:29)
[2019-07-03] MEDS: ASPIRIN 81 MG CHEWABLE TABLETS PO SCH (09:46)
[2019-07-03] MEDS: TAMSULOSIN HCL 0.4 MG CAP PO SCH (09:46)
[2019-07-03] MEDS: PHENYTOIN NA EXTENDED 100 MG CAPSULE (FP) PO SCH ×2 (09:46→22:29)
[2019-07-03] MEDS: CLOPIDOGREL BISULFATE 75 MG TABLET (FP) PO SCH (09:46)
--- NOTE | 2019-07-03 10:18 | PN ---
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, Physician Chief Complaint: fall vs syncope History of Present Illness: sleepy. opens eyes easily--denies cp, sob, palpitations - Current Medication List Current Medications: Active Medications Acetaminophen (Tylenol -) 650 mg PO Q6H PRN PRN Reason: PAIN LEVEL 1-5 Aspirin (Asa -) 81 mg PO DAILY [facility] Last Admin: 07/03/19 09:46 Dose: 81 mg Atorvastatin Calcium (Lipitor -) 40 mg PO HS [facility] Last Admin: 07/02/19 22:19 Dose: 40 mg Clopidogrel Bisulfate (Plavix -) 75 mg PO DAILY [facility] Last Admin: 07/03/19 09:46 Dose: 75 mg Heparin Sodium (Porcine) (Heparin -) 5,000 unit SQ BID [facility] Last Admin: 07/03/19 09:45 Dose: 5,000 unit Ceftriaxone Sodium 1 gm/ (Dextrose) 50 mls @ 100 mls/hr IVPB DAILY [facility]; Protocol Last Admin: 07/03/19 09:44 Dose: 100 mls/hr Insulin Aspart (Novolog Vial Sliding Scale -) 1 vial SQ ACHS [facility]; Protocol Last Admin: 07/03/19 06:07 Dose: Not Given Insulin Detemir (Levemir Vial) 12 units SQ AM [facility] Last Admin: 07/03/19 06:08 Dose: 12 units Melatonin (Melatonin) 3 mg PO HS [facility] Last Admin: 07/03/19 01:24 Dose: 3 mg Phenytoin Sodium (Dilantin -) 100 mg PO BID [facility] Last Admin: 07/03/19 09:46 Dose: 100 mg Tamsulosin HCl (Flomax -) 0.4 mg PO DAILY@0830 [facility] Last Admin: 07/03/19 09:46 Dose: 0.4 mg - Objective Vital Signs: Vital Signs Temperature 98.6 F 07/03/19 09:43 Pulse Rate 80 07/03/19 09:43 Respiratory Rate 18 07/03/19 09:43 Blood Pressure 129/68 07/03/19 09:43 O2 Sat by Pulse Oximetry (%) 98 07/02/19 20:48 Constitutional: Yes: Well Nourished, No Distress, Calm Cardiovascular: Yes: Regular Rate and Rhythm, S1, S2. No: JVD, Gallop, Murmur Respiratory: Yes: Regular, CTA Bilaterally. No: Accessory Muscle Use Extremities: No: Cold Edema: No Neurological: Yes: Lethargy. No: Seizure Psychiatric: No: Agitated Labs: CBC, BMP 07/03/19 05:43 07/03/19 05:43 INR, PTT INR 0.92 (0.83-1.09) 07/01/19 05:40 Assessment/Plan ecg: sr, as-vp [employer] ct chest: clear lungs Echo: EF 40-45%, abn septal motion c/w aberrance conduction. nl RV. functional mitral stenosis sec to MAC. no . 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 fall, possible syncope: -details unclear -recent admit this month for similar thought to be from seizure--neuro process not expected currently per neurology consultation -recent echo w/o etiology. recent [facility] pacer check here w/o etiology -no signs chf or acs, trop neg x 2 -cont tele monitoring -check ortho vitals when/if can stand chronic syst chf: -hx of cardiomyopathy, EF 40-45% -stable vol status off lasix -prior admit this month tele showed paroxysms wide complex tach--reviewed with EP, likely paroxysmal atrial tach/PSVT (not suspicious for fib/flutter), now controlled -s/p BiV-ICD, normal function on company check here 06/29 ([facility]) -cont coreg, lisinopril, dig Known CAD, s/p [place] and CABG: -no signs ACS here -cont coreg, lisinopril, asa, plavix, statin carotid stenosis - carotid doppler showed large plaque at R bifurcation/bulb with 70% stenosis to near occlusion, vascular consulted, CTA neck pending
--- NOTE | 2019-07-03 12:56 | PN ---
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, Physician Chief Complaint: patient by nursing station awake aerlt s/p fall CTA neck pending to look at RCA stenosis - Current Medication List Current Medications: Active Medications Acetaminophen (Tylenol -) 650 mg PO Q6H PRN PRN Reason: PAIN LEVEL 1-5 Aspirin (Asa -) 81 mg PO DAILY [facility] Last Admin: 07/03/19 09:46 Dose: 81 mg Atorvastatin Calcium (Lipitor -) 40 mg PO HS [facility] Last Admin: 07/02/19 22:19 Dose: 40 mg Clopidogrel Bisulfate (Plavix -) 75 mg PO DAILY [facility] Last Admin: 07/03/19 09:46 Dose: 75 mg Heparin Sodium (Porcine) (Heparin -) 5,000 unit SQ BID [facility] Last Admin: 07/03/19 09:45 Dose: 5,000 unit Ceftriaxone Sodium 1 gm/ (Dextrose) 50 mls @ 100 mls/hr IVPB DAILY [facility]; Protocol Last Admin: 07/03/19 09:44 Dose: 100 mls/hr Insulin Aspart (Novolog Vial Sliding Scale -) 1 vial SQ ACHS [facility]; Protocol Last Admin: 07/03/19 11:51 Dose: 3 units Insulin Detemir (Levemir Vial) 12 units SQ AM [facility] Last Admin: 07/03/19 06:08 Dose: 12 units Melatonin (Melatonin) 3 mg PO HS [facility] Last Admin: 07/03/19 01:24 Dose: 3 mg Phenytoin Sodium (Dilantin -) 100 mg PO BID [facility] Last Admin: 07/03/19 09:46 Dose: 100 mg Tamsulosin HCl (Flomax -) 0.4 mg PO DAILY@0830 [facility] Last Admin: 07/03/19 09:46 Dose: 0.4 mg - Objective Vital Signs: Vital Signs Temperature 98.6 F 07/03/19 09:43 Pulse Rate 80 07/03/19 09:43 Respiratory Rate 18 07/03/19 09:43 Blood Pressure 129/68 07/03/19 09:43 O2 Sat by Pulse Oximetry (%) 98 07/02/19 20:48 Constitutional: Yes: Calm, Thin Cardiovascular: Yes: Regular Rate and Rhythm, S1, S2 Respiratory: Yes: CTA Bilaterally Gastrointestinal: Yes: Normal Bowel Sounds, Soft Edema: No Neurological: Yes: Alert Labs: CBC, BMP 07/03/19 05:43 07/03/19 05:43 INR, PTT INR 0.92 (0.83-1.09) 07/01/19 05:40 Problem List - Problems (1) Syncope Assessment/Plan: tele cardio/neurology consult appreciated echo carotid doppler large plaque at right common carotid bifurcation PT iv hydration trend CK Blood pressure on low side carmelo hold anti HTN for now dvt ppx Code(s): R55 - SYNCOPE AND COLLAPSE (2) Urinary retention Assessment/Plan: bladder sono- over distended bladder ua/urine culture-complaining dysuria- started in [facility] urine culture negative urology evalation -for gates cath /retention Code(s): R33.9 - RETENTION OF URINE, UNSPECIFIED (3) Diabetes Assessment/Plan: bgm sliding scale insulin hgba1c 13.4 endocrine on board Code(s): E11.9 - TYPE 2 DIABETES MELLITUS WITHOUT COMPLICATIONS Qualifiers: Diabetes mellitus type: type 2 (4) Seizures Assessment/Plan: dilantin Code(s): R56.9 - UNSPECIFIED CONVULSIONS (5) CAD (coronary artery disease) Assessment/Plan: s/p cabg asa,plavix,lipitor Code(s): I25.10 - ATHSCL HEART DISEASE OF [place] CORONARY ARTERY W/O ANG PCTRS (6) Leukocytosis Code(s): D72.829 - ELEVATED WHITE BLOOD CELL COUNT, UNSPECIFIED
--- NOTE | 2019-07-03 13:02 | PN ---
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, Physician History of Present Illness: Pt seen and examined at bedside. She is awake and appears comfortable. - Current Medication List Current Medications: Active Medications Acetaminophen (Tylenol -) 650 mg PO Q6H PRN PRN Reason: PAIN LEVEL 1-5 Aspirin (Asa -) 81 mg PO DAILY [facility] Last Admin: 07/03/19 09:46 Dose: 81 mg Atorvastatin Calcium (Lipitor -) 40 mg PO HS [facility] Last Admin: 07/02/19 22:19 Dose: 40 mg Clopidogrel Bisulfate (Plavix -) 75 mg PO DAILY [facility] Last Admin: 07/03/19 09:46 Dose: 75 mg Heparin Sodium (Porcine) (Heparin -) 5,000 unit SQ BID [facility] Last Admin: 07/03/19 09:45 Dose: 5,000 unit Ceftriaxone Sodium 1 gm/ (Dextrose) 50 mls @ 100 mls/hr IVPB DAILY [facility]; Protocol Last Admin: 07/03/19 09:44 Dose: 100 mls/hr Insulin Aspart (Novolog Vial Sliding Scale -) 1 vial SQ ACHS [facility]; Protocol Last Admin: 07/03/19 11:51 Dose: 3 units Insulin Detemir (Levemir Vial) 12 units SQ AM [facility] Last Admin: 07/03/19 06:08 Dose: 12 units Melatonin (Melatonin) 3 mg PO HS [facility] Last Admin: 07/03/19 01:24 Dose: 3 mg Phenytoin Sodium (Dilantin -) 100 mg PO BID [facility] Last Admin: 07/03/19 09:46 Dose: 100 mg Tamsulosin HCl (Flomax -) 0.4 mg PO DAILY@0830 [facility] Last Admin: 07/03/19 09:46 Dose: 0.4 mg - Objective Vital Signs: Vital Signs Temperature 98.6 F 07/03/19 09:43 Pulse Rate 80 07/03/19 09:43 Respiratory Rate 18 07/03/19 09:43 Blood Pressure 129/68 07/03/19 09:43 O2 Sat by Pulse Oximetry (%) 98 07/02/19 20:48 Constitutional: Yes: Calm Eyes: Yes: Conjunctiva Clear HENT: Yes: Atraumatic Neck: Yes: Supple Cardiovascular: Yes: S1, S2 Respiratory: Yes: CTA Bilaterally Gastrointestinal: Yes: Soft Genitourinary: Yes: Berrios Present Musculoskeletal: Yes: Muscle Weakness Edema: No Neurological: Yes: Confusion Labs: CBC, BMP 07/03/19 05:43 07/03/19 05:43 INR, PTT INR 0.92 (0.83-1.09) 07/01/19 05:40 Problem List - Problems (1) Dementia Code(s): F03.90 - UNSPECIFIED DEMENTIA WITHOUT BEHAVIORAL DISTURBANCE (2) Syncope Code(s): R55 - SYNCOPE AND COLLAPSE (3) Urinary retention Code(s): R33.9 - RETENTION OF URINE, UNSPECIFIED Assessment/Plan Current Medications Generic Name Dose Route Start Last Admin Trade Name Freq PRN Reason Stop Dose Admin Acetaminophen 650 mg 07/02/19 19:07 Tylenol - PO Q6H PRN PAIN LEVEL 1-5 Aspirin 81 mg 07/01/19 10:00 07/03/19 09:46 Asa - PO 81 mg DAILY BRANDYN Administration Atorvastatin Calcium 40 mg 06/30/19 22:00 07/02/19 22:19 Lipitor - PO 40 mg HS BRANDYN Administration Clopidogrel Bisulfate 75 mg 07/01/19 10:00 07/03/19 09:46 Plavix - PO 75 mg DAILY BRANDYN Administration Heparin Sodium (Porcine) 5,000 unit 06/30/19 22:00 07/03/19 09:45 Heparin - SQ 5,000 unit BID BRANDYN Administration Ceftriaxone Sodium 1 gm/ 50 mls @ 100 mls/hr 07/01/19 15:15 07/03/19 09:44 Dextrose IVPB 100 mls/hr DAILY BRANDYN Administration Protocol Insulin Aspart 1 vial 07/01/19 20:56 07/03/19 11:51 Novolog Vial Sliding Scale - SQ 3 units ACHS BRANDYN Administration Protocol Insulin Detemir 12 units 07/02/19 07:00 07/03/19 06:08 Levemir Vial SQ 12 units AM BRANDYN Administration Melatonin 3 mg 07/03/19 01:15 07/03/19 01:24 Melatonin PO 3 mg HS BRANDYN Administration Phenytoin Sodium 100 mg 06/30/19 22:00 07/03/19 09:46 Dilantin - PO 100 mg BID BRANDYN Administration Tamsulosin HCl 0.4 mg 07/01/19 08:30 07/03/19 09:46 Flomax - PO 0.4 mg DAILY@0830 BRANDYN Administration Laboratory Tests 07/03/19 05:43 Creatine Kinase 78 Impression 1. urinary retention 2. azotemia 3. htn 4. dm 5. hld 6. chf Plan - renal function stable - cpk normal - pt tolerating diet - urology eval for retention - will follow PRN
--- NOTE | 2019-07-03 17:45 | ECHO ---
Name: LOLA MONTES DE OCA Exam:Adult Echocardiogram Study Date: 07/03/2019 08:42 AM Age: 84 yrs Reason For Study: look at ejection fraction Height: 60 in Weight: 88 lb BSA: 1.3 m2 Procedure A complete two-dimensional transthoracic echocardiogram was performed (2D, M-mode, Doppler and color flow Doppler). Technically limited study. Left Ventricle The left ventricle is normal in size. Left ventricular systolic function is mildly reduced. Ejection Fraction = 45-50%. There is mild global hypokinesis of the left ventricle. Right Ventricle The right ventricle is normal size. There is a pacemaker lead in the right ventricle. The right ventr icular systolic function is normal. Atria The left atrial size is normal. Right atrial size is normal. Mitral Valve There is moderate to severe mitral annular calcification. Functional mitral valve stenosis secondary to MAC. There is mild mitral regurgitation. Tricuspid Valve The tricuspid valve is normal in structure and function. No tricuspid regurgitation. Aortic Valve There is mild to moderate aortic sclerosis.;. No aortic regurgitation is present. Pulmonic Valve The pulmonic valve is not well visualized. Mild pulmonic valvular regurgitation. Great Vessels The aortic root is normal size. Pericardium/Pleura There is no pericardial effusion. Interpretation Summary Technically limited study The left ventricle is normal in size. Left ventricular systolic function is mildly reduced. There is mild global hypokinesis of the left ventricle. Ejection Fraction = 45-50%. The right ventricular systolic function is normal. There is a pacemaker lead in the right ventricle. The left atrial size is normal. Right atrial size is normal. There is moderate to severe mitral annular calcification. Functional mitral valve stenosis secondary to MAC There is mild mitral regurgitation. There is mild to moderate aortic sclerosis. No aortic regurgitation is present. Mild pulmonic valvular regurgitation. There is no pericardial effusion. Vladimir Cuba MD 07/03/2019 05:44 PM
[2019-07-03] MEDS ORDERED: MELATONIN 1 MG TABLET PO SCH (22:00)
[2019-07-03] MEDS: ATORVASTATIN CA 40 MG TABLET (FP) PO SCH (22:29)
[2019-07-03] MEDS: ACETAMINOPHEN 325 MG TABLET (FP) PO PRN (22:34)
[2019-07-04] MEDS: INSULIN SLIDING SCALE (NOVOLOG) 1 VIAL SQ SCH ×4 (07:13→22:54)
[2019-07-04] MEDS: INSULIN (LEVEMIR) 100 UNITS/ML UNITS SQ SCH (07:14)
[2019-07-04 07:49] LABS: IRON SERUM 33 ug/dL (50-175); TOTAL IRON BINDING CAPACITY 288 ug/dL (250-450)
[2019-07-04 08:00] LABS: BASO % 0.5 % (0-2.0); EOS % 3.4 % (0-4.5); HEMATOCRIT 25.5 % (32.4-45.2); HEMOGLOBIN 8.5 GM/dL (10.7-15.3); MCH 29.5 pg (25.7-33.7); MCHC 33.4 g/dl (32.0-36.0); MEAN CELL VOLUME 88.3 fl (80-96); MEAN PLT VOLUME 6.9 fl (7.5-11.1); MONO % 7.2 % (3.8-10.2); NEUT % 66.9 % (42.8-82.8); PLATELET COUNT 396 K/MM3 (134-434); RBC 2.89 M/mm3 (3.60-5.2); RDW 14.7 % (11.6-15.6); WHITE BLOOD COUNT 7.2 K/mm3 (4.0-10.0)
--- NOTE | 2019-07-04 09:15 | PN ---
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 (short form) - Note 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: Neurology - Admission History of Present Illness: 84 F with a PMH of Dementia, Stroke, NE, CABG, Pacemaker, HTN, HLD, DM, CHF, who presents to the ER after having a fall. Per NH, pt was found in the bathroom on the floor in the position morning of admission after having an unwitnessed fall. Pt does not recall the event completely and believes she may have fallen 4 days ago. She states that she was "dizzy" which she describes as a room spinning sensation, which then caused her to fall. She denies any acute complaints. Is unsure of LOC or if she struck her head although she sustained an injury to her lip after the fall. Head CT multilevel degenerative disc disease and air-fluid level right maxillary atrium consistent with sinusitis. Carotid Doppler completed, large plaque with calcifications at the right common bifurcation with 70% stenosis to near occlusion; moderate to large calcified plaque at the left common bifurcation without hemodynamic significant stenosis. Family at bedside and discussed case. She was living in [place] previously and they are not sure of her medication regiment especially as it pertains to seizures since she is on Dilantin. Advised that would not change medication at this time. Remains on ASA and Plavix. Denies any neurologic symptoms and no deficits noted. Continue cardiac/medical workup and optimization. 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 CTA neck rdered to rule out vascular anomalies. Active Medications Acetaminophen (Tylenol -) 650 mg PO Q6H PRN PRN Reason: PAIN LEVEL 1-5 Last Admin: 07/03/19 22:34 Dose: 650 mg Aspirin (Asa -) 81 mg PO DAILY [facility] Last Admin: 07/03/19 09:46 Dose: 81 mg Atorvastatin Calcium (Lipitor -) 40 mg PO HS [facility] Last Admin: 07/03/19 22:29 Dose: 40 mg Clopidogrel Bisulfate (Plavix -) 75 mg PO DAILY [facility] Last Admin: 07/03/19 09:46 Dose: 75 mg Heparin Sodium (Porcine) (Heparin -) 5,000 unit SQ BID [facility] Last Admin: 07/03/19 22:29 Dose: 5,000 unit Ceftriaxone Sodium 1 gm/ (Dextrose) 50 mls @ 100 mls/hr IVPB DAILY [facility]; Protocol Last Admin: 07/03/19 09:44 Dose: 100 mls/hr Insulin Aspart (Novolog Vial Sliding Scale -) 1 vial SQ [facility]; Protocol Last Admin: 07/04/19 07:13 Dose: Not Given Insulin Detemir (Levemir Vial) 12 units SQ AM [facility] Last Admin: 07/04/19 07:14 Dose: 12 units Melatonin (Melatonin) 3 mg PO HS [facility] Last Admin: 07/03/19 23:01 Dose: 3 mg Phenytoin Sodium (Dilantin -) 100 mg PO BID [facility] Last Admin: 07/03/19 22:29 Dose: 100 mg Tamsulosin HCl (Flomax -) 0.4 mg PO DAILY@0830 [facility] Last Admin: 07/03/19 09:46 Dose: 0.4 mg Physical Examination Vital Signs: Vital Signs Period Temp Pulse Resp BP Sys/Esparza Pulse Ox Last 24 Hr 97.8 F-98.6 F 80-96 18-18 125-152/58-86 98-98 Gen: Awake, alert, responds to questions Card: RRR, nml S1,S2 Resp: Normal symmetric effort, lungs clear to auscultation Abdomen: Soft, nontender, bowel sounds active Musculoskeletal: Adequate range of motion without significant deformity Head atraumatic and normocephalic CN: PERRL, EOMI intact, no apparent facial droop, no abnormalities in facial sensation, palate elevates, uvula and tongue midline Motor: Full strength to confrontation in upper and lower extermities proximally and distally. Tone normal throughout Sensory: Intact to Temperature, light touch, and pinprick in all extremities Reflexes: 2+ biceps, brachioradialis, patellar, achillies Coordination: Intact on [id number]-[id number] testing CBCD WBC 7.2 K/mm3 (4.0-10.0) 07/04/19 06:30 RBC 2.89 M/mm3 (3.60-5.2) L 07/04/19 06:30 Hgb 8.5 GM/dL (10.7-15.3) L 07/04/19 06:30 Hct 25.5 % (32.4-45.2) L 07/04/19 06:30 MCV 88.3 fl (80-96) 07/04/19 06:30 MCHC 33.4 g/dl (32.0-36.0) 07/04/19 06:30 RDW 14.7 % (11.6-15.6) 07/04/19 06:30 Plt Count 396 K/MM3 (134-434) 07/04/19 06:30 MPV 6.9 fl (7.5-11.1) L 07/04/19 06:30 CMP Sodium 140 mmol/L (136-145) 07/03/19 05:43 Potassium 4.0 mmol/L (3.5-5.1) 07/03/19 05:43 Chloride 107 mmol/L (98-107) 07/03/19 05:43 Carbon Dioxide 25 mmol/L (21-32) 07/03/19 05:43 Anion Gap 8 MMOL/L (8-16) 07/03/19 05:43 BUN 15.1 mg/dL (7-18) 07/03/19 05:43 Creatinine 0.9 mg/dL (0.55-1.3) 07/03/19 05:43 Random Glucose 126 mg/dL (74-106) H 07/03/19 05:43 Calcium 10.1 mg/dL (8.5-10.1) 07/03/19 05:43 Total Bilirubin 0.3 mg/dL (0.2-1) 07/03/19 05:43 AST 24 U/L (15-37) 07/03/19 05:43 ALT 29 U/L (13-61) 07/03/19 05:43 Alkaline Phosphatase 80 U/L (45-117) 07/03/19 05:43 Total Protein 6.8 g/dl (6.4-8.2) 07/03/19 05:43 Albumin 3.0 g/dl (3.4-5.0) L 07/03/19 05:43 CARDIAC ENZYMES Creatine Kinase 78 U/L (26-192) 07/03/19 05:43 Troponin I 0.04 ng/ml (0.00-0.05) 07/01/19 05:40 Plan/Assessment 84 F with a PMH of Dementia, Stroke, NE, CABG, Pacemaker, HTN, HLD, DM, CHF, who presents to the ER after having a fall. Per NH, pt was found in the bathroom on the floor in the position morning of admission after having an unwitnessed fall. Pt does not recall the event completely and believes she may have fallen 4 days ago. She states that she was "dizzy" which she describes as a room spinning sensation, which then caused her to fall. She denies any acute complaints. Is unsure of LOC or if she struck her head although she sustained an injury to her lip after the fall. Head CT multilevel degenerative disc disease and air-fluid level right maxillary atrium consistent with sinusitis. Carotid Doppler completed, Carotid Doppler completed, large plaque with calcifications at the right common bifurcation with 70% stenosis to near occlusion; moderate to large calcified plaque at the left common bifurcation without hemodynamic significant stenosis. Family at bedside and discussed case. She was living in [place] previously and they are not sure of her medication regiment especially as it pertains to seizures since she is on Dilantin. Advised that would not change medication at this time. Remains on ASA and Plavix. Denies any neurologic symptoms and no deficits noted. Continue cardiac/ medical workup and optimization. Increased hydration recommended. Well appearing this AM, no acute issues overnight and she reportsfeeling at baseline. Describes some discomfort on her upper lip from laceration but otherwise well-appearing. 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 CTA neck rdered to rule out vascular anomalies. Physical therapy as tolerated. fall precautions
[2019-07-04] MEDS ORDERED: DEXTROSE 5%-WATER - 50 ML IVPB ONE (09:42)
[2019-07-04] MEDS ORDERED: PT OWN MED DRAWER 7, Y5N ONE ×2 (09:42→22:25)
[2019-07-04] MEDS ORDERED: cefTRIAXone SODIUM 1 GM VIAL ONE (09:42)
--- NOTE | 2019-07-04 09:46 | PN ---
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, Physician - Current Medication List Current Medications: Active Medications Acetaminophen (Tylenol -) 650 mg PO Q6H PRN PRN Reason: PAIN LEVEL 1-5 Last Admin: 07/03/19 22:34 Dose: 650 mg Aspirin (Asa -) 81 mg PO DAILY [facility] Last Admin: 07/03/19 09:46 Dose: 81 mg Atorvastatin Calcium (Lipitor -) 40 mg PO HS [facility] Last Admin: 07/03/19 22:29 Dose: 40 mg Clopidogrel Bisulfate (Plavix -) 75 mg PO DAILY [facility] Last Admin: 07/03/19 09:46 Dose: 75 mg Heparin Sodium (Porcine) (Heparin -) 5,000 unit SQ BID [facility] Last Admin: 07/03/19 22:29 Dose: 5,000 unit Ceftriaxone Sodium 1 gm/ (Dextrose) 50 mls @ 100 mls/hr IVPB DAILY [facility]; Protocol Last Admin: 07/03/19 09:44 Dose: 100 mls/hr Insulin Aspart (Novolog Vial Sliding Scale -) 1 vial SQ ACHS [facility]; Protocol Last Admin: 07/04/19 07:13 Dose: Not Given Insulin Detemir (Levemir Vial) 12 units SQ AM [facility] Last Admin: 07/04/19 07:14 Dose: 12 units Melatonin (Melatonin) 3 mg PO HS [facility] Last Admin: 07/03/19 23:01 Dose: 3 mg Phenytoin Sodium (Dilantin -) 100 mg PO BID [facility] Last Admin: 07/03/19 22:29 Dose: 100 mg Tamsulosin HCl (Flomax -) 0.4 mg PO DAILY@0830 [facility] Last Admin: 07/03/19 09:46 Dose: 0.4 mg - Objective Vital Signs: Vital Signs Temperature 98 F 07/04/19 06:00 Pulse Rate 80 07/04/19 06:00 Respiratory Rate 18 07/04/19 06:00 Blood Pressure 142/58 L 07/04/19 06:00 O2 Sat by Pulse Oximetry (%) 98 07/03/19 21:00 Cardiovascular: Yes: S1, S2 Respiratory: Yes: Regular, CTA Bilaterally Gastrointestinal: Yes: Normal Bowel Sounds, Soft Edema: No Neurological: Yes: Alert, Oriented Labs: CBC, BMP 07/04/19 06:30 07/03/19 05:43 INR, PTT INR 0.92 (0.83-1.09) 07/01/19 05:40 Assessment/Plan - Problems (1) Syncope Assessment/Plan: tele cardio/neurology consult appreciated echo carotid doppler large plaque at right common carotid bifurcation PT dc iv hydration trend CK Blood pressure on low side carmelo hold anti HTN for now dvt ppx Code(s): R55 - SYNCOPE AND COLLAPSE (2) Urinary retention Assessment/Plan: bladder sono- over distended bladder ua/urine culture-complaining dysuria- started in [facility] urine culture negative urology evalation -dc gates cath Monitor retention Code(s): R33.9 - RETENTION OF URINE, UNSPECIFIED (3) Diabetes Assessment/Plan: bgm sliding scale insulin hgba1c 13.4 endocrine on board Code(s): E11.9 - TYPE 2 DIABETES MELLITUS WITHOUT COMPLICATIONS Qualifiers: Diabetes mellitus type: type 2 (4) Seizures Assessment/Plan: dilantin Code(s): R56.9 - UNSPECIFIED CONVULSIONS (5) CAD (coronary artery disease) Assessment/Plan: s/p cabg asa,plavix,lipitor Code(s): I25.10 - ATHSCL HEART DISEASE OF [place] CORONARY ARTERY W/O ANG PCTRS (6) Leukocytosis Code(s): D72.829 - ELEVATED WHITE BLOOD CELL COUNT, UNSPECIFIED
[2019-07-04] MEDS: PHENYTOIN NA EXTENDED 100 MG CAPSULE (FP) PO SCH ×2 (09:48→22:25)
[2019-07-04] MEDS: ASPIRIN 81 MG CHEWABLE TABLETS PO SCH (09:48)
[2019-07-04] MEDS: CLOPIDOGREL BISULFATE 75 MG TABLET (FP) PO SCH (09:48)
[2019-07-04] MEDS: TAMSULOSIN HCL 0.4 MG CAP PO SCH (09:48)
[2019-07-04] MEDS: HEPARIN NA (PORCINE) 5,000 UNITS/ML 1ML VIAL SQ SCH ×2 (09:48→22:23)
[2019-07-04] MEDS: CEFTRIAXONE 1 GM in DEXTROSE 5%-WATER - 50 ML IVPB SCH (09:49)
--- NOTE | 2019-07-04 10:50 | PN ---
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 (short form) - Note 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: s: no chest pain, palps, dizziness, dyspnea Current Medications Acetaminophen (Tylenol -) 650 mg PO Q6H PRN PRN Reason: PAIN LEVEL 1-5 Last Admin: 07/03/19 22:34 Dose: 650 mg Aspirin (Asa -) 81 mg PO DAILY [facility] Last Admin: 07/04/19 09:48 Dose: 81 mg Atorvastatin Calcium (Lipitor -) 40 mg PO HS [facility] Last Admin: 07/03/19 22:29 Dose: 40 mg Clopidogrel Bisulfate (Plavix -) 75 mg PO DAILY [facility] Last Admin: 07/04/19 09:48 Dose: 75 mg Heparin Sodium (Porcine) (Heparin -) 5,000 unit SQ BID [facility] Last Admin: 07/04/19 09:48 Dose: 5,000 unit Ceftriaxone Sodium 1 gm/ (Dextrose) 50 mls @ 100 mls/hr IVPB DAILY [facility]; Protocol Last Admin: 07/04/19 09:49 Dose: 100 mls/hr Insulin Aspart (Novolog Vial Sliding Scale -) 1 vial SQ ACHS [facility]; Protocol Last Admin: 07/04/19 07:13 Dose: Not Given Insulin Detemir (Levemir Vial) 12 units SQ AM [facility] Last Admin: 07/04/19 07:14 Dose: 12 units Melatonin (Melatonin) 3 mg PO [facility] Last Admin: 07/03/19 23:01 Dose: 3 mg Phenytoin Sodium (Dilantin -) 100 mg PO BID [facility] Last Admin: 07/04/19 09:48 Dose: 100 mg Tamsulosin HCl (Flomax -) 0.4 mg PO DAILY@0830 [facility] Last Admin: 07/04/19 09:48 Dose: 0.4 mg Vital Signs Period Temp Pulse Resp BP Sys/Esparza Pulse Ox Last 24 Hr 97.8 F-98.6 F 80-96 18-18 125-152/58-86 98-99 Constitutional: Yes: Well Nourished, No Distress, Calm Cardiovascular: Yes: Regular Rate and Rhythm, S1, S2. No: JVD, Gallop, Murmur Respiratory: Yes: Regular, CTA Bilaterally. No: Accessory Muscle Use Extremities: No: Cold Edema: No Neurological: Yes: Lethargy. No: Seizure Psychiatric: No: Agitated Assessment/Plan ecg: sr, as-vp project ct chest: clear lungs Echo: EF 40-45%, abn septal motion c/w aberrance conduction. nl RV. functional mitral stenosis sec to MAC. no . 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 fall, possible syncope: -details unclear -recent admit this month for similar thought to be from seizure--neuro process not expected currently per neurology consultation -recent echo w/o etiology. recent [facility] pacer check here w/o etiology -no signs chf or acs, trop neg x 2 -cont tele monitoring -check ortho vitals when/if can stand chronic syst chf: -hx of cardiomyopathy, EF 40-45% -stable vol status off lasix -prior admit this month tele showed paroxysms wide complex tach--reviewed with EP, likely paroxysmal atrial tach/PSVT (not suspicious for fib/flutter), now controlled -s/p BiV-ICD, normal function on company check here 06/29 ([facility]) -cont coreg, lisinopril, dig Known CAD, s/p SD and CABG: -no signs ACS here -cont coreg, lisinopril, asa, plavix, statin carotid stenosis - carotid doppler showed large plaque at R bifurcation/bulb with 70% stenosis to near occlusion, vascular consulted, CTA neck pending
[2019-07-04] MEDS: ACETAMINOPHEN 325 MG TABLET (FP) PO PRN (15:22)
--- NOTE | 2019-07-04 17:30 | CON.GU ---
Consult Consult Specialty:: Referred by:: Medicine Reason for Consultation:: urinary retention - History of Present Illness Chief Complaint: urinary retention History of Present Illness: pt admitted after a fall. was noted on US to in urinary retention. gates was placed. she has since removed it herself she denies any urinary problems. Her creatinine is normal. she is on flomax - History Source History Provided By: Patient, Medical Record - Past Medical History APPLICATION SERVICES MANAGER: Yes: Alzheimer's Cardio/Vascular: Yes: CAD, HTN, Other ([facility]) Renal/: No: Renal Failure, Renal Inusuff, BPH, Cancer, Hematuria, Hemodialysis , Neurogenic Bladder, Renal Calculi, UTI, Other ...: No - Alcohol/Substance Use Hx Alcohol Use: No - Smoking History Smoking history: Never smoked Have you smoked in the past 12 months: No - Social History History of Recent Travel: Yes ([place]) Home Medications - Allergies Allergies/Adverse Reactions: Allergies Allergy/AdvReac Type Severity Reaction Status Date / Time No Allergy Information Allergy Verified 06/30/19 08:37 Available - Home Medications Home Medications: Ambulatory Orders Clopidogrel Bisulfate [Clopidogrel] 75 mg PO DAILY 06/15/19 Digoxin [Lanoxin -] 0.125 mg PO DAILY 06/15/19 Lisinopril 10 mg PO DAILY 06/15/19 Memantine HCl 5 mg PO HS 06/15/19 Multivitamin [Multiple Vitamins] 1 each PO DAILY 06/15/19 Aspirin [ASA -] 81 mg PO DAILY #30 tab.chew 06/23/19 Carvedilol [Coreg -] 9.375 mg PO BID #60 tablet 06/23/19 Docusate Sodium [Colace -] 200 mg PO DAILY #30 capsule 06/23/19 Insulin Sliding Scale [Novolog Vial Sliding Scale -] 1 vial SQ TIDAC #30 units 06/23/19 Phenytoin Na Extended [Dilantin -] 100 mg PO BID #60 capsule 06/23/19 Tamsulosin HCl [Flomax -] 0.4 mg PO DAILY@0830 #30 cap.er.24h 06/23/19 Atorvastatin Ca [Lipitor] 40 mg PO HS #30 tablet 06/27/19 Insulin (Levemir) [Levemir Vial] 15 units SQ HS #30 units 06/27/19 Insulin (Levemir) [Levemir Vial] 20 units SQ AM #30 units 06/27/19 Polyethylene Glycol 3350 [Miralax 119 gm Btl -] 17 gm PO BID #2 bottle 06/27/19 Review of Systems - Review of Systems Genitourinary: reports: No Symptoms Physical Exam- Vital Signs: Vital Signs Temperature 97.9 F 07/04/19 14:00 Pulse Rate 100 H 07/04/19 14:00 Respiratory Rate 18 07/04/19 10:00 Blood Pressure 128/70 07/04/19 14:00 O2 Sat by Pulse Oximetry (%) 99 07/04/19 09:00 Kidneys: No: Flank Pain Left, FLank Pain Right Pelvis: No: Bladder Palpable Labs: CBC, BMP 07/04/19 06:30 07/03/19 05:43 Imaging - Results Ultrasound: Report Reviewed Problem List - Problems (1) Urinary retention Assessment/Plan: patient with high PVR but she is voiding, is without symptoms, and her creatinine is normal. agree with flomax and observation at this time. If any of the above change will intervene Code(s): R33.9 - RETENTION OF URINE, UNSPECIFIED
--- NOTE | 2019-07-04 20:01 | CONS ---
GASTROENTEROLOGY CONSULTATION DATE OF CONSULTATION: DATE OF DICTATION: 07/04/2019 Patient is an 84-year-old female, past medical history of dementia, CVA, [place], bypass surgery, pacemaker, hypertension, hyperlipidemia, diabetes, CHF, who was admitted to the hospital after having a fall. It was an unwitnessed fall at the intermediate facility. She is being worked up for syncope. During the course, she developed epigastric abdominal pain. She denies any nausea, vomiting, diarrhea, constipation, blood in the stool, or reflux. As per the staff, she has not had any episodes of vomiting or diarrhea. HPI is limited secondary to her dementia. She has not had a recent endoscopic examination. PAST MEDICAL AND SURGICAL HISTORY: As listed in the HPI. ALLERGIES: No known drug allergies. SOCIAL HISTORY: Does not drink, smoke, or use drugs. FAMILY HISTORY: Noncontributory. HOME MEDICATIONS: Reviewed, include clopidogrel, digoxin, lisinopril, amantadine, multivitamin, aspirin, carvedilol, Colace, NovoLog, Dilantin, Flomax, Lipitor, Levemir, and MiraLAX. REVIEW OF SYSTEMS: As per the HPI. PHYSICAL EXAMINATION: Vital Signs: Temperature 97, pulse 90, respiratory rate 12, blood pressure 139/ 74, oxygen saturation 99% on room air. General: No acute distress. HEENT: Anicteric sclerae. Cardiovascular: S1, S2. Regular rate and rhythm. Lungs: Bilaterally clear to auscultation. Abdomen: Soft, nontender. Extremities: No edema. LABORATORY DATA: White blood cell count 7.2, hemoglobin 8.5 and hematocrit 25, MCV 88, platelet count 396. INR 0.92. Chemistries pending. Urine: Blood 1+. Cultures of the urine are negative. She has not had any abdominal imaging during this hospitalization. IMPRESSION: Epigastric abdominal pain, rule out biliary etiology versus primary gastric etiology secondary to non-steroidal anti-inflammatory drug gastropathy or peptic ulcer disease. RECOMMEND: Abdominal ultrasound to evaluate the biliary tree; Protonix 40 mg p.o. daily, diet as tolerated. If her symptoms do not improve, a diagnostic upper endoscopy can be done once the acute process has resolved. Would avoid additional NSAID. Further recommendation pending imaging results. DO MYLENE HINDS/[id number] MTDD
[2019-07-04] MEDS ORDERED: FAMOTIDINE 20 MG/50 ML IVPB 20 MG/50 ML MG IVPB SCH (22:00)
[2019-07-04] MEDS: ATORVASTATIN CA 40 MG TABLET (FP) PO SCH (22:23)
[2019-07-04] MEDS: FAMOTIDINE 20 MG/50 ML IVPB 20 MG/50 ML MG IVPB SCH (22:52)
[2019-07-05] MEDS: MELATONIN 1 MG TABLET PO SCH ×2 (00:15→22:38)
[2019-07-05] MEDS: INSULIN SLIDING SCALE (NOVOLOG) 1 VIAL SQ SCH ×4 (06:06→22:40)
[2019-07-05] MEDS: INSULIN (LEVEMIR) 100 UNITS/ML UNITS SQ SCH (06:06)
[2019-07-05] MEDS ORDERED: cefTRIAXone SODIUM 1 GM VIAL ONE (09:11)
[2019-07-05] MEDS ORDERED: DEXTROSE 5%-WATER - 50 ML IVPB ONE (09:11)
[2019-07-05] MEDS: CLOPIDOGREL BISULFATE 75 MG TABLET (FP) PO SCH (09:41)
[2019-07-05] MEDS: ASPIRIN 81 MG CHEWABLE TABLETS PO SCH (09:41)
[2019-07-05] MEDS: TAMSULOSIN HCL 0.4 MG CAP PO SCH (09:41)
[2019-07-05 09:42] LABS: BASO % 0.5 % (0-2.0); EOS % 3.1 % (0-4.5); HEMATOCRIT 28.1 % (32.4-45.2); HEMOGLOBIN 9.3 GM/dL (10.7-15.3); LYMPH % 22.6 % (8-40); MCH 29.5 pg (25.7-33.7); MCHC 33.2 g/dl (32.0-36.0); MEAN CELL VOLUME 88.8 fl (80-96); MEAN PLT VOLUME 6.6 fl (7.5-11.1); MONO % 5.7 % (3.8-10.2); NEUT % 68.1 % (42.8-82.8); PLATELET COUNT 456 K/MM3 (134-434); RBC 3.16 M/mm3 (3.60-5.2); RDW 15.2 % (11.6-15.6); WHITE BLOOD COUNT 7.7 K/mm3 (4.0-10.0)
[2019-07-05] MEDS: CEFTRIAXONE 1 GM in DEXTROSE 5%-WATER - 50 ML IVPB SCH (09:42)
[2019-07-05] MEDS: HEPARIN NA (PORCINE) 5,000 UNITS/ML 1ML VIAL SQ SCH ×2 (09:43→22:37)
[2019-07-05] MEDS: FAMOTIDINE 20 MG/50 ML IVPB 20 MG/50 ML MG IVPB SCH (09:43)
--- NOTE | 2019-07-05 09:50 | PN ---
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 (short form) - Note 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: Exam unchanged. CTA shows 50% stenosis of the proximal right ICA with a severe kink in the mid ICA. Imp: Right carotid disease with moderate stenosis and severe kink. While this may be associated with TIA and stroke, the current episode does not appear to be a TIA. Given the patient's other co-morbidities, I would not recommend carotid surgery in the absence of clear-cut indication of TIA or minor stroke. Rec: Continue best medical therapy with dual antiplatelet and statin. . Problem List - Problems (1) Carotid stenosis Code(s): I65.29 - OCCLUSION AND STENOSIS OF UNSPECIFIED CAROTID ARTERY Qualifiers: Laterality: right Qualified Code(s): I65.21 - Occlusion and stenosis of right carotid artery
[2019-07-05] MEDS ORDERED: PT OWN MED DRAWER 7, Y5N ONE ×2 (09:52→18:09)
[2019-07-05] MEDS: PHENYTOIN NA EXTENDED 100 MG CAPSULE (FP) PO SCH ×2 (09:52→22:38)
--- NOTE | 2019-07-05 10:24 | PN ---
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, Physician - Current Medication List Current Medications: Active Medications Acetaminophen (Tylenol -) 650 mg PO Q6H PRN PRN Reason: PAIN LEVEL 1-5 Last Admin: 07/04/19 15:22 Dose: 650 mg Aspirin (Asa -) 81 mg PO DAILY [facility] Last Admin: 07/05/19 09:41 Dose: 81 mg Atorvastatin Calcium (Lipitor -) 40 mg PO HS [facility] Last Admin: 07/04/19 22:23 Dose: 40 mg Clopidogrel Bisulfate (Plavix -) 75 mg PO DAILY [facility] Last Admin: 07/05/19 09:41 Dose: 75 mg Heparin Sodium (Porcine) (Heparin -) 5,000 unit SQ BID [facility] Last Admin: 07/05/19 09:43 Dose: 5,000 unit Ceftriaxone Sodium 1 gm/ (Dextrose) 50 mls @ 100 mls/hr IVPB DAILY [facility]; Protocol Last Admin: 07/05/19 09:42 Dose: 100 mls/hr Famotidine/Sodium Chloride (Pepcid 20 Mg Premixed Ivpb -) 20 mg in 50 mls @ 100 mls/hr IVPB BID [facility] Famotidine/Sodium Chloride (Pepcid 20 Mg Premixed Ivpb -) 20 mg in 50 mls @ 100 mls/hr IVPB BID [facility] Stop: 07/05/19 10:29 Last Admin: 07/05/19 09:43 Dose: 100 mls/hr Insulin Aspart (Novolog Vial Sliding Scale -) 1 vial SQ ACHS [facility]; Protocol Last Admin: 07/05/19 06:06 Dose: Not Given Insulin Detemir (Levemir Vial) 12 units SQ AM [facility] Last Admin: 07/05/19 06:06 Dose: Not Given Melatonin (Melatonin) 3 mg PO HS [facility] Last Admin: 07/05/19 00:15 Dose: 3 mg Phenytoin Sodium (Dilantin -) 100 mg PO BID [facility] Last Admin: 07/05/19 09:52 Dose: 100 mg Tamsulosin HCl (Flomax -) 0.4 mg PO DAILY@0830 [facility] Last Admin: 07/05/19 09:41 Dose: 0.4 mg - Objective Vital Signs: Vital Signs Temperature 97.9 F 07/05/19 05:46 Pulse Rate 92 H 07/05/19 05:46 Respiratory Rate 18 07/05/19 05:46 Blood Pressure 132/69 07/05/19 05:46 O2 Sat by Pulse Oximetry (%) 95 07/04/19 20:57 Cardiovascular: Yes: S1, S2 Respiratory: Yes: Regular, CTA Bilaterally Gastrointestinal: Yes: Normal Bowel Sounds, Soft Labs: CBC, BMP 07/05/19 09:25 07/03/19 05:43 INR, PTT INR 0.92 (0.83-1.09) 07/01/19 05:40 Assessment/Plan - Problems (1) Syncope Assessment/Plan: tele cardio/neurology consult appreciated echo carotid doppler large plaque at right common carotid bifurcation-vasc noted medical management PT dc iv hydration trend CK Blood pressure on low side carmelo hold anti HTN for now dvt ppx Code(s): R55 - SYNCOPE AND COLLAPSE (2) Urinary retention Assessment/Plan: bladder sono- over distended bladder ua/urine culture-complaining dysuria- started in [place] urine culture negative urology evalation -dc gates cath--no further intervention Monitor retention Code(s): R33.9 - RETENTION OF URINE, UNSPECIFIED (3) Diabetes Assessment/Plan: bgm sliding scale insulin hgba1c 13.4 endocrine on board Code(s): E11.9 - TYPE 2 DIABETES MELLITUS WITHOUT COMPLICATIONS Qualifiers: Diabetes mellitus type: type 2 (4) Seizures Assessment/Plan: dilantin Code(s): R56.9 - UNSPECIFIED CONVULSIONS (5) CAD (coronary artery disease) Assessment/Plan: s/p cabg asa,plavix,lipitor Code(s): I25.10 - ATHSCL HEART DISEASE OF [place] CORONARY ARTERY W/O ANG PCTRS (6) Leukocytosis resolve Laboratory Tests 06/30/19 07/01/19 07/05/19 09:07 05:40 09:25 WBC 11.5 H 9.8 7.7 Code(s): D72.829 - ELEVATED WHITE BLOOD CELL COUNT, UNSPECIFIED (7) Carotid Stenosis Assessment/Plan: vasc noted asa,plavix,lipitor (8) Anemia Assessment/Plan: improved today GI consult once pt evaluated by gi will plan for dc to snf--fredo
--- NOTE | 2019-07-05 11:03 | PN ---
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 (short form) - Note 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: s: no chest pain, palps, dizziness, dyspnea Current Medications Acetaminophen (Tylenol -) 650 mg PO Q6H PRN PRN Reason: PAIN LEVEL 1-5 Last Admin: 07/04/19 15:22 Dose: 650 mg Aspirin (Asa -) 81 mg PO DAILY [facility] Last Admin: 07/05/19 09:41 Dose: 81 mg Atorvastatin Calcium (Lipitor -) 40 mg PO HS [facility] Last Admin: 07/04/19 22:23 Dose: 40 mg Clopidogrel Bisulfate (Plavix -) 75 mg PO DAILY [facility] Last Admin: 07/05/19 09:41 Dose: 75 mg Heparin Sodium (Porcine) (Heparin -) 5,000 unit SQ BID [facility] Last Admin: 07/05/19 09:43 Dose: 5,000 unit Insulin Aspart (Novolog Vial Sliding Scale -) 1 vial SQ ACHS [facility]; Protocol Last Admin: 07/05/19 06:06 Dose: Not Given Insulin Detemir (Levemir Vial) 12 units SQ AM [facility] Last Admin: 07/05/19 06:06 Dose: Not Given Melatonin (Melatonin) 3 mg PO [facility] Last Admin: 07/05/19 00:15 Dose: 3 mg Phenytoin Sodium (Dilantin -) 100 mg PO BID [facility] Last Admin: 07/05/19 09:52 Dose: 100 mg Ranitidine HCl (Zantac -) 150 mg PO BID [facility] Tamsulosin HCl (Flomax -) 0.4 mg PO DAILY@0830 [facility] Last Admin: 07/05/19 09:41 Dose: 0.4 mg Vital Signs Period Temp Pulse Resp BP Sys/Esparza Pulse Ox Last 24 Hr 97.9 F-98.9 F 86-100 18-18 128-139/52-74 95 Constitutional: Yes: Well Nourished, No Distress, Calm Cardiovascular: Yes: Regular Rate and Rhythm, S1, S2. No: JVD, Gallop, Murmur Respiratory: Yes: Regular, CTA Bilaterally. No: Accessory Muscle Use Extremities: No: Cold Edema: No Neurological: Yes: Lethargy. No: Seizure Psychiatric: No: Agitated Assessment/Plan ecg: sr, as-vp purchasing ct chest: clear lungs Echo: EF 40-45%, abn septal motion c/w aberrance conduction. nl RV. functional mitral stenosis sec to MAC. no . 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 fall, possible syncope: -details unclear -recent admit this month for similar thought to be from seizure--neuro process not expected currently per neurology consultation -recent echo w/o etiology. recent [facility] pacer check here w/o etiology -no signs chf or acs, trop neg x 2 -cont tele monitoring -check ortho vitals when/if can stand chronic syst chf: -hx of cardiomyopathy, EF 40-45% -stable vol status off lasix -prior admit this month tele showed paroxysms wide complex tach--reviewed with EP, likely paroxysmal atrial tach/PSVT (not suspicious for fib/flutter), now controlled -s/p BiV-ICD, normal function on company check here 06/29 ([facility]) -cont coreg, lisinopril, dig Known CAD, s/p [place] and CABG: -no signs ACS here -cont coreg, lisinopril, asa, plavix, statin carotid stenosis - carotid doppler showed large plaque at R bifurcation/bulb with 70% stenosis to near occlusion, CTA neck prox R ICA 50% stenosis - vascular consulted, medical management recommended
[2019-07-05] MEDS: RANITIDINE HCL 150 MG TABLET (FP) PO SCH ×2 (12:48→22:37)
--- NOTE | 2019-07-05 15:05 | PN.GI ---
GI 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 Subjective: Pt seen/examined at bedside, pts sister and grandson also present. Pt feeling better, had reported epigastric pain now denies further pain. Tolerating diet, denies nausea/vomiting. - Objective Vital Signs: Vital Signs Temperature 97.5 F L 07/05/19 10:00 Pulse Rate 113 H 07/05/19 10:00 Respiratory Rate 22 H 07/05/19 10:00 Blood Pressure 143/80 07/05/19 10:00 O2 Sat by Pulse Oximetry (%) 96 07/05/19 09:00 Constitutional: No Distress, Calm, Cachectic Cardiovascular: Yes: WNL, Regular Rate and Rhythm Respiratory: Yes: WNL, Regular, CTA Bilaterally ...Palpate: Yes: Other (Abd soft, nt, nd) Labs: CBC, BMP 07/05/19 09:25 07/03/19 05:43 INR, PTT INR 0.92 (0.83-1.09) 07/01/19 05:40 Problem List - Problems (1) Epigastric pain Assessment/Plan: 84yo female h/o alzheimer's dementia, CVA, CAD s/p CABG, pacemaker on ASA/Plavix , DM, CHF presenting after a fall asked to evaluate for epigastric pain. No further abdominal pain reported. Tolerating diet. Abd US without gallbladder/ biliary abnormalities. LFTs normal. Iron deficiency anemia noted, pt does not recall prior endoscopy. -Discussed with pt/pts sister risks/benefits of endoscopic evaluation for iron deficiency anemia to exclude vascular abnormalities, ulcer disease, malignancy, they verbalize understanding and decline at his time. Potential for missed lesions discussed and they still do not want to pursue. Advised to inform if would like to readdress. -Continue diet as tolerated -PPI daily for GI prophylaxis -Syncope workup per primary team -Please call GI if any questions/concerns Code(s): R10.13 - EPIGASTRIC PAIN
[2019-07-05] MEDS: ACETAMINOPHEN 325 MG TABLET (FP) PO PRN (16:05)
[2019-07-05] MEDS: ATORVASTATIN CA 40 MG TABLET (FP) PO SCH (22:37)
[2019-07-06] MEDS: INSULIN (LEVEMIR) 100 UNITS/ML UNITS SQ SCH (06:38)
[2019-07-06] MEDS: INSULIN SLIDING SCALE (NOVOLOG) 1 VIAL SQ SCH ×4 (06:39→21:40)
[2019-07-06] MEDS: TAMSULOSIN HCL 0.4 MG CAP PO SCH (10:42)
[2019-07-06] MEDS: ASPIRIN 81 MG CHEWABLE TABLETS PO SCH (10:42)
[2019-07-06] MEDS: PHENYTOIN NA EXTENDED 100 MG CAPSULE (FP) PO SCH ×2 (10:43→21:28)
[2019-07-06] MEDS: CLOPIDOGREL BISULFATE 75 MG TABLET (FP) PO SCH (10:43)
[2019-07-06] MEDS: HEPARIN NA (PORCINE) 5,000 UNITS/ML 1ML VIAL SQ SCH ×2 (10:43→21:28)
[2019-07-06] MEDS: RANITIDINE HCL 150 MG TABLET (FP) PO SCH ×2 (10:46→21:28)
--- NOTE | 2019-07-06 12:51 | PN ---
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 (short form) - Note 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: s: no chest pain, palps, dizziness, dyspnea Current Medications Generic Name Dose Route Start Last Admin Trade Name Freq PRN Reason Stop Dose Admin Acetaminophen 650 mg 07/02/19 19:07 07/05/19 16:05 Tylenol - PO 650 mg Q6H PRN Administration PAIN LEVEL 1-5 Aspirin 81 mg 07/01/19 10:00 07/06/19 10:42 Asa - PO 81 mg DAILY [facility] Administration Atorvastatin Calcium 40 mg 06/30/19 22:00 07/05/19 22:37 Lipitor - PO 40 mg HS [facility] Administration Clopidogrel Bisulfate 75 mg 07/01/19 10:00 07/06/19 10:43 Plavix - PO 75 mg DAILY [facility] Administration Heparin Sodium (Porcine) 5,000 unit 06/30/19 22:00 07/06/19 10:43 Heparin - SQ 5,000 unit BID [facility] Administration Insulin Aspart 1 vial 07/01/19 20:56 07/06/19 06:39 Novolog Vial Sliding Scale - SQ Not Given ACHS [facility] Protocol Insulin Detemir 12 units 07/02/19 07:00 07/06/19 06:38 Levemir Vial SQ 12 units AM [facility] Administration Melatonin 3 mg 07/03/19 01:15 07/05/19 22:38 Melatonin PO 3 mg HS [facility] Administration Phenytoin Sodium 100 mg 06/30/19 22:00 07/06/19 10:43 Dilantin - PO 100 mg BID [facility] Administration Ranitidine HCl 150 mg 07/05/19 10:30 07/06/19 10:46 Zantac - PO 150 mg BID [facility] Administration Tamsulosin HCl 0.4 mg 07/01/19 08:30 07/06/19 10:42 Flomax - PO 0.4 mg DAILY@0830 [facility] Administration Vital Signs Period Temp Pulse Resp BP Sys/Esparza Pulse Ox Last 24 Hr 97.2 F-98.5 F 78-119 18-22 127-149/52-80 98 Constitutional: Yes: Well Nourished, No Distress, Calm Cardiovascular: Yes: Regular Rate and Rhythm, S1, S2. No: JVD, Gallop, Murmur Respiratory: Yes: Regular, CTA Bilaterally. 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 nl RV. functional mitral stenosis sec to MAC. no . 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 fall, possible syncope: -details unclear -recent admit this month for similar thought to be from seizure--neuro process not expected currently per neurology consultation -recent echo w/o etiology. recent [facility] pacer check here w/o etiology -no signs chf or acs, trop neg x 2 -tele benign -check ortho vitals when/if can stand chronic syst chf: -hx of cardiomyopathy, EF 40-45% -stable vol status off lasix -prior admit this month tele showed paroxysms wide complex tach--reviewed with EP, likely paroxysmal atrial tach/PSVT (not suspicious for fib/flutter), now controlled -s/p BiV-ICD, normal function on company check here 06/29 ([facility]) -cont coreg, lisinopril, dig Known CAD, s/p [place] and CABG: -no signs ACS here -cont coreg, lisinopril, asa, plavix, statin carotid stenosis - carotid doppler showed large plaque at R bifurcation/bulb with 70% stenosis to near occlusion, CTA neck prox R ICA 50% stenosis - vascular consulted, medical management recommended
--- NOTE | 2019-07-06 15:19 | DS ---
Physical Examination Vital Signs: Vital Signs Temperature 97.2 F L 07/06/19 09:00 Pulse Rate 78 07/06/19 09:00 Respiratory Rate 22 H 07/06/19 09:00 Blood Pressure 127/80 07/06/19 09:00 O2 Sat by Pulse Oximetry (%) 98 07/05/19 21:00 Constitutional: Yes: Calm Cardiovascular: Yes: Regular Rate and Rhythm, S1, S2 Respiratory: Yes: CTA Bilaterally Neurological: Yes: Alert, Oriented Labs: CBC, BMP 07/05/19 09:25 07/03/19 05:43 Discharge Summary Problems reviewed: Yes Reason For Visit: SYNCOPE Current Active Problems CAD (coronary artery disease) (Acute) CVA, old, cognitive deficits (Acute) Carotid stenosis (Acute) Dementia (Acute) Diabetes (Acute) Epigastric pain (Acute) Head trauma (Acute) Leukocytosis (Acute) Syncope (Acute) UTI (urinary tract infection) (Acute) Other Procedures: CTA neck shows 50% stenosis in MIGUEL. echo: global hypokinesis of left ventricle with ejection frction 45-50% Hospital Course: 84 F with a PMH of Dementia, Stroke, [place], CABG, Pacemaker, HTN, HLD, DM, CHF, who presents to the ER after having a fall. Per NH, pt was found in the bathroom on the floor in the position this morning after having an unwitnessed fall. Pt does not recall the event completely and believes she may have fallen 4 days ago. She states that she was "dizzy" which she describes as a room spinning sensation, which then caused her to fall. She denies any acute complaints. Is unsure of LOC or if she struck her head although she sustained an injury to her lip after the fall. in ER patient got head and neck CT scan anemia: iron deficinecy anemia GI saw patient ,patient refused EGD vascular saw patient as well no indication of carotid surgery right now asa, plavix and statin neurology and cardiology both saw patient Condition: Guarded - Instructions Disposition: VNS/HOME HEALTH CARE - Home Medications Comprehensive Discharge Medication List: Ambulatory Orders Clopidogrel Bisulfate [Clopidogrel] 75 mg PO DAILY 06/15/19 Digoxin [Lanoxin -] 0.125 mg PO DAILY 06/15/19 Lisinopril 10 mg PO DAILY 06/15/19 Memantine HCl 5 mg PO HS 06/15/19 Multivitamin [Multiple Vitamins] 1 each PO DAILY 06/15/19 Aspirin [ASA -] 81 mg PO DAILY #30 tab.chew 06/23/19 Carvedilol [Coreg -] 9.375 mg PO BID #60 tablet 06/23/19 Docusate Sodium [Colace -] 200 mg PO DAILY #30 capsule 06/23/19 Insulin Sliding Scale [Novolog Vial Sliding Scale -] 1 vial SQ TIDAC #30 units 06/23/19 Phenytoin Na Extended [Dilantin -] 100 mg PO BID #60 capsule 06/23/19 Tamsulosin HCl [Flomax -] 0.4 mg PO DAILY@829 #30 cap.er.24h 06/23/19 Atorvastatin Ca [Lipitor] 40 mg PO HS #30 tablet 06/27/19 Insulin (Levemir) [Levemir Vial] 15 units SQ HS #30 units 06/27/19 Insulin (Levemir) [Levemir Vial] 20 units SQ AM #30 units 06/27/19 Polyethylene Glycol 3350 [Miralax 119 gm Btl -] 17 gm PO BID #2 bottle 06/27/19
[2019-07-06] MEDS: ATORVASTATIN CA 40 MG TABLET (FP) PO SCH (21:28)
[2019-07-06] MEDS: ACETAMINOPHEN 325 MG TABLET (FP) PO PRN (21:30)
[2019-07-06] MEDS: MELATONIN 1 MG TABLET PO SCH (21:54)
[2019-07-07] MEDS: INSULIN SLIDING SCALE (NOVOLOG) 1 VIAL SQ SCH ×2 (06:35→11:34)
[2019-07-07] MEDS: INSULIN (LEVEMIR) 100 UNITS/ML UNITS SQ SCH (06:35)
--- NOTE | 2019-07-07 08:49 | PN ---
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 (short form) - Note 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: Neurology - Admission History of Present Illness: 84 F with a PMH of Dementia, Stroke, [place], CABG, Pacemaker, HTN, HLD, DM, CHF, who presents to the ER after having a fall. Per NH, pt was found in the bathroom on the floor in the position morning of admission after having an unwitnessed fall. Pt does not recall the event completely and believes she may have fallen 4 days ago. She states that she was "dizzy" which she describes as a room spinning sensation, which then caused her to fall. She denies any acute complaints. Is unsure of LOC or if she struck her head although she sustained an injury to her lip after the fall. Head CT multilevel degenerative disc disease and air-fluid level right maxillary atrium consistent with sinusitis. Carotid Doppler completed, large plaque with calcifications at the right common bifurcation with 70% stenosis to near occlusion; moderate to large calcified plaque at the left common bifurcation without hemodynamic significant stenosis. Family at bedside and discussed case. She was living in [place] previously and they are not sure of her medication regiment especially as it pertains to seizures since she is on Dilantin. Advised that would not change medication at this time. Remains on ASA and Plavix. CTA neck completed with 50 to 70% stenosis, vascular evaluationdone by Dr. Parish for advised medical management. Echo also completed and reviewed, cardiology following Patient possibly for discharge today, no objection to this and neurologically remained stable Active Medications Acetaminophen (Tylenol -) 650 mg PO Q6H PRN PRN Reason: PAIN LEVEL 1-5 Last Admin: 07/06/19 21:30 Dose: 650 mg Aspirin (Asa -) 81 mg PO DAILY [facility] Last Admin: 07/06/19 10:42 Dose: 81 mg Atorvastatin Calcium (Lipitor -) 40 mg PO HS [facility] Last Admin: 07/06/19 21:28 Dose: 40 mg Clopidogrel Bisulfate (Plavix -) 75 mg PO DAILY [facility] Last Admin: 07/06/19 10:43 Dose: 75 mg Heparin Sodium (Porcine) (Heparin -) 5,000 unit SQ BID [facility] Last Admin: 07/06/19 21:28 Dose: 5,000 unit Insulin Aspart (Novolog Vial Sliding Scale -) 1 vial SQ ACHS [facility]; Protocol Last Admin: 07/07/19 06:35 Dose: 3 units Insulin Detemir (Levemir Vial) 12 units SQ AM [facility] Last Admin: 07/07/19 06:35 Dose: 12 units Melatonin (Melatonin) 3 mg PO HS [facility] Last Admin: 07/06/19 21:54 Dose: 3 mg Phenytoin Sodium (Dilantin -) 100 mg PO BID [facility] Last Admin: 07/06/19 21:28 Dose: 100 mg Ranitidine HCl (Zantac -) 150 mg PO BID [facility] Last Admin: 07/06/19 21:28 Dose: 150 mg Tamsulosin HCl (Flomax -) 0.4 mg PO DAILY@0830 [facility] Last Admin: 07/06/19 10:42 Dose: 0.4 mg Physical Examination Vital Signs: Vital Signs Period Temp Pulse Resp BP Sys/Esparza Pulse Ox Last 24 Hr 97.2 F-99 F 78-119 18-22 124-139/66-81 98-99 Gen: Awake, alert, responds to questions Card: RRR, nml S1,S2 Resp: Normal symmetric effort, lungs clear to auscultation Abdomen: Soft, nontender, bowel sounds active Musculoskeletal: Adequate range of motion without significant deformity Head atraumatic and normocephalic CN: PERRL, EOMI intact, no apparent facial droop, no abnormalities in facial sensation, palate elevates, uvula and tongue midline Motor: Full strength to confrontation in upper and lower extermities proximally and distally. Tone normal throughout Sensory: Intact to Temperature, light touch, and pinprick in all extremities Reflexes: 2+ biceps, brachioradialis, patellar, achillies Coordination: Intact on vltlea-gril-tlfxdt testing CBCD WBC 7.7 K/mm3 (4.0-10.0) 07/05/19 09:25 RBC 3.16 M/mm3 (3.60-5.2) L 07/05/19 09:25 Hgb 9.3 GM/dL (10.7-15.3) L 07/05/19 09:25 Hct 28.1 % (32.4-45.2) L 07/05/19 09:25 MCV 88.8 fl (80-96) 07/05/19 09:25 MCHC 33.2 g/dl (32.0-36.0) 07/05/19 09:25 RDW 15.2 % (11.6-15.6) 07/05/19 09:25 Plt Count 456 K/MM3 (134-434) H 07/05/19 09:25 MPV 6.6 fl (7.5-11.1) L 07/05/19 09:25 CMP Sodium 140 mmol/L (136-145) 07/03/19 05:43 Potassium 4.0 mmol/L (3.5-5.1) 07/03/19 05:43 Chloride 107 mmol/L (98-107) 07/03/19 05:43 Carbon Dioxide 25 mmol/L (21-32) 07/03/19 05:43 Anion Gap 8 MMOL/L (8-16) 07/03/19 05:43 BUN 15.1 mg/dL (7-18) 07/03/19 05:43 Creatinine 0.9 mg/dL (0.55-1.3) 07/03/19 05:43 Random Glucose 126 mg/dL (74-106) H 07/03/19 05:43 Calcium 10.1 mg/dL (8.5-10.1) 07/03/19 05:43 Total Bilirubin 0.3 mg/dL (0.2-1) 07/03/19 05:43 AST 24 U/L (15-37) 07/03/19 05:43 ALT 29 U/L (13-61) 07/03/19 05:43 Alkaline Phosphatase 80 U/L (45-117) 07/03/19 05:43 Total Protein 6.8 g/dl (6.4-8.2) 07/03/19 05:43 Albumin 3.0 g/dl (3.4-5.0) L 07/03/19 05:43 CARDIAC ENZYMES Creatine Kinase 78 U/L (26-192) 07/03/19 05:43 Troponin I 0.04 ng/ml (0.00-0.05) 07/01/19 05:40 Plan/Assessment 84 F with a PMH of Dementia, Stroke, MD, CABG, Pacemaker, HTN, HLD, DM, CHF, who presents to the ER after having a fall. Per NH, pt was found in the bathroom on the floor in the position morning of admission after having an unwitnessed fall. Pt does not recall the event completely and believes she may have fallen 4 days ago. She states that she was "dizzy" which she describes as a room spinning sensation, which then caused her to fall. She denies any acute complaints. Is unsure of LOC or if she struck her head although she sustained an injury to her lip after the fall. Head CT multilevel degenerative disc disease and air-fluid level right maxillary atrium consistent with sinusitis. Carotid Doppler completed, Carotid Doppler completed, large plaque with calcifications at the right common bifurcation with 70% stenosis to near occlusion; moderate to large calcified plaque at the left common bifurcation without hemodynamic significant stenosis. Family at bedside and discussed case. She was living in [place] previously and they are not sure of her medication regiment especially as it pertains to seizures since she is on Dilantin. Advised that would not change medication at this time. Remains on ASA and Plavix. CTA neck completed with 50 to 70% stenosis, vascular evaluationdone by Dr. Parish for advised medical management. Echo also completed and reviewed , cardiology following Patient possibly for discharge today, no objection to this and neurologically remained stable. Physical therapy as tolerated. fall precautions
--- NOTE | 2019-07-07 09:18 | PN ---
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, Physician Chief Complaint: comfortable Denies CP, SOB, palps - Current Medication List Current Medications: Active Medications Acetaminophen (Tylenol -) 650 mg PO Q6H PRN PRN Reason: PAIN LEVEL 1-5 Last Admin: 07/06/19 21:30 Dose: 650 mg Aspirin (Asa -) 81 mg PO DAILY [facility] Last Admin: 07/06/19 10:42 Dose: 81 mg Atorvastatin Calcium (Lipitor -) 40 mg PO HS [facility] Last Admin: 07/06/19 21:28 Dose: 40 mg Clopidogrel Bisulfate (Plavix -) 75 mg PO DAILY [facility] Last Admin: 07/06/19 10:43 Dose: 75 mg Heparin Sodium (Porcine) (Heparin -) 5,000 unit SQ BID [facility] Last Admin: 07/06/19 21:28 Dose: 5,000 unit Insulin Aspart (Novolog Vial Sliding Scale -) 1 vial SQ ACHS [facility]; Protocol Last Admin: 07/07/19 06:35 Dose: 3 units Insulin Detemir (Levemir Vial) 12 units SQ AM [facility] Last Admin: 07/07/19 06:35 Dose: 12 units Melatonin (Melatonin) 3 mg PO HS [facility] Last Admin: 07/06/19 21:54 Dose: 3 mg Phenytoin Sodium (Dilantin -) 100 mg PO BID [facility] Last Admin: 07/06/19 21:28 Dose: 100 mg Ranitidine HCl (Zantac -) 150 mg PO BID [facility] Last Admin: 07/06/19 21:28 Dose: 150 mg Tamsulosin HCl (Flomax -) 0.4 mg PO DAILY@0830 [facility] Last Admin: 07/06/19 10:42 Dose: 0.4 mg - Objective Vital Signs: Vital Signs Temperature 98.5 F 07/07/19 06:00 Pulse Rate 93 H 07/07/19 06:00 Respiratory Rate 20 07/07/19 06:00 Blood Pressure 132/81 07/07/19 06:00 O2 Sat by Pulse Oximetry (%) 99 07/06/19 21:00 Constitutional: Yes: No Distress, Calm Eyes: Yes: Conjunctiva Clear Cardiovascular: Yes: Regular Rate and Rhythm Respiratory: Yes: CTA Bilaterally Gastrointestinal: Yes: Soft Edema: No Neurological: Yes: Alert, Oriented Labs: CBC, BMP 07/05/19 09:25 07/03/19 05:43 INR, PTT INR 0.92 (0.83-1.09) 07/01/19 05:40 - ....Imaging EKG: Image Reviewed Assessment/Plan Assessment/Plan 84 year old female with a past medical history of Alzheimer's dementia, stroke, [place] s/p bypass and pacemaker on Plavix, HTN, HLD, DM, CHF, who presented to the ED after having a fall. fall, possible syncope: -details unclear -recent admit this month for similar thought to be from seizure--neuro process not expected currently per neurology consultation -recent echo w/o etiology. recent [facility] pacer check here w/o etiology -no signs chf or acs, trop neg x 2 -tele benign -check ortho vitals when/if can stand chronic syst chf: -hx of cardiomyopathy, EF 40-45% -stable vol status off lasix -prior admit this month tele showed paroxysms wide complex tach--reviewed with EP, likely paroxysmal atrial tach/PSVT (not suspicious for fib/flutter), now controlled -s/p BiV-ICD, normal function on company check here 06/29 ([facility]) -cont coreg, lisinopril, dig Known CAD, s/p KS and CABG: -no signs ACS here -cont coreg, lisinopril, asa, plavix, statin carotid stenosis - carotid doppler showed large plaque at R bifurcation/bulb with 70% stenosis to near occlusion, CTA neck prox R ICA 50% stenosis - vascular consulted, medical management recommended
[2019-07-07] MEDS ORDERED: PT OWN MED DRAWER 7, Y5N ONE (09:58)
[2019-07-07] MEDS: CLOPIDOGREL BISULFATE 75 MG TABLET (FP) PO SCH (10:42)
[2019-07-07] MEDS: ASPIRIN 81 MG CHEWABLE TABLETS PO SCH (10:42)
[2019-07-07] MEDS: HEPARIN NA (PORCINE) 5,000 UNITS/ML 1ML VIAL SQ SCH ×2 (10:42→11:26)
[2019-07-07] MEDS: TAMSULOSIN HCL 0.4 MG CAP PO SCH (10:42)
[2019-07-07] MEDS: PHENYTOIN NA EXTENDED 100 MG CAPSULE (FP) PO SCH (10:42)
[2019-07-07] MEDS: RANITIDINE HCL 150 MG TABLET (FP) PO SCH (10:42)
[2019-07-07] MEDS ORDERED: INSULIN (NOVOLOG) ASPART 100 UNITS/ML 10ML VIAL ONE (11:36)
--- NOTE | 2019-07-07 12:41 | PN ---
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, Physician Chief Complaint: patient seen and examined ready for discharge today - Current Medication List Current Medications: Active Medications Acetaminophen (Tylenol -) 650 mg PO Q6H PRN PRN Reason: PAIN LEVEL 1-5 Last Admin: 07/06/19 21:30 Dose: 650 mg Aspirin (Asa -) 81 mg PO DAILY [facility] Last Admin: 07/07/19 10:42 Dose: 81 mg Atorvastatin Calcium (Lipitor -) 40 mg PO HS [facility] Last Admin: 07/06/19 21:28 Dose: 40 mg Clopidogrel Bisulfate (Plavix -) 75 mg PO DAILY [facility] Last Admin: 07/07/19 10:42 Dose: 75 mg Heparin Sodium (Porcine) (Heparin -) 5,000 unit SQ BID [facility] Last Admin: 07/07/19 11:26 Dose: Not Given Insulin Aspart (Novolog Vial Sliding Scale -) 1 vial SQ [facility]; Protocol Last Admin: 07/07/19 11:34 Dose: 3 units Insulin Detemir (Levemir Vial) 12 units SQ AM [facility] Last Admin: 07/07/19 06:35 Dose: 12 units Melatonin (Melatonin) 3 mg PO HS [facility] Last Admin: 07/06/19 21:54 Dose: 3 mg Phenytoin Sodium (Dilantin -) 100 mg PO BID [facility] Last Admin: 07/07/19 10:42 Dose: 100 mg Ranitidine HCl (Zantac -) 150 mg PO BID [facility] Last Admin: 07/07/19 10:42 Dose: 150 mg Tamsulosin HCl (Flomax -) 0.4 mg PO DAILY@0830 [facility] Last Admin: 07/07/19 10:42 Dose: 0.4 mg - Objective Vital Signs: Vital Signs Temperature 98.5 F 07/07/19 06:00 Pulse Rate 93 H 07/07/19 06:00 Respiratory Rate 20 07/07/19 06:00 Blood Pressure 132/81 07/07/19 06:00 O2 Sat by Pulse Oximetry (%) 99 07/06/19 21:00 Constitutional: Yes: Calm, Thin Cardiovascular: Yes: Regular Rate and Rhythm, S1, S2 Respiratory: Yes: CTA Bilaterally Gastrointestinal: Yes: Normal Bowel Sounds, Soft Edema: No Labs: CBC, BMP 07/05/19 09:25 07/03/19 05:43 INR, PTT INR 0.92 (0.83-1.09) 07/01/19 05:40 Problem List - Problems (1) Syncope Assessment/Plan: tele cardio/neurology consult appreciated echo carotid doppler large plaque at right common carotid bifurcation PT iv hydration trend CK Blood pressure on low side carmelo hold anti HTN for now dvt ppx Code(s): R55 - SYNCOPE AND COLLAPSE (2) Urinary retention Assessment/Plan: flomax Code(s): R33.9 - RETENTION OF URINE, UNSPECIFIED (3) Diabetes Assessment/Plan: bgm sliding scale insulin hgba1c 13.4 endocrine on board Code(s): E11.9 - TYPE 2 DIABETES MELLITUS WITHOUT COMPLICATIONS Qualifiers: Diabetes mellitus type: type 2 (4) Seizures Assessment/Plan: dilantin Code(s): R56.9 - UNSPECIFIED CONVULSIONS (5) CAD (coronary artery disease) Assessment/Plan: s/p cabg asa,plavix,lipitor Code(s): I25.10 - ATHSCL HEART DISEASE OF [place] CORONARY ARTERY W/O ANG PCTRS (6) Leukocytosis Assessment/Plan: resolved Code(s): D72.829 - ELEVATED WHITE BLOOD CELL COUNT, UNSPECIFIED
[2019-07-07 13:11] VITALS: BP 122/60; PULSE 90; TEMP 97.7
== END 2019-07-07 13:16 | DRG 67 ==
LOC: JER 07:41 → JERBED 10:53 → J4W 20:51 → OBSVTOIN 07-03 12:39
PROVIDERS: ADMIT Student in an Organized Health Care Education/Training Program; ATTEND Student in an Organized Health Care Education/Training Program
DX: I65.21 Occlusion and stenosis of right carotid artery (principal); E43 Unspecified severe protein-calorie malnutrition; I50.22 Chronic systolic (congestive) heart failure; I47.1 Supraventricular tachycardia; R64 Cachexia; Z68.1 Body mass index [BMI] 19.9 or less, adult; Z95.1 Presence of aortocoronary bypass graft; Z95.0 Presence of cardiac pacemaker; E78.5 Hyperlipidemia, unspecified; E11.9 Type 2 diabetes mellitus without complications; I11.0 Hypertensive heart disease with heart failure; R55 Syncope and collapse; Z86.73 Personal history of transient ischemic attack (TIA), and cerebral infarction without residual deficits; Z79.4 Long term (current) use of insulin; I25.10 Atherosclerotic heart disease of native coronary artery without angina pectoris; R56.9 Unspecified convulsions; R33.9 Retention of urine, unspecified; G30.9 Alzheimer's disease, unspecified; F02.80 Dementia in other diseases classified elsewhere, unspecified severity, without behavioral disturbance, psychotic disturbance, mood disturbance, and anxiety; R10.13 Epigastric pain; D50.9 Iron deficiency anemia, unspecified; W19.XXXA Unspecified fall, initial encounter; Y93.9 Activity, unspecified; Y92.121 Bathroom in nursing home as the place of occurrence of the external cause; Y99.8 Other external cause status
CPT/HCPCS: 36415; 70450-TC; 70498-TC; 71250-TC; 72125-TC; 76700-TC; 76856-TC; 80048; 80053; 80162; 80185; 81003; 82550; 82553; 82607; 82962; 83036; 83540; 83550; 83735; 83880; 84100; 84443; 84484; 85025; 85027; 85610; 85730; 86850; 86900; 86901; 87086; 93005; 93010; 93306-TC; 93880-TC; 97116-GP; 97161-GP; 99283-25; G0378; J1644; J7030

== ENCOUNTER 2019-07-08 19:34 | Emergency (ER) | payer OTHER ==
[2019-07-08 19:39] VITALS: TEMP 98; BMI 20.2
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
[2019-07-08] MEDS ORDERED: ACETAMINOPHEN 325 MG TABLET (FP) PO ONE (21:13)
[2019-07-08] MEDS ORDERED: ACETAMINOPHEN 325 MG TABLET (FP) ONE (21:15)
[2019-07-09 00:26] VITALS: BP 105/53; PULSE 90
== END 2019-07-09 00:22 ==
LOC: JER 19:34
DX: S00.83XA Contusion of other part of head, initial encounter (principal); W03.XXXA Other fall on same level due to collision with another person, initial encounter; Y93.89 Activity, other specified; Y92.128 Other place in nursing home as the place of occurrence of the external cause; Y99.8 Other external cause status; I25.10 Atherosclerotic heart disease of native coronary artery without angina pectoris; I11.0 Hypertensive heart disease with heart failure; Z95.1 Presence of aortocoronary bypass graft; I25.2 Old myocardial infarction; I50.9 Heart failure, unspecified; Z95.0 Presence of cardiac pacemaker; E78.00 Pure hypercholesterolemia, unspecified; E11.9 Type 2 diabetes mellitus without complications; Z79.4 Long term (current) use of insulin; F03.90 Unspecified dementia, unspecified severity, without behavioral disturbance, psychotic disturbance, mood disturbance, and anxiety; D64.9 Anemia, unspecified; Z86.73 Personal history of transient ischemic attack (TIA), and cerebral infarction without residual deficits; Z79.01 Long term (current) use of anticoagulants; Z79.02 Long term (current) use of antithrombotics/antiplatelets
CPT/HCPCS: 70450-TC; 72125-TC; 99282-25